=== PATIENT | female | born 1940 | race American Indian/Alaskan Native ===

== ENCOUNTER 2017-10-31 14:06 | Inpatient (IN) | payer MEDICARE, OTHER ==
[2017-10-31 15:02] LABS: BASO % 0.3 % (0.0-2.0); EOS # 0.1 K/uL (0.0-0.7); EOS % 1.7 % (0.0-4.0); LYMPH # 0.9 K/uL (1.0-4.3); LYMPH % 11.1 % (20.0-40.0); MEAN CORPUSCULAR HEMOGLOBIN 28.8 pg (27.0-31.0); MEAN CORPUSCULAR HGB CONC 32.7 g/dL (33.0-37.0); MEAN PLATELET VOLUME 10.7 fL (7.2-11.7); MONO # 0.4 K/uL (0.0-0.8); MONO % 4.4 % (0.0-10.0); NEUT # 6.7 K/uL (1.8-7.0); NEUT % 82.5 % (50.0-75.0); RBC 3.64 Mil/uL (3.80-5.20); RED CELL DISTRIBUTION WIDTH 16.4 % (11.5-14.5); WHITE BLOOD COUNT 8.2 K/uL (4.8-10.8)
[2017-10-31 15:12] LABS: HEMOGLOBIN 10.5 g/dL (11.0-16.0); PROTHROMBIN TIME 11.3 SECONDS (9.7-12.2)
[2017-10-31 15:23] LABS: ALBUMIN 3.8 g/dL (3.5-5.0); CALCIUM 8.9 mg/dl (8.6-10.4)
[2017-10-31 15:32] LABS: SQUAMOUS EPITHIAL 1 /hpf (0-5); URINE BILIRUBIN NEGATIVE (NEGATIVE); URINE BLOOD NEGATIVE (NEGATIVE); URINE CLARITY Clear (Clear); URINE COLOR Straw (YELLOW); URINE GLUCOSE (UA) NORMAL (Normal); URINE LEUKOCYTE ESTERASE TRACE Leu/uL (Negative); URINE PROTEIN 2+ mg/dL (NEGATIVE); URINE UROBILINOGEN NORMAL mg/dL (0.2-1.0)
[2017-10-31 15:32] LABS: CK-MB 1.79 ng/mL (0.0-3.38); TROPONIN I 0.031 ng/mL (0.00-0.120)
--- NOTE | 2017-10-31 15:43 | RAD ---
PROCEDURE: CHEST RADIOGRAPH, 1 VIEW HISTORY: Altered mental status COMPARISON: 10/06/2015. FINDINGS: LUNGS: The lungs are well inflated and clear. PLEURA: No pneumothorax or pleural fluid seen. CARDIOVASCULAR: Normal. OSSEOUS STRUCTURES: No significant abnormalities. VISUALIZED UPPER ABDOMEN: Normal. OTHER FINDINGS: None. IMPRESSION: No active pulmonary disease.
--- NOTE | 2017-10-31 15:45 | RAD ---
PROCEDURE: Right Hip Radiographs. HISTORY: RIGHT HIP PAIN AFTER FALL COMPARISON: None. FINDINGS: BONES: The pelvic ring is intact. There is no acute displaced fracture or bone destruction. Bone alignment is normal. There is diffuse bone demineralization. JOINTS: There is mild degenerative osteoarthrosis in the hip joints. SOFT TISSUES: Normal. OTHER FINDINGS: None. IMPRESSION: No acute displaced fracture or dislocation.Please note occult fractures cannot be excluded on plain radiographs. If there is a persistent clinical concern, an MRI of the hip may be performed for further evaluation.
--- NOTE | 2017-10-31 15:50 | C.PDOC ---
History Of Present Illness Patient brought to ED by daughter for evaluation after several falls since , and mildly slurred speech since tuesday. Daughter states Tuesday she noticed that patient also had mild right sided weakness, however she did not want to come to hospital at this time. Patient denies chest pain, SOB, abdominal pain, nausea/vomiting, dizziness, headache, visual changes, facial droop, sensory changes. PMhx of HTN, hyperlipidemia, Alzheimer's disease, CAD. Time Seen by Provider: 10/31/17 14:29 Chief Complaint (Nursing): Weakness/Neurological Deficit History Per: Patient, Family History/Exam Limitations: no limitations Onset/Duration Of Symptoms: Days (5) Current Symptoms Are (Timing): Still Present Fall Associated With With Symptoms: Yes Past Medical History Reviewed: Historical Data, Nursing Documentation, Vital Signs Vital Signs: Last Vital Signs Temp 98.8 F 11/03/17 08:38 Pulse 75 11/03/17 13:25 Resp 20 11/03/17 13:25 BP 137/72 11/03/17 13:25 Pulse Ox 98 11/03/17 13:25 - Medical History PMH: Arthritis, Atrial Fibrillation (New onset), HTN, Hyperlipidemia, Seizures ( childhood) Surgical History: Back Surgery - [facility] Procedures CORONAR ARTERIOGR-2 CATH (03/13/15) RT & LT HEART ANGIOCARD (03/13/15) RT/LEFT HEART CARD CATH (03/13/15) Family History: States: Other Other Family History: noncontributory - Social History Hx Tobacco Use: No Hx Alcohol Use: No Hx Substance Use: No - Immunization History Hx Tetanus Toxoid Vaccination: No Hx Influenza Vaccination: No Hx Pneumococcal Vaccination: No Review Of Systems Except As Marked, All Systems Reviewed And Found Negative. Constitutional: Negative for: Fever, Chills Cardiovascular: Negative for: Chest Pain, Palpitations Respiratory: Negative for: Shortness of Breath Gastrointestinal: Negative for: Nausea, Vomiting, Abdominal Pain, Diarrhea Musculoskeletal: Positive for: Other (right hip pain ) Skin: Negative for: Rash Neurological: Positive for: Change in Speech (slurred speech). Negative for: Weakness, Numbness, Seizures, Altered Mental Status, Headache, Dizziness Physical Exam - Physical Exam Appears: Well, Non-toxic, No Acute Distress Skin: Normal Color, Warm, Diaphoretic Head: Atraumatic, Normacephalic Eye(s): bilateral: Normal Inspection, PERRL, EOMI Oral Mucosa: Moist Cardiovascular: Rhythm Regular Respiratory: Normal Breath Sounds, No Rales, No Rhonchi, No Wheezing Gastrointestinal/Abdominal: Normal Exam, Bowel Sounds, Soft, No Tenderness Back: Normal Inspection, No CVA Tenderness Extremity: Tenderness (right lateral hip mildly TTP with mild swelling/contusion , no deformity, ROM intact ), No Calf Tenderness Pulses: Left Dorsalis Pedis: Normal, Right Dorsalis Pedis: Normal Neurological/Psych: Oriented x3, No Normal Speech (mildly slurred speech ), Normal Cognition, Normal Cranial Nerves, No Cerebellar Signs, Normal Motor, Normal Sensation, No Dysarthria, No Romberg, Other (normal finger to nose ) ED Course And Treatment - Laboratory Results Result Diagrams: 10/31/17 14:58 11/01/17 13:57 ECG: Interpreted By Me, Viewed By Me (NSR 67 bpm, left axis deviation, no acute ST/T wave changes) O2 Sat by Pulse Oximetry: 100 (RA) Pulse Ox Interpretation: Normal - Other Rad CXR X-Ray: Viewed By Me, Read By Radiologist Interpretation: Accession No. : [id number]. Patient Name / ID : MELISA BROWN / [id number]. Exam Date : 10/31/2017 15:19:07 ( Approved ). Study Comment : Sex / Age : F / 76Y. Creator : Kassie Nash MD. Dictator : Kassie Nash MD. Technical Solutions Consultant : Semiautomatic Stitcher Operator : Kassie Nash MD. Approver2 : Report Date : 10/31/2017 15:42:00. My Comment : . PROCEDURE: CHEST RADIOGRAPH, 1 VIEW. HISTORY: Altered mental status. COMPARISON: . FINDINGS: LUNGS: The lungs are well inflated and clear. PLEURA: No pneumothorax or pleural fluid seen. CARDIOVASCULAR: Normal. OSSEOUS STRUCTURES: No significant abnormalities. VISUALIZED UPPER ABDOMEN: Normal. OTHER FINDINGS: None. IMPRESSION: No active pulmonary disease. - CT Scan/US HIPS/PELVIS XRAY Other Rad Studies (CT/US): Read By Radiologist, Radiology Report Reviewed CT/US Interpretation: Accession No. : [id number]. Patient Name / ID : MELISA BROWN / [id number]. Exam Date : 10/31/2017 15:19:37 ( Approved ). Study Comment : Sex / Age : F / 76Y. Creator : Kassie Nash MD. Dictator : Kassie Nash MD. Technical Solutions Consultant : Semiautomatic Stitcher Operator : Kassie Nash MD. Approver2 : Report Date : 10/31/2017 15:44:00. My Comment : . PROCEDURE: Right Hip Radiographs. HISTORY: RIGHT HIP PAIN AFTER FALL. COMPARISON: None. FINDINGS: BONES: The pelvic ring is intact. There is no acute displaced fracture or bone destruction. Bone alignment is normal. There is diffuse bone demineralization. JOINTS: There is mild degenerative osteoarthrosis in the hip joints. SOFT TISSUES: Normal. OTHER FINDINGS: None. IMPRESSION: No acute displaced fracture or dislocation.Please note occult fractures cannot be excluded on plain radiographs. If there is a persistent clinical concern, an MRI of the hip may be performed for further evaluation. CT HEAD Other Rad Studies (CT/US): Read By Radiologist, Radiology Report Reviewed CT/US Interpretation: Accession No. : [id number]. Patient Name / ID : MELISA BROWN / [id number]. Exam Date : 10/31/2017 15:46:21 ( Approved ). Study Comment : Sex / Age : F / 76Y. Creator : Raina Emmanuel. Dictator : Mushtaq Reza MD. Technical Solutions Consultant : Semiautomatic Stitcher Operator : Mushtaq Reza MD. Approver2 : Report Date : 10/31/2017 16:02:34. My Comment : . PROCEDURE: CT HEAD WITHOUT CONTRAST. HISTORY: SLURRED SPEECH, R/O CVA. COMPARISON: None available. TECHNIQUE: Axial computed tomography images were obtained through the head/brain without intravenous contrast. Radiation dose: Total exam DLP = 937.85 mGy-cm. This CT exam was performed using one or more of the following dose reduction techniques: Automated exposure control, adjustment of the mA and/or kV according to patient size, and/or use of iterative reconstruction technique. FINDINGS: HEMORRHAGE: No intracranial hemorrhage. BRAIN: A right marcelina chronic lacune is identified. Otherwise, diffuse cerebral atrophy is identified, manifest by mild expansion of the ventricular sulcal sternal spaces. There is also lucency in the white matter primarily in the centrum semiovale and periventricular spaces compatible with chronic microangiopathy. There is no mass effect or suspicious extra-axial collection. The midline brain and appears unremarkable exclusive of the marcelina. VENTRICLES: Unremarkable. No hydrocephalus. CALVARIUM: Unremarkable. PARANASAL SINUSES: Incidental left sphenoid sinusitis is mildly appreciated. MASTOID AIR CELLS: Unremarkable as visualized. No inflammatory changes. OTHER FINDINGS: None. IMPRESSION: No acute intracranial findings are identified at this time. Age related neuro degenerative changes are noted which appear age-appropriate, as well as a chronic lacune right marcelina. Follow-up CT or MRI are advised given clinical history of potential brain infarction. Progress Note: Blood work, EKG, CXR, CT head ordered and reviewed. Patient given PO ASA. - Physician Consult Information Physician Contacted: Amanuel Aguilar Outcome Of Conversation: Discussed patient with PMD, agrees with admission for TIA/CVA, slurred speech, recurrent falls. NIHSS Stroke Scale 2 - Date/Time Evaluation Performed Date Performed: 10/31/17 Time Performed: 14:55 When Was NIHSS Performed: Baseline - How Severe is the Stroke Level of Consciousness: 0=Alert LOC to Questions: 0=Both comments correct LOC to commands: 0=Obeys both correctly Best Gaze: 0=Normal Visual: 0=No visual loss Facial: 0=Normal Motor Arm - Left: 0=No drift Motor Arm - Right: 0=No drift Motor Leg - Left: 0=No drift Motor Leg - Right: 0=No drift Limb Ataxia: 0=Absent Sensory: 0=Normal Best Language: 0=No aphasia Dysarthia: 1=Mild to moderate slurring Extinction & Inattention (Neglect): 0=Normal, no object Score: 1 rTPA Inclusion/Exclusion - Refusal of Treatment Patient Refused Treatment: No - Inclusion Criteria for Altepase Patient is 18 years or Older: Yes The Clinical Diagnosis of Ischemic Stroke That is Causing a Potentially Disabling Neurological Deficit: No Time of Onset is Well Established to be Less Than 270 Minute Before Treatment Would Begin: No Risk/Benefit Discussed With Patient/Family Member Present: No Disposition - Disposition Disposition: HOSPITALIZED Disposition Time: 17:59 Condition: STABLE - Clinical Impression Clinical Impression: Recurrent falls, CVA (cerebral vascular accident), Slurred speech Decision To Admit - Pt Status Changed To: Hospital Disposition Of: Inpatient - Admit Certification Admit to Inpatient:: After my assessment, the patient will require hospitalization for at least two midnights. This is because of the severity of symptoms shown, intensity of services needed, and/or the medical risk in this patient being treated as an outpatient. - InPatient: Physician Admission Certification: I certify that this patient requires 2 or more midnights of care for the following reason:: see notes - . Bed Request Type: Telemetry Admitting Physician: Amanuel Aguilar Patient Diagnosis: CVA (cerebral vascular accident), Recurrent falls, Slurred speech
--- NOTE | 2017-10-31 16:23 | CT ---
PROCEDURE: CT HEAD WITHOUT CONTRAST. HISTORY: SLURRED SPEECH, R/O CVA COMPARISON: None available. TECHNIQUE: Axial computed tomography images were obtained through the head/brain without intravenous contrast. Radiation dose: Total exam DLP = 937.85 mGy-cm. This CT exam was performed using one or more of the following dose reduction techniques: Automated exposure control, adjustment of the mA and/or kV according to patient size, and/or use of iterative reconstruction technique. FINDINGS: HEMORRHAGE: No intracranial hemorrhage. BRAIN: A right marcelina chronic lacune is identified. Otherwise, diffuse cerebral atrophy is identified, manifest by mild expansion of the ventricular sulcal sternal spaces. There is also lucency in the white matter primarily in the centrum semiovale and periventricular spaces compatible with chronic microangiopathy. There is no mass effect or suspicious extra-axial collection. The midline brain and appears unremarkable exclusive of the marcelina. VENTRICLES: Unremarkable. No hydrocephalus. CALVARIUM: Unremarkable. PARANASAL SINUSES: Incidental left sphenoid sinusitis is mildly appreciated. MASTOID AIR CELLS: Unremarkable as visualized. No inflammatory changes. OTHER FINDINGS: None. IMPRESSION: No acute intracranial findings are identified at this time. Age related neuro degenerative changes are noted which appear age-appropriate, as well as a chronic lacune right marcelina. Follow-up CT or MRI are advised given clinical history of potential brain infarction.
[2017-10-31] MEDS ORDERED: Naproxen 275 mg Tab PO PRN (19:31)
[2017-10-31 20:12] VITALS: RESP 20
--- NOTE | 2017-10-31 21:35 | CP.PCM.HP ---
History of Present Illness - History of Present Illness History of Present Illness: CC: weakness HPI: Patient brought to ED by daughter for evaluation after several falls since , and mildly slurred speech since tuesday. Daughter states tuesday she noticed that patient also had mild right sided weakness, however she did not want to come to hospital at this time. Patient denies chest pain, SOB, abdominal pain, nausea/vomiting, dizziness, headache, visual changes, facial droop, sensory changes. PMhx of HTN, hyperlipidemia, Alzheimer's disease, CAD. Past Patient History - Infectious Disease Hx of Infectious Diseases: None - Past Medical History & Family History Past Medical History?: Yes - Past Social History Smoking Status: Never Smoked - CARDIAC Hx Atrial Fibrillation: Yes (New onset) Hx Hypertension: Yes - PULMONARY Hx Respiratory Disorders: No - NEUROLOGICAL Hx Seizures: Yes (childhood) - HEENT Hx HEENT Problems: No Other/Comment: WEARS GLASSES - RENAL Hx Chronic Kidney Disease: No - ENDOCRINE/METABOLIC Hx Diabetes Mellitus Type 2: Yes - HEMATOLOGICAL/ONCOLOGICAL Hx Blood Disorders: No - INTEGUMENTARY Hx Dermatological Problems: No - MUSCULOSKELETAL/RHEUMATOLOGICAL Hx Arthritis: Yes - GASTROINTESTINAL Hx Gastrointestinal Disorders: No - GENITOURINARY/GYNECOLOGICAL Hx Genitourinary Disorders: No - PSYCHIATRIC Hx Substance Use: No - SURGICAL HISTORY Hx Surgeries: Yes Hx Orthopedic Surgery: Yes (Back surgery) Other/Comment: Back surgery in 2008 - ANESTHESIA Hx Anesthesia: Yes (Novacaine during tooth extraction) Hx Anesthesia Reactions: No Hx Malignant Hyperthermia: No Meds Allergies/Adverse Reactions: Allergies Allergy/AdvReac Type Severity Reaction Status Date / Time No Known Allergies Allergy Verified 10/06/15 12:18 Results - Vital Signs Recent Vital Signs: Last Vital Signs Temp 98.7 F 10/31/17 17:26 Pulse 89 10/31/17 20:12 Resp 20 10/31/17 20:12 BP 120/90 10/31/17 20:12 Pulse Ox 97 10/31/17 20:12 - Labs Result Diagrams: 10/31/17 14:58 10/31/17 14:58 Labs: Laboratory Results - last 24 hr 10/31/17 10/31/17 10/31/17 14:58 14:58 14:58 WBC 8.2 RBC 3.64 L Hgb 10.5 L D Hct 32.1 L MCV 88.0 D MCH 28.8 MCHC 32.7 L RDW 16.4 H Plt Count 203 MPV 10.7 Neut % (Auto) 82.5 H Lymph % (Auto) 11.1 L [place] % (Auto) 4.4 Eos % (Auto) 1.7 Baso % (Auto) 0.3 Neut # (Auto) 6.7 Lymph # (Auto) 0.9 L [place] # (Auto) 0.4 Eos # (Auto) 0.1 Baso # (Auto) 0.0 PT 11.3 INR 1.0 APTT 28 Sodium 144 Potassium 4.4 Chloride 104 Carbon Dioxide 25 Anion Gap 19 BUN 28 H Creatinine 1.3 H Est GFR ( Amer) 48 Est GFR (Non-Af Amer) 40 Random Glucose 186 H Calcium 8.9 Total Bilirubin 0.6 AST 36 ALT 8 L D Alkaline Phosphatase 62 Total Creatine Kinase 118 CK-MB (Mass) 1.79 Troponin I 0.0310 Total Protein 7.4 Albumin 3.8 Globulin 3.6 Albumin/Globulin Ratio 1.0 Urine Color Urine Clarity Urine pH Ur Specific [place] Urine Protein Urine Glucose (UA) Urine Ketones Urine Blood Urine Nitrate Urine Bilirubin Urine Urobilinogen Ur Leukocyte Esterase Urine WBC (Auto) Urine RBC (Auto) Ur Squamous Epith Cells 10/31/17 15:24 WBC RBC Hgb Hct MCV MCH MCHC RDW Plt Count MPV Neut % (Auto) Lymph % (Auto) [place] % (Auto) Eos % (Auto) Baso % (Auto) Neut # (Auto) Lymph # (Auto) [place] # (Auto) Eos # (Auto) Baso # (Auto) PT INR APTT Sodium Potassium Chloride Carbon Dioxide Anion Gap BUN Creatinine Est GFR ( Amer) Est GFR (Non-Af Amer) Random Glucose Calcium Total Bilirubin AST ALT Alkaline Phosphatase Total Creatine Kinase CK-MB (Mass) Troponin I Total Protein Albumin Globulin Albumin/Globulin Ratio Urine Color Straw Urine Clarity Clear Urine pH 6.0 Ur Specific [place] 1.011 Urine Protein 2+ H Urine Glucose (UA) Normal Urine Ketones Negative Urine Blood Negative Urine Nitrate Negative Urine Bilirubin Negative Urine Urobilinogen Normal Ur Leukocyte Esterase Trace Urine WBC (Auto) 3 Urine RBC (Auto) 1 Ur Squamous Epith Cells 1
[2017-10-31] MEDS: (Novolin R) Insulin Human Regular 100 units/ml vial SC SCH (21:55)
[2017-10-31 22:10] LABS: IRON 25 ug/dL (37-170)
[2017-10-31 22:20] LABS: % IRON SATURATION 7 (20-55); TOTAL IRON BINDING CAPACITY 374 ug/dL (250-450)
[2017-10-31] MEDS: Rosuvastatin Calcium 2.5 mg Tab PO SCH (22:26)
[2017-11-01] MEDS: (Novolin R) Insulin Human Regular 100 units/ml vial SC SCH ×3 (08:00→22:43)
[2017-11-01] MEDS: Metoprolol Succinate 100 mg XL Tab PO SCH (09:02)
[2017-11-01] MEDS: Enoxaparin 40 mg Syringe SC SCH (10:09)
--- NOTE | 2017-11-01 12:16 | MRI ---
PROCEDURE: MRI BRAIN WITHOUT CONTRAST HISTORY: falls COMPARISON: None. TECHNIQUE: Multiplanar, multisequence MR images of the brain were obtained without intravenous contrast enhancement. FINDINGS: HEMORRHAGE: None DWI: No evidence of an acute or early subacute infarction. BRAIN PARENCHYMA: No mass effect or edema. Mild atrophy and chronic microvascular ischemic changes. VENTRICLES: Unremarkable. No hydrocephalus. CRANIUM: Unremarkable. ORBITS: Grossly unremarkable. PARANASAL SINUSES/MASTOIDS: Left sphenoid sinus disease. VASCULAR SYSTEM: Skull base flow voids intact. OTHER FINDINGS: None. IMPRESSION: Mild atrophy and chronic microvascular ischemic changes.
--- NOTE | 2017-11-01 13:02 | VASCLAB ---
PROCEDURE: HISTORY: stenosis COMPARISON: None available. TECHNIQUE: Grayscale and duplex Doppler evaluation of the cervical carotid and vertebral arteries were performed. The common carotid, carotid bifurcations and cervical Internal Carotid Artery (ICA) and proximal External Carotid Artery (ECA) were evaluated. The vertebral arteries were evaluated for gross patency and flow direction. Report prepared by Joey Guzmán, BS, RVT FINDINGS: RIGHT CAROTID ARTERIES: 1. Common Carotid Artery: No significant focal plaque formation of the right common carotid artery. Maximum Peak Systolic velocity: 74 cm/sec: End-diastolic velocity 16 cm/sec. 2. Carotid Bifurcation: Calcific plaque formation. Maximum Peak Systolic velocity: 49 cm/sec: End-diastolic velocity 7 cm/sec. 3. Internal Carotid Artery: Plaque description: 3.1. Proximal Segment: Peak systolic velocity 96 cm/sec: End-diastolic velocity 30 cm/sec - % stenosis 0-15% 3.2. Middle Segment: Peak systolic velocity 63 cm/sec: End-diastolic velocity 16 cm/sec - % stenosis 0-15% 3.3. Distal Segment: Peak systolic velocity 95 cm/sec: End-diastolic velocity 33 cm/sec - % stenosis 0-15% 4. External Carotid Artery: No significant focal plaque formation. Peak systolic velocity 111 cm/sec 5. ICA/CCA Ratio: 1.3 LEFT CAROTID ARTERIES: 1. Common Carotid Artery: No significant focal plaque formation of the left common carotid artery. Maximum Peak Systolic velocity: 56 cm/sec: End-diastolic velocity 16 cm/sec. 2. Carotid Bifurcation: Calcific plaque formation. Maximum Peak Systolic velocity: 57 cm/sec: End-diastolic velocity 17 cm/sec. 3. Internal Carotid Artery: Plaque description: 3.1. Proximal Segment: Peak systolic velocity 64 cm/sec: End-diastolic velocity 22 cm/sec - % stenosis 0-15% 3.2. Middle Segment: Peak systolic velocity 114 cm/sec: End-diastolic velocity 32 cm/sec - % stenosis 0-15% 3.3. Distal Segment: Peak systolic velocity 119 cm/sec: End-diastolic velocity 39 cm/sec - % stenosis 0-15% 4. External Carotid Artery: No significant focal plaque formation. Peak systolic velocity 530 cm/sec 5. ICA/CCA Ratio: 2.1 VERTEBRAL ARTERIES: 1. Right Vertebral Artery: The right vertebral artery flow direction is antegrade. 2. Left Vertebral Artery: The left vertebral artery flow direction is antegrade. OTHER FINDINGS: 1. Right Brachial Blood pressure: 186 mmHg. 2. Left Brachial Blood pressure: mmHg. IMPRESSION: RIGHT: Duplex scan does not suggest hemodynamically significant stenosis of the right extracranial carotid arteries. LEFT: Duplex scan does not suggest hemodynamically significant stenosis of the left extracranial carotid arteries.
[2017-11-01 14:27] LABS: BLOOD UREA NITROGEN 18 mg/dL (7-17); CALCIUM 9.1 mg/dl (8.6-10.4); GFR AFRICAN-AMERICAN > 60; GFR NON-AFRICAN AMERICAN 54; HDL CHOLESTEROL 55 mg/dL (30-70)
[2017-11-01 14:37] LABS: LDL CHOLESTEROL 58 mg/dL (0-129)
[2017-11-01] MEDS: Ferric Sodium Gluconat Complex 62.5 mg/5 ml Vial IVPB SCH (15:09)
--- NOTE | 2017-11-01 17:09 | CARD ---
APPROVED REPORT EKG Measurement Heart [id number] ID [id number] <Conclusion> Normal sinus rhythm Normal ECG
--- NOTE | 2017-11-01 18:22 | CARD ---
APPROVED REPORT EXAM: Two-dimensional and M-mode echocardiogram with Doppler and color Doppler. INDICATION CVA/TIA Dizziness and Vertigo Non STEMI RISK FACTORS Diabetes 2D DIMENSIONS IVSd1.9 (0.7-1.1cm)LVDd4.4 (3.9-5.9cm) PWd1.8 (0.7-1.1cm)LVDs3.1 (2.5-4.0cm) FS (%) 27.9 %LVEF (%)50.0 (>50%) M-Mode DIMENSIONS Left Atrium (MM)3.22 (2.5-4.0cm)Aortic Root3.30 (2.2-3.7cm) Aortic Cusp Exc.2.08 (1.5-2.0cm) Mitral Valve MV E Wopjexpt54.5cm/sMV A Pezwflme81.8cm/sE/A ratio0.5 TDI E/Lateral E'0.0E/Medial E'0.0 LEFT VENTRICLE The left ventricle is normal size. There is moderate concentric left ventricular hypertrophy. Left ventricle systolic function is normal. The Ejection Fraction is 50-55%. There is normal LV segmental wall motion. Tissue Doppler imaging reveals abnormal left ventricular diastolic dysfunction. RIGHT VENTRICLE The right ventricle is normal size. There is normal right ventricular wall thickness. The right ventricular systolic function is normal. ATRIA The left atrium size is normal. The right atrium size is normal. The interatrial septum is intact with no evidence for an atrial septal defect. AORTIC VALVE The aortic valve is normal in structure. There is trace aortic regurgitation. There is no aortic valvular stenosis. There is no aortic valvular vegetation. MITRAL VALVE The mitral valve is normal in structure. There is no evidence of mitral valve prolapse. There is no mitral valve stenosis. Mitral regurgitation is mild. TRICUSPID VALVE The tricuspid valve is normal in structure. There is no tricuspid valve regurgitation noted. There is no tricuspid valve prolapse or vegetation. PULMONIC VALVE The pulmonic valve is not well visualized. There is trace pulmonic valvular regurgitation. GREAT VESSELS The aortic root is normal in size. PERICARDIAL EFFUSION There is no significant pericardial effusion. <Conclusion> Left ventricle systolic function is normal. The Ejection Fraction is 50-55%. Diastolic dysfunction. There is trace aortic regurgitation. Mitral regurgitation is mild. There is no tricuspid valve regurgitation noted. There is trace pulmonic valvular regurgitation.
[2017-11-01] MEDS: Rosuvastatin Calcium 2.5 mg Tab PO SCH (21:35)
--- NOTE | 2017-11-01 23:02 | CP.PCM.PN ---
Subjective - Date & Time of Evaluation Date of Evaluation: 11/01/17 Time of Evaluation: 18:00 - Subjective Subjective: Pt seen and examined at bedside Objective - Vital Signs/Intake and Output Vital Signs (last 24 hours): Temp Pulse Resp BP Pulse Ox 98.0 F 61 20 190/76 H 99 11/01/17 16:00 11/01/17 16:45 11/01/17 16:00 11/01/17 18:34 11/01/17 16:00 Intake and Output: 11/01/17 11/02/17 18:59 06:59 Intake Total 350 500 Balance 350 500 - Medications Medications: Current Medications Aspirin (Aspirin Chewable) 81 mg PO DAILY [facility] Last Admin: 11/01/17 21:35 Dose: 81 mg Clopidogrel Bisulfate (Plavix) 75 mg PO DAILY [facility] Last Admin: 11/01/17 10:09 Dose: 75 mg Enalapril Maleate (Vasotec) 20 mg PO BID [facility] Last Admin: 11/01/17 18:34 Dose: 20 mg Enoxaparin Sodium (Lovenox) 40 mg SC DAILY [facility] Last Admin: 11/01/17 10:09 Dose: 40 mg Famotidine (Pepcid) 20 mg PO DAILY [facility] Last Admin: 11/01/17 10:09 Dose: 20 mg Ferric Sodium Gluconate Complex (Ferrlecit) 125 mg IVPB DAILY [facility] Stop: 11/03/17 14:31 Last Admin: 11/01/17 15:09 Dose: 125 mg Gabapentin (Neurontin) 600 mg PO TID [facility] Last Admin: 11/01/17 18:34 Dose: 600 mg Hydralazine HCl (Apresoline) 25 mg PO Q8 [facility] Last Admin: 11/01/17 21:35 Dose: 25 mg Hydrochlorothiazide (Microzide) 12.5 mg PO DAILY [facility] Last Admin: 11/01/17 10:09 Dose: 12.5 mg Insulin Human Regular (Novolin R) 0 unit SC [facility] PRN Reason: Protocol Last Admin: 11/01/17 22:43 Dose: Not Given Metformin HCl (Glucophage) 500 mg PO BID [facility] Last Admin: 11/01/17 18:34 Dose: 500 mg Metoprolol Succinate (Toprol Xl) 100 mg PO DAILY [facility] Last Admin: 11/01/17 09:02 Dose: Not Given Naproxen (Anaprox) 275 mg PO BID PRN PRN Reason: Pain, moderate (4-7) Pneumococcal Polyvalent Vaccine (Pneumovax 23 Vaccine) 0.5 ml IM .ONCE ONE Stop: 11/02/17 10:01 Rosuvastatin Calcium (Crestor) 2.5 mg PO [facility] Last Admin: 11/01/17 21:35 Dose: 2.5 mg Sitagliptin Phosphate (Januvia) 50 mg PO BID [facility] Last Admin: 11/01/17 18:34 Dose: 50 mg - Labs Labs: 10/31/17 14:58 11/01/17 13:57 PT 11.3 SECONDS (9.7-12.2) 10/31/17 14:58 INR 1.0 10/31/17 14:58 APTT 28 SECONDS (21-34) 10/31/17 14:58
[2017-11-02] MEDS: (Novolin R) Insulin Human Regular 100 units/ml vial SC SCH ×4 (07:37→21:36)
[2017-11-02] MEDS ORDERED: Pneumococcal 23-Valent Vaccine IM ONE (10:00)
[2017-11-02] MEDS: Metoprolol Succinate 100 mg XL Tab PO SCH (10:35)
[2017-11-02] MEDS: Enoxaparin 40 mg Syringe SC SCH ×2 (10:36→10:57)
[2017-11-02] MEDS: Ferric Sodium Gluconat Complex 62.5 mg/5 ml Vial IVPB SCH (10:37)
[2017-11-02] MEDS: Rosuvastatin Calcium 2.5 mg Tab PO SCH (21:13)
--- NOTE | 2017-11-02 23:52 | CP.PCM.PN ---
Subjective - Date & Time of Evaluation Date of Evaluation: 11/02/17 Time of Evaluation: 18:00 - Subjective Subjective: pt seen and examined Objective - Vital Signs/Intake and Output Vital Signs (last 24 hours): Temp Pulse Resp BP Pulse Ox 98.2 F 56 L 20 138/75 100 11/02/17 15:17 11/02/17 23:32 11/02/17 15:17 11/02/17 17:12 11/02/17 15:17 - Medications Medications: Current Medications Aspirin (Aspirin Chewable) 81 mg PO DAILY [facility] Last Admin: 11/02/17 10:44 Dose: 81 mg Clopidogrel Bisulfate (Plavix) 75 mg PO DAILY [facility] Last Admin: 11/02/17 10:35 Dose: 75 mg Enalapril Maleate (Vasotec) 20 mg PO BID [facility] Last Admin: 11/02/17 17:12 Dose: 20 mg Enoxaparin Sodium (Lovenox) 40 mg SC DAILY [facility] Last Admin: 11/02/17 10:57 Dose: Not Given Famotidine (Pepcid) 20 mg PO DAILY [facility] Last Admin: 11/02/17 10:44 Dose: 20 mg Ferric Sodium Gluconate Complex (Ferrlecit) 125 mg IVPB DAILY [facility] Stop: 11/03/17 14:31 Last Admin: 11/02/17 10:37 Dose: 125 mg Gabapentin (Neurontin) 600 mg PO TID [facility] Last Admin: 11/02/17 17:12 Dose: 600 mg Hydralazine HCl (Apresoline) 25 mg PO Q8 [facility] Last Admin: 11/02/17 21:13 Dose: 25 mg Hydrochlorothiazide (Microzide) 12.5 mg PO DAILY [facility] Last Admin: 11/02/17 10:36 Dose: 12.5 mg Insulin Human Regular (Novolin R) 0 unit SC [facility] PRN Reason: Protocol Last Admin: 11/02/17 21:36 Dose: Not Given Metformin HCl (Glucophage) 500 mg PO BID [facility] Last Admin: 11/02/17 17:12 Dose: 500 mg Metoprolol Succinate (Toprol Xl) 100 mg PO DAILY [facility] Last Admin: 11/02/17 10:35 Dose: 100 mg Naproxen (Anaprox) 275 mg PO BID PRN PRN Reason: Pain, moderate (4-7) Rosuvastatin Calcium (Crestor) 2.5 mg PO HS [facility] Last Admin: 11/02/17 21:13 Dose: 2.5 mg Sitagliptin Phosphate (Januvia) 50 mg PO BID [facility] Last Admin: 11/02/17 17:12 Dose: 50 mg - Labs Labs: 10/31/17 14:58 11/01/17 13:57 PT 11.3 SECONDS (9.7-12.2) 10/31/17 14:58 INR 1.0 10/31/17 14:58 APTT 28 SECONDS (21-34) 10/31/17 14:58
[2017-11-03] MEDS: (Novolin R) Insulin Human Regular 100 units/ml vial SC SCH ×2 (07:26→11:30)
[2017-11-03 08:39] VITALS: TEMP 98.8
[2017-11-03] MEDS: Enoxaparin 40 mg Syringe SC SCH (09:03)
[2017-11-03] MEDS: Metoprolol Succinate 100 mg XL Tab PO SCH (09:04)
[2017-11-03] MEDS: Ferric Sodium Gluconat Complex 62.5 mg/5 ml Vial IVPB SCH (09:10)
--- NOTE | 2017-11-03 12:31 | CP.PCM.PN ---
Subjective - Date & Time of Evaluation Date of Evaluation: 11/03/17 Time of Evaluation: 11:00 - Subjective Subjective: Patient seen today, denies any chest pain, sob abdominal pain, N/V/D , c/o LE weakness Objective - Vital Signs/Intake and Output Vital Signs (last 24 hours): Temp Pulse Resp BP Pulse Ox 98.8 F 72 20 129/66 100 11/03/17 08:38 11/03/17 08:38 11/03/17 08:38 11/03/17 09:09 11/03/17 08:38 - Medications Medications: Current Medications Aspirin (Aspirin Chewable) 81 mg PO DAILY [facility] Last Admin: 11/03/17 09:03 Dose: 81 mg Clopidogrel Bisulfate (Plavix) 75 mg PO DAILY [facility] Last Admin: 11/03/17 09:08 Dose: 75 mg Enalapril Maleate (Vasotec) 20 mg PO BID [facility] Last Admin: 11/03/17 09:09 Dose: 20 mg Enoxaparin Sodium (Lovenox) 40 mg SC DAILY [facility] Last Admin: 11/03/17 09:03 Dose: 40 mg Famotidine (Pepcid) 20 mg PO DAILY [facility] Last Admin: 11/03/17 09:03 Dose: 20 mg Ferric Sodium Gluconate Complex (Ferrlecit) 125 mg IVPB DAILY [facility] Stop: 11/03/17 14:31 Last Admin: 11/03/17 09:10 Dose: 125 mg Gabapentin (Neurontin) 600 mg PO TID [facility] Last Admin: 11/03/17 09:04 Dose: 600 mg Hydralazine HCl (Apresoline) 25 mg PO Q8 [facility] Last Admin: 11/03/17 05:46 Dose: 25 mg Hydrochlorothiazide (Microzide) 12.5 mg PO DAILY [facility] Last Admin: 11/03/17 09:03 Dose: 12.5 mg Insulin Human Regular (Novolin R) 0 unit SC ACHS [facility] PRN Reason: Protocol Last Admin: 11/03/17 07:26 Dose: Not Given Metformin HCl (Glucophage) 500 mg PO BID [facility] Last Admin: 11/03/17 10:51 Dose: 500 mg Metoprolol Succinate (Toprol Xl) 100 mg PO DAILY [facility] Last Admin: 11/03/17 09:04 Dose: 100 mg Naproxen (Anaprox) 275 mg PO BID PRN PRN Reason: Pain, moderate (4-7) Rosuvastatin Calcium (Crestor) 2.5 mg PO HS [facility] Last Admin: 11/02/17 21:13 Dose: 2.5 mg Sitagliptin Phosphate (Januvia) 50 mg PO BID [facility] Last Admin: 11/03/17 10:45 Dose: Not Given - Labs Labs: 10/31/17 14:58 11/01/17 13:57 PT 11.3 SECONDS (9.7-12.2) 10/31/17 14:58 INR 1.0 10/31/17 14:58 APTT 28 SECONDS (21-34) 10/31/17 14:58 - Constitutional Appears: Well, No Acute Distress - Respiratory Exam Respiratory Exam: Clear to Ausculation Bilateral, NORMAL BREATHING PATTERN - Cardiovascular Exam Cardiovascular Exam: REGULAR RHYTHM, +S1, +S2 - Neurological Exam Neurological Exam: Alert, Awake, Oriented x3 Assessment and Plan - Assessment and Plan (Free Text) Assessment: A/P 76 yr female with pmhx of HTN, Hyperlipidemia, s/p multiple fall at home admitted with slurred speech and LE weakness MRI-Mild atrophy and chronic microvascular ischemic changes. [id number]% carotid doppler- normal Patient accepted at rehab at [facility] and patient and family in agreement D/w Dr. Aguilar, stable for discharge to [facility] today and Dr. Aguilar will follow the patient at [facility]
[2017-11-03 13:26] VITALS: BP 137/72; PULSE 75
[2017-11-03 22:58] VITALS: O2SAT 100
--- NOTE | 2017-11-03 23:23 | CP.PCM.DIS ---
Provider - Provider Date of Admission: 11/02/17 12:27 Attending physician: Amanuel Aguilar MD Time Spent in preparation of Discharge (in minutes): 52 Hospital Course - Lab Results Lab Results: Micro Results 10/31/17 22:30 Blood Blood Culture - Preliminary NO GROWTH AFTER 3 DAYS 10/31/17 16:30 Blood Blood Culture - Preliminary NO GROWTH AFTER 3 DAYS 10/31/17 Unknown Urine Urine Culture - Final No Growth (<1,000 CFU/ML) Most Recent Lab Values WBC 8.2 K/uL (4.8-10.8) 10/31/17 14:58 RBC 3.64 Mil/uL (3.80-5.20) L 10/31/17 14:58 Hgb 10.5 g/dL (11.0-16.0) L D 10/31/17 14:58 Hct 32.1 % (34.0-47.0) L 10/31/17 14:58 MCV 88.0 fL (81.0-99.0) D 10/31/17 14:58 MCH 28.8 pg (27.0-31.0) 10/31/17 14:58 MCHC 32.7 g/dL (33.0-37.0) L 10/31/17 14:58 RDW 16.4 % (11.5-14.5) H 10/31/17 14:58 Plt Count 203 K/uL (130-400) 10/31/17 14:58 MPV 10.7 fL (7.2-11.7) 10/31/17 14:58 Neut % (Auto) 82.5 % (50.0-75.0) H 10/31/17 14:58 Lymph % (Auto) 11.1 % (20.0-40.0) L 10/31/17 14:58 Nash % (Auto) 4.4 % (0.0-10.0) 10/31/17 14:58 Eos % (Auto) 1.7 % (0.0-4.0) 10/31/17 14:58 Baso % (Auto) 0.3 % (0.0-2.0) 10/31/17 14:58 Neut # (Auto) 6.7 K/uL (1.8-7.0) 10/31/17 14:58 Lymph # (Auto) 0.9 K/uL (1.0-4.3) L 10/31/17 14:58 Nash # (Auto) 0.4 K/uL (0.0-0.8) 10/31/17 14:58 Eos # (Auto) 0.1 K/uL (0.0-0.7) 10/31/17 14:58 Baso # (Auto) 0.0 K/uL (0.0-0.2) 10/31/17 14:58 ESR 55 mm/hr (0-20) H 10/31/17 21:56 PT 11.3 SECONDS (9.7-12.2) 10/31/17 14:58 INR 1.0 10/31/17 14:58 APTT 28 SECONDS (21-34) 10/31/17 14:58 Sodium 142 mmol/L (132-148) 11/01/17 13:57 Potassium 4.2 mmol/L (3.6-5.2) 11/01/17 13:57 Chloride 104 mmol/L (98-107) 11/01/17 13:57 Carbon Dioxide 24 mmol/L (22-30) 11/01/17 13:57 Anion Gap 18 (10-20) 11/01/17 13:57 BUN 18 mg/dL (7-17) H 11/01/17 13:57 Creatinine 1.0 mg/dL (0.7-1.2) 11/01/17 13:57 Est GFR ( Amer) > 60 11/01/17 13:57 Est GFR (Non-Af Amer) 54 11/01/17 13:57 POC Glucose (mg/dL) 116 mg/dL (65-110) H 11/03/17 06:15 Random Glucose 216 mg/dL (65-105) H 11/01/17 13:57 Calcium 9.1 mg/dl (8.6-10.4) 11/01/17 13:57 Iron 25 ug/dL (37-170) L 10/31/17 21:56 TIBC 374 ug/dL (250-450) 10/31/17 21:56 % Saturation 7 (20-55) L 10/31/17 21:56 Total Bilirubin 0.6 mg/dL (0.2-1.3) 10/31/17 14:58 AST 36 U/L (14-36) 10/31/17 14:58 ALT 8 U/L (9-52) L D 10/31/17 14:58 Alkaline Phosphatase 62 U/L (38-126) 10/31/17 14:58 Total Creatine Kinase 118 U/L (30-135) 10/31/17 14:58 CK-MB (Mass) 1.79 ng/mL (0.0-3.38) 10/31/17 14:58 Troponin I 0.0310 ng/mL (0.00-0.120) 10/31/17 14:58 Total Protein 7.4 g/dL (6.3-8.3) 10/31/17 14:58 Albumin 3.8 g/dL (3.5-5.0) 10/31/17 14:58 Globulin 3.6 gm/dL (2.2-3.9) 10/31/17 14:58 Albumin/Globulin Ratio 1.0 (1.0-2.1) 10/31/17 14:58 Triglycerides 143 mg/dL (0-149) 11/01/17 13:57 Cholesterol 157 mg/dL (0-199) 11/01/17 13:57 LDL Cholesterol Direct 58 mg/dL (0-129) 11/01/17 13:57 HDL Cholesterol 55 mg/dL (30-70) 11/01/17 13:57 Urine Color Straw (YELLOW) 10/31/17 15:24 Urine Clarity Clear (Clear) 10/31/17 15:24 Urine pH 6.0 (5.0-8.0) 10/31/17 15:24 Ur Specific [place] 1.011 (1.003-1.030) 10/31/17 15:24 Urine Protein 2+ mg/dL (NEGATIVE) H 10/31/17 15:24 Urine Glucose (UA) Normal mg/dL (Normal) 10/31/17 15:24 Urine Ketones Negative mg/dL (NEGATIVE) 10/31/17 15:24 Urine Blood Negative (NEGATIVE) 10/31/17 15:24 Urine Nitrate Negative (NEGATIVE) 10/31/17 15:24 Urine Bilirubin Negative (NEGATIVE) 10/31/17 15:24 Urine Urobilinogen Normal mg/dL (0.2-1.0) 10/31/17 15:24 Ur Leukocyte Esterase Trace Ronda/uL (Negative) 10/31/17 15:24 Urine WBC (Auto) 3 /hpf (0-5) 10/31/17 15:24 Urine RBC (Auto) 1 /hpf (0-3) 10/31/17 15:24 Ur Squamous Epith Cells 1 /hpf (0-5) 10/31/17 15:24 - Hospital Course Hospital Course: A/P 76 yr female with pmhx of HTN, Hyperlipidemia, s/p multiple fall at home admitted with slurred speech and LE weakness MRI-Mild atrophy and chronic microvascular ischemic changes. [id number]% carotid doppler- normal Patient accepted at rehab at [facility] and patient and family in agreement Pt is stable for discharge to [facility] today and I will follow the patient at [facility] Discharge Plan - Discharge Medications Prescriptions: Ferrous Sulfate 325 mg PO BID 30 Days tablet - Follow Up Plan Condition: STABLE Disposition: REHAB FACILITY/REHAB UNIT Instructions: Heart Healthy Diet, Transient Ischemic Attack (DC), Carbohydrate Counting Diet, Diabetes Diet Additional Instructions: Please admit patient under Dr. Aguilar service - call Dr. Aguilar upon patient arrival to the facility Continue medication as per med. rec. Please do cbc, bmp Tuesday Referrals: Amanuel Aguilar MD [Staff Provider] -
== END 2017-11-03 15:30 | DRG 57 ==
LOC: C.ER 14:06 → INTOOBSV 17:59 → C.9E 17:59 → C.6T 19:51 → OBSVTOIN 11-02 12:27
PROVIDERS: ADMIT Internal Medicine; ATTEND Internal Medicine
DX: G31.89 Other specified degenerative diseases of nervous system (principal); G30.9 Alzheimer's disease, unspecified; F02.80 Dementia in other diseases classified elsewhere, unspecified severity, without behavioral disturbance, psychotic disturbance, mood disturbance, and anxiety; E11.9 Type 2 diabetes mellitus without complications; E78.5 Hyperlipidemia, unspecified; I10 Essential (primary) hypertension; I25.10 Atherosclerotic heart disease of native coronary artery without angina pectoris; I48.91 Unspecified atrial fibrillation; R29.6 Repeated falls; R47.81 Slurred speech

== ENCOUNTER 2018-07-22 11:44 | Emergency (ER) | payer MEDICARE, OTHER ==
[2018-07-22 12:04] VITALS: PULSE 70; RESP 18
--- NOTE | 2018-07-22 12:14 | C.PDOC ---
History Of Present Illness Patient brought in by daughter who has been concerned about a "knot" on her right thoracic paravertebral region, states "I am worried about her kidneys". Patient denies any urinary symptoms, but daughter states "sometimes she has pain in her bladder when she sits down". Daughter also states that she is worried about muscle atrophy in her legs, "she sits in a chair and scoots around, and doesn't use her legs very much". Patient denies any leg pain, but she does have a history of diabetic neuropathy. Daughter is also worried about "tremors", states "when she is sitting still I can see her head moving around, it looks like she is laughing but she is not". Patient denies any other symptoms such as fever, nausea/vomiting/diarrhea, headache, dizziness, chest pain, dyspnea, abdominal pain. Time Seen by Provider: 07/22/18 11:54 Chief Complaint (Nursing): Back Pain Past Medical History Reviewed: Historical Data, Nursing Documentation, Vital Signs Vital Signs: Last Vital Signs Temp 98.7 F 07/22/18 12:00 Pulse 70 07/22/18 12:00 Resp 18 07/22/18 12:00 BP 163/93 H 07/22/18 12:00 Pulse Ox 100 07/22/18 12:00 - Medical History PMH: Arthritis, Atrial Fibrillation (New onset), HTN, Hypercholesterolemia, Hyperlipidemia, Seizures (childhood) Denies: Chronic Kidney Disease Surgical History: Back Surgery, Coronary Stent (3) - [facility] Procedures CORONAR ARTERIOGR-2 CATH (03/13/15) RT & LT HEART ANGIOCARD (03/13/15) RT/LEFT HEART CARD CATH (03/13/15) Family History: States: Unknown Family Hx - Social History Hx Tobacco Use: No Hx Alcohol Use: No Hx Substance Use: No - Immunization History Hx Tetanus Toxoid Vaccination: No Hx Influenza Vaccination: No Hx Pneumococcal Vaccination: No Review Of Systems Except As Marked, All Systems Reviewed And Found Negative. Constitutional: Negative for: Fever, Chills Cardiovascular: Negative for: Chest Pain Respiratory: Negative for: Cough, Shortness of Breath Gastrointestinal: Negative for: Nausea, Vomiting, Abdominal Pain, Diarrhea Genitourinary: Negative for: Dysuria, Frequency, Incontinence Musculoskeletal: Positive for: Back Pain (R thoracic paravertebral) Skin: Negative for: Rash Neurological: Negative for: Numbness, Altered Mental Status, Headache, Dizziness Physical Exam - Physical Exam Appears: Well, Non-toxic, No Acute Distress Skin: Normal Color, Warm, Dry Head: Atraumatic, Normacephalic Eye(s): bilateral: Normal Inspection Oral Mucosa: Moist Neck: Normal Chest: Symmetrical Cardiovascular: Rhythm Regular Respiratory: Normal Breath Sounds, No Accessory Muscle Use Gastrointestinal/Abdominal: Normal Exam, Soft, No Tenderness Back: Normal Inspection, No CVA Tenderness, Muscle Spasm (R thoracic) Extremity: Normal ROM, No Pedal Edema, No Calf Tenderness, No Swelling Neurological/Psych: Oriented x3 Gait: With Assistance ED Course And Treatment - Laboratory Results Result Diagrams: 07/22/18 12:30 07/22/18 12:30 ECG: Interpreted By Me ECG Rhythm: Sinus Rhythm Interpretation Of ECG: normal axis, normal interval, no ST/T changes Rate From EC O2 Sat by Pulse Oximetry: 100 Medical Decision Making Medical Decision Making: Labs and urine done which were unremarkable, results discussed with patient and daughter. Case discussed with Dr. Aguilar who states that he is not coming in to see the patient in the ED, she can be discharged home and can follow up with him in the office in two days. Patient and daughter amenable to this plan. Advised her to return to the ED for any new or worsening symptoms in the meantime. Disposition - Disposition Disposition: HOME/ ROUTINE Disposition Time: 14:53 Condition: STABLE Additional Instructions: KEVIN VINCENT, thank you for letting us take care of you today. Your provider was Angeline Jain MD and you were treated for SENT BY PMD. The emergency medical care you received today was directed at your acute symptoms. If you were prescribed any medication, please fill it and take as directed. It may take several days for your symptoms to resolve. Return to the Emergency Department if your symptoms worsen, do not improve, or if you have any other problems. Please contact your doctor or call one of the physicians/clinics you have been referred to that are listed on the Patient Visit Information form that is included in your discharge packet. Bring any paperwork you were given at discharge with you along with any medications you are taking to your follow up visit. Our treatment cannot replace ongoing medical care by a primary care prov ider outside of the emergency department. Thank you for allowing the [facility] team to be part of your care today. If you had an X-Ray or CT scan: A Radiologist will review the ED reading if any change in treatment is needed we will contact you. If you had a blood, urine, or wound culture: It will take several days for the results, if any change in treatment is needed we will contact you. If you had an STI test: It will take 48 hours for the results. Please call after 1 week if you have not heard back. Instructions: Generalized Weakness (DC) Forms: lettrs (Estonian) - Clinical Impression Clinical Impression: Thoracic back pain, Muscle atrophy of lower extremity
[2018-07-22 12:33] LABS: BASO % 0.7 % (0.0-2.0); EOS # 0.1 K/uL (0.0-0.7); EOS % 1.2 % (0.0-4.0); LYMPH # 0.8 K/uL (1.0-4.3); LYMPH % 12.7 % (20.0-40.0); MEAN CORPUSCULAR HEMOGLOBIN 31.5 pg (27.0-31.0); MEAN CORPUSCULAR HGB CONC 33.3 g/dL (33.0-37.0); MEAN PLATELET VOLUME 10.1 fL (7.2-11.7); MONO # 0.2 K/uL (0.0-0.8); MONO % 3.9 % (0.0-10.0); NEUT % 81.5 % (50.0-75.0); RBC 4.47 Mil/uL (3.80-5.20); RED CELL DISTRIBUTION WIDTH 14.7 % (11.5-14.5); WHITE BLOOD COUNT 6.1 K/uL (4.8-10.8)
[2018-07-22 12:34] LABS: HEMOGLOBIN 14.1 g/dL (11.0-16.0); MEAN CELL VOLUME 94.6 fL (81.0-99.0)
[2018-07-22 12:49] LABS: ALB/GLOB RATIO 1.3 (1.0-2.1); ALBUMIN 4.4 g/dL (3.5-5.0); CALCIUM 8.7 mg/dl (8.6-10.4)
[2018-07-22 13:01] LABS: SQUAMOUS EPITHIAL 4 /hpf (0-5); URINE BACTERIA RARE (<OCC); URINE BILIRUBIN NEGATIVE (NEGATIVE); URINE BLOOD NEGATIVE (NEGATIVE); URINE CLARITY Clear (Clear); URINE COLOR Yellow (YELLOW); URINE GLUCOSE (UA) NORMAL (Normal); URINE LEUKOCYTE ESTERASE TRACE Leu/uL (Negative); URINE PROTEIN 3+ mg/dL (NEGATIVE)
[2018-07-22 14:50] VITALS: BP 147/74; TEMP 98.9
[2018-07-22 20:49] VITALS: O2SAT 100
--- NOTE | 2018-07-24 13:33 | CARD ---
APPROVED REPORT Date of service: 07/22/2018 EKG Measurement Heart [id number] <Conclusion> Normal sinus rhythm Possible Anterior infarct, age undetermined Abnormal ECG
== END 2018-07-22 15:20 | disposition home or self-care (01) ==
LOC: C.ER 11:44
DX: M54.6 Pain in thoracic spine (principal); M62.569 Muscle wasting and atrophy, not elsewhere classified, unspecified lower leg; I10 Essential (primary) hypertension; I48.91 Unspecified atrial fibrillation; E78.00 Pure hypercholesterolemia, unspecified; E11.40 Type 2 diabetes mellitus with diabetic neuropathy, unspecified
CPT/HCPCS: 80053; 81001; 82948; 83735; 84100; 85025; 93005; 96374; 99285; J1885

== ENCOUNTER 2018-07-24 13:49 | Inpatient (IN) | payer MEDICARE, OTHER ==
[2018-07-24 13:58] VITALS: BMI 30.7
--- NOTE | 2018-07-24 14:52 | C.PDOC ---
History Of Present Illness The patient is a 77 year old female who was evaluated in this ED two days ago for complaints of back and neck pain. Patient underwent a workup, her case was discussed with Dr. Aguilar, and she was discharged home. Patient states that as she was exiting the ED, she felt her vision darken and close in as she became weak and lightheaded. Patient denies syncopal episodes. Patient then went home and denies any other symptoms afterwards. Patient followed up with Dr. Aguilar today and informed him of this incident. Dr. Aguilar has sent the patient for evaluation of near-syncope and admission to telemetry for observation. Patient currently reports mild generalized weakness but otherwise denies chest pain, palpitations or any other complaints at this time. Patient has history of diabetic neuropathy, and has numbness to her bilateral hands and feet. PMD: Dr. Aguilar Time Seen by Provider: 07/24/18 14:08 Chief Complaint (Nursing): Dizziness/Lightheaded History Per: Patient History/Exam Limitations: no limitations Onset/Duration Of Symptoms: Days (2) Current Symptoms Are (Timing): Better Fall Associated With With Symptoms: No Additional History Per: Patient Past Medical History Reviewed: Historical Data, Nursing Documentation, Vital Signs Vital Signs: Last Vital Signs Temp 98.7 F 07/24/18 13:53 Pulse 65 07/24/18 13:53 Resp 18 07/24/18 13:53 BP 162/80 H 07/24/18 13:53 Pulse Ox 100 07/24/18 13:53 - Medical History PMH: Arthritis, Atrial Fibrillation, HTN, Hypercholesterolemia, Hyperlipidemia, Seizures (childhood) Denies: Chronic Kidney Disease Surgical History: Back Surgery, Coronary Stent (3) - [facility] Procedures CORONAR ARTERIOGR-2 CATH (03/13/15) RT & LT HEART ANGIOCARD (03/13/15) RT/LEFT HEART CARD CATH (03/13/15) Family History: States: Unknown Family Hx - Social History Hx Tobacco Use: No Hx Alcohol Use: No Hx Substance Use: No - Immunization History Hx Tetanus Toxoid Vaccination: No Hx Influenza Vaccination: No Hx Pneumococcal Vaccination: No Review Of Systems Constitutional: Positive for: Weakness Cardiovascular: Negative for: Chest Pain, Palpitations Neurological: Positive for: Other (lightheadedness ) Physical Exam - Physical Exam Appears: Non-toxic, No Acute Distress Skin: Normal Color, Warm, Dry Head: Atraumatic, Normacephalic Eye(s): bilateral: Normal Inspection, PERRL, EOMI Oral Mucosa: Moist Neck: Supple Chest: Symmetrical, No Deformity, No Tenderness Cardiovascular: Rhythm Regular, No Murmur Respiratory: Normal Breath Sounds, No Rales, No Rhonchi, No Wheezing Extremity: Normal ROM, Capillary Refill (less than 2 seconds ) Neurological/Psych: Oriented x3, Normal Speech, Normal Cognition, Other (mild sensory loss to bilateral hands and feet (hx of diabetic neuropathy)) Gait: Steady ED Course And Treatment - Laboratory Results Result Diagrams: 07/24/18 14:54 07/24/18 14:54 Lab Interpretation: No Acute Changes ECG: Interpreted By Me ECG Rhythm: Sinus Rhythm ECG Interpretation: Normal O2 Sat by Pulse Oximetry: 100 (on RA) Pulse Ox Interpretation: Normal Progress Note: Bloodwork, urinalysis, EKG ordered and reviewed. Reevaluation Time: 15:34 Reassessment Condition: Improved (Patient remains comfortable in ED) - Physician Consult Information Time Consulting Physician Contacted: 15:34 Physician Contacted: Amanuel Aguilar Outcome Of Conversation: Patient to be [facility] for near syncope. Disposition - Disposition Disposition: HOSPITALIZED Disposition Time: 15:35 Condition: STABLE - POA Present On Arrival: None - Clinical Impression Clinical Impression: Near syncope - Scribe Statement The provider has reviewed the documentation as recorded by the Scribe (Rachna Purvis) Provider Attestation: All medical record entries made by the Scribe were at my direction and persona lly dictated by me. I have reviewed the chart and agree that the record accurately reflects my personal performance of the history, physical exam, medical decision making, and the department course for this patient. I have also personally directed, reviewed, and agree with the discharge instructions and disposition.
[2018-07-24 15:00] LABS: BASO # 0.1 K/uL (0.0-0.2); BASO % 0.8 % (0.0-2.0); EOS # 0.1 K/uL (0.0-0.7); HEMOGLOBIN 13.4 g/dL (11.0-16.0); LYMPH # 1.2 K/uL (1.0-4.3); LYMPH % 17.2 % (20.0-40.0); MEAN CELL VOLUME 95.2 fL (81.0-99.0); MEAN CORPUSCULAR HEMOGLOBIN 31.6 pg (27.0-31.0); MEAN CORPUSCULAR HGB CONC 33.3 g/dL (33.0-37.0); MEAN PLATELET VOLUME 10.4 fL (7.2-11.7); MONO # 0.3 K/uL (0.0-0.8); MONO % 4.3 % (0.0-10.0); NEUT # 5.4 K/uL (1.8-7.0); NEUT % 75.7 % (50.0-75.0); RBC 4.24 Mil/uL (3.80-5.20); RED CELL DISTRIBUTION WIDTH 14.2 % (11.5-14.5); WHITE BLOOD COUNT 7.1 K/uL (4.8-10.8)
[2018-07-24 15:21] LABS: ALB/GLOB RATIO 1.3 (1.0-2.1); ALBUMIN 4.7 g/dL (3.5-5.0); ALT/SGPT < 6 U/L (9-52); AST/SGOT 41 U/L (14-36); BLOOD UREA NITROGEN 23 mg/dL (7-17); CALCIUM 9.4 mg/dl (8.6-10.4); GFR NON-AFRICAN AMERICAN 54
[2018-07-24 15:26] LABS: SQUAMOUS EPITHIAL 4 /hpf (0-5); URINE BILIRUBIN NEGATIVE (NEGATIVE); URINE BLOOD NEGATIVE (NEGATIVE); URINE CLARITY Clear (Clear); URINE COLOR Yellow (YELLOW); URINE GLUCOSE (UA) NORMAL (Normal); URINE LEUKOCYTE ESTERASE 1+ Leu/uL (Negative); URINE PROTEIN 2+ mg/dL (NEGATIVE); URINE UROBILINOGEN NORMAL mg/dL (0.2-1.0)
[2018-07-24] MEDS: (Novolin R) Insulin Human Regular 100 units/ml vial SC SCH ×2 (17:06→22:05)
--- NOTE | 2018-07-24 22:56 | CP.PCM.HP ---
Past Patient History - Infectious Disease Hx of Infectious Diseases: None - Past Medical History & Family History Past Medical History?: Yes - Past Social History Smoking Status: Never Smoked - CARDIAC Hx Atrial Fibrillation: Yes Hx Hypercholesterolemia: Yes Hx Hypertension: Yes - PULMONARY Hx Respiratory Disorders: No - NEUROLOGICAL Hx Seizures: Yes (childhood) - HEENT Other/Comment: WEARS GLASSES - RENAL Hx Chronic Kidney Disease: No - ENDOCRINE/METABOLIC Hx Endocrine Disorders: Yes Hx Diabetes Mellitus Type 2: Yes - HEMATOLOGICAL/ONCOLOGICAL Hx Blood Disorders: No - INTEGUMENTARY Hx Dermatological Problems: No - MUSCULOSKELETAL/RHEUMATOLOGICAL Hx Arthritis: Yes - GASTROINTESTINAL Hx Gastrointestinal Disorders: No - GENITOURINARY/GYNECOLOGICAL Hx Genitourinary Disorders: No - PSYCHIATRIC Hx Substance Use: No - SURGICAL HISTORY Hx Coronary Stent: Yes (3) - ANESTHESIA Hx Anesthesia: Yes (Novacaine during tooth extraction) Hx Anesthesia Reactions: No Hx Malignant Hyperthermia: No Meds Allergies/Adverse Reactions: Allergies Allergy/AdvReac Type Severity Reaction Status Date / Time gabapentin AdvReac Verified 07/24/18 13:57 pregabalin [From Lyrica] AdvReac Verified 07/24/18 13:57 Results - Vital Signs Recent Vital Signs: Last Vital Signs Temp 97.8 F 07/24/18 20:34 Pulse 64 07/24/18 20:34 Resp 20 07/24/18 20:34 BP 177/91 H 07/24/18 20:34 Pulse Ox 98 07/24/18 20:34 - Labs Result Diagrams: 07/24/18 14:54 07/24/18 15:29 Labs: Laboratory Results - last 24 hr 07/24/18 07/24/18 07/24/18 14:54 14:54 15:17 WBC 7.1 RBC 4.24 Hgb 13.4 Hct 40.3 MCV 95.2 MCH 31.6 H MCHC 33.3 RDW 14.2 Plt Count 206 MPV 10.4 Neut % (Auto) 75.7 H Lymph % (Auto) 17.2 L Wetzel % (Auto) 4.3 Eos % (Auto) 2.0 Baso % (Auto) 0.8 Neut # (Auto) 5.4 Lymph # (Auto) 1.2 Wetzel # (Auto) 0.3 Eos # (Auto) 0.1 Baso # (Auto) 0.1 Sodium 139 Potassium 6.1 H Chloride 105 Carbon Dioxide 26 Anion Gap 15 BUN 23 H Creatinine 1.0 Est GFR ( Amer) > 60 Est GFR (Non-Af Amer) 54 POC Glucose (mg/dL) Random Glucose 126 H Calcium 9.4 Magnesium 1.9 Total Bilirubin 1.6 H AST 41 H D ALT < 6 L D Alkaline Phosphatase 58 Total Protein 8.4 H Albumin 4.7 Globulin 3.7 Albumin/Globulin Ratio 1.3 Urine Color Yellow Urine Clarity Clear Urine pH 5.0 Ur Specific [place] 1.011 Urine Protein 2+ H Urine Glucose (UA) Normal Urine Ketones Trace Urine Blood Negative Urine Nitrate Negative Urine Bilirubin Negative Urine Urobilinogen Normal Ur Leukocyte Esterase 1+ H Urine WBC (Auto) 3 Urine RBC (Auto) 1 Ur Squamous Epith Cells 4 07/24/18 07/24/18 07/24/18 15:29 16:59 21:59 WBC RBC Hgb Hct MCV MCH MCHC RDW Plt Count MPV Neut % (Auto) Lymph % (Auto) Wetzel % (Auto) Eos % (Auto) Baso % (Auto) Neut # (Auto) Lymph # (Auto) Wetzel # (Auto) Eos # (Auto) Baso # (Auto) Sodium Potassium 4.6 Chloride Carbon Dioxide Anion Gap BUN Creatinine Est GFR ( Amer) Est GFR (Non-Af Amer) POC Glucose (mg/dL) 134 H 222 H Random Glucose Calcium Magnesium Total Bilirubin AST ALT Alkaline Phosphatase Total Protein Albumin Globulin Albumin/Globulin Ratio Urine Color Urine Clarity Urine pH Ur Specific [place] Urine Protein Urine Glucose (UA) Urine Ketones Urine Blood Urine Nitrate Urine Bilirubin Urine Urobilinogen Ur Leukocyte Esterase Urine WBC (Auto) Urine RBC (Auto) Ur Squamous Epith Cells
[2018-07-25] MEDS: (Novolin R) Insulin Human Regular 100 units/ml vial SC SCH ×4 (08:01→23:07)
[2018-07-25] MEDS: Enoxaparin 40 mg Syringe SC SCH (09:15)
[2018-07-25] MEDS ORDERED: Metoprolol Succinate 100 mg XL Tab PO SCH (10:00)
--- NOTE | 2018-07-25 23:21 | CP.PCM.PN ---
Subjective - Subjective Subjective: dictated Objective - Vital Signs/Intake and Output Vital Signs (last 24 hours): Temp Pulse Resp BP Pulse Ox 97.9 F 54 L 20 112/50 L 99 07/25/18 15:15 07/25/18 18:44 07/25/18 15:15 07/25/18 17:26 07/25/18 20:00 - Medications Medications: Current Medications Aspirin (Aspirin Chewable) 81 mg PO DAILY [facility] Last Admin: 07/25/18 09:15 Dose: 81 mg Clopidogrel Bisulfate (Plavix) 75 mg PO DAILY [facility] Last Admin: 07/25/18 09:15 Dose: 75 mg Enalapril Maleate (Vasotec) 20 mg PO BID [facility] Last Admin: 07/25/18 17:26 Dose: 20 mg Enoxaparin Sodium (Lovenox) 40 mg SC DAILY [facility] Last Admin: 07/25/18 09:15 Dose: 40 mg Famotidine (Pepcid) 20 mg PO DAILY [facility] Last Admin: 07/25/18 09:15 Dose: 20 mg Ferrous Sulfate (Feosol) 325 mg PO BID [facility] Last Admin: 07/25/18 17:26 Dose: 325 mg Gabapentin (Neurontin) 600 mg PO TID [facility] Hydralazine HCl (Apresoline) 25 mg PO Q8 [facility] Last Admin: 07/25/18 21:17 Dose: 25 mg Hydrochlorothiazide (Microzide) 12.5 mg PO DAILY [facility] Last Admin: 07/25/18 09:15 Dose: 12.5 mg Ibuprofen (Motrin Tab) 600 mg PO Q6H PRN PRN Reason: Pain, Mild (1-3) Last Admin: 07/25/18 21:40 Dose: 600 mg Insulin Human Regular (Novolin R) 0 unit SC [facility]; Protocol Last Admin: 07/25/18 23:07 Dose: Not Given Metformin HCl (Glucophage) 500 mg PO BID [facility] Last Admin: 07/25/18 17:26 Dose: 500 mg Metoprolol Succinate (Toprol Xl) 100 mg PO DAILY [facility] Last Admin: 07/25/18 09:15 Dose: 100 mg Rosuvastatin Calcium (Crestor) 5 mg PO HS [facility] Last Admin: 07/25/18 21:17 Dose: 5 mg Sitagliptin Phosphate (Januvia) 50 mg PO DAILY [facility] Last Admin: 07/25/18 09:15 Dose: 50 mg - Labs Labs: 07/24/18 14:54 07/24/18 15:29
--- NOTE | 2018-07-26 01:18 | PN ---
DATE: 07/25/2018 SUBJECTIVE: The patient is still weak, and she is afebrile. She had bradycardia. She is still dizzy. No fever. No dysuria. PHYSICAL EXAMINATION: VITAL SIGNS: Blood pressure 131/74, pulse 65, respiratory rate 20, and temperature 98.1, earlier heart rate was down to 56. LUNGS: Bilaterally clear. No rales. No rhonchi. CARDIOVASCULAR SYSTEM: S1 and S2, regular. ABDOMEN: Soft and nontender. Bowel sounds are positive. CENTRAL NERVOUS SYSTEM: Awake, alert and oriented x3. ASSESSMENT: 1. Dizziness, near syncope. 2. Hypertension. 3. Type 2 diabetes. 4. Hyperlipidemia. PLAN: Continue current medications. MRI, carotid Doppler, and echocardiogram. Amanuel Aguilar MD
--- NOTE | 2018-07-26 04:10 | HP ---
CHIEF COMPLAINT: Dizziness, weakness, near syncope. HISTORY OF PRESENT ILLNESS: This is a 77-year-old female with history of type 2 diabetes with peripheral neuropathy, well known to me, on insulin, hypertension, hyperlipidemia, osteoarthritis, recent memory losses, and she has two-day history of dizziness, near syncope. On the day prior to the admission, the patient stood up in her bathroom and she felt dizzy and she fell down to the sidewall and sat down, and she called the family, and she was brought back into the bed. She had some weakness, dizziness. She denies any chest pain. She denies any dyspnea on exertion, orthopnea or PND. She denies any history of polyuria, polydipsia, or polyphagia. She denies any history of hematuria or pyuria. She also had back pain or neck pain. She had burning in the feet bilaterally. The patient was seen in the ER before, sent home, she came back. The patient is weak. She is lightheaded. She has admitted she has never passed out completely. The patient denies any history of fever, chills, or rigors. She has back pain. She denies any history of trauma, fall, or loss of consciousness. No seizure like activity. She has tingling, numbness, and paresthesias of the feet. PAST MEDICAL HISTORY: Type 2 diabetes with neuropathy, on insulin; hypertension; hyperlipidemia; osteoarthritis. Negative for atrial fibrillation. SOCIAL HISTORY: She is a nonsmoker, non EtOH user. CURRENT MEDICATIONS AT HOME: She is on hydralazine, metformin, hydrochlorothiazide, Januvia, Pravachol, , Toprol-XL, Humulin R, Neurontin, ferrous sulfate, Pepcid, Vasotec, Plavix, aspirin. PHYSICAL EXAMINATION: GENERAL: An elderly female, in no acute distress. She is forgetful. She is weak. She is drowsy. VITAL SIGNS: Blood pressure 177/91, pulse 64, respiratory rate 20, temperature 97.8. SKIN: No rashes. No bruises. No purpura. HEENT: Atraumatic, normocephalic. Negative pallor. Negative jaundice. Extraocular movements are intact. NECK: Supple. No JVD. No lymph nodes. CHEST WALL: Bilateral symmetrical expansion. LUNGS: Bilaterally clear. No rales. No rhonchi. CARDIOVASCULAR SYSTEM: S1 and S2 are regular. No heave or thrill. ABDOMEN: Soft, nontender. Bowel sounds are positive. RECTAL: No masses. No bleed. EXTREMITIES: No clubbing, cyanosis, or edema. CENTRAL NERVOUS SYSTEM: Awake, alert, and oriented x3. Cranial nerves II through XII are normal. Power 5/5 x4. Plantars are downgoing. Decreased sensation. ASSESSMENT: 1. Dizziness, near syncope, rule out cardiac arrhythmia, rule out vasovagal syncope, rule out portal hypertension. 2. Hypertension. 3. Type 2 diabetes, poorly controlled. 4. Rule out Alzheimer's. PLAN: Admit. Detail orders are written. Seen and examined. Amanuel Aguilar MD
[2018-07-26] MEDS: (Novolin R) Insulin Human Regular 100 units/ml vial SC SCH ×3 (08:31→17:44)
[2018-07-26] MEDS: Metoprolol Succinate 50 mg XL Tab PO SCH (09:09)
[2018-07-26] MEDS: Enoxaparin 40 mg Syringe SC SCH (09:09)
[2018-07-26 14:30] LABS: CALCIUM 9.6 mg/dl (8.6-10.4)
--- NOTE | 2018-07-26 14:51 | CARD ---
APPROVED REPORT Date of service: 07/26/2018 EXAM: Two-dimensional and M-mode echocardiogram with Doppler and color Doppler. Other Information Quality : GoodRhythm : INDICATION Cardiac Disease: CAD Syncope RISK FACTORS Hypertension 2D DIMENSIONS LA [id number] (18-58mL)LVEF (Huerta's)54.66 % M-Mode DIMENSIONS Left Atrium (MM)3.30 (2.5-4.0cm)IVSd1.31 (0.7-1.1cm) Aortic Root3.56 (2.2-3.7cm)LVDd5.76 (4.0-5.6cm) Aortic Cusp Exc.1.97 (1.5-2.0cm)PWd0.95 (0.7-1.1cm) FS (%) 25 %LVDs4.30 (2.0-3.8cm) LVEF (%)55 (>50%) Mitral Valve MV E Odwgcnnv58.5cm/sMV A Uddjoqhe26.2cm/sE/A ratio0.5 TDI Lateral E' Peak V5.90cm/sMedial E' Peak V3.83cm/sE/Lateral E'7.9 E/Medial E'12.1 LEFT VENTRICLE There is borderline concentric left ventricular hypertrophy. The left ventricular systolic function is normal. There is normal LV segmental wall motion. Transmitral Doppler flow pattern is Grade I-abnormal relaxation pattern. Normal left atrial pressure RIGHT VENTRICLE The right ventricle is normal size. The right ventricular systolic function is normal. ATRIA The left atrial index is mildly increased. The right atrium size is normal. AORTIC VALVE The aortic valve is normal in structure. No aortic regurgitation is present. There is no aortic valvular stenosis. MITRAL VALVE The mitral valve is normal in structure. Mitral annular calcification is borderline. There is no mitral valve regurgitation noted. TRICUSPID VALVE The tricuspid valve is normal in structure. There is no tricuspid valve regurgitation noted. PULMONIC VALVE The pulmonary valve is normal in structure. GREAT VESSELS The aortic root is normal in size. The IVC is normal in size and collapses >50% with inspiration. PERICARDIAL EFFUSION There is no pericardial effusion. There is no pericardial effusion. <Conclusion> The left ventricular systolic function is normal. There is normal LV segmental wall motion. Grade I diastolic dysfunction - abnormal relaxation pattern. Normal left atrial pressure The right ventricular systolic function is normal. No significant valvular abnormality. No pericardial effusion.
--- NOTE | 2018-07-26 16:35 | MRI ---
Date of service: 07/26/2018 PROCEDURE: MRI BRAIN WITHOUT CONTRAST HISTORY: dementia COMPARISON: Unenhanced brain MRI 11/01/2017. TECHNIQUE: Multiplanar, multisequence MR images of the brain were obtained without intravenous contrast enhancement. FINDINGS: Limitations: Excessive motion artifacts across numerous sequences. HEMORRHAGE: None DWI: No evidence of an acute or early subacute infarction. BRAIN PARENCHYMA: Diffuse cerebral atrophy chronic microangiopathy remain age appropriate and are stable in the interval. Multifocal chronic lacunes are identified bilaterally at the marcelina as well as potentially at the optic radiation distribution versus dilated perivascular spaces in the cerebrum. Posterior fossa contents remain stable and unremarkable. There is no mass effect. VENTRICLES: Unremarkable. No hydrocephalus. CRANIUM: Unremarkable. ORBITS: Grossly unremarkable. PARANASAL SINUSES/MASTOIDS: Clear VASCULAR SYSTEM: Skull base flow voids intact. OTHER FINDINGS: None. IMPRESSION: No acute brain infarction or definitive intracranial hemorrhage. Age-related degenerative findings are identified as discussed above and chronic lacunes are seen at the marcelina once again. Dilated perisplenic difficult to differentiate from potential chronic lacune is at the bilateral optic radiations of the cerebrum. Multifocal dilated perivascular spaces are identified at the cerebral white matter once again nevertheless.
--- NOTE | 2018-07-26 16:48 | MRI ---
Date of service: 07/26/2018 PROCEDURE: MR LUMBAR SPINE WITHOUT CONTRAST HISTORY: back pain/ s/p surgery COMPARISON: None available. TECHNIQUE: Multiecho multiplanar sequences were performed through the lumbar spine without the use of intravenous contrast. FINDINGS: Normal lumbar curvature is interrupted by grade 1 spondylolisthesis at L2-3 with L2 slightly posterior to L3 at L4-5 with L4 slightly anterior to L5. Wall spondylolysis difficult to excluded L2-3, etiology is clearly marked facet arthropathy at L4-5. No acute fractures appreciable with advanced endplate degenerative changes are present at L1-2 and is incidentally noted most advanced at the T11-12 level with gross osteophyte development appreciable anteriorly. Vertebral body heights are preserved. Marrow signal unremarkable. Conus medullaris unremarkable at the level of L1 inferior endplate. Prevertebral and paraspinal soft tissues are unremarkable. T12-L1: No disc herniation, spinal canal stenosis or neural foraminal narrowing. L1-2: Although there is a large circumferential disc osteophyte complexes greater anteriorly than posteriorly, no definitive significant stenosis appreciated resulting involving the central canal and there is no disc herniation appreciated either. Moderate degenerative left but no right neural foraminal stenosis appreciated. L2-3: Grade once spondylolisthesis results in mild degenerative central canal stenosis with gross facet arthropathy also contributing to this finding. Moderate to severe left and mild right neural foraminal stenoses are identified due to asymmetry in degenerative facet joint changes and a variability of spondylolisthesis. No disc herniation identified. L3-4: A circumferential disc bulge is appreciate with small left lateral disc protrusion encroaching the descending nerve roots laterally and further narrowing the lateral recess with only mild generalized central stenosis identified. Borderline bilateral neural foraminal stenosis is appreciated. No moderate or large disc herniation. L4-5: Grade 1 spondylolisthesis as well as prominent facet joint degenerative changes causes severe central canal stenosis as well as moderate bilateral degenerative neural foraminal stenosis. No disc herniation evident grossly. Circumferential disc osteophyte complex is also identified. No disc herniation identified. Moderate bilateral degenerative neural foraminal stenosis. L5-S1: No large circumferential disc bulge is appreciate combined with prominent facet arthropathy with only borderline bilateral neural foraminal stenosis appreciated no central canal stenosis. Patient status post at least partial left hemilaminectomy decompressing the central canal. OTHER FINDINGS: None. IMPRESSION: 1. Severe degenerative spinal stenosis is identified at the central canal at L4-5 due to grade 1 spondylolisthesis and marked facet joint degenerative arthropathy without disc herniation. Moderate bilateral degenerative neural foraminal stenosis also identified. 2. Small left lateral disc protrusion overlies generalized disc bulge at L3-4 with left greater than right lateral recess stenosis resulting. 3. Prior partial left hemicolectomy is identified at the least at L5-S1 decompressing the central canal. No significant neural foraminal stenosis although disc bulge and gross facet joint degenerative changes are seen at this level. 4. Mild degenerative spinal stenosis stenosis at L2-3 related to grade 1 spondylolisthesis and degenerative changes.
--- NOTE | 2018-07-26 23:05 | CP.PCM.PN ---
Subjective - Subjective Subjective: dictated Objective - Vital Signs/Intake and Output Vital Signs (last 24 hours): Temp Pulse Resp BP Pulse Ox 97.9 F 69 20 101/56 L 97 07/26/18 15:34 07/26/18 15:34 07/26/18 15:34 07/26/18 17:43 07/26/18 20:00 - Medications Medications: Current Medications Aspirin (Aspirin Chewable) 81 mg PO DAILY [facility] Last Admin: 07/26/18 09:09 Dose: 81 mg Ciprofloxacin (Cipro) 500 mg PO BID [facility]; Protocol Stop: 07/29/18 18:01 Last Admin: 07/26/18 17:44 Dose: 500 mg Clopidogrel Bisulfate (Plavix) 75 mg PO DAILY [facility] Last Admin: 07/26/18 09:09 Dose: 75 mg Enalapril Maleate (Vasotec) 20 mg PO BID [facility] Last Admin: 07/26/18 17:43 Dose: 20 mg Enoxaparin Sodium (Lovenox) 40 mg SC DAILY [facility] Last Admin: 07/26/18 09:09 Dose: 40 mg Famotidine (Pepcid) 20 mg PO DAILY [facility] Last Admin: 07/26/18 09:09 Dose: 20 mg Ferrous Sulfate (Feosol) 325 mg PO BID [facility] Last Admin: 07/26/18 17:43 Dose: 325 mg Hydralazine HCl (Apresoline) 25 mg PO Q8 [facility] Last Admin: 07/26/18 13:51 Dose: 25 mg Hydrochlorothiazide (Microzide) 12.5 mg PO DAILY [facility] Last Admin: 07/26/18 09:09 Dose: 12.5 mg Ibuprofen (Motrin Tab) 600 mg PO Q6H PRN PRN Reason: Pain, Mild (1-3) Last Admin: 07/26/18 17:48 Dose: 600 mg Insulin Human Regular (Novolin R) 0 unit SC [facility]; Protocol Last Admin: 07/26/18 17:44 Dose: 1 unit Metformin HCl (Glucophage) 500 mg PO BID [facility] Last Admin: 07/26/18 17:44 Dose: 500 mg Metoprolol Succinate (Toprol Xl) 50 mg PO DAILY [facility] Last Admin: 07/26/18 09:09 Dose: 50 mg Rosuvastatin Calcium (Crestor) 5 mg PO HS [facility] Last Admin: 07/25/18 21:17 Dose: 5 mg Sitagliptin Phosphate (Januvia) 50 mg PO DAILY [facility] Last Admin: 07/26/18 09:08 Dose: 50 mg - Labs Labs: 07/24/18 14:54 07/26/18 14:02
--- NOTE | 2018-07-27 01:35 | PN ---
DATE: 07/26/2018 SUBJECTIVE: The patient denies any syncope. She feels better. The patient is for to discharge to telemetry to be discontinued. She has no back pain. She has numbness, tingling, and burning in both feet and legs. Her blood pressure is on the lower side. No fever. No chills. PHYSICAL EXAMINATION: VITAL SIGNS: Blood pressure is 101/56, pulse 69, respiratory rate 20, temperature 99.9. LUNGS: Clear. No rales. No rhonchi. CARDIOVASCULAR SYSTEM: S1 and S2 are regular. ABDOMEN: Soft. Nontender. Bowel sounds are positive. ASSESSMENT: 1. Lumbar disk disease. 2. Spinal stenosis. The patient had an MRI of the brain and MRI of the lumbar spine done, and the patient is found to have multiple disk degeneration and disk bulges and severe spinal stenosis. The patient is for neurosurgical evaluation. Also, the patient underwent an MRI of the brain, which does not show so far the patient has encephalomalacia which is most likely due to hypertension. PLAN: Neurosurgical evaluation. Monitor the patient. Amanuel Aguilar MD
[2018-07-27] MEDS: (Novolin R) Insulin Human Regular 100 units/ml vial SC SCH ×4 (07:48→21:36)
--- NOTE | 2018-07-27 09:49 | CP.PCM.PN ---
Subjective - Date & Time of Evaluation Date of Evaluation: 07/27/18 Time of Evaluation: 09:47 - Subjective Subjective: consult dictated for decompressive laminectomy L1-L5 Tuesday if medically clear need to stop all antiplatlet/anticoagulation today Objective - Vital Signs/Intake and Output Vital Signs (last 24 hours): Temp Pulse Resp BP Pulse Ox 98.4 F 60 20 168/75 H 98 07/27/18 07:00 07/27/18 07:00 07/27/18 07:00 07/27/18 07:00 07/27/18 07:00 - Medications Medications: Current Medications Aspirin (Aspirin Chewable) 81 mg PO DAILY [facility] Last Admin: 07/26/18 09:09 Dose: 81 mg Ciprofloxacin (Cipro) 500 mg PO BID [facility]; Protocol Stop: 07/29/18 18:01 Last Admin: 07/26/18 17:44 Dose: 500 mg Clopidogrel Bisulfate (Plavix) 75 mg PO DAILY [facility] Last Admin: 07/26/18 09:09 Dose: 75 mg Enalapril Maleate (Vasotec) 20 mg PO BID [facility] Last Admin: 07/26/18 17:43 Dose: 20 mg Enoxaparin Sodium (Lovenox) 40 mg SC DAILY [facility] Last Admin: 07/26/18 09:09 Dose: 40 mg Famotidine (Pepcid) 20 mg PO DAILY [facility] Last Admin: 07/26/18 09:09 Dose: 20 mg Ferrous Sulfate (Feosol) 325 mg PO BID [facility] Last Admin: 07/26/18 17:43 Dose: 325 mg Hydrochlorothiazide (Microzide) 12.5 mg PO DAILY [facility] Last Admin: 07/26/18 09:09 Dose: 12.5 mg Ibuprofen (Motrin Tab) 600 mg PO Q6H PRN PRN Reason: Pain, Mild (1-3) Last Admin: 07/26/18 17:48 Dose: 600 mg Insulin Human Regular (Novolin R) 0 unit SC [facility]; Protocol Last Admin: 07/27/18 07:48 Dose: Not Given Metformin HCl (Glucophage) 500 mg PO BID [facility] Last Admin: 07/26/18 17:44 Dose: 500 mg Metoprolol Succinate (Toprol Xl) 50 mg PO DAILY [facility] Last Admin: 07/26/18 09:09 Dose: 50 mg Rosuvastatin Calcium (Crestor) 5 mg PO [facility] Last Admin: 07/25/18 21:17 Dose: 5 mg Sitagliptin Phosphate (Januvia) 50 mg PO DAILY [facility] Last Admin: 07/26/18 09:08 Dose: 50 mg - Labs Labs: 07/24/18 14:54 07/26/18 14:02
--- NOTE | 2018-07-27 10:18 | CARD ---
APPROVED REPORT Date of service: 07/24/2018 EKG Measurement Heart [id number] <Conclusion> Normal sinus rhythm Normal ECG
[2018-07-27] MEDS: Metoprolol Succinate 50 mg XL Tab PO SCH (10:25)
[2018-07-27] MEDS: Enoxaparin 40 mg Syringe SC SCH (10:27)
--- NOTE | 2018-07-27 13:31 | VASCLAB ---
Date of service: 07/26/2018 PROCEDURE: Carotid Duplex Exam. HISTORY: Carotid stenosis COMPARISON: None available. TECHNIQUE: Grayscale and duplex Doppler evaluation of the cervical carotid and vertebral arteries were performed. The common carotid, carotid bifurcations and cervical Internal Carotid Artery (ICA) and proximal External Carotid Artery (ECA) were evaluated. The vertebral arteries were evaluated for gross patency and flow direction. Report prepared by Joey Guzmán, BS, RVT FINDINGS: RIGHT CAROTID ARTERIES: 1. Common Carotid Artery: No significant focal plaque formation of the right common carotid artery. Maximum Peak Systolic velocity: 75 cm/sec: End-diastolic velocity 9 cm/sec. 2. Carotid Bifurcation: plaque formation. Maximum Peak Systolic velocity: 66 cm/sec: End-diastolic velocity 5 cm/sec. 3. Internal Carotid Artery: Plaque description: 3.1. Proximal Segment: Peak systolic velocity 106 cm/sec: End-diastolic velocity 23 cm/sec - % stenosis 0-15% 3.2. Middle Segment: Peak systolic velocity 62 cm/sec: End-diastolic velocity 13 cm/sec - % stenosis 0-15% 3.3. Distal Segment: Peak systolic velocity 115 cm/sec: End-diastolic velocity 25 cm/sec - % stenosis 0-15% 4. External Carotid Artery: No significant focal plaque formation. Peak systolic velocity 123 cm/sec 5. ICA/CCA Ratio: 1.5* LEFT CAROTID ARTERIES: 1. Common Carotid Artery: No significant focal plaque formation of the left common carotid artery. Maximum Peak Systolic velocity: 80 cm/sec: End-diastolic velocity 19 cm/sec. 2. Carotid Bifurcation: plaque formation. Maximum Peak Systolic velocity: 70 cm/sec: End-diastolic velocity 16 cm/sec. 3. Internal Carotid Artery: Plaque description: 3.1. Proximal Segment: Peak systolic velocity 59 cm/sec: End-diastolic velocity 20 cm/sec - % stenosis 0-15% 3.2. Middle Segment: Peak systolic velocity 92 cm/sec: End-diastolic velocity 20 cm/sec - % stenosis 0-15% 3.3. Distal Segment: Peak systolic velocity 131 cm/sec: End-diastolic velocity 30 cm/sec - % stenosis 0-15% 4. External Carotid Artery: No significant focal plaque formation. Peak systolic velocity 431 cm/sec 5. ICA/CCA Ratio: 1.6 VERTEBRAL ARTERIES: 1. Right Vertebral Artery: The right vertebral artery flow direction is antegrade. 2. Left Vertebral Artery: The left vertebral artery flow direction is antegrade. OTHER FINDINGS: 1. Right Brachial Blood pressure: 132 mmHg. 2. Left Brachial Blood pressure: 134 mmHg. 3. No atherosclerotic calcification present IMPRESSION: RIGHT: Duplex scan does not suggest hemodynamically significant stenosis of the right extracranial carotid arteries. LEFT: Duplex scan does not suggest hemodynamically significant stenosis of the left extracranial carotid arteries.
--- NOTE | 2018-07-27 14:33 | CP.PCM.PCO ---
Physician Communication Note - Physician Communication Note Physician Communication Note: Moderate Cardiac risk for spinal decompression, No further cardiac workup.
[2018-07-27] MEDS: Aritificial Tears (15ml) OU PRN (14:56)
--- NOTE | 2018-07-27 23:11 | CP.PCM.PN ---
Subjective - Subjective Subjective: dictated Objective - Vital Signs/Intake and Output Vital Signs (last 24 hours): Temp Pulse Resp BP Pulse Ox 97.9 F 87 20 130/70 97 07/27/18 15:53 07/27/18 15:53 07/27/18 15:53 07/27/18 17:43 07/27/18 19:20 Intake and Output: 07/27/18 07/28/18 18:59 06:59 Intake Total 350 400 Balance 350 400 - Medications Medications: Current Medications Artificial Tears (Artificial Tears) 1 ml OU BID PRN PRN Reason: Dry eyes Last Admin: 07/27/18 14:56 Dose: 2 drop Aspirin (Aspirin Chewable) 81 mg PO DAILY [facility] Last Admin: 07/27/18 10:27 Dose: Not Given Ciprofloxacin (Cipro) 500 mg PO BID [facility]; Protocol Stop: 07/29/18 18:01 Last Admin: 07/27/18 17:36 Dose: 500 mg Clopidogrel Bisulfate (Plavix) 75 mg PO DAILY [facility] Last Admin: 07/27/18 10:28 Dose: Not Given Enalapril Maleate (Vasotec) 20 mg PO BID [facility] Last Admin: 07/27/18 17:43 Dose: 20 mg Enoxaparin Sodium (Lovenox) 40 mg SC DAILY [facility] Last Admin: 07/27/18 10:27 Dose: Not Given Famotidine (Pepcid) 20 mg PO DAILY [facility] Last Admin: 07/27/18 10:25 Dose: 20 mg Ferrous Sulfate (Feosol) 325 mg PO BID [facility] Last Admin: 07/27/18 17:40 Dose: 325 mg Hydrochlorothiazide (Microzide) 12.5 mg PO DAILY [facility] Last Admin: 07/27/18 10:25 Dose: 12.5 mg Ibuprofen (Motrin Tab) 600 mg PO Q6H PRN PRN Reason: Pain, Mild (1-3) Last Admin: 07/27/18 19:12 Dose: 600 mg Insulin Human Regular (Novolin R) 0 unit SC [facility]; Protocol Last Admin: 07/27/18 21:36 Dose: Not Given Metformin HCl (Glucophage) 500 mg PO BID [facility] Last Admin: 07/27/18 17:36 Dose: 500 mg Metoprolol Succinate (Toprol Xl) 50 mg PO DAILY [facility] Last Admin: 07/27/18 10:25 Dose: 50 mg Rosuvastatin Calcium (Crestor) 5 mg PO [facility] Last Admin: 07/27/18 21:38 Dose: 5 mg Sitagliptin Phosphate (Januvia) 50 mg PO DAILY [facility] Last Admin: 07/27/18 10:25 Dose: 50 mg - Labs Labs: 07/24/18 14:54 07/26/18 14:02
--- NOTE | 2018-07-27 23:21 | CP.PCM.PCO ---
Physician Communication Note - Physician Communication Note Physician Communication Note: medically stable for or with average risk
--- NOTE | 2018-07-27 23:52 | CON ---
DATE: 07/27/2018 CARDIOLOGY CONSULTATION REASON FOR CONSULTATION: Preoperative evaluation. HISTORY OF PRESENT ILLNESS: The patient is a 77-year-old female who has a history of hypertension, hyperlipidemia, diabetes mellitus, history of coronary artery disease with history of coronary stenting to circumflex artery in the summer of 2014. The patient also had a history of stroke last year. She presented because of back pain and neck pain as well as lightheadedness. The patient denies any recent fainting. Lumbar spinal canal MRI revealed severe degenerative spinal stenosis at the central canal at L4-L5 due to grade 1 spondylolisthesis. The patient was evaluated by a neurosurgeon, Dr. Elkins and the patient is scheduled for decompressive laminectomy of L1-L5 on Tuesday if medically cleared. The patient denies any retrosternal chest pain, palpitation, or shortness of breath. SOCIAL HISTORY: Nonsmoker. She lives by herself. MEDICATIONS: Aspirin 81 mg once a day, Cipro 500 mg twice a day, Crestor 5 mg once a day, Feosol one tablet once a day, Januvia 50 mg once a day, Lovenox 40 mg subcutaneous once a day, hydrochlorothiazide 12.5 mg daily, Plavix 75 mg once a day, Toprol-XL 50 mg daily, and enalapril 20 mg twice a day. REVIEW OF SYSTEMS: No nausea or vomiting. No fever or chills. No hematemesis or melena. PAST MEDICAL HISTORY: Hypertension; diabetes mellitus; hyperlipidemia; coronary artery disease, status post coronary stenting; previous history of CVA. PHYSICAL EXAMINATION: GENERAL: The patient is an elderly female, who does not appear to be in acute distress. VITAL SIGNS: Blood pressure 168/75, heart rate 60, temperature 98.4, and respirations 20. HEENT: Normocephalic. CHEST: Minimal rhonchi. HEART: S1 and S2, regular. ABDOMEN: Soft. EXTREMITIES: No pedal edema. LABORATORY DATA: Hemoglobin and hematocrit 15.4 and 40.3, white count and platelet count are within normal limits. SMA-7; sodium 138, potassium 4.5, chloride 102, CO2 25, glucose 110, BUN 20, creatinine 1.1. TSH level is within normal limits. EKG revealed normal sinus rhythm. Echocardiographic study revealed normal left ventricular systolic function, normal wall motion, grade 1 abnormal relaxation pattern, and normal right ventricular systolic function. ASSESSMENT: 1. Severe degenerative spinal stenosis at the central canal at L4-5. 2. History of coronary artery disease with history of coronary artery stenting in the summer of 2014 to a proximal circumflex artery stenosis. 3. Hypertension and diabetes mellitus. RECOMMENDATIONS: Hold aspirin, Plavix, and subcutaneous Lovenox. Continue oral Cipro. Continue Crestor at 5 mg once a day, Pepcid 20 mg once a day, Toprol-XL 50 mg once a day, Lasix 20 mg twice a day. The patient can undergo decompression laminectomy with moderate cardiac risk, close preoperative blood pressure monitoring with postoperative telemetry/ICU monitoring and resumption of beta-maria del carmen therapy postoperatively. Otilio Coreas MD
--- NOTE | 2018-07-28 01:50 | PN ---
DATE: 07/27/2018 SUBJECTIVE: The patient is medically stable for OR. The patient has been seen by Cardiology. The patient is afebrile. No shortness of breath. No chest pain. She has a history of workup in the past for coronary artery disease and the patient workup has been negative. PHYSICAL EXAMINATION: VITAL SIGNS: Blood pressure 131/71, pulse 87, respiratory rate 20, temperature 97.9. LUNGS: Clear. CARDIOVASCULAR SYSTEM: S1 and S2, regular. ABDOMEN: Soft. ASSESSMENT: 1. Spinal stenosis. The patient is for operating room. 2. Type 2 diabetes. 3. Hypertension. 4. Hyperlipidemia. PLAN: OR in a.m. Amanuel Aguilar MD
--- NOTE | 2018-07-28 06:41 | CON ---
DATE: 07/27/2018 HISTORY OF PRESENT ILLNESS: This is a 77-year-old black female admitted to the emergency room several days ago with complaint of back and neck pain, had a workup as an outpatient. She had a near syncopal event and was brought into the hospital for admission. She now complains of severe back pain with pain radiating down in leg. She can hardly walk because of the pain. She is a diabetic with diabetic neuropathy in both arms and legs with numbness in arms and legs. She has coronary artery disease, status post cath and stents. She at this point continues to complain of severe back pain and leg pain. Her exam at this point finds that she has a relatively good strength in all muscle groups, has some stocking numbness in her legs. Reflexes are absent. I did not ambulate her. She has severe lumbar tenderness. The MRI of the lumbar spine find severe stenosis from L1-L2 down to L4-L5 inclusive. I discussed with her various treatment options and she wishes for definitive treatment and she is medically cleared. Based on that, I have recommended the decompression laminectomy L1 through L5. I explained to her the risks, benefits, and alternatives. I told her that the surgery will not completely alleviate her pain, but will help reduce it. She understands and agrees. If she is medically cleared we will proceed Tuesday. She is on antiplatelet medications which needs to be stopped today. Pending medical clearance we will proceed. Chuy Elkins MD
[2018-07-28 07:20] LABS: PROTHROMBIN TIME 11.2 SECONDS (9.7-12.2)
[2018-07-28] MEDS: (Novolin R) Insulin Human Regular 100 units/ml vial SC SCH ×4 (07:30→22:20)
[2018-07-28] MEDS: Aritificial Tears (15ml) OU PRN (10:28)
[2018-07-28] MEDS: Metoprolol Succinate 50 mg XL Tab PO SCH (10:31)
--- NOTE | 2018-07-28 16:36 | PN ---
DATE: 07/28/2018 SUBJECTIVE: The patient is experiencing lower back pain and right-sided hip pain. The patient denies any substernal chest pain. PHYSICAL EXAMINATION: VITAL SIGNS: Blood pressure 150/90, heart rate 58, temperature 98, respirations 20. HEENT: Normocephalic. CHEST: Clear. HEART: S1 and S2 regular. EXTREMITIES: No edema. LABORATORY DATA: Today's blood sugars 139 and 154. Echocardiography study revealed normal left systolic function and normal segmental wall motion and grade 1 abnormal relaxation pattern. Normal right ventricular systolic function. ASSESSMENT: 1. Coronary artery disease with history of coronary stenting to circumflex artery in 2014. 2. Severe degenerative spinal stenosis at the central canal at level L1-L4. 3. Hypertension and diabetes mellitus. RECOMMENDATIONS: Continue Cipro 500 mg twice a day, Crestor 5 mg once a day, Feosol 1 tablet twice a day, Glucophage 500 mg twice a day, hydrochlorothiazide 12.5 mg once a day. Aspirin, Plavix and Lovenox are all on hold for neurosurgery on Tuesday. In the meantime, continue Lasix 20 mg twice a day. Otilio Coreas MD
--- NOTE | 2018-07-28 21:51 | CP.PCM.PN ---
Subjective - Subjective Subjective: dictated Objective - Vital Signs/Intake and Output Vital Signs (last 24 hours): Temp Pulse Resp BP Pulse Ox 98.1 F 67 20 148/72 98 07/28/18 15:00 07/28/18 15:00 07/28/18 15:00 07/28/18 17:31 07/28/18 15:00 Intake and Output: 07/28/18 07/29/18 18:59 06:59 Intake Total 350 Balance 350 - Medications Medications: Current Medications Artificial Tears (Artificial Tears) 1 ml OU BID PRN PRN Reason: Dry eyes Last Admin: 07/28/18 10:28 Dose: 2 drop Aspirin (Aspirin Chewable) 81 mg PO DAILY [facility] Last Admin: 07/27/18 10:27 Dose: Not Given Ciprofloxacin (Cipro) 500 mg PO BID [facility]; Protocol Stop: 07/29/18 18:01 Last Admin: 07/28/18 17:31 Dose: 500 mg Clopidogrel Bisulfate (Plavix) 75 mg PO DAILY [facility] Last Admin: 07/27/18 10:28 Dose: Not Given Enalapril Maleate (Vasotec) 20 mg PO BID [facility] Last Admin: 07/28/18 17:31 Dose: 20 mg Enoxaparin Sodium (Lovenox) 40 mg SC DAILY [facility] Last Admin: 07/27/18 10:27 Dose: Not Given Famotidine (Pepcid) 20 mg PO DAILY [facility] Last Admin: 07/28/18 10:31 Dose: 20 mg Ferrous Sulfate (Feosol) 325 mg PO BID [facility] Last Admin: 07/28/18 17:31 Dose: 325 mg Hydrochlorothiazide (Microzide) 12.5 mg PO DAILY [facility] Last Admin: 07/28/18 10:31 Dose: 12.5 mg Ibuprofen (Motrin Tab) 600 mg PO Q6H PRN PRN Reason: Pain, Mild (1-3) Last Admin: 07/28/18 21:09 Dose: 600 mg Insulin Human Regular (Novolin R) 0 unit SC [facility]; Protocol Last Admin: 07/28/18 16:30 Dose: Not Given Metformin HCl (Glucophage) 500 mg PO BID [facility] Last Admin: 07/28/18 17:31 Dose: 500 mg Metoprolol Succinate (Toprol Xl) 50 mg PO DAILY [facility] Last Admin: 01/04/19 10:31 Dose: 50 mg Rosuvastatin Calcium (Crestor) 5 mg PO HS [facility] Last Admin: 07/28/18 21:06 Dose: 5 mg Sitagliptin Phosphate (Januvia) 50 mg PO DAILY [facility] Last Admin: 07/28/18 10:31 Dose: 50 mg - Labs Labs: 07/24/18 14:54 07/26/18 14:02 PT 11.2 SECONDS (9.7-12.2) 07/28/18 06:49 INR 1.0 07/28/18 06:49 APTT 31 SECONDS (21-34) 07/28/18 06:49
[2018-07-29] MEDS: (Novolin R) Insulin Human Regular 100 units/ml vial SC SCH ×4 (07:40→21:16)
[2018-07-29] MEDS: Metoprolol Succinate 50 mg XL Tab PO SCH (09:56)
[2018-07-29] MEDS: Aritificial Tears (15ml) OU PRN (10:23)
--- NOTE | 2018-07-29 17:38 | PN ---
DATE: 07/29/2018 SUBJECTIVE: The patient denies any chest pain or shortness of breath. PHYSICAL EXAMINATION: VITAL SIGNS: Blood pressure 156/99, heart rate 60, temperature 97.9, respirations 20. HEENT: Normocephalic. CHEST: Clear. HEART: S1 and S2 regular. EXTREMITIES: Trace leg edema. LABORATORY DATA: Today's blood sugars 148 and 138. ASSESSMENT: 1. Severe degenerative spinal stenosis at the central canal at level L4-L5. 2. Coronary artery disease, status post coronary artery stenting to proximal circumflex artery in 2014. 3. Hypertension. 4. Uncontrolled diabetes mellitus. RECOMMENDATIONS: The case was discussed with the anesthesiology team. The patient will be maintained on Crestor 5 mg once a day, hydrochlorothiazide 12.5 mg once a day, Toprol-XL 50 mg once daily, Vasotec 20 mg once a day, aspirin and Plavix and Lovenox were all on hold, however, according to the staff pharmacist, the patient will be rescheduled for Tuesday. Otilio Coreas MD
--- NOTE | 2018-07-29 21:05 | CP.PCM.PN ---
Subjective - Subjective Subjective: dictated Objective - Vital Signs/Intake and Output Vital Signs (last 24 hours): Temp Pulse Resp BP Pulse Ox 98.6 F 66 20 161/51 H 96 07/29/18 15:00 07/29/18 15:00 07/29/18 15:00 07/29/18 17:48 07/29/18 15:00 - Medications Medications: Current Medications Artificial Tears (Artificial Tears) 1 ml OU BID PRN PRN Reason: Dry eyes Last Admin: 07/29/18 10:23 Dose: 2 drop Aspirin (Aspirin Chewable) 81 mg PO DAILY [facility] Last Admin: 07/27/18 10:27 Dose: Not Given Clopidogrel Bisulfate (Plavix) 75 mg PO DAILY [facility] Last Admin: 07/27/18 10:28 Dose: Not Given Enalapril Maleate (Vasotec) 20 mg PO BID [facility] Last Admin: 07/29/18 17:48 Dose: 20 mg Enoxaparin Sodium (Lovenox) 40 mg SC DAILY [facility] Last Admin: 07/27/18 10:27 Dose: Not Given Famotidine (Pepcid) 20 mg PO DAILY [facility] Last Admin: 07/29/18 09:55 Dose: 20 mg Ferrous Sulfate (Feosol) 325 mg PO BID [facility] Last Admin: 07/29/18 17:48 Dose: 325 mg Hydrochlorothiazide (Microzide) 12.5 mg PO DAILY [facility] Last Admin: 07/29/18 09:57 Dose: 12.5 mg Ibuprofen (Motrin Tab) 600 mg PO Q6H PRN PRN Reason: Pain, Mild (1-3) Last Admin: 07/28/18 21:09 Dose: 600 mg Insulin Human Regular (Novolin R) 0 unit SC [facility]; Protocol Last Admin: 07/29/18 17:15 Dose: Not Given Metformin HCl (Glucophage) 500 mg PO BID [facility] Last Admin: 07/29/18 17:48 Dose: 500 mg Metoprolol Succinate (Toprol Xl) 50 mg PO DAILY [facility] Last Admin: 07/29/18 09:56 Dose: 50 mg Rosuvastatin Calcium (Crestor) 5 mg PO [facility] Last Admin: 07/28/18 21:06 Dose: 5 mg Sitagliptin Phosphate (Januvia) 50 mg PO DAILY [facility] Last Admin: 07/29/18 09:56 Dose: 50 mg - Labs Labs: 07/24/18 14:54 07/26/18 14:02 PT 11.2 SECONDS (9.7-12.2) 07/28/18 06:49 INR 1.0 07/28/18 06:49 APTT 31 SECONDS (21-34) 07/28/18 06:49
--- NOTE | 2018-07-30 02:29 | PN ---
DATE: 07/29/2018 SUBJECTIVE: The patient is for OR, medically stable for OR. No fever. No chills. PHYSICAL EXAMINATION: VITAL SIGNS: Blood pressure 136/50, pulse 55, respiratory rate 20, temperature 98. LUNGS: Clear. ABDOMEN: Soft, nontender. Bowel sounds are positive. CENTRAL NERVOUS SYSTEM: Normal. ASSESSMENT: 1. Spinal radiculopathy, Operative Room on Tuesday. 2. Hypertension. 3. Diabetes. 4. Peripheral neuropathy. PLAN: Continue current medications. Monitor the patient. Amanuel Aguilar MD
--- NOTE | 2018-07-30 02:34 | PN ---
DATE: 07/29/2018 SUBJECTIVE: The patient is for OR on Tuesday. No fever. No chills. PHYSICAL EXAMINATION: VITAL SIGNS: Blood pressure 161/51, pulse 66, respiratory rate 20, temperature 98.6. LUNGS: Clear. CARDIOVASCULAR SYSTEM: S1 and S2 are regular. ABDOMEN: Soft. CENTRAL NERVOUS SYSTEM: The patient has numbness and decreased type temperature sensation on the lateral aspect of right leg. ASSESSMENT: 1. Lumbar radiculopathy with spinal stenosis, for operating room on Tuesday. 2. Type 2 diabetes. 3. Hypertension. 4. Hyperlipidemia. PLAN: OR on Tuesday. Amanuel Aguilar MD
[2018-07-30] MEDS: (Novolin R) Insulin Human Regular 100 units/ml vial SC SCH ×4 (08:05→22:11)
[2018-07-30 08:35] LABS: BASO % 0.8 % (0.0-2.0); EOS # 0.2 K/uL (0.0-0.7); EOS % 3.2 % (0.0-4.0); HEMOGLOBIN 12.4 g/dL (11.0-16.0); LYMPH # 1.1 K/uL (1.0-4.3); LYMPH % 19.5 % (20.0-40.0); MEAN CELL VOLUME 94.5 fL (81.0-99.0); MEAN CORPUSCULAR HGB CONC 33.8 g/dL (33.0-37.0); MEAN PLATELET VOLUME 10.5 fL (7.2-11.7); MONO # 0.3 K/uL (0.0-0.8); MONO % 5.4 % (0.0-10.0); NEUT # 3.8 K/uL (1.8-7.0); NEUT % 71.1 % (50.0-75.0); RBC 3.86 Mil/uL (3.80-5.20); RED CELL DISTRIBUTION WIDTH 14.1 % (11.5-14.5); WHITE BLOOD COUNT 5.4 K/uL (4.8-10.8)
[2018-07-30 08:36] LABS: INR 1.1; PROTHROMBIN TIME 11.5 SECONDS (9.7-12.2)
[2018-07-30 08:56] LABS: CALCIUM 9.2 mg/dl (8.6-10.4)
[2018-07-30] MEDS: Metoprolol Succinate 50 mg XL Tab PO SCH (09:33)
--- NOTE | 2018-07-30 20:08 | PN ---
DATE: 07/30/2018 SUBJECTIVE: The patient denies any chest pain or shortness of breath. She complains of bilateral leg numbness. PHYSICAL EXAMINATION: VITAL SIGNS: Blood pressure 142/64, heart rate 57, temperature 98.3, and respirations 18. HEENT: Normocephalic. CHEST: Clear. HEART: S1 and S2 regular. EXTREMITIES: Trace leg edema. LABORATORY DATA: Today's hemoglobin and hematocrit 12.4 and 36.5, white count and platelet count are within normal limits. Today's SMA-7; sodium 137, potassium 4.7, chloride 102, CO2 29, glucose 139, BUN 25, and creatinine 1.3. ASSESSMENT: 1. History of coronary artery disease, status post circumflex artery stenting in the year 2014. 2. Severe degenerative spinal stenosis in the central canal at level L4-5. 3. Hypertension and diabetes mellitus. 4. Hyperlipidemia. RECOMMENDATIONS: Continue current Crestor at 5 mg once a day, metformin 500 mg twice a day, Feosol 1 tablet twice a day, Januvia 50 mg once a day, hydrochlorothiazide 12.5 mg daily, Vasotec 20 mg once a day. The patient can undergo decompressive laminectomy from the cardiac point of the view with postoperative telemetry/ICU monitoring. Otilio Coreas MD
--- NOTE | 2018-07-30 20:52 | CP.PCM.PN ---
Subjective - Subjective Subjective: dictated Objective - Vital Signs/Intake and Output Vital Signs (last 24 hours): Temp Pulse Resp BP Pulse Ox 97.9 F 60 20 158/76 H 100 07/30/18 15:00 07/30/18 15:00 07/30/18 15:00 07/30/18 17:39 07/30/18 15:00 - Medications Medications: Current Medications Artificial Tears (Artificial Tears) 1 ml OU BID PRN PRN Reason: Dry eyes Last Admin: 07/29/18 10:23 Dose: 2 drop Aspirin (Aspirin Chewable) 81 mg PO DAILY [facility] Last Admin: 07/27/18 10:27 Dose: Not Given Clopidogrel Bisulfate (Plavix) 75 mg PO DAILY [facility] Last Admin: 07/27/18 10:28 Dose: Not Given Enalapril Maleate (Vasotec) 20 mg PO BID [facility] Last Admin: 07/30/18 17:39 Dose: 20 mg Enoxaparin Sodium (Lovenox) 40 mg SC DAILY [facility] Last Admin: 07/27/18 10:27 Dose: Not Given Famotidine (Pepcid) 20 mg PO DAILY [facility] Last Admin: 07/30/18 09:32 Dose: 20 mg Ferrous Sulfate (Feosol) 325 mg PO BID [facility] Last Admin: 07/30/18 17:39 Dose: 325 mg Hydrochlorothiazide (Microzide) 12.5 mg PO DAILY [facility] Last Admin: 07/30/18 09:32 Dose: 12.5 mg Ibuprofen (Motrin Tab) 600 mg PO Q6H PRN PRN Reason: Pain, Mild (1-3) Last Admin: 07/28/18 21:09 Dose: 600 mg Insulin Human Regular (Novolin R) 0 unit SC [facility]; Protocol Last Admin: 07/30/18 17:13 Dose: Not Given Metformin HCl (Glucophage) 500 mg PO BID [facility] Last Admin: 07/30/18 17:39 Dose: 500 mg Metoprolol Succinate (Toprol Xl) 50 mg PO DAILY [facility] Last Admin: 07/30/18 09:33 Dose: 50 mg Rosuvastatin Calcium (Crestor) 5 mg PO [facility] Last Admin: 07/29/18 21:18 Dose: 5 mg Sitagliptin Phosphate (Januvia) 50 mg PO DAILY [facility] Last Admin: 07/30/18 09:31 Dose: 50 mg - Labs Labs: 07/30/18 08:17 07/30/18 08:17 PT 11.5 SECONDS (9.7-12.2) 07/30/18 08:17 INR 1.1 07/30/18 08:17 APTT 32 SECONDS (21-34) 07/30/18 08:17
--- NOTE | 2018-07-31 00:43 | PN ---
DATE: 07/30/2018 SUBJECTIVE: The patient is for OR tomorrow. The patient is clear both medically and cardiology ceja. She is afebrile. No shortness of breath. No chest pain. PHYSICAL EXAMINATION: VITAL SIGNS: Blood pressure 162/83, pulse 60, respiratory rate 20, and temperature 97.9. LUNGS: Clear. CARDIOVASCULAR SYSTEM: S1 and S2 regular. ABDOMEN: Soft. ASSESSMENT: 1. Spinal stenosis, operating room in the a.m. 2. Hypertension. 3. Type 2 diabetes. 4. Diabetic peripheral neuropathy. PLAN: OR. Monitor the patient. Amanuel Aguilar MD
[2018-07-31] MEDS: (Novolin R) Insulin Human Regular 100 units/ml vial SC SCH ×4 (07:50→21:31)
[2018-07-31] MEDS: Metoprolol Succinate 50 mg XL Tab PO SCH (09:21)
--- NOTE | 2018-07-31 19:42 | PN ---
DATE: 07/31/2018 SUBJECTIVE: The patient's surgery was postpone for tomorrow around 10:30. She denies any chest pain or shortness of breath. PHYSICAL EXAMINATION: VITAL SIGNS: Blood pressure 144/69, heart rate 63, temperature 97.7, and respirations 20. HEENT: Normocephalic. CHEST: Clear. HEART: S1 and S2 regular. EXTREMITIES: No edema. LABORATORY DATA: Today's blood sugar is 155. ASSESSMENT: 1. Coronary artery disease, status post coronary stenting to circumflex artery in 2014. 2. Mild renal insufficiency. 3. Uncontrolled diabetes mellitus. 4. Central canal spinal stenosis at level L4-L5. 5. Hyperlipidemia. RECOMMENDATIONS: Continue current hydralazine 25 mg every 8 hours, Crestor at 5 mg once a day, hydrochlorothiazide 12.5 mg once a day, Pepcid 20 mg by mouth once a day, Vasotec 20 mg once a day, Toprol-XL 50 mg daily. The patient is off antiplatelet and anticoagulation and will undergo spinal decompression tomorrow with postop active telemetry/intensive care unit depending on the outcome. Otilio Coreas MD
--- NOTE | 2018-07-31 22:45 | CP.PCM.PN ---
Subjective - Subjective Subjective: dictated Objective - Vital Signs/Intake and Output Vital Signs (last 24 hours): Temp Pulse Resp BP Pulse Ox 97 F L 58 L 20 152/78 H 99 07/31/18 15:05 07/31/18 15:05 07/31/18 15:05 07/31/18 17:30 07/31/18 15:05 - Medications Medications: Current Medications Artificial Tears (Artificial Tears) 1 ml OU BID PRN PRN Reason: Dry eyes Last Admin: 07/29/18 10:23 Dose: 2 drop Aspirin (Aspirin Chewable) 81 mg PO DAILY [facility] Last Admin: 07/27/18 10:27 Dose: Not Given Clopidogrel Bisulfate (Plavix) 75 mg PO DAILY [facility] Last Admin: 07/27/18 10:28 Dose: Not Given Enalapril Maleate (Vasotec) 20 mg PO BID [facility] Last Admin: 07/31/18 17:30 Dose: 20 mg Enoxaparin Sodium (Lovenox) 40 mg SC DAILY [facility] Last Admin: 07/27/18 10:27 Dose: Not Given Famotidine (Pepcid) 20 mg PO DAILY [facility] Last Admin: 07/31/18 09:21 Dose: 20 mg Ferrous Sulfate (Feosol) 325 mg PO BID [facility] Last Admin: 07/31/18 17:29 Dose: 325 mg Hydralazine HCl (Apresoline) 25 mg PO Q8 [facility] Last Admin: 07/31/18 21:47 Dose: 25 mg Hydrochlorothiazide (Microzide) 12.5 mg PO DAILY [facility] Last Admin: 07/31/18 09:21 Dose: 12.5 mg Ibuprofen (Motrin Tab) 600 mg PO Q6H PRN PRN Reason: Pain, Mild (1-3) Last Admin: 07/28/18 21:09 Dose: 600 mg Insulin Human Regular (Novolin R) [address] [facility]; Protocol Last Admin: 07/31/18 21:31 Dose: Not Given Metformin HCl (Glucophage) 500 mg PO BID [facility] Last Admin: 07/31/18 17:29 Dose: 500 mg Metoprolol Succinate (Toprol Xl) 50 mg PO DAILY [facility] Last Admin: 07/31/18 09:21 Dose: 50 mg Rosuvastatin Calcium (Crestor) 5 mg PO HS [facility] Last Admin: 07/31/18 21:46 Dose: 5 mg Sitagliptin Phosphate (Januvia) 50 mg PO DAILY [facility] Last Admin: 07/31/18 09:21 Dose: 50 mg - Labs Labs: 07/30/18 08:17 07/30/18 08:17 PT 11.5 SECONDS (9.7-12.2) 07/30/18 08:17 INR 1.1 07/30/18 08:17 APTT 32 SECONDS (21-34) 07/30/18 08:17
[2018-08-01] MEDS: (Novolin R) Insulin Human Regular 100 units/ml vial SC SCH ×4 (06:54→21:02)
[2018-08-01] MEDS: Metoprolol Succinate 50 mg XL Tab PO SCH (09:03)
[2018-08-01] MEDS ORDERED: Absorbable Gelatin Sponge Size 100 ONE (09:55)
[2018-08-01] MEDS ORDERED: Bupivacaine HCl 0.5% PF (10 ml) Inj ONE (09:55)
[2018-08-01] MEDS ORDERED: ceFAZolin IV 1 gm in Dextrose 1 GM/50 ML BAG IVPB ONE ×2 (09:55→11:22)
[2018-08-01] MEDS ORDERED: Lidocaine/Epinephrine 1% 1:100000 10 ML IJ ONE (09:56)
[2018-08-01] MEDS ORDERED: Thrombin Topical 20,000 Intl Units Spray Kit TOP ONE (09:56)
[2018-08-01] MEDS ORDERED: Remifentanil 1 mg/3 ml Vial IV ONE (10:29)
[2018-08-01] MEDS ORDERED: Bacitracin 50,000 UNIT in Sodium Chloride 0.9% Irrig 1,000 ML IR SCH (10:29)
[2018-08-01] MEDS ORDERED: Propofol 10 mg/ml 1,000 MG/100 ML VIAL ONE (10:30)
[2018-08-01] MEDS ORDERED: Midazolam 2 MG/2 ML VIAL ONE ×2 (10:49→14:19)
[2018-08-01] MEDS ORDERED: Propofol 10 mg/ml Inj (20 ML) ONE ×2 (10:50→14:19)
[2018-08-01] MEDS ORDERED: Rocuronium 10 mg/ml (5 ml) ONE (10:52)
[2018-08-01] MEDS ORDERED: Succinylcholine Chloride 20 mg/ml Syr (5 ml) IV ONE (10:52)
[2018-08-01] MEDS ORDERED: Bacitracin Ointment 30 GM TUBE ONE (14:12)
[2018-08-01] MEDS: HYDROmorphone 0.5 mg/0.5 ml ISec IVP PRN ×4 (14:40→15:45)
[2018-08-01 14:48] LABS: MEAN CELL VOLUME 94.2 fL (81.0-99.0); MEAN CORPUSCULAR HEMOGLOBIN 31.2 pg (27.0-31.0); MEAN CORPUSCULAR HGB CONC 33.1 g/dL (33.0-37.0); MEAN PLATELET VOLUME 9.9 fL (7.2-11.7); RBC 3.35 Mil/uL (3.80-5.20); RED CELL DISTRIBUTION WIDTH 14.4 % (11.5-14.5); WHITE BLOOD COUNT 5.2 K/uL (4.8-10.8)
[2018-08-01 14:49] LABS: HEMOGLOBIN 10.5 g/dL (11.0-16.0)
[2018-08-01 14:58] LABS: ALB/GLOB RATIO 1.3 (1.0-2.1); ALBUMIN 3.4 g/dL (3.5-5.0); CALCIUM 8.5 mg/dl (8.6-10.4)
--- NOTE | 2018-08-01 15:14 | RAD ---
Date of service: 08/01/2018 PROCEDURE: Intraoperative Fluoroscopy. HISTORY: DISC DISPLACEMENT FINDINGS: Fluoroscopic assistance was provided for lumbar laminectomy. Please refer to the operative report from HUY Romero. Total fluoroscopic time (continuous mode) utilized during the procedure 14.2 seconds. Total exam DLP: 5.88 (mGy).
--- NOTE | 2018-08-01 18:12 | PN ---
DATE: 08/01/2018 SUBJECTIVE: The patient underwent L2-L5 decompressive lumbar laminectomy. She is in the recovery room, denies any chest pain, no reported arrhythmia except for occasional PVCs, and is hemodynamically stable. PHYSICAL EXAMINATION VITAL SIGNS: Blood pressure 188/79, heart rate 63, temperature 98.2. HEENT: Normocephalic. CHEST: Clear. HEART: S1 and S2 regular. EXTREMITIES: No edema. LABORATORY DATA: Today's hemoglobin and hematocrit postoperatively are 10.5 and 31.6. White count and platelet count are within normal limit. Today's SMA-7 postoperatively is within normal limit except for glucose of 127 and BUN of 24. Blood sugar at 02:30 was less than 20, but current blood sugar is 127. ASSESSMENT: 1. Status post decompressive laminectomy, L2-L5. 2. Coronary artery disease with a history of circumflex artery stenting in 2014. 3. Hypoglycemic episode. 4. Hypertension. RECOMMENDATIONS: Resume current medications once anesthesia allows oral intake. Obtain postoperative 12-lead EKG. Otilio Coreas MD
[2018-08-01] MEDS: Oxycodone/Acetaminophen 5/325 mg Tab PO PRN (19:08)
--- NOTE | 2018-08-01 21:55 | CP.PCM.PN ---
Subjective - Subjective Subjective: dictated Objective - Vital Signs/Intake and Output Vital Signs (last 24 hours): Temp Pulse Resp BP Pulse Ox 97.7 F 67 18 107/57 L 96 08/01/18 21:15 08/01/18 21:15 08/01/18 21:15 08/01/18 21:15 08/01/18 21:15 Intake and Output: 08/01/18 08/02/18 18:59 06:59 Intake Total 2000 Output Total 425 Balance 1575 - Medications Medications: Current Medications Artificial Tears (Artificial Tears) 1 ml OU BID PRN PRN Reason: Dry eyes Last Admin: 07/29/18 10:23 Dose: 2 drop Aspirin (Aspirin Chewable) 81 mg PO DAILY [facility] Last Admin: 07/27/18 10:27 Dose: Not Given Clopidogrel Bisulfate (Plavix) 75 mg PO DAILY [facility] Last Admin: 07/27/18 10:28 Dose: Not Given Enalapril Maleate (Vasotec) 20 mg PO BID [facility] Last Admin: 08/01/18 19:08 Dose: 20 mg Enoxaparin Sodium (Lovenox) 40 mg SC DAILY [facility] Last Admin: 07/27/18 10:27 Dose: Not Given Famotidine (Pepcid) 20 mg PO DAILY [facility] Last Admin: 08/01/18 09:03 Dose: Not Given Ferrous Sulfate (Feosol) 325 mg PO BID [facility] Last Admin: 08/01/18 20:37 Dose: Not Given Hydralazine HCl (Apresoline) 25 mg PO Q8 [facility] Last Admin: 08/01/18 21:16 Dose: Not Given Hydrochlorothiazide (Microzide) 12.5 mg PO DAILY [facility] Last Admin: 08/01/18 09:03 Dose: Not Given Hydromorphone/Sodium Chloride (Dilaudid [employer]) 6 mg IV Q4H PRN; Protocol PRN Reason: Pain, severe (8-10) Potassium Chloride/Dextrose/Sod Cl (Potassium Chl 20 Meq In D5-1/2ns) 1,000 mls @ 80 mls/hr IV .[id number] [facility] Magnesium Sulfate/Dextrose (Magnesium Sulfate 1 Gm/100 Ml D5w) 1 gm in 100 mls @ 300 mls/hr IVPB Q30M [facility] Stop: 08/01/18 23:04 Ibuprofen (Motrin Tab) 600 mg PO Q6H PRN PRN Reason: Pain, Mild (1-3) Last Admin: 07/28/18 21:09 Dose: 600 mg Insulin Human Regular (Novolin R) 0 unit SC [facility]; Protocol Last Admin: 08/01/18 21:02 Dose: Not Given Metformin HCl (Glucophage) 500 mg PO BID [facility] Last Admin: 08/01/18 20:37 Dose: Not Given Metoprolol Succinate (Toprol Xl) 50 mg PO DAILY [facility] Last Admin: 08/01/18 09:03 Dose: Not Given Ondansetron HCl (Zofran Inj) 4 mg IVP Q6H PRN PRN Reason: Nausea/Vomiting Last Admin: 08/01/18 19:08 Dose: 4 mg Oxycodone/Acetaminophen (Percocet 5/325 Mg Tab) 2 tab PO Q4H PRN PRN Reason: Pain, severe (8-10) Stop: 08/04/18 18:46 Last Admin: 08/01/18 19:08 Dose: 2 tab Rosuvastatin Calcium (Crestor) 5 mg PO HS [facility] Last Admin: 08/01/18 21:16 Dose: Not Given Sitagliptin Phosphate (Januvia) 50 mg PO DAILY [facility] Last Admin: 08/01/18 09:03 Dose: Not Given - Labs Labs: 08/01/18 14:42 08/01/18 14:42 PT 11.5 SECONDS (9.7-12.2) 07/30/18 08:17 INR 1.1 07/30/18 08:17 APTT 32 SECONDS (21-34) 07/30/18 08:17
[2018-08-01] MEDS: Potassium Ch 20mEq in D5-1/2NS 1,000 ML IV SCH (22:21)
[2018-08-01] MEDS: Magnesium Sulfate 1 gm in D5W 1 GM/100 ML BAG IVPB SCH ×2 (22:25→22:47)
--- NOTE | 2018-08-02 00:25 | PN ---
DATE: 08/01/2018 SUBJECTIVE: The patient is for OR. There is no fever, no chills. She is medically stable. No nausea or vomiting. PHYSICAL EXAMINATION: VITAL SIGNS: Blood pressure 109/50, pulse 60, respiratory rate 20, and temperature 98.1. LUNGS: Clear. No rales. No rhonchi. CARDIOVASCULAR SYSTEM: S1 and S2, regular. ABDOMEN: Soft. ASSESSMENT: 1. Spinal stenosis, lumbar disk disease, pending operating room. 2. Diabetes. 3. Hypertension. 4. Diabetic neuropathy. PLAN: Await OR, medically stable. Amanuel Aguilar MD
[2018-08-02] MEDS: Potassium Ch 20mEq in D5-1/2NS 1,000 ML IV SCH ×3 (03:00→22:07)
[2018-08-02] MEDS: Oxycodone/Acetaminophen 5/325 mg Tab PO PRN ×3 (04:18→17:31)
[2018-08-02] MEDS: (Novolin R) Insulin Human Regular 100 units/ml vial SC SCH ×4 (07:04→22:05)
--- NOTE | 2018-08-02 07:43 | OP ---
PROCEDURE DATE: 08/01/2018 SURGEON: Chuy Elkins MD SHOE CLEANER: Feliberto Hills MD PREOPERATIVE DIAGNOSIS: Lumbar spinal stenosis. POSTOPERATIVE DIAGNOSIS: Lumbar spinal stenosis. PROCEDURE: Lumbar laminectomy, L2 to L5, inclusive. DESCRIPTION OF PROCEDURE: The patient was brought to the operating room, intubated appropriately, and turned prone onto the Steven frame. Her back was prepped and draped in the usual manner. C-arm fluoroscopy, SSEP, and EMG potentials were monitored throughout the case. Neuromonitoring remained stable throughout. There was a previously placed midline incision of indeterminate age. We incised from approximately 1.5 inches above the incision down to the area of the L5-S1 interspace as verified on x-ray. We went through the previous incision and there was extreme amount of fibrosis in the soft tissue and muscle. The tissue and muscle were stripped off the spinous process and lamina of L2 through L5. As we stripped off the lamina off the muscle and fascia, we noticed that the L5 spinous process was bitten away; however, there was remnant of the spinous process remaining and attached to the soft tissue and there was a very central laminectomy of L5. At this point, we verified our location on x-ray and proceeded to do laminectomy taking care first at L5 to strip off any fibrotic tissue from the dura and with a laminectomy laterally to the medial edge of the pedicles and then proceeded to perform foraminotomy. This was done bilaterally exposing the nerve root. After making certain that this area was thoroughly decompressed and the remainder of the L5 lamina was removed, we then proceeded cephalad, and using combination of high speed drill, Kerrison rongeurs and Leksell rongeurs, we bit away the lamina and spinous processes of L2, L3, and L4 as far lateral as the medial aspect of the pedicles and performed foraminotomies. There was extreme overgrowth of bone on the lamina as well as in the foramina bilaterally. There was a large amount of very thickened ligament both centrally and laterally. After we thoroughly decompressed the exiting nerve roots in the central dura, we verified our location on x-ray again, and because initially it was thought that we would extend the laminectomy to the L1-L2 disk space based upon the fact that the MRI suggested that there was some stenosis there, we passed a red rubber catheter under the lamina and passed freely above the disk space, so we determined that it would not be necessary to decompress the central area. There was no foraminal stenosis noted on the MRI at that level. After making certain that hemostasis was meticulous, the wound was thoroughly irrigated, Gelfoam was placed over the exposed dura, the muscle and fascia were reapproximated in multiple layers with 0 Vicryl, subcuticular was reapproximated with multiple layers of 0 Vicryl. We placed antibiotic powder in the subcuticular tissue to decrease the risk of infection. We then proceeded to place skin elian followed by sterile dressing. Blood loss was approximately 500. The patient received no transfusion. All counts were correct. Specimen was none. The patient was taken to the recovery room in stable hemodynamic condition. Chuy Elkins MD
--- NOTE | 2018-08-02 09:09 | PN ---
DATE: 08/01/2018 SUBJECTIVE: The patient is status post OR. She is in pain. There is no fever, no chills, and she is not using patient-controlled analgesia so we will prescribe her Percocet. PHYSICAL EXAMINATION: VITAL SIGNS: Blood pressure 182/63, pulse 62, respiratory rate 18, temperature 99. LUNGS: Clear. CARDIOVASCULAR SYSTEM: S1, S2 regular. ABDOMEN: Soft. ASSESSMENT: 1. Spinal stenosis, lumbar disk disease, status post OR. 2. Hypertension. 3. Diabetes. 4. Anemia. PLAN: Postop care. Monitor patient. Amanuel Aguilar MD
[2018-08-02] MEDS: Metoprolol Succinate 50 mg XL Tab PO SCH (10:13)
--- NOTE | 2018-08-02 13:04 | CP.PCM.PN ---
Subjective - Date & Time of Evaluation Date of Evaluation: 08/02/18 Time of Evaluation: 13:01 - Subjective Subjective: SPINE - POD #1 Pt OOB in chair. Complains of signif back pain. Had some drainage from wound earlier - dressing reinforced. Seen by PT earlier. Temp 99. Moving all extremities. Neuro grossly intact. Plan: Just started on SECTION SUPERVISOR (pt refused yesterday), and helping. Continue to mobilize as tolerated. Pt would like to go to [facility] d/c Tuesday if cleared med/card. Objective - Vital Signs/Intake and Output Vital Signs (last 24 hours): Temp Pulse Resp BP Pulse Ox 99.8 F H 85 18 152/72 H 95 08/02/18 07:00 08/02/18 10:00 08/02/18 07:00 08/02/18 10:15 08/02/18 07:00 Intake and Output: 08/02/18 08/02/18 06:59 18:59 Intake Total 480 Output Total 900 Balance -420 - Medications Medications: Current Medications Artificial Tears (Artificial Tears) 1 ml OU BID PRN PRN Reason: Dry eyes Last Admin: 07/29/18 10:23 Dose: 2 drop Aspirin (Aspirin Chewable) 81 mg PO DAILY [facility] Last Admin: 07/27/18 10:27 Dose: Not Given Clopidogrel Bisulfate (Plavix) 75 mg PO DAILY [facility] Last Admin: 07/27/18 10:28 Dose: Not Given Enalapril Maleate (Vasotec) 20 mg PO BID [facility] Last Admin: 08/02/18 10:15 Dose: 20 mg Enoxaparin Sodium (Lovenox) 40 mg SC DAILY [facility] Last Admin: 07/27/18 10:27 Dose: Not Given Famotidine (Pepcid) 20 mg PO DAILY [facility] Last Admin: 08/02/18 10:13 Dose: 20 mg Ferrous Sulfate (Feosol) 325 mg PO BID [facility] Last Admin: 08/02/18 10:15 Dose: 325 mg Hydralazine HCl (Apresoline) 25 mg PO Q8 [facility] Last Admin: 08/02/18 05:42 Dose: 25 mg Hydrochlorothiazide (Microzide) 12.5 mg PO DAILY [facility] Last Admin: 08/02/18 10:13 Dose: 12.5 mg Hydromorphone/Sodium Chloride (Dilaudid Coil Builder) 6 mg IV Q4H PRN; Protocol PRN Reason: Pain, severe (8-10) Last Admin: 08/02/18 11:50 Dose: 6 mg Potassium Chloride/Dextrose/Sod Cl (Potassium Chl 20 Meq In D5-1/2ns) 1,000 mls @ 80 mls/hr IV .[id number] [facility] Last Admin: 08/02/18 10:13 Dose: 80 mls/hr Ibuprofen (Motrin Tab) 600 mg PO Q6H PRN PRN Reason: Pain, Mild (1-3) Last Admin: 07/28/18 21:09 Dose: 600 mg Insulin Human Regular (Novolin R) 0 unit SC [facility]; Protocol Last Admin: 08/02/18 07:04 Dose: 2 unit Metformin HCl (Glucophage) 500 mg PO BID [facility] Last Admin: 08/02/18 10:15 Dose: 500 mg Metoprolol Succinate (Toprol Xl) 50 mg PO DAILY [facility] Last Admin: 08/02/18 10:13 Dose: 50 mg Ondansetron HCl (Zofran Inj) 4 mg IVP Q6H PRN PRN Reason: Nausea/Vomiting Last Admin: 08/02/18 04:19 Dose: 4 mg Oxycodone/Acetaminophen (Percocet 5/325 Mg Tab) 2 tab PO Q4H PRN PRN Reason: Pain, severe (8-10) Stop: 08/04/18 18:46 Last Admin: 08/02/18 08:49 Dose: 2 tab Rosuvastatin Calcium (Crestor) 5 mg PO HS [facility] Last Admin: 08/01/18 21:16 Dose: Not Given Sitagliptin Phosphate (Januvia) 50 mg PO DAILY [facility] Last Admin: 08/02/18 10:13 Dose: 50 mg - Labs Labs: 08/01/18 14:42 08/01/18 14:42 PT 11.5 SECONDS (9.7-12.2) 07/30/18 08:17 INR 1.1 07/30/18 08:17 APTT 32 SECONDS (21-34) 07/30/18 08:17
--- NOTE | 2018-08-02 16:56 | PN ---
DATE: 08/02/2018 SUBJECTIVE: The patient denies any chest pain. PHYSICAL EXAMINATION: VITAL SIGNS: Blood pressure 152/72, heart rate 82, temperature 99.8, and respirations 18. HEENT: Normocephalic. CHEST: Clear. HEART: S1 and S2 regular. EXTREMITIES: No edema. LABORATORY DATA: Today's blood sugar is 211 and 261 respectively. ASSESSMENT: 1. Status post decompressive laminectomy, L2-L5. 2. Coronary artery disease with history of circumflex artery stenting in 2014. 3. Hypertension. RECOMMENDATIONS: Continue hydralazine 25 mg every 8 hours, metformin 500 mg twice a day, Feosol 1 tablet twice a day, Crestor 5 mg once a day, hydrochlorothiazide 12.5 mg once a day, Lasix 20 mg twice a day, and Toprol-XL 50 mg once a day. Obtain postoperative 12-lead EKG. Otilio Coreas MD
--- NOTE | 2018-08-02 20:47 | CP.PCM.PN ---
Subjective - Subjective Subjective: dictated Objective - Vital Signs/Intake and Output Vital Signs (last 24 hours): Temp Pulse Resp BP Pulse Ox 99.9 F H 75 20 140/67 96 08/02/18 15:00 08/02/18 16:33 08/02/18 15:00 08/02/18 17:34 08/02/18 15:00 Intake and Output: 08/02/18 08/03/18 18:59 06:59 Intake Total 1140 Balance 1140 - Medications Medications: Current Medications Artificial Tears (Artificial Tears) 1 ml OU BID PRN PRN Reason: Dry eyes Last Admin: 07/29/18 10:23 Dose: 2 drop Aspirin (Aspirin Chewable) 81 mg PO DAILY [facility] Last Admin: 07/27/18 10:27 Dose: Not Given Bacitracin (Bacitracin) 1 ea TOP ONCE [facility] Clopidogrel Bisulfate (Plavix) 75 mg PO DAILY [facility] Last Admin: 07/27/18 10:28 Dose: Not Given Enalapril Maleate (Vasotec) 20 mg PO BID [facility] Last Admin: 08/02/18 17:34 Dose: 20 mg Enoxaparin Sodium (Lovenox) 40 mg SC DAILY [facility] Last Admin: 07/27/18 10:27 Dose: Not Given Famotidine (Pepcid) 20 mg PO DAILY [facility] Last Admin: 08/02/18 10:13 Dose: 20 mg Ferrous Sulfate (Feosol) 325 mg PO BID [facility] Last Admin: 08/02/18 17:32 Dose: 325 mg Hydralazine HCl (Apresoline) 25 mg PO Q8 [facility] Last Admin: 08/02/18 13:03 Dose: Not Given Hydrochlorothiazide (Microzide) 12.5 mg PO DAILY [facility] Last Admin: 08/02/18 10:13 Dose: 12.5 mg Hydromorphone/Sodium Chloride (Dilaudid Glass Novelty [employer]) 6 mg IV Q4H PRN; Protocol PRN Reason: Pain, severe (8-10) Last Admin: 08/02/18 11:50 Dose: 6 mg Potassium Chloride/Dextrose/Sod Cl (Potassium Chl 20 Meq In D5-1/2ns) 1,000 mls @ 80 mls/hr IV .[id number] [facility] Last Admin: 08/02/18 10:13 Dose: 80 mls/hr Ibuprofen (Motrin Tab) 600 mg PO Q6H PRN PRN Reason: Pain, Mild (1-3) Last Admin: 07/28/18 21:09 Dose: 600 mg Insulin Human Regular (Novolin R) 0 unit SC [facility]; Protocol Last Admin: 08/02/18 17:33 Dose: 3 unit Metformin HCl (Glucophage) 500 mg PO BID [facility] Last Admin: 08/02/18 17:32 Dose: 500 mg Metoprolol Succinate (Toprol Xl) 50 mg PO DAILY [facility] Last Admin: 08/02/18 10:13 Dose: 50 mg Ondansetron HCl (Zofran Inj) 4 mg IVP Q6H PRN PRN Reason: Nausea/Vomiting Last Admin: 08/02/18 04:19 Dose: 4 mg Oxycodone/Acetaminophen (Percocet 5/325 Mg Tab) 2 tab PO Q4H PRN PRN Reason: Pain, severe (8-10) Stop: 08/04/18 18:46 Last Admin: 08/02/18 17:31 Dose: 2 tab Rosuvastatin Calcium (Crestor) 5 mg PO HS [facility] Last Admin: 08/01/18 21:16 Dose: Not Given Sitagliptin Phosphate (Januvia) 50 mg PO DAILY [facility] Last Admin: 08/02/18 10:13 Dose: 50 mg - Labs Labs: 08/01/18 14:42 08/01/18 14:42 PT 11.5 SECONDS (9.7-12.2) 07/30/18 08:17 INR 1.1 07/30/18 08:17 APTT 32 SECONDS (21-34) 07/30/18 08:17
--- NOTE | 2018-08-03 02:21 | PN ---
DATE: 08/02/2018 SUBJECTIVE: Patient, Juarez, is postoperative day #2. She has had low back surgery. She has some back pain. She is on DYE FEEDER. She is here for subacute rehabilitation. No fever. No nausea, vomiting, or diarrhea. PHYSICAL EXAMINATION: VITAL SIGNS: Blood pressure 140/67, pulse 77, respiratory rate 20, temperature 99. LUNGS: Clear. CARDIOVASCULAR SYSTEM: S1 and S2 regular. ABDOMEN: Soft. ASSESSMENT: 1. Lumbar disk disease, status post surgery. 2. Hypertension. 3. Diabetes. 4. Peripheral neuropathy. PLAN: Postoperative care. Monitor patient. Amanuel Aguilar MD
[2018-08-03 08:24] LABS: BASO % 0.3 % (0.0-2.0); EOS # 0.1 K/uL (0.0-0.7); EOS % 1.1 % (0.0-4.0); LYMPH # 0.6 K/uL (1.0-4.3); MEAN CORPUSCULAR HGB CONC 32.6 g/dL (33.0-37.0); MEAN PLATELET VOLUME 10.2 fL (7.2-11.7); MONO # 0.7 K/uL (0.0-0.8); MONO % 8.4 % (0.0-10.0); NEUT # 6.4 K/uL (1.8-7.0); NEUT % 82.2 % (50.0-75.0); PLATELET COUNT 145 K/uL (130-400); RED CELL DISTRIBUTION WIDTH 14.7 % (11.5-14.5); WHITE BLOOD COUNT 7.8 K/uL (4.8-10.8)
[2018-08-03 08:34] LABS: MEAN CELL VOLUME 98.6 fL (81.0-99.0); MEAN CORPUSCULAR HEMOGLOBIN 32.2 pg (27.0-31.0)
[2018-08-03 08:35] LABS: HEMOGLOBIN 8.4 g/dL (11.0-16.0)
--- NOTE | 2018-08-03 08:52 | CP.PCM.PN ---
Subjective - Date & Time of Evaluation Date of Evaluation: 08/03/18 Time of Evaluation: 08:50 - Subjective Subjective: Pt off floor having studies rec cont PT/OT mobilization ss for trans to [facility] / [facility] when medically cleared Objective - Vital Signs/Intake and Output Vital Signs (last 24 hours): Temp Pulse Resp BP Pulse Ox 100.4 F H 68 20 107/62 98 08/03/18 07:58 08/03/18 07:35 08/03/18 07:35 08/03/18 07:35 08/03/18 07:35 Intake and Output: 08/03/18 08/03/18 06:59 18:59 Intake Total 640 Output Total 1025 Balance -385 - Medications Medications: Current Medications Acetaminophen (Tylenol 325mg Tab) 650 mg PO Q6 PRN PRN Reason: Fever >100.4 F Last Admin: 08/03/18 07:58 Dose: 650 mg Artificial Tears (Artificial Tears) 1 ml OU BID PRN PRN Reason: Dry eyes Last Admin: 07/29/18 10:23 Dose: 2 drop Aspirin (Aspirin Chewable) 81 mg PO DAILY [facility] Last Admin: 07/27/18 10:27 Dose: Not Given Bacitracin (Bacitracin) 1 ea TOP ONCE [facility] Clopidogrel Bisulfate (Plavix) 75 mg PO DAILY [facility] Last Admin: 07/27/18 10:28 Dose: Not Given Enalapril Maleate (Vasotec) 20 mg PO BID [facility] Last Admin: 08/02/18 17:34 Dose: 20 mg Enoxaparin Sodium (Lovenox) 40 mg SC DAILY [facility] Last Admin: 07/27/18 10:27 Dose: Not Given Famotidine (Pepcid) 20 mg PO DAILY [facility] Last Admin: 08/02/18 10:13 Dose: 20 mg Ferrous Sulfate (Feosol) 325 mg PO BID [facility] Last Admin: 08/02/18 17:32 Dose: 325 mg Hydralazine HCl (Apresoline) 25 mg PO Q8 [facility] Last Admin: 08/03/18 05:26 Dose: 25 mg Hydrochlorothiazide (Microzide) 12.5 mg PO DAILY [facility] Last Admin: 08/02/18 10:13 Dose: 12.5 mg Hydromorphone/Sodium Chloride (Dilaudid [employer]) 6 mg IV Q4H PRN; Protocol PRN Reason: Pain, severe (8-10) Last Admin: 08/02/18 11:50 Dose: 6 mg Potassium Chloride/Dextrose/Sod Cl (Potassium Chl 20 Meq In D5-1/2ns) 1,000 mls @ 80 mls/hr IV .[id number] [facility] Last Admin: 08/02/18 22:07 Dose: 80 mls/hr Ibuprofen (Motrin Tab) 600 mg PO Q6H PRN PRN Reason: Pain, Mild (1-3) Last Admin: 07/28/18 21:09 Dose: 600 mg Insulin Human Regular (Novolin R) 0 unit SC [facility]; Protocol Last Admin: 08/02/18 22:05 Dose: Not Given Metformin HCl (Glucophage) 500 mg PO BID [facility] Last Admin: 08/02/18 17:32 Dose: 500 mg Metoprolol Succinate (Toprol Xl) 50 mg PO DAILY [facility] Last Admin: 08/02/18 10:13 Dose: 50 mg Ondansetron HCl (Zofran Inj) 4 mg IVP Q6H PRN PRN Reason: Nausea/Vomiting Last Admin: 08/02/18 04:19 Dose: 4 mg Oxycodone/Acetaminophen (Percocet 5/325 Mg Tab) 2 tab PO Q4H PRN PRN Reason: Pain, severe (8-10) Stop: 08/04/18 18:46 Last Admin: 08/02/18 17:31 Dose: 2 tab Rosuvastatin Calcium (Crestor) 5 mg PO HS [facility] Last Admin: 08/02/18 22:03 Dose: 5 mg Sitagliptin Phosphate (Januvia) 50 mg PO DAILY [facility] Last Admin: 08/02/18 10:13 Dose: 50 mg - Labs Labs: 08/03/18 08:17 08/01/18 14:42 PT 11.5 SECONDS (9.7-12.2) 07/30/18 08:17 INR 1.1 07/30/18 08:17 APTT 32 SECONDS (21-34) 07/30/18 08:17
[2018-08-03 09:09] LABS: ANISOCYTOSIS SLIGHT; EOSINOPHIL 2 % (0-4); HYPOCHROMIC SLIGHT; LYMPHOCYTE 10 % (20-40); MONOCYTE 5 % (0-10); NEUTROPHIL 83 % (50-75); PLATELET ESTIMATE NORMAL (NORMAL); POIKILOCYTOSIS SLIGHT; TOTAL CELLS COUNTED 100
--- NOTE | 2018-08-03 09:12 | RAD ---
Date of service: 08/03/2018 HISTORY: post op fever COMPARISON: 10/31/2017 TECHNIQUE: Chest PA and lateral FINDINGS: LUNGS: No active pulmonary disease. PLEURA: No significant pleural effusion identified. No pneumothorax apparent. CARDIOVASCULAR: No aortic atherosclerotic calcification present. Normal cardiac size. No pulmonary vascular congestion. OSSEOUS STRUCTURES: No significant abnormalities. VISUALIZED UPPER ABDOMEN: Normal. OTHER FINDINGS: None. IMPRESSION: No active disease.
[2018-08-03] MEDS ORDERED: Bacitracin 500 Units/gm Oint Foilpak UD TOP SCH (10:00)
[2018-08-03] MEDS: (Novolin R) Insulin Human Regular 100 units/ml vial SC SCH ×4 (10:38→22:50)
[2018-08-03] MEDS: Metoprolol Succinate 50 mg XL Tab PO SCH (10:38)
[2018-08-03 11:06] LABS: SQUAMOUS EPITHIAL < 1 /hpf (0-5); URINE BACTERIA RARE (<OCC); URINE BILIRUBIN NEGATIVE (NEGATIVE); URINE BLOOD 1+ (NEGATIVE); URINE CLARITY Clear (Clear); URINE COLOR Yellow (YELLOW); URINE GLUCOSE (UA) NORMAL (Normal); URINE LEUKOCYTE ESTERASE TRACE Leu/uL (Negative); URINE PROTEIN NEGATIVE (NEGATIVE); URINE UROBILINOGEN NORMAL mg/dL (0.2-1.0)
[2018-08-03 11:15] LABS: CALCIUM 8.6 mg/dl (8.6-10.4)
--- NOTE | 2018-08-03 13:52 | PN ---
DATE: 08/03/2018 SUBJECTIVE: The patient denies retrosternal chest pain. She complains of discomfort at the surgical site. PHYSICAL EXAMINATION: VITAL SIGNS: Blood pressure 107/62, heart rate 68, temperature 100.4, and respirations 20. HEENT: Normocephalic. CHEST: Clear. HEART: S1 and S2 regular. EXTREMITIES: No edema. LABORATORY DATA: Today's hemoglobin and hematocrit 8.4 and 25.7, white count and platelet count are within normal limits. Today's SMA-7; sodium 133, potassium 5.1, chloride 100, CO2 of 25, glucose 168, BUN 19, and creatinine 1.2. Yesterday's one EKG revealed sinus rhythm with occasional PVCs, however, very poor quality with wandering baseline, two of them were performed yesterday with such poor quality. Chest x-ray unremarkable except for borderline cardiomegaly. ASSESSMENT: 1. Status post decompressive laminectomy, L2-L5. 2. Coronary artery disease with history of coronary stenting circumflex artery in 2014. 3. Hypertension. RECOMMENDATIONS: Continue current hydralazine 25 mg every 8 hours, Crestor 5 mg once a day, Glucophage 500 mg twice a day, hydrochlorothiazide 12.5 mg daily, Percocet two tablets every 4 hours, Toprol-XL 50 mg once a day, Vasotec 20 mg twice a day and aspirin 81 mg once a day, if cleared from the neurosurgical point of view. Otilio Coreas MD
[2018-08-03] MEDS ORDERED: Sodium Chloride 0.9% 1,000 ML IV SCH (15:45)
--- NOTE | 2018-08-03 20:53 | CP.PCM.PN ---
Subjective - Subjective Subjective: dictated Objective - Vital Signs/Intake and Output Vital Signs (last 24 hours): Temp Pulse Resp BP Pulse Ox 100.6 F H 76 20 157/83 H 98 08/03/18 15:00 08/03/18 15:00 08/03/18 15:00 08/03/18 15:00 08/03/18 15:00 Intake and Output: 08/03/18 08/04/18 18:59 06:59 Intake Total 880 Output Total 600 Balance 280 - Medications Medications: Current Medications Acetaminophen (Tylenol 325mg Tab) 650 mg PO Q6 PRN PRN Reason: Fever >100.4 F Last Admin: 08/03/18 07:58 Dose: 650 mg Artificial Tears (Artificial Tears) 1 ml OU BID PRN PRN Reason: Dry eyes Last Admin: 07/29/18 10:23 Dose: 2 drop Aspirin (Aspirin Chewable) 81 mg PO DAILY [facility] Last Admin: 07/27/18 10:27 Dose: Not Given Bacitracin (Bacitracin) 1 ea TOP ONCE [facility] Clopidogrel Bisulfate (Plavix) 75 mg PO DAILY [facility] Last Admin: 07/27/18 10:28 Dose: Not Given Enalapril Maleate (Vasotec) 20 mg PO BID [facility] Last Admin: 08/03/18 11:00 Dose: 20 mg Enoxaparin Sodium (Lovenox) 40 mg SC DAILY [facility] Last Admin: 07/27/18 10:27 Dose: Not Given Famotidine (Pepcid) 20 mg PO DAILY [facility] Last Admin: 08/03/18 10:38 Dose: 20 mg Ferrous Sulfate (Feosol) 325 mg PO BID [facility] Last Admin: 08/03/18 10:38 Dose: 325 mg Hydralazine HCl (Apresoline) 25 mg PO Q8 [facility] Last Admin: 08/03/18 13:26 Dose: Not Given Hydrochlorothiazide (Microzide) 12.5 mg PO DAILY [facility] Last Admin: 08/03/18 10:38 Dose: 12.5 mg Hydromorphone/Sodium Chloride (Dilaudid Reel Slitter) 6 mg IV Q4H PRN; Protocol PRN Reason: Pain, severe (8-10) Last Admin: 08/02/18 11:50 Dose: 6 mg Sodium Chloride (Sodium Chloride 0.9%) 1,000 mls @ 10 mls/hr IV .Q24H [facility] Last Admin: 08/03/18 15:48 Dose: 10 mls/hr Ibuprofen (Motrin Tab) 600 mg PO Q6H PRN PRN Reason: Pain, Mild (1-3) Last Admin: 07/28/18 21:09 Dose: 600 mg Insulin Human Regular (Novolin R) 0 unit SC ACHS [facility]; Protocol Last Admin: 08/03/18 13:20 Dose: 2 unit Metformin HCl (Glucophage) 500 mg PO BID [facility] Last Admin: 08/03/18 10:37 Dose: 500 mg Metoprolol Succinate (Toprol Xl) 50 mg PO DAILY [facility] Last Admin: 08/03/18 10:38 Dose: 50 mg Ondansetron HCl (Zofran Inj) 4 mg IVP Q6H PRN PRN Reason: Nausea/Vomiting Last Admin: 08/02/18 04:19 Dose: 4 mg Oxycodone/Acetaminophen (Percocet 5/325 Mg Tab) 2 tab PO Q4H PRN PRN Reason: Pain, severe (8-10) Stop: 08/04/18 18:46 Last Admin: 08/02/18 17:31 Dose: 2 tab Rosuvastatin Calcium (Crestor) 5 mg PO HS [facility] Last Admin: 08/02/18 22:03 Dose: 5 mg Sitagliptin Phosphate (Januvia) 50 mg PO DAILY [facility] Last Admin: 08/03/18 10:38 Dose: 50 mg - Labs Labs: 08/03/18 08:17 08/03/18 10:45 PT 11.5 SECONDS (9.7-12.2) 07/30/18 08:17 INR 1.1 07/30/18 08:17 APTT 32 SECONDS (21-34) 07/30/18 08:17
--- NOTE | 2018-08-04 02:27 | PN ---
DATE: 08/03/2018 SUBJECTIVE: The patient is still in postoperative pain, low grade fever 100.4. Blood culture are done. Chest x-ray and urinalysis are done. Her WBC is normal. Her UA is negative. She is afebrile and no shortness of breath. No chest pain. No nausea or vomiting. Has some postop pain. PHYSICAL EXAMINATION: VITAL SIGNS: Blood pressure 157/83, pulse 76, respiratory rate 20, temperature 100.6. LUNGS: Clear. No rales. No rhonchi. CARDIOVASCULAR SYSTEM: S1 and S2 are regular. ABDOMEN: Soft, nontender. Bowel sounds are positive. ASSESSMENT: 1. Fever, it is most likely postoperative fever, no evidence of infection including normal white blood cells. Negative chest x-ray, negative urinalysis. 2. Hypertension. 3. Type 2 diabetes. 4. Spinal stenosis, status post operating room. PLAN: Continue postop care. Monitor the patient. Amanuel Aguilar MD
[2018-08-04] MEDS: (Novolin R) Insulin Human Regular 100 units/ml vial SC SCH ×4 (08:42→17:43)
[2018-08-04] MEDS: Oxycodone/Acetaminophen 5/325 mg Tab PO PRN (09:50)
[2018-08-04] MEDS: Metoprolol Succinate 50 mg XL Tab PO SCH (09:53)
--- NOTE | 2018-08-04 12:28 | CP.PCM.PN ---
Subjective - Date & Time of Evaluation Date of Evaluation: 08/04/18 Time of Evaluation: 12:27 - Subjective Subjective: SPINE - POD #3 Pt resting in bed. Was OOB to chair earlier. No new complaints. VSS. Temp now 99. Moving all extremities actively. Neuro grossly intact. Plan: OK from our viewpoint for rehab transfer today. Objective - Vital Signs/Intake and Output Vital Signs (last 24 hours): Temp Pulse Resp BP Pulse Ox 99.0 F 84 18 105/56 L 98 08/04/18 07:00 08/04/18 07:00 08/04/18 07:00 08/04/18 09:53 08/04/18 07:00 - Medications Medications: Current Medications Acetaminophen (Tylenol 325mg Tab) 650 mg PO Q6 PRN PRN Reason: Fever >100.4 F Last Admin: 08/03/18 07:58 Dose: 650 mg Artificial Tears (Artificial Tears) 1 ml OU BID PRN PRN Reason: Dry eyes Last Admin: 07/29/18 10:23 Dose: 2 drop Aspirin (Aspirin Chewable) 81 mg PO DAILY [facility] Last Admin: 07/27/18 10:27 Dose: Not Given Bacitracin (Bacitracin) 1 ea TOP ONCE [facility] Clopidogrel Bisulfate (Plavix) 75 mg PO DAILY [facility] Last Admin: 07/27/18 10:28 Dose: Not Given Enalapril Maleate (Vasotec) 20 mg PO BID [facility] Last Admin: 08/04/18 09:53 Dose: Not Given Enoxaparin Sodium (Lovenox) 40 mg SC DAILY [facility] Last Admin: 07/27/18 10:27 Dose: Not Given Famotidine (Pepcid) 20 mg PO DAILY [facility] Last Admin: 08/04/18 09:49 Dose: 20 mg Ferrous Sulfate (Feosol) 325 mg PO BID [facility] Last Admin: 08/04/18 09:49 Dose: 325 mg Hydralazine HCl (Apresoline) 25 mg PO Q8 [facility] Last Admin: 08/04/18 07:00 Dose: 25 mg Hydrochlorothiazide (Microzide) 12.5 mg PO DAILY [facility] Last Admin: 08/04/18 09:53 Dose: Not Given Sodium Chloride (Sodium Chloride 0.9%) 1,000 mls @ 10 mls/hr IV .Q24H [facility] Last Admin: 08/03/18 15:48 Dose: 10 mls/hr Ibuprofen (Motrin Tab) 600 mg PO Q6H PRN PRN Reason: Pain, Mild (1-3) Last Admin: 07/28/18 21:09 Dose: 600 mg Insulin Human Regular (Novolin R) 0 unit SC ACHS [facility]; Protocol Last Admin: 08/04/18 08:42 Dose: 1 unit Metformin HCl (Glucophage) 500 mg PO BID [facility] Last Admin: 08/04/18 09:49 Dose: 500 mg Metoprolol Succinate (Toprol Xl) 50 mg PO DAILY [facility] Last Admin: 08/04/18 09:53 Dose: Not Given Ondansetron HCl (Zofran Inj) 4 mg IVP Q6H PRN PRN Reason: Nausea/Vomiting Last Admin: 08/02/18 04:19 Dose: 4 mg Oxycodone/Acetaminophen (Percocet 5/325 Mg Tab) 2 tab PO Q4H PRN PRN Reason: Pain, severe (8-10) Stop: 08/04/18 18:46 Last Admin: 08/04/18 09:50 Dose: 2 tab Rosuvastatin Calcium (Crestor) 5 mg PO HS [facility] Last Admin: 08/03/18 23:09 Dose: 5 mg Sitagliptin Phosphate (Januvia) 50 mg PO DAILY [facility] Last Admin: 08/04/18 09:49 Dose: 50 mg - Labs Labs: 08/03/18 08:17 08/03/18 10:45 PT 11.5 SECONDS (9.7-12.2) 07/30/18 08:17 INR 1.1 07/30/18 08:17 APTT 32 SECONDS (21-34) 07/30/18 08:17
--- NOTE | 2018-08-04 15:24 | PN ---
DATE: 08/04/2018 SUBJECTIVE: The patient denies any chest pain or shortness of breath. No reported ventricular arrhythmia. PHYSICAL EXAMINATION: VITAL SIGNS: Blood pressure 105/56, heart rate 84, temperature 98.9, and respirations 18. HEENT: Normocephalic. CHEST: Clear. HEART: S1 and S2 regular. EXTREMITIES: No edema. LABORATORY DATA: Today's blood sugar is 163 and 181 respectively. ASSESSMENT: 1. Status post decompressive laminectomy of L2-L5. 2. Coronary artery disease with history of coronary artery stenting to circumflex artery in 2014. 3. Occasional premature ventricular contractions on EKG. 4. Hypertension. 5. Diabetes mellitus. RECOMMENDATIONS: Continue hydralazine 25 mg every 8 hours, aspirin 81 mg once a day, Crestor 5 mg once a day, metformin 500 mg twice a day, Feosol one tablet twice a day, Lovenox 40 mg subcutaneously once a day if cleared by orthopedic surgeon. Discontinue telemetry. Otilio Coreas MD
[2018-08-04 16:10] VITALS: BP 140/80; PULSE 83; RESP 20; TEMP 98.5; O2SAT 97
--- NOTE | 2018-08-05 04:51 | DS ---
DISCHARGE DIAGNOSES: 1. Lumbar disk disease with spinal radiculopathy with falls. 2. Hypertension. 3. Type 2 diabetes. 4. Hyperlipidemia. HISTORY OF PRESENT ILLNESS: This is an elderly -[place] female with a history of diabetes, hypertension, hyperlipidemia, osteoarthritis who came in because of recurrent falls, difficulty maintaining balance, and she was found to have diabetic neuropathy plus she was found to have lumbar radiculopathy. The patient was admitted to the floor. She was seen by Cardiology and Medicine, and she was cleared for surgery. She underwent lumbar disk surgery. Postoperatively, she had low-grade fever. She did well. She is for transfer to subacute. She is feeling better. She is afebrile. No shortness of breath. PHYSICAL EXAMINATION: LUNGS: Clear. CARDIOVASCULAR SYSTEM: S1 and S2 are regular. ABDOMEN: Soft. ASSESSMENT: 1. Lumbar radiculopathy. 2. Hypertension. 3. Osteoarthritis. PLAN: Discharge the patient. Amanuel Aguilar MD
--- NOTE | 2018-08-05 17:18 | CARD ---
APPROVED REPORT Date of service: 08/02/2018 EKG Measurement Heart [id number] <Conclusion> Normal sinus rhythm with sinus arrhythmia Nonspecific T wave abnormality Abnormal ECG
--- NOTE | 2018-08-05 17:31 | CARD ---
APPROVED REPORT Date of service: 08/02/2018 EKG Measurement Heart [id number] <Conclusion> Sinus rhythm with 1st degree AV block with fusion complexes Low voltage QRS Abnormal ECG
== END 2018-08-04 20:08 | DRG 517 ==
LOC: C.ER 13:49 → C.9E 15:36 → C.6T 18:45 → OBSVTOIN 07-26 17:14
PROVIDERS: ADMIT Internal Medicine; ATTEND Internal Medicine
PROC: 01NB0ZZ Release Lumbar Nerve, Open Approach (ICD-10-PCS; principal; 2018-08-01 11:00)
DX: M51.16 Intervertebral disc disorders with radiculopathy, lumbar region (principal); N28.9 Disorder of kidney and ureter, unspecified; M19.90 Unspecified osteoarthritis, unspecified site; I49.3 Ventricular premature depolarization; I48.91 Unspecified atrial fibrillation; I25.10 Atherosclerotic heart disease of native coronary artery without angina pectoris; I10 Essential (primary) hypertension; E11.69 Type 2 diabetes mellitus with other specified complication; E11.649 Type 2 diabetes mellitus with hypoglycemia without coma; E11.65 Type 2 diabetes mellitus with hyperglycemia; E11.42 Type 2 diabetes mellitus with diabetic polyneuropathy; D64.9 Anemia, unspecified; R50.82 Postprocedural fever; E78.5 Hyperlipidemia, unspecified; Z86.73 Personal history of transient ischemic attack (TIA), and cerebral infarction without residual deficits; Z95.5 Presence of coronary angioplasty implant and graft

== ENCOUNTER 2018-09-11 11:39 | Inpatient (IN) | payer MEDICARE, OTHER ==
[2018-09-11 11:39] VITALS: BMI 30.7
--- NOTE | 2018-09-11 12:18 | C.PDOC ---
History Of Present Illness 77 y/o F c PMHx HTN, HLD, DM, CAD, CVA, s/p lumbar laminectomy [address] Elkins p/w weakness and numbness x 1 week. Patient states that for the last week, she has had numbness to her entire body from the neck down as well as motor weakness of all extremities, worse in the lower extremities. She states that since the surgery, she has been moving and walking but has not been able to for the last week. She denies fever, chills, chest pain, dyspnea, nausea, vomiting, urinary or bowel incontinence or retention. Time Seen by Provider: 09/11/18 11:45 Chief Complaint (Nursing): Weakness/Neurological Deficit Past Medical History Vital Signs: Last Vital Signs Temp 98 F 09/11/18 11:52 Pulse 75 09/11/18 11:52 Resp 13 09/11/18 11:52 BP 144/75 09/11/18 11:52 Pulse Ox 98 09/11/18 11:52 - Medical History PMH: Arthritis, Atrial Fibrillation, HTN, Hypercholesterolemia, Hyperlipidemia, Seizures (childhood) Denies: Chronic Kidney Disease Surgical History: Back Surgery, Coronary Stent (3) - [facility] Procedures CORONAR ARTERIOGR-2 CATH (03/13/15) RELEASE LUMBAR NERVE, OPEN APPROACH (07/26/18) RT & LT HEART ANGIOCARD (03/13/15) RT/LEFT HEART CARD CATH (03/13/15) Family History: States: Unknown Family Hx - Social History Hx Tobacco Use: No Hx Alcohol Use: No Hx Substance Use: No - Immunization History Hx Tetanus Toxoid Vaccination: No Hx Influenza Vaccination: No Hx Pneumococcal Vaccination: No Review Of Systems Except As Marked, All Systems Reviewed And Found Negative. Constitutional: Negative for: Fever Cardiovascular: Negative for: Chest Pain Physical Exam - Physical Exam Additional Physical Exam Comments: Gen: NAD head: NC/AT Eyes: PERRL ENT: MMM Neck: No midline tenderness Chest: No tenderness CV: Regular rate Lungs: CTA b/l Abd: Soft, NT Back: Lumbar surgical incision Extremities: No tenderness Skin: No rash Neuro: Alert, oriented. Sensation to light touch decreased x 4. Motor strength decreased x 4, weaker in lower extremities. ED Course And Treatment - Laboratory Results Result Diagrams: 09/11/18 12:40 09/11/18 12:40 O2 Sat by Pulse Oximetry: 98 Medical Decision Making Medical Decision Making: EKG NSR 72 bpm, no ST/T wave changes. CXR no acute disease. Dr. Aguilar accepts patient to his service for further evaluation of these constant symptoms. Disposition - Disposition Disposition: HOSPITALIZED Disposition Time: 14:00 Condition: FAIR Instructions: Weakness (ED) Forms: [facility] ([facility]) - Clinical Impression Clinical Impression: Weakness, Numbness
[2018-09-11 12:45] LABS: BASO % 0.6 % (0.0-2.0); EOS # 0.1 K/uL (0.0-0.7); EOS % 1.2 % (0.0-4.0); HEMOGLOBIN 11.1 g/dL (11.0-16.0); LYMPH # 0.8 K/uL (1.0-4.3); MEAN CELL VOLUME 95.5 fL (81.0-99.0); MEAN CORPUSCULAR HEMOGLOBIN 30.8 pg (27.0-31.0); MEAN CORPUSCULAR HGB CONC 32.3 g/dL (33.0-37.0); MEAN PLATELET VOLUME 9.8 fL (7.2-11.7); MONO # 0.4 K/uL (0.0-0.8); MONO % 6.3 % (0.0-10.0); NEUT # 4.7 K/uL (1.8-7.0); NEUT % 78.9 % (50.0-75.0); NRBC % 0.1 % (0.0-2.0); RBC 3.59 Mil/uL (3.80-5.20); RED CELL DISTRIBUTION WIDTH 15.2 % (11.5-14.5); WHITE BLOOD COUNT 5.9 K/uL (4.8-10.8)
[2018-09-11 12:53] LABS: INR 1.1; PROTHROMBIN TIME 11.6 SECONDS (9.7-12.2)
[2018-09-11 12:58] LABS: ALB/GLOB RATIO 1.2 (1.0-2.1); ALBUMIN 4.3 g/dL (3.5-5.0); CALCIUM 9.1 mg/dl (8.6-10.4)
--- NOTE | 2018-09-11 15:08 | RAD ---
HISTORY: r/o PNA COMPARISON: Chest x-ray performed 08/03/18 TECHNIQUE: Chest, one view. FINDINGS: LUNGS: Right hilar prominence. No focal consolidation. Please note that chest x-ray has limited sensitivity for the detection of pulmonary masses. PLEURA: No significant pleural effusion identified. No definite pneumothorax . CARDIOVASCULAR: Mild cardiomegaly. Atherosclerotic calcifications present. OSSEOUS STRUCTURES: Degenerative changes. VISUALIZED UPPER ABDOMEN: Mild elevation of the right hemidiaphragm. OTHER FINDINGS: None. IMPRESSION: Mild cardiomegaly. Mild elevation of the right hemidiaphragm. Right hilar prominence. No focal consolidation.
[2018-09-11] MEDS ORDERED: Oxycodone/Acetaminophen 5/325 mg Tab PO STA (16:01)
[2018-09-11] MEDS ORDERED: Oxycodone/Acetaminophen 5/325 mg Tab ONE (16:08)
[2018-09-11] MEDS ORDERED: Oxycodone/Acetaminophen 5/325 mg Tab PO PRN (17:44)
[2018-09-11] MEDS ORDERED: Aritificial Tears (15ml) OU PRN (17:44)
--- NOTE | 2018-09-11 20:39 | CP.PCM.CON ---
History of Present Illness - History of Present Illness History of Present Illness: Reason For Consultation: Dizziness 77 y/o F c PMHx HTN, HLD, DM, CAD, CVA, s/p lumbar laminectomy [address] Elkins p/w weakness and numbness x 1 week. Patient states that for the last week, she has had numbness to her entire body from the neck down as well as motor weakness of all extremities, worse in the lower extremities. She states that since the surgery, she has been moving and walking but has not been able to for the last week. She denies fever, chills, chest pain, dyspnea, nausea, vomiting, urinary or bowel incontinence or retention. Chief Complaint (Nursing): Weakness/Neurological Deficit Past Medical History Vital Signs: Last Vital Signs Temp 98 F 09/11/18 11:52 Pulse 75 09/11/18 11:52 Resp 13 09/11/18 11:52 BP 144/75 09/11/18 11:52 Pulse Ox 98 09/11/18 11:52 - Medical History PMH: Arthritis, Atrial Fibrillation, HTN, Hypercholesterolemia, Hyperlipidemia, Seizures (childhood) Denies: Chronic Kidney Disease Surgical History: Back Surgery, Coronary Stent (3) - [facility] Procedures CORONAR ARTERIOGR-2 CATH (03/13/15) RELEASE LUMBAR NERVE, OPEN APPROACH (07/26/18) RT & LT HEART ANGIOCARD (03/13/15) RT/LEFT HEART CARD CATH (03/13/15) Family History: States: Unknown Family Hx - Social History Hx Tobacco Use: No Hx Alcohol Use: No Hx Substance Use: No - Immunization History Hx Tetanus Toxoid Vaccination: No Hx Influenza Vaccination: No Hx Pneumococcal Vaccination: No Review Of Systems Except As Marked, All Systems Reviewed And Found Negative. Constitutional: Negative for: Fever Cardiovascular: Negative for: Chest Pain Physical Exam - Physical Exam Additional Physical Exam Comments: Gen: NAD head: NC/AT Eyes: PERRL ENT: MMM Neck: No midline tenderness Chest: No tenderness CV: Regular rate Lungs: CTA b/l Abd: Soft, NT Back: Lumbar surgical incision Extremities: No tenderness Skin: No rash Neuro: Alert, oriented. Sensation to light touch decreased x 4. Motor strength decreased x 4, weaker in lower extremities. Past Patient History - Infectious Disease Hx of Infectious Diseases: None - Past Medical History & Family History Past Medical History?: Yes - Past Social History Smoking Status: Never Smoked - CARDIAC Hx Atrial Fibrillation: Yes Hx Hypercholesterolemia: Yes Hx Hypertension: Yes - PULMONARY Hx Respiratory Disorders: No - NEUROLOGICAL Hx Seizures: Yes (childhood) - HEENT Other/Comment: WEARS GLASSES - RENAL Hx Chronic Kidney Disease: No - ENDOCRINE/METABOLIC Hx Endocrine Disorders: Yes Hx Diabetes Mellitus Type 2: Yes - HEMATOLOGICAL/ONCOLOGICAL Hx Blood Disorders: No - INTEGUMENTARY Hx Dermatological Problems: No - MUSCULOSKELETAL/RHEUMATOLOGICAL Hx Arthritis: Yes Hx Falls: No - GASTROINTESTINAL Hx Gastrointestinal Disorders: No - GENITOURINARY/GYNECOLOGICAL Hx Genitourinary Disorders: No - PSYCHIATRIC Hx Substance Use: No - SURGICAL HISTORY Hx Coronary Stent: Yes (3) - ANESTHESIA Hx Anesthesia: Yes (Novacaine during tooth extraction) Hx Anesthesia Reactions: No Hx Malignant Hyperthermia: No Meds Allergies/Adverse Reactions: Allergies Allergy/AdvReac Type Severity Reaction Status Date / Time gabapentin AdvReac Verified 07/24/18 13:57 pregabalin [From Lyrica] AdvReac Verified 07/24/18 13:57 - Medications Medications: Current Medications Acetaminophen (Tylenol 325mg Tab) 650 mg PO Q6 PRN PRN Reason: Fever >100.4 F Artificial Tears (Artificial Tears) 0.05 ml OU BID PRN PRN Reason: Dry eyes Aspirin (Aspirin Chewable) 81 mg PO DAILY [facility] Clopidogrel Bisulfate (Plavix) 75 mg PO DAILY [facility] Enalapril Maleate (Vasotec) 20 mg PO BID [facility] Last Admin: 09/11/18 19:04 Dose: 20 mg Enoxaparin Sodium (Lovenox) 40 mg SC DAILY [facility] Famotidine (Pepcid) 20 mg PO DAILY [facility] Ferrous Sulfate (Feosol) 325 mg PO BIDCC [facility] Last Admin: 09/11/18 19:05 Dose: 325 mg Hydralazine HCl (Apresoline) 25 mg PO Q8 [facility] Last Admin: 09/11/18 19:05 Dose: 25 mg Hydrochlorothiazide (Microzide) 12.5 mg PO DAILY [facility] Insulin Human Regular (Novolin R) 0 unit SC [facility]; Protocol Metformin HCl (Glucophage) 500 mg PO BIDCC [facility] Last Admin: 09/11/18 19:05 Dose: 500 mg Metoprolol Succinate (Toprol Xl) 50 mg PO DAILY [facility] Ondansetron HCl (Zofran Tab) 4 mg PO Q6H [facility] Last Admin: 09/11/18 19:05 Dose: 4 mg Oxycodone/Acetaminophen (Percocet 5/325 Mg Tab) 2 tab PO Q4H PRN PRN Reason: Pain, severe (8-10) Stop: 09/14/18 17:45 Rosuvastatin Calcium (Crestor) 5 mg PO HS [facility] Sennosides (Senokot Tab) 17.2 mg PO HS [facility] Sitagliptin Phosphate (Januvia) 50 mg PO DAILY [facility] Results - Vital Signs Recent Vital Signs: Last Vital Signs Temp 98.4 F 09/11/18 18:16 Pulse 62 09/11/18 18:16 Resp 16 09/11/18 18:16 BP 195/90 H 09/11/18 19:04 Pulse Ox 96 09/11/18 18:16 - Labs Result Diagrams: 09/11/18 12:40 09/11/18 12:40 Labs: Laboratory Results - last 24 hr 09/11/18 09/11/18 09/11/18 12:32 12:40 12:40 WBC 5.9 RBC 3.59 L Hgb 11.1 D Hct 34.3 MCV 95.5 D MCH 30.8 MCHC 32.3 L RDW 15.2 H Plt Count 272 D MPV 9.8 Neut % (Auto) 78.9 H Lymph % (Auto) 13.0 L [place] % (Auto) 6.3 Eos % (Auto) 1.2 Baso % (Auto) 0.6 Neut # (Auto) 4.7 Lymph # (Auto) 0.8 L [place] # (Auto) 0.4 Eos # (Auto) 0.1 Baso # (Auto) 0.0 PT INR APTT Sodium Potassium Chloride Carbon Dioxide Anion Gap BUN Creatinine Est GFR ( Amer) Est GFR (Non-Af Amer) POC Glucose (mg/dL) 153 H Random Glucose Calcium Phosphorus Magnesium Total Bilirubin AST ALT Alkaline Phosphatase Total Creatine Kinase Total Protein Albumin Globulin Albumin/Globulin Ratio Vitamin B12 TSH 3rd Generation Influenza Typ A,B (EIA) Negative for flu a/b 09/11/18 09/11/18 09/11/18 12:40 12:40 18:46 WBC RBC Hgb Hct MCV MCH MCHC RDW Plt Count MPV Neut % (Auto) Lymph % (Auto) [place] % (Auto) Eos % (Auto) Baso % (Auto) Neut # (Auto) Lymph # (Auto) [place] # (Auto) Eos # (Auto) Baso # (Auto) PT 11.6 INR 1.1 APTT 28 Sodium 135 Potassium 4.9 Chloride 101 Carbon Dioxide 26 Anion Gap 13 BUN 22 H Creatinine 1.1 Est GFR ( Amer) 58 Est GFR (Non-Af Amer) 48 POC Glucose (mg/dL) Random Glucose 144 H Calcium 9.1 Phosphorus 4.3 Magnesium 2.0 Total Bilirubin 0.3 AST 27 ALT 12 Alkaline Phosphatase 63 Total Creatine Kinase 66 Total Protein 7.7 Albumin 4.3 Globulin 3.4 Albumin/Globulin Ratio 1.2 Vitamin B12 551 TSH 3rd Generation 0.75 Influenza Typ A,B (EIA) Assessment & Plan - Assessment and Plan (Free Text) Assessment: 77 F with hx of HTN, DM2 admitted for parasthesias Denues chest pain and dyspnea Recent ECHO: Normal Ef Will monitor
[2018-09-11] MEDS: (Novolin R) Insulin Human Regular 100 units/ml vial SC SCH (21:25)
--- NOTE | 2018-09-12 06:23 | HP ---
CHIEF COMPLAINT: Numbness in the body since this morning. HISTORY OF PRESENT ILLNESS: This is a 77-year-old female, well known to me with history of history of lumbar radiculopathy with status post lumbar laminectomy five weeks ago by Dr. Elkins; type 2 diabetes with diabetic peripheral neuropathy; noncompliant with the diet, medication, and followup; hypertension; hyperlipidemia; osteoarthritis. In the past, her workup for coronary artery disease has been negative. She is currently in the subacute rehab. The patient is currently in [facility] for subacute rehab training. The patient is on rehab. She has been able to cooperate in the rehab with some physical activity, and since this morning, she is feeling numbness of her entire body from neck all the way down, difficulty in the lower extremity, difficulty weightbearing. She feels numbness in the feet. She feels numbness in the body. She denies any injury in the subacute rehab. She denies any accessory movements. She denies any history of fall or loss of consciousness. No history of headache, dizziness, or vertigo. She denies any polyuria, polydipsia, or polyphagia. She denies any history of hematuria or pyuria. She denies any sneezing, itchy eyes, or itchy nose. There is no history of fever, chills, or rigors. There is no history of skin rash. She denies any back pain. She has knee pain and neck pain. PAST MEDICAL HISTORY: Type 2 diabetes, hypertension, hyperlipidemia, osteoarthritis, diabetic peripheral neuropathy, and status post spinal laminectomy. SOCIAL HISTORY: Nonsmoker. Non-EtOH user. ALLERGIES: UNKNOWN ALLERGIES. CURRENT MEDICATIONS: Hydralazine, Zofran, senna, iron, Vasotec, Pepcid, Plavix, aspirin, Tylenol, Percocet, Glucophage, Microzide, Apresoline, Januvia, Pravachol, artificial tears, and Toprol-XL. PHYSICAL EXAMINATION: GENERAL: An elderly female in distress. Has numbness in the body. VITAL SIGNS: Blood pressure of 140/70, pulse 62, respiratory rate 16, temperature 98.4. SKIN: Warm. Senile turgor. No bruises. No purpura. No petechiae. No ecchymosis. HEENT: Atraumatic, normocephalic. Negative pallor. Negative jaundice. Extraocular movements are intact. NECK: Supple. No JVD. No lymph node. No thyromegaly. No carotid bruit. CHEST WALL: Bilateral symmetrical expansion. No masses. BREAST: No masses. No nipple discharge. LUNGS: Bilaterally clear. No rales. No rhonchi. CARDIOVASCULAR SYSTEM: PMI not localized. S1 and S2 regular. No heave. No thrill. ABDOMEN: Soft, nontender. Bowel sounds are positive. RECTAL: No masses. No bleed. EXTREMITIES: No clubbing, cyanosis, or edema. CENTRAL NERVOUS SYSTEM: Awake, alert, oriented x3. Cranial nerves II through XII are normal. Power 5/5 x4. Plantars equivocal in bilateral feet. Deep tendon reflexes are absent in the ankle, and sensation including proprioception, vibration, and touch are absent in the feet. ASSESSMENT: 1. Lumbar disk disease, status post spinal laminectomy with diabetic peripheral neuropathy, rule out cervical cord disease. 2. Type 2 diabetes, well controlled. 3. Hypertension. 4. Osteoarthritis. PLAN: Admit. Detailed orders are written. Seen and examined. Amanuel Aguilar MD
[2018-09-12] MEDS: (Novolin R) Insulin Human Regular 100 units/ml vial SC SCH ×4 (08:27→21:58)
[2018-09-12] MEDS: Enoxaparin 40 mg Syringe SC SCH (09:18)
[2018-09-12] MEDS: Metoprolol Succinate 50 mg XL Tab PO SCH (09:23)
--- NOTE | 2018-09-12 10:29 | CP.PCM.PN ---
Subjective - Date & Time of Evaluation Date of Evaluation: 09/12/18 Time of Evaluation: 10:28 - Subjective Subjective: pt about 5 wk s/p laminectomy had profound le weakness pre op \was seen in office 2 wks ago she actually is stronger now than pre op but still non ambulatory there is no further surgical intervention indicated need to cont with rehab Objective - Vital Signs/Intake and Output Vital Signs (last 24 hours): Temp Pulse Resp BP Pulse Ox 98 F 62 20 144/78 99 09/12/18 07:30 09/12/18 07:30 09/12/18 07:30 09/12/18 07:30 09/12/18 07:30 Intake and Output: 09/12/18 09/12/18 06:59 18:59 Intake Total 470 Balance 470 - Medications Medications: Current Medications Acetaminophen (Tylenol 325mg Tab) 650 mg PO Q6 PRN PRN Reason: Fever >100.4 F Artificial Tears (Artificial Tears) 0.05 ml OU BID PRN PRN Reason: Dry eyes Aspirin (Aspirin Chewable) 81 mg PO DAILY [facility] Clopidogrel Bisulfate (Plavix) 75 mg PO DAILY [facility] Last Admin: 09/12/18 09:18 Dose: Not Given Enalapril Maleate (Vasotec) 20 mg PO BID [facility] Last Admin: 09/12/18 09:23 Dose: Not Given Enoxaparin Sodium (Lovenox) 40 mg SC DAILY [facility] Last Admin: 09/12/18 09:18 Dose: 40 mg Famotidine (Pepcid) 20 mg PO DAILY [facility] Last Admin: 09/12/18 09:16 Dose: 20 mg Ferrous Sulfate (Feosol) 325 mg PO BIDCC [facility] Last Admin: 09/12/18 09:18 Dose: Not Given Hydralazine HCl (Apresoline) 25 mg PO Q8 [facility] Last Admin: 09/11/18 21:25 Dose: Not Given Hydrochlorothiazide (Microzide) 12.5 mg PO DAILY [facility] Last Admin: 09/12/18 09:17 Dose: 12.5 mg Insulin Human Regular (Novolin R) 0 unit SC [facility]; Protocol Last Admin: 09/12/18 08:27 Dose: Not Given Metformin HCl (Glucophage) 500 mg PO BIDCC [facility] Last Admin: 09/12/18 09:16 Dose: 500 mg Metoprolol Succinate (Toprol Xl) 50 mg PO DAILY [facility] Last Admin: 09/12/18 09:23 Dose: Not Given Ondansetron HCl (Zofran Tab) 4 mg PO Q6H [facility] Last Admin: 09/12/18 00:48 Dose: Not Given Oxycodone/Acetaminophen (Percocet 5/325 Mg Tab) 2 tab PO Q4H PRN PRN Reason: Pain, severe (8-10) Stop: 09/14/18 17:45 Rosuvastatin Calcium (Crestor) 5 mg PO HS [facility] Sennosides (Senokot Tab) 17.2 mg PO HS [facility] Last Admin: 09/11/18 21:25 Dose: Not Given Sitagliptin Phosphate (Januvia) 50 mg PO DAILY [facility] Last Admin: 09/12/18 09:16 Dose: 50 mg - Labs Labs: 09/11/18 12:40 09/11/18 12:40 PT 11.6 SECONDS (9.7-12.2) 09/11/18 12:40 INR 1.1 09/11/18 12:40 APTT 28 SECONDS (21-34) 09/11/18 12:40
--- NOTE | 2018-09-12 20:23 | CARD ---
APPROVED REPORT Date of service: 09/11/2018 EKG Measurement Heart [id number] <Conclusion> Normal sinus rhythm Low voltage QRS Cannot rule out Anterior infarct, age undetermined Abnormal ECG
--- NOTE | 2018-09-12 21:41 | CP.PCM.PN ---
Subjective - Date & Time of Evaluation Date of Evaluation: 09/12/18 Time of Evaluation: 07:40 - Subjective Subjective: dictated Objective - Vital Signs/Intake and Output Vital Signs (last 24 hours): Temp Pulse Resp BP Pulse Ox 98.2 F 68 20 121/67 97 09/12/18 16:30 09/12/18 16:30 09/12/18 16:30 09/12/18 17:38 09/12/18 16:30 - Medications Medications: Current Medications Acetaminophen (Tylenol 325mg Tab) 650 mg PO Q6 PRN PRN Reason: Fever >100.4 F Artificial Tears (Artificial Tears) 0.05 ml OU BID PRN PRN Reason: Dry eyes Aspirin (Aspirin Chewable) 81 mg PO DAILY [facility] Last Admin: 09/12/18 10:00 Dose: Not Given Clopidogrel Bisulfate (Plavix) 75 mg PO DAILY [facility] Last Admin: 09/12/18 09:18 Dose: Not Given Enalapril Maleate (Vasotec) 20 mg PO BID [facility] Last Admin: 09/12/18 17:38 Dose: 20 mg Enoxaparin Sodium (Lovenox) 40 mg SC DAILY [facility] Last Admin: 09/12/18 09:18 Dose: 40 mg Famotidine (Pepcid) 20 mg PO DAILY [facility] Last Admin: 09/12/18 09:16 Dose: 20 mg Ferrous Sulfate (Feosol) 325 mg PO BIDCC [facility] Last Admin: 09/12/18 17:37 Dose: 325 mg Hydralazine HCl (Apresoline) 25 mg PO Q8 [facility] Last Admin: 09/12/18 13:31 Dose: 25 mg Hydrochlorothiazide (Microzide) 12.5 mg PO DAILY [facility] Last Admin: 09/12/18 09:17 Dose: 12.5 mg Insulin Human Regular (Novolin R) 0 unit SC [facility]; Protocol Last Admin: 09/12/18 17:13 Dose: Not Given Metformin HCl (Glucophage) 500 mg PO BIDCC [facility] Last Admin: 09/12/18 17:38 Dose: Not Given Metoprolol Succinate (Toprol Xl) 50 mg PO DAILY [facility] Last Admin: 09/12/18 09:23 Dose: Not Given Ondansetron HCl (Zofran Tab) 4 mg PO Q6H [facility] Last Admin: 09/12/18 17:37 Dose: 4 mg Oxycodone/Acetaminophen (Percocet 5/325 Mg Tab) 2 tab PO Q4H PRN PRN Reason: Pain, severe (8-10) Stop: 09/14/18 17:45 Rosuvastatin Calcium (Crestor) 5 mg PO HS [facility] Sennosides (Senokot Tab) 17.2 mg PO HS [facility] Last Admin: 09/11/18 21:25 Dose: Not Given Sitagliptin Phosphate (Januvia) 50 mg PO DAILY [facility] Last Admin: 09/12/18 09:16 Dose: 50 mg - Labs Labs: 09/11/18 12:40 09/11/18 12:40 PT 11.6 SECONDS (9.7-12.2) 09/11/18 12:40 INR 1.1 09/11/18 12:40 APTT 28 SECONDS (21-34) 09/11/18 12:40
--- NOTE | 2018-09-12 22:58 | CP.PCM.PN ---
Subjective - Date & Time of Evaluation Date of Evaluation: 09/12/18 Time of Evaluation: 16:10 - Subjective Subjective: Patient seen and evaluated Denies chest pain and dyspnea No cardiac events noted Objective - Vital Signs/Intake and Output Vital Signs (last 24 hours): Temp Pulse Resp BP Pulse Ox 97.9 F 62 20 138/73 99 09/12/18 21:49 09/12/18 21:49 09/12/18 21:49 09/12/18 21:49 09/12/18 21:49 - Medications Medications: Current Medications Acetaminophen (Tylenol 325mg Tab) 650 mg PO Q6 PRN PRN Reason: Fever >100.4 F Artificial Tears (Artificial Tears) 0.05 ml OU BID PRN PRN Reason: Dry eyes Aspirin (Aspirin Chewable) 81 mg PO DAILY [facility] Last Admin: 09/12/18 10:00 Dose: Not Given Clopidogrel Bisulfate (Plavix) 75 mg PO DAILY [facility] Last Admin: 09/12/18 09:18 Dose: Not Given Enalapril Maleate (Vasotec) 20 mg PO BID [facility] Last Admin: 09/12/18 17:38 Dose: 20 mg Enoxaparin Sodium (Lovenox) 40 mg SC DAILY [facility] Last Admin: 09/12/18 09:18 Dose: 40 mg Famotidine (Pepcid) 20 mg PO DAILY [facility] Last Admin: 09/12/18 09:16 Dose: 20 mg Ferrous Sulfate (Feosol) 325 mg PO BIDCC [facility] Last Admin: 09/12/18 17:37 Dose: 325 mg Hydralazine HCl (Apresoline) 25 mg PO Q8 [facility] Last Admin: 09/12/18 21:57 Dose: 25 mg Hydrochlorothiazide (Microzide) 12.5 mg PO DAILY [facility] Last Admin: 09/12/18 09:17 Dose: 12.5 mg Insulin Human Regular (Novolin R) 0 unit SC [facility]; Protocol Last Admin: 09/12/18 21:58 Dose: Not Given Metformin HCl (Glucophage) 500 mg PO BIDCC [facility] Last Admin: 09/12/18 17:38 Dose: Not Given Metoprolol Succinate (Toprol Xl) 50 mg PO DAILY [facility] Last Admin: 09/12/18 09:23 Dose: Not Given Ondansetron HCl (Zofran Tab) 4 mg PO Q6H [facility] Last Admin: 09/12/18 17:37 Dose: 4 mg Oxycodone/Acetaminophen (Percocet 5/325 Mg Tab) 2 tab PO Q4H PRN PRN Reason: Pain, severe (8-10) Stop: 09/14/18 17:45 Rosuvastatin Calcium (Crestor) 5 mg PO HS [facility] Last Admin: 09/12/18 21:57 Dose: 5 mg Sennosides (Senokot Tab) 17.2 mg PO HS [facility] Last Admin: 09/12/18 21:57 Dose: 17.2 mg Sitagliptin Phosphate (Januvia) 50 mg PO DAILY [facility] Last Admin: 09/12/18 09:16 Dose: 50 mg - Labs Labs: 09/11/18 12:40 09/11/18 12:40 PT 11.6 SECONDS (9.7-12.2) 09/11/18 12:40 INR 1.1 09/11/18 12:40 APTT 28 SECONDS (21-34) 09/11/18 12:40
--- NOTE | 2018-09-13 02:20 | PN ---
DATE: 09/12/2018 SUBJECTIVE: The patient has no new changes here. Same nonspecific symptoms with tingling and numbness in the body. No fever. No chest pain. No nausea, vomiting. No cough. No sore throat. No chills. No rigors. PHYSICAL EXAMINATION: VITAL SIGNS: Blood pressure is 138/73, pulse 62, respiratory rate 20, temperature 97.9. LUNGS: Clear. No rales. No rhonchi. CARDIOVASCULAR SYSTEM: S1, S2. Regular. ABDOMEN: Soft. ASSESSMENT: 1. Lumbar disc disease, status post surgery. The patient seen by Neurosurgery. 2. Type 2 diabetes. 3. Hypertension. 4. Osteoarthritis. 5. Diabetic peripheral neuropathy. PLAN: Monitor the patient. Call neurosurgical eval, physical therapy, rehab, and Neurology eval. Amanuel Aguilar MD
--- NOTE | 2018-09-13 07:25 | CP.PCM.CON ---
History of Present Illness - History of Present Illness History of Present Illness: CONSULTATION DICTATED ONE WEEK PROGRESSION OF NUMBNESS FROM HANDS WITH WEAKNESS OF NECK DOWN AREFLEXIC PLANTAR DOWN URINARY INCONTINENCE CRITICAL CARE CONSULT NEPHROLOGY CONSULT FOR PLEX LP UNDER FLUROSCOPY WORK UP PER ORDER MRI REQUESTED Past Patient History - Infectious Disease Hx of Infectious Diseases: None - Past Medical History & Family History Past Medical History?: Yes - Past Social History Smoking Status: Never Smoked - CARDIAC Hx Atrial Fibrillation: Yes Hx Hypercholesterolemia: Yes Hx Hypertension: Yes - PULMONARY Hx Respiratory Disorders: No - NEUROLOGICAL Hx Seizures: Yes (childhood) - HEENT Other/Comment: WEARS GLASSES - RENAL Hx Chronic Kidney Disease: No - ENDOCRINE/METABOLIC Hx Endocrine Disorders: Yes Hx Diabetes Mellitus Type 2: Yes - HEMATOLOGICAL/ONCOLOGICAL Hx Blood Disorders: No - INTEGUMENTARY Hx Dermatological Problems: No - MUSCULOSKELETAL/RHEUMATOLOGICAL Hx Arthritis: Yes Hx Falls: No - GASTROINTESTINAL Hx Gastrointestinal Disorders: No - GENITOURINARY/GYNECOLOGICAL Hx Genitourinary Disorders: No - PSYCHIATRIC Hx Substance Use: No - SURGICAL HISTORY Hx Coronary Stent: Yes (3) - ANESTHESIA Hx Anesthesia: Yes (Novacaine during tooth extraction) Hx Anesthesia Reactions: No Hx Malignant Hyperthermia: No Meds Allergies/Adverse Reactions: Allergies Allergy/AdvReac Type Severity Reaction Status Date / Time gabapentin AdvReac Verified 07/24/18 13:57 pregabalin [From Lyrica] AdvReac Verified 07/24/18 13:57 - Medications Medications: Current Medications Acetaminophen (Tylenol 325mg Tab) 650 mg PO Q6 PRN PRN Reason: Fever >100.4 F Artificial Tears (Artificial Tears) 0.05 ml OU BID PRN PRN Reason: Dry eyes Aspirin (Aspirin Chewable) 81 mg PO DAILY [facility] Last Admin: 09/12/18 10:00 Dose: Not Given Clopidogrel Bisulfate (Plavix) 75 mg PO DAILY [facility] Last Admin: 09/12/18 09:18 Dose: Not Given Enalapril Maleate (Vasotec) 20 mg PO BID [facility] Last Admin: 09/12/18 17:38 Dose: 20 mg Enoxaparin Sodium (Lovenox) 40 mg SC DAILY [facility] Last Admin: 09/12/18 09:18 Dose: 40 mg Famotidine (Pepcid) 20 mg PO DAILY [facility] Last Admin: 09/12/18 09:16 Dose: 20 mg Ferrous Sulfate (Feosol) 325 mg PO BID [facility] Last Admin: 09/12/18 17:37 Dose: 325 mg Hydralazine HCl (Apresoline) 25 mg PO Q8 [facility] Last Admin: 09/13/18 05:43 Dose: 25 mg Hydrochlorothiazide (Microzide) 12.5 mg PO DAILY [facility] Last Admin: 09/12/18 09:17 Dose: 12.5 mg Insulin Human Regular (Novolin R) 0 unit SC [facility]; Protocol Last Admin: 09/12/18 21:58 Dose: Not Given Metformin HCl (Glucophage) 500 mg PO BIDCC [facility] Last Admin: 09/12/18 17:38 Dose: Not Given Metoprolol Succinate (Toprol Xl) 50 mg PO DAILY [facility] Last Admin: 09/12/18 09:23 Dose: Not Given Ondansetron HCl (Zofran Tab) 4 mg PO Q6H [facility] Last Admin: 09/13/18 05:43 Dose: 4 mg Oxycodone/Acetaminophen (Percocet 5/325 Mg Tab) 2 tab PO Q4H PRN PRN Reason: Pain, severe (8-10) Stop: 09/14/18 17:45 Rosuvastatin Calcium (Crestor) 5 mg PO [facility] Last Admin: 09/12/18 21:57 Dose: 5 mg Sennosides (Senokot Tab) 17.2 mg PO [facility] Last Admin: 09/12/18 21:57 Dose: 17.2 mg Sitagliptin Phosphate (Januvia) 50 mg PO DAILY [facility] Last Admin: 09/12/18 09:16 Dose: 50 mg Results - Vital Signs Recent Vital Signs: Last Vital Signs Temp 98.1 F 09/12/18 23:05 Pulse 65 09/12/18 23:05 Resp 20 09/12/18 23:05 BP 150/70 09/13/18 05:47 Pulse Ox 98 09/12/18 23:05 - Labs Result Diagrams: 09/11/18 12:40 09/11/18 12:40 Labs: Laboratory Results - last 24 hr 09/11/18 09/12/18 09/12/18 21:17 06:38 11:14 POC Glucose (mg/dL) 152 H 122 H 151 H 09/12/18 16:44 POC Glucose (mg/dL) 93
--- NOTE | 2018-09-13 07:30 | CP.PCM.CON ---
<FrancoCarmenbobby Alarcon - Last Filed: 09/13/18 16:11> History of Present Illness - History of Present Illness History of Present Illness: Critical care consult note for Dr. Dietz. 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 Patient denies having fallen down or any trauma. At rehab, patient states she was making progress and able to walk with more strength following lamenectomy. Patient denies stool/urinary incontinence, chest pain, SOB, nausea, vomiting, headaches, vision changes, fevers. chills. PMHx: lumbar laminectomy (5 weeks prior) , DM, HTN, HLD, CAD s/p 2 stents (2006), CVA (2018) PSHx: Lamenectomy, CAD w/ stents Meds; See EMR Social: non smoker, no alcohol use Review of Systems - Constitutional Constitutional: absent: Chills, Fever - EENT Eyes: absent: Blurred Vision, Discharge, Pain Nose/Mouth/Throat: absent: Nasal Congestion - Cardiovascular Cardiovascular: absent: Chest Pain, Chest Pain at Rest - Respiratory Respiratory: absent: Cough, Dyspnea, Hemoptysis - Gastrointestinal Gastrointestinal: absent: Cramping, Diarrhea, Heartburn - Genitourinary Genitourinary: absent: Difficulty Urinating, Urinary Incontinence, Urinary Urgency - Musculoskeletal Musculoskeletal: Muscle Cramps, Muscle Weakness - Integumentary Integumentary: absent: Alopecia, Bleeding Lesions - Neurological Neurological: absent: Dizziness, Numbness - Psychiatric Psychiatric: absent: Confusion - Endocrine Endocrine: absent: Palpitations, Polydipsia Past Patient History - Infectious Disease Hx of Infectious Diseases: None - Past Medical History & Family History Past Medical History?: Yes - Past Social History Smoking Status: Never Smoked - CARDIAC Hx Atrial Fibrillation: Yes Hx Hypercholesterolemia: Yes Hx Hypertension: Yes - PULMONARY Hx Respiratory Disorders: No - NEUROLOGICAL Hx Seizures: Yes (childhood) - HEENT Other/Comment: WEARS GLASSES - RENAL Hx Chronic Kidney Disease: No - ENDOCRINE/METABOLIC Hx Endocrine Disorders: Yes Hx Diabetes Mellitus Type 2: Yes - HEMATOLOGICAL/ONCOLOGICAL Hx Blood Disorders: No - INTEGUMENTARY Hx Dermatological Problems: No - MUSCULOSKELETAL/RHEUMATOLOGICAL Hx Arthritis: Yes Hx Falls: No - GASTROINTESTINAL Hx Gastrointestinal Disorders: No - GENITOURINARY/GYNECOLOGICAL Hx Genitourinary Disorders: No - PSYCHIATRIC Hx Substance Use: No - SURGICAL HISTORY Hx Coronary Stent: Yes (3) - ANESTHESIA Hx Anesthesia: Yes (Novacaine during tooth extraction) Hx Anesthesia Reactions: No Hx Malignant Hyperthermia: No Meds Allergies/Adverse Reactions: Allergies Allergy/AdvReac Type Severity Reaction Status Date / Time gabapentin AdvReac Verified 07/24/18 13:57 pregabalin [From Lyrica] AdvReac Verified 07/24/18 13:57 - Medications Medications: Current Medications Acetaminophen (Tylenol 325mg Tab) 650 mg PO Q6 PRN PRN Reason: Fever >100.4 F Artificial Tears (Artificial Tears) 0.05 ml OU BID PRN PRN Reason: Dry eyes Aspirin (Aspirin Chewable) 81 mg PO DAILY [facility] Last Admin: 09/12/18 10:00 Dose: Not Given Clopidogrel Bisulfate (Plavix) 75 mg PO DAILY [facility] Last Admin: 09/12/18 09:18 Dose: Not Given Enalapril Maleate (Vasotec) 20 mg PO BID [facility] Last Admin: 09/12/18 17:38 Dose: 20 mg Enoxaparin Sodium (Lovenox) 40 mg SC DAILY [facility] Last Admin: 09/12/18 09:18 Dose: 40 mg Famotidine (Pepcid) 20 mg PO DAILY [facility] Last Admin: 09/12/18 09:16 Dose: 20 mg Ferrous Sulfate (Feosol) 325 mg PO BIDCC [facility] Last Admin: 09/12/18 17:37 Dose: 325 mg Hydralazine HCl (Apresoline) 25 mg PO Q8 [facility] Last Admin: 09/13/18 05:43 Dose: 25 mg Hydrochlorothiazide (Microzide) 12.5 mg PO DAILY [facility] Last Admin: 09/12/18 09:17 Dose: 12.5 mg Insulin Human Regular (Novolin R) 0 unit SC [facility]; Protocol Last Admin: 09/12/18 21:58 Dose: Not Given Metformin HCl (Glucophage) 500 mg PO BIDCC [facility] Last Admin: 09/12/18 17:38 Dose: Not Given Metoprolol Succinate (Toprol Xl) 50 mg PO DAILY [facility] Last Admin: 09/12/18 09:23 Dose: Not Given Ondansetron HCl (Zofran Tab) 4 mg PO Q6H [facility] Last Admin: 09/13/18 05:43 Dose: 4 mg Oxycodone/Acetaminophen (Percocet 5/325 Mg Tab) 2 tab PO Q4H PRN PRN Reason: Pain, severe (8-10) Stop: 09/14/18 17:45 Rosuvastatin Calcium (Crestor) 5 mg PO [facility] Last Admin: 09/12/18 21:57 Dose: 5 mg Sennosides (Senokot Tab) 17.2 mg PO [facility] Last Admin: 09/12/18 21:57 Dose: 17.2 mg Sitagliptin Phosphate (Januvia) 50 mg PO DAILY [facility] Last Admin: 09/12/18 09:16 Dose: 50 mg Physical Exam - Constitutional Appears: Well, Non-toxic, No Acute Distress - Head Exam Head Exam: ATRAUMATIC, NORMAL INSPECTION - Eye Exam Eye Exam: EOMI, Normal appearance Pupil Exam: PERRL - ENT Exam ENT Exam: Mucous Membranes Moist - Respiratory Exam Respiratory Exam: Clear to Auscultation Bilateral, NORMAL BREATHING PATTERN. absent: Rales, Rhonchi, Wheezes - Cardiovascular Exam Cardiovascular Exam: +S1, +S2. absent: Systolic Murmur - GI/Abdominal Exam GI & Abdominal Exam: Normal Bowel Sounds, Soft - Extremities Exam Extremities exam: Negative for: calf tenderness, full ROM Additional comments: 3/5 strength in all extremities - Back Exam Back exam: absent: CVA tenderness (L), CVA tenderness (R) - Neurological Exam Neurological exam: Alert, Oriented x3 - Psychiatric Exam Psychiatric exam: Normal Affect, Normal Mood - Skin Skin Exam: Dry, Intact, Normal Color, Warm Results - Vital Signs Recent Vital Signs: Last Vital Signs Temp 98.1 F 09/12/18 23:05 Pulse 65 09/12/18 23:05 Resp 20 09/12/18 23:05 BP 150/70 09/13/18 05:47 Pulse Ox 98 09/12/18 23:05 - Labs Result Diagrams: 09/13/18 10:48 09/13/18 11:57 Labs: Laboratory Results - last 24 hr 09/11/18 09/12/18 09/12/18 21:17 06:38 11:14 POC Glucose (mg/dL) 152 H 122 H 151 H 09/12/18 16:44 POC Glucose (mg/dL) 93 Assessment & Plan - Assessment and Plan (Free Text) Assessment: 77 F w/ lumbar laminectomy presents with generalized body weakness including all extremities; suspicious for Rosanna barre syndrome Plan: Neuro - A&O x3 - 3/5 strength in all extremities - Lumbar tap unable to perform due to patient currently on plavix - Nuno Cathetor place in R femoral vein 09/13 - Will obtain plasmapheresis - F/u MRI cervical/lumbar - F/u HIV, lyme, rhematoid factor, , ACEi - ESR 80 Cardio - hx of HTN, CAD X 2 stents - c/w aspirin 81 daily, plavix 75 mg daily, hydralizine 25 mg Q8H, HCTZ 12.5 mg PO daily, metoprolol succinate 50 PO daily, enalipril 20 mg BID - Echo 07/2018: Normal EF, Grade 1 diastolic dysfunction - EKG: Normal sinus @ 72 BPM Resp - saturating well, no SOB - will continue to monitor - CXR 09/11: Cardiomegaly, no focal consolidation Renal - nuno catheter placed in R femoral vein 09/13 - plasmapheresisis - BUN/Cr stable at 20/1.3 Endo - hx of DM - c/w metformin 500 BID PO daily, Januivia 50 mg Po daily Heme - H/H stable in 10s/30s - likely iron deficiency - c/w feosol 325 PO BID ID - afebrile , WBC 6 - continue to monitor PPx - GI: pepcid 20mg daily - DVT: SCDs, lovenox 40 mg SC - Diet: consistent carbohydrate diet <Bogdan Dietz S - Last Filed: 09/13/18 17:24> Meds - Medications Medications: Current Medications Acetaminophen (Tylenol 325mg Tab) 650 mg PO Q6 PRN PRN Reason: Fever >100.4 F Artificial Tears (Artificial Tears) 0.05 ml OU BID PRN PRN Reason: Dry eyes Aspirin (Aspirin Chewable) 81 mg PO DAILY [facility] Last Admin: 09/13/18 10:56 Dose: Not Given Clopidogrel Bisulfate (Plavix) 75 mg PO DAILY [facility] Last Admin: 09/13/18 12:26 Dose: 75 mg Enalapril Maleate (Vasotec) 20 mg PO BID [facility] Last Admin: 09/13/18 10:55 Dose: 20 mg Enoxaparin Sodium (Lovenox) 40 mg SC DAILY [facility] Last Admin: 09/13/18 12:26 Dose: 40 mg Famotidine (Pepcid) 20 mg PO DAILY [facility] Last Admin: 09/13/18 10:54 Dose: 20 mg [facility] Last Admin: 09/13/18 09:30 Dose: Not Given Hydralazine HCl (Apresoline) 25 mg PO Q8 [facility] Last Admin: 09/13/18 13:38 Dose: 25 mg Hydrochlorothiazide (Microzide) 12.5 mg PO DAILY [facility] Last Admin: 09/13/18 10:54 Dose: 12.5 mg Insulin Human Regular (Novolin R) 0 unit SC [facility]; Protocol Last Admin: 09/13/18 16:39 Dose: Not Given [facility] Last Admin: 09/13/18 09:30 Dose: Not Given Metoprolol Succinate (Toprol Xl) 50 mg PO DAILY [facility] Last Admin: 09/13/18 10:53 Dose: 50 mg Ondansetron HCl (Zofran Tab) 4 mg PO Q6H [facility] Last Admin: 09/13/18 12:27 Dose: 4 mg Oxycodone/Acetaminophen (Percocet 5/325 Mg Tab) 2 tab PO Q4H PRN PRN Reason: Pain, severe (8-10) Stop: 09/14/18 17:45 Rosuvastatin Calcium (Crestor) 5 mg PO [facility] Last Admin: 09/12/18 21:57 Dose: 5 mg Sennosides (Senokot Tab) 17.2 mg PO [facility] Last Admin: 09/12/18 21:57 Dose: 17.2 mg Sitagliptin Phosphate (Januvia) 50 mg PO DAILY [facility] Last Admin: 09/13/18 10:55 Dose: 50 mg Results - Vital Signs Recent Vital Signs: Last Vital Signs Temp 98.3 F 09/13/18 16:00 Pulse 64 09/13/18 16:16 Resp 13 09/13/18 16:16 BP 160/91 H 09/13/18 16:16 Pulse Ox 97 09/13/18 16:16 - Labs Result Diagrams: 09/13/18 10:48 09/13/18 11:57 Labs: Laboratory Results - last 24 hr 09/12/18 09/13/18 09/13/18 16:44 07:49 07:49 WBC RBC Hgb Hct MCV MCH MCHC RDW Plt Count MPV Neut % (Auto) Lymph % (Auto) Trigg % (Auto) Eos % (Auto) Baso % (Auto) Neut # (Auto) Lymph # (Auto) Trigg # (Auto) Eos # (Auto) Baso # (Auto) ESR 80 H Haptoglobin PT INR APTT Fibrinogen Fibrin Degrad Products Fibrin Degrad Prod, Qt Sodium Potassium Chloride Carbon Dioxide Anion Gap BUN Creatinine Est GFR ( Amer) Est GFR (Non-Af Amer) POC Glucose (mg/dL) 93 Random Glucose Hemoglobin A1c Calcium Phosphorus Magnesium Total Bilirubin AST ALT Alkaline Phosphatase C-React Prot High Sens 0.63 L Total Protein Albumin Globulin Albumin/Globulin Ratio Complement C3 114.0 Complement C4 27.8 09/13/18 09/13/18 09/13/18 07:49 10:48 11:16 WBC 5.8 RBC 3.12 L Hgb 9.9 L Hct 29.8 L MCV 95.5 MCH 31.6 H MCHC 33.1 RDW 15.1 H Plt Count 247 MPV 9.8 Neut % (Auto) 79.4 H Lymph % (Auto) 12.3 L Trigg % (Auto) 6.3 Eos % (Auto) 1.3 Baso % (Auto) 0.7 Neut # (Auto) 4.6 Lymph # (Auto) 0.7 L Trigg # (Auto) 0.4 Eos # (Auto) 0.1 Baso # (Auto) 0.0 ESR Haptoglobin PT INR APTT Fibrinogen Fibrin Degrad Products Fibrin Degrad Prod, Qt Sodium Potassium Chloride Carbon Dioxide Anion Gap BUN Creatinine Est GFR ( Amer) Est GFR (Non-Af Amer) POC Glucose (mg/dL) 187 H Random Glucose Hemoglobin A1c 6.6 H Calcium Phosphorus Magnesium Total Bilirubin AST ALT Alkaline Phosphatase C-React Prot High Sens Total Protein Albumin Globulin Albumin/Globulin Ratio Complement C3 Complement C4 09/13/18 09/13/18 09/13/18 11:57 12:45 13:00 WBC RBC Hgb Hct MCV MCH MCHC RDW Plt Count MPV Neut % (Auto) Lymph % (Auto) Trigg % (Auto) Eos % (Auto) Baso % (Auto) Neut # (Auto) Lymph # (Auto) Trigg # (Auto) Eos # (Auto) Baso # (Auto) ESR Haptoglobin 148.7 PT 11.8 INR 1.1 APTT 33 D Fibrinogen 404 H Fibrin Degrad Products Fibrin Degrad Prod, Qt Sodium 134 Potassium 4.9 Chloride 101 Carbon Dioxide 26 Anion Gap 12 BUN 20 H Creatinine 1.3 H Est GFR ( Amer) 48 Est GFR (Non-Af Amer) 40 POC Glucose (mg/dL) Random Glucose 150 H Hemoglobin A1c Calcium 9.2 Phosphorus 4.2 Magnesium 1.9 Total Bilirubin 0.3 AST 27 ALT 16 Alkaline Phosphatase 62 C-React Prot High Sens Total Protein 6.8 Albumin 3.9 Globulin 3.0 Albumin/Globulin Ratio 1.3 Complement C3 Complement C4 09/13/18 09/13/18 13:10 16:13 WBC RBC Hgb Hct MCV MCH MCHC RDW Plt Count MPV Neut % (Auto) Lymph % (Auto) Trigg % (Auto) Eos % (Auto) Baso % (Auto) Neut # (Auto) Lymph # (Auto) Trigg # (Auto) Eos # (Auto) Baso # (Auto) ESR Haptoglobin PT INR APTT Fibrinogen Fibrin Degrad Products Negative Fibrin Degrad Prod, Qt <10 Sodium Potassium Chloride Carbon Dioxide Anion Gap BUN Creatinine Est GFR ( Amer) Est GFR (Non-Af Amer) POC Glucose (mg/dL) 149 H Random Glucose Hemoglobin A1c Calcium Phosphorus Magnesium Total Bilirubin AST ALT Alkaline Phosphatase C-React Prot High Sens Total Protein Albumin Globulin Albumin/Globulin Ratio Complement C3 Complement C4 Attending/Attestation - Attestation I have personally seen and examined this patient.: Yes I have fully participated in the care of the patient.: Yes I have reviewed all pertinent clinical information: Yes Notes (Text): 09/13/18 17:23 Patient seen and examined 77-year-old female transferred to intensive care unit 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
[2018-09-13] MEDS: (Novolin R) Insulin Human Regular 100 units/ml vial SC SCH ×4 (07:51→22:23)
[2018-09-13 08:34] LABS: COMPLEMENT C4 27.8 mg/dL (14.0-44.0)
--- NOTE | 2018-09-13 10:22 | CP.PCM.CON ---
History of Present Illness - History of Present Illness History of Present Illness: pt is seen and examined, full consul is dictated#[id number] 1.for TPE today after fred cath for possible GBS 2.htn 3.dm 4.cad, s/p stents 5. s/p lumbar laminectomy d/w [facility], icu attending and neurollogy attending Past Patient History - Infectious Disease Hx of Infectious Diseases: None - Past Medical History & Family History Past Medical History?: Yes - Past Social History Smoking Status: Never Smoked - CARDIAC Hx Atrial Fibrillation: Yes Hx Hypercholesterolemia: Yes Hx Hypertension: Yes - PULMONARY Hx Respiratory Disorders: No - NEUROLOGICAL Hx Seizures: Yes (childhood) - HEENT Other/Comment: WEARS GLASSES - RENAL Hx Chronic Kidney Disease: No - ENDOCRINE/METABOLIC Hx Endocrine Disorders: Yes Hx Diabetes Mellitus Type 2: Yes - HEMATOLOGICAL/ONCOLOGICAL Hx Blood Disorders: No - INTEGUMENTARY Hx Dermatological Problems: No - MUSCULOSKELETAL/RHEUMATOLOGICAL Hx Arthritis: Yes Hx Falls: No - GASTROINTESTINAL Hx Gastrointestinal Disorders: No - GENITOURINARY/GYNECOLOGICAL Hx Genitourinary Disorders: No - PSYCHIATRIC Hx Substance Use: No - SURGICAL HISTORY Hx Coronary Stent: Yes (3) - ANESTHESIA Hx Anesthesia: Yes (Novacaine during tooth extraction) Hx Anesthesia Reactions: No Hx Malignant Hyperthermia: No Meds Allergies/Adverse Reactions: Allergies Allergy/AdvReac Type Severity Reaction Status Date / Time gabapentin AdvReac Verified 07/24/18 13:57 pregabalin [From Lyrica] AdvReac Verified 07/24/18 13:57 - Medications Medications: Current Medications Acetaminophen (Tylenol 325mg Tab) 650 mg PO Q6 PRN PRN Reason: Fever >100.4 F Artificial Tears (Artificial Tears) 0.05 ml OU BID PRN PRN Reason: Dry eyes Aspirin (Aspirin Chewable) 81 mg PO DAILY [facility] Last Admin: 09/12/18 10:00 Dose: Not Given Clopidogrel Bisulfate (Plavix) 75 mg PO DAILY [facility] Last Admin: 09/12/18 09:18 Dose: Not Given Enalapril Maleate (Vasotec) 20 mg PO BID [facility] Last Admin: 09/12/18 17:38 Dose: 20 mg Enoxaparin Sodium (Lovenox) 40 mg SC DAILY [facility] Last Admin: 09/12/18 09:18 Dose: 40 mg Famotidine (Pepcid) 20 mg PO DAILY [facility] Last Admin: 09/12/18 09:16 Dose: 20 mg Ferrous Sulfate (Feosol) 325 mg PO BIDCC [facility] Last Admin: 09/12/18 17:37 Dose: 325 mg Hydralazine HCl (Apresoline) 25 mg PO Q8 [facility] Last Admin: 09/13/18 05:43 Dose: 25 mg Hydrochlorothiazide (Microzide) 12.5 mg PO DAILY [facility] Last Admin: 09/12/18 09:17 Dose: 12.5 mg Insulin Human Regular (Novolin R) 0 unit SC [facility]; Protocol Last Admin: 09/13/18 07:51 Dose: Not Given Metformin HCl (Glucophage) 500 mg PO BIDCC [facility] Last Admin: 09/12/18 17:38 Dose: Not Given Metoprolol Succinate (Toprol Xl) 50 mg PO DAILY [facility] Last Admin: 09/12/18 09:23 Dose: Not Given Ondansetron HCl (Zofran Tab) 4 mg PO Q6H [facility] Last Admin: 09/13/18 05:43 Dose: 4 mg Oxycodone/Acetaminophen (Percocet 5/325 Mg Tab) 2 tab PO Q4H PRN PRN Reason: Pain, severe (8-10) Stop: 09/14/18 17:45 Rosuvastatin Calcium (Crestor) 5 mg PO [facility] Last Admin: 09/12/18 21:57 Dose: 5 mg Sennosides (Senokot Tab) 17.2 mg PO [facility] Last Admin: 09/12/18 21:57 Dose: 17.2 mg Sitagliptin Phosphate (Januvia) 50 mg PO DAILY [facility] Last Admin: 09/12/18 09:16 Dose: 50 mg Results - Vital Signs Recent Vital Signs: Last Vital Signs Temp 98.1 F 09/13/18 07:00 Pulse 72 09/13/18 07:00 Resp 20 09/13/18 07:00 BP 162/81 H 09/13/18 07:00 Pulse Ox 98 09/13/18 07:00 - Labs Result Diagrams: 09/13/18 10:48 09/13/18 11:57 Labs: Laboratory Results - last 24 hr 09/11/18 09/12/18 09/12/18 21:17 06:38 11:14 ESR POC Glucose (mg/dL) 152 H 122 H 151 H Hemoglobin A1c C-React Prot High Sens Complement C3 Complement C4 09/12/18 09/13/18 09/13/18 16:44 07:49 07:49 ESR 80 H POC Glucose (mg/dL) 93 Hemoglobin A1c C-React Prot High Sens 0.63 L Complement C3 114.0 Complement C4 27.8 09/13/18 07:49 ESR POC Glucose (mg/dL) Hemoglobin A1c 6.6 H C-React Prot High Sens Complement C3 Complement C4
[2018-09-13] MEDS: Metoprolol Succinate 50 mg XL Tab PO SCH (10:53)
[2018-09-13 11:00] LABS: BASO % 0.7 % (0.0-2.0); EOS # 0.1 K/uL (0.0-0.7); EOS % 1.3 % (0.0-4.0); HEMOGLOBIN 9.9 g/dL (11.0-16.0); LYMPH # 0.7 K/uL (1.0-4.3); LYMPH % 12.3 % (20.0-40.0); MEAN CELL VOLUME 95.5 fL (81.0-99.0); MEAN CORPUSCULAR HEMOGLOBIN 31.6 pg (27.0-31.0); MEAN CORPUSCULAR HGB CONC 33.1 g/dL (33.0-37.0); MEAN PLATELET VOLUME 9.8 fL (7.2-11.7); MONO # 0.4 K/uL (0.0-0.8); MONO % 6.3 % (0.0-10.0); NEUT # 4.6 K/uL (1.8-7.0); NEUT % 79.4 % (50.0-75.0); RBC 3.12 Mil/uL (3.80-5.20); RED CELL DISTRIBUTION WIDTH 15.1 % (11.5-14.5); WHITE BLOOD COUNT 5.8 K/uL (4.8-10.8)
[2018-09-13] MEDS: Enoxaparin 40 mg Syringe SC SCH (12:26)
[2018-09-13 12:28] LABS: ALB/GLOB RATIO 1.3 (1.0-2.1); ALBUMIN 3.9 g/dL (3.5-5.0); CALCIUM 9.2 mg/dl (8.6-10.4)
[2018-09-13 12:52] LABS: INR 1.1; PROTHROMBIN TIME 11.8 SECONDS (9.7-12.2)
--- NOTE | 2018-09-13 13:25 | CON ---
DATE: 09/13/2018 NEUROLOGY CONSULTATION TIME OF EVALUATION: 07:15 a.m. ATTENDING PHYSICIAN: Amanuel Aguilar MD ROOM: 661, bed B. REASON FOR CONSULTATION: Generalized weakness. CHIEF COMPLAINT: The patient was brought in from assisted with a history of generalized weakness for about a week. From neurological point of view, I was called in to evaluate her for further management. HISTORY OF PRESENTING ILLNESS: Citlali Pizarro is a 77-year-old moderately obese female who did undergo laminectomy [address] Elkins. Post laminectomy, she was in the assisted for rehabilitation. She used to ambulate with cane and walker. A week ago, she noted tingling and numbness sensation of her both hands. She could not able to feel anything in her hands, that spread up to her arms. Since then, she could not able to get up and put her weight on the legs. She had a generalized weakness from neck down leg more than her arms. She also admitted urinary incontinence recently which she never had it before. No fall. No neck pain. No back pain. No history of preceding viral illness or fever or any new medication was given. PAST MEDICAL HISTORY: [id number] diabetes mellitus, hypertension, dyslipidemia, arthritis, diabetic neuropathy, status post laminectomy. SOCIAL HISTORY: Denies smoking or alcohol use. MEDICATIONS: Hydralazine, Zofran, Senna, iron supplements, Vasotec, Pepcid, Januvia, Pravachol, Artificial Tears, Toprol, and narcotic pain medication. REVIEW OF SYSTEMS: 12-point system being reviewed. From Neuro, generalized weakness with numbness. PHYSICAL EXAMINATION: VITAL SIGNS: Blood pressure 126/68, mean artery pressure of 87, respiratory rate 18, temperature 98.1, pulse rate 65. NECK: Supple. No carotid bruits. HEART: Sounds regular. Chest fair air entry. EXTREMITIES: Both legs were externally rotated. NEUROLOGIC: Mental status examination, she is awake, alert, oriented to person, place and time. Tears in her eyes she could not able to move her arms and legs which never happened before. CRANIAL NERVE EXAMINATION: Visual field intact. Pupils reactive to light. Extraocular movement normal, no nystagmus. No facial sensory deficit. No facial asymmetry. Hearing is normal. Tongue is midline. Good gag. MOTOR EXAMINATION: Outstretched hand with eyes closed, has subjective weakness of the right and left proximal muscle groups in the upper extremities. No sensory tremor. On sustained manner, she could able to lift both upper extremities against the gravity. Both lower extremities 2/5 weakness of both lower extremities. Deep tendon reflexes absent throughout. Plantars are mute. SENSORY EXAMINATION: Significant posterior column dysfunction in both lower extremities. She could not able to feel the toes which way it is moving. She also has some impairment in the upper extremity as well. Sensory to pinprick is somewhat appreciable in the upper extremities and lower extremities. There is no sensory level. COORDINATION: She could not able to do well on her right side. However, she could able to do on her left side. CONCLUSION: On reviewing her history and history gathered from her as well as from the records, as per my neurological examination, the patient does have subacute form of progressive sensory motor dysfunction manifesting with generalized weakness, leg more than her arms with significant sensory deficit and areflexia consistent with acute inflammatory demyelinating polyradiculopathy, should be ruled in or out. The patient also presenting with sensory motor neuropathy which is a preexisting condition from diabetes mellitus superimposed with postlaminectomy pain and radicular symptoms. I doubt if it is from the central origin. LABORATORY DATA: Workup, WBC 5.9, hemoglobin 11.1, hematocrit 34.3, platelet 272. PT 11.6, INR 1.1, PTT 28. Sodium 135, potassium 4.9, chloride 101, bicarbonate 26, BUN 22, creatinine 1.1, GFR 58, glucose 151, 551, TSH 0.75. RECOMMENDATIONS: 1. Critical care consultation is needed for her better management. 2. She needs plasmapheresis, nephrology consult is called in. 3. Spinal tap should be done under fluoroscopy because of her recent laminectomy. The patient should have CSF analysis as per the orders. 4. DVT prophylaxis. 5. Watch her vital signs and pulmonary functions periodically. 6. Empirical antibiotic is needed if the patient shows any sign of infection. The patient condition extensively discussed and also patient's condition being discussed with critical care physician, Dr. Dietz. He will agree to transfer her to the unit for further management. This case will be discussed with Dr. Amanuel Aguilar as well. Gilbert Irene MD [facility] # [id number] MISTY
[2018-09-13 13:38] LABS: FDP INTERPRETATION NEGATIVE (NEGATIVE); FDP QUANTITY <10 ug/mL (<10)
[2018-09-13] MEDS ORDERED: Calcium Gluconate 9.3 MEQ in Sodium Chloride 0.9% 250 ML IV ONE (14:30)
[2018-09-13] MEDS ORDERED: MethylPREDNISolone 40 mg Vial IV ONE (14:30)
--- NOTE | 2018-09-13 17:54 | CP.PCM.PN ---
Subjective - Date & Time of Evaluation Date of Evaluation: 09/13/18 Time of Evaluation: 17:51 - Subjective Subjective: No chest pain or SOB. Having plasmapheresis. Objective - Vital Signs/Intake and Output Vital Signs (last 24 hours): Temp Pulse Resp BP Pulse Ox 98.3 F 60 11 L 143/78 100 09/13/18 16:00 09/13/18 17:40 09/13/18 17:40 09/13/18 17:40 09/13/18 17:40 Intake and Output: 09/13/18 09/13/18 06:59 18:59 Intake Total 350 690 Output Total 800 Balance 350 -110 - Medications Medications: Current Medications Acetaminophen (Tylenol 325mg Tab) 650 mg PO Q6 PRN PRN Reason: Fever >100.4 F Artificial Tears (Artificial Tears) 0.05 ml OU BID PRN PRN Reason: Dry eyes Aspirin (Aspirin Chewable) 81 mg PO DAILY [facility] Last Admin: 09/13/18 10:56 Dose: Not Given Clopidogrel Bisulfate (Plavix) 75 mg PO DAILY [facility] Last Admin: 09/13/18 12:26 Dose: 75 mg Enalapril Maleate (Vasotec) 20 mg PO BID [facility] Last Admin: 09/13/18 10:55 Dose: 20 mg Enoxaparin Sodium (Lovenox) 40 mg SC DAILY [facility] Last Admin: 09/13/18 12:26 Dose: 40 mg Famotidine (Pepcid) 20 mg PO DAILY [facility] Last Admin: 09/13/18 10:54 Dose: 20 mg Ferrous Sulfate (Feosol) 325 mg PO BIDCC [facility] Last Admin: 09/13/18 09:30 Dose: Not Given Hydralazine HCl (Apresoline) 25 mg PO Q8 [facility] Last Admin: 09/13/18 13:38 Dose: 25 mg Hydrochlorothiazide (Microzide) 12.5 mg PO DAILY [facility] Last Admin: 09/13/18 10:54 Dose: 12.5 mg Insulin Human Regular (Novolin R) 0 unit SC [facility]; Protocol Last Admin: 09/13/18 16:39 Dose: Not Given Metformin HCl (Glucophage) 500 mg PO BIDCC [facility] Last Admin: 09/13/18 09:30 Dose: Not Given Metoprolol Succinate (Toprol Xl) 50 mg PO DAILY [facility] Last Admin: 09/13/18 10:53 Dose: 50 mg Ondansetron HCl (Zofran Tab) 4 mg PO Q6H [facility] Last Admin: 09/13/18 12:27 Dose: 4 mg Oxycodone/Acetaminophen (Percocet 5/325 Mg Tab) 2 tab PO Q4H PRN PRN Reason: Pain, severe (8-10) Stop: 09/14/18 17:45 Rosuvastatin Calcium (Crestor) 5 mg PO HS [facility] Last Admin: 09/12/18 21:57 Dose: 5 mg Sennosides (Senokot Tab) 17.2 mg PO HS [facility] Last Admin: 09/12/18 21:57 Dose: 17.2 mg Sitagliptin Phosphate (Januvia) 50 mg PO DAILY [facility] Last Admin: 09/13/18 10:55 Dose: 50 mg - Labs Labs: 09/13/18 10:48 09/13/18 11:57 PT 11.8 SECONDS (9.7-12.2) 09/13/18 12:45 INR 1.1 09/13/18 12:45 APTT 33 SECONDS (21-34) D 09/13/18 12:45 - Head Exam Head Exam: NORMOCEPHALIC - Neck Exam Neck Exam: Normal Inspection - Cardiovascular Exam Cardiovascular Exam: REGULAR RHYTHM - Extremities Exam Extremities Exam: Normal Inspection - Neurological Exam Neurological Exam: Alert, Oriented x3 Assessment and Plan (1) CAD (coronary artery disease) Assessment & Plan: Stable, Continue DAPT. Maintain fluid and electrolyte balance. Status: Acute (2) Atrial fibrillation with RVR Assessment & Plan: In sinus rhythm now. Continue monitoring. Status: Acute (3) CVA (cerebral vascular accident) Assessment & Plan: No new issues. Status: Acute
--- NOTE | 2018-09-13 21:01 | CP.PCM.PN ---
Subjective - Date & Time of Evaluation Date of Evaluation: 09/13/18 Time of Evaluation: 10:40 - Subjective Subjective: dictated Objective - Vital Signs/Intake and Output Vital Signs (last 24 hours): Temp Pulse Resp BP Pulse Ox 98.3 F 68 13 155/73 H 95 09/13/18 16:00 09/13/18 19:30 09/13/18 19:30 09/13/18 19:05 09/13/18 19:00 Intake and Output: 09/13/18 09/14/18 18:59 06:59 Intake Total 790 100 Output Total 1075 300 Balance -285 -200 - Medications Medications: Current Medications Acetaminophen (Tylenol 325mg Tab) 650 mg PO Q6 PRN PRN Reason: Fever >100.4 F Artificial Tears (Artificial Tears) 0.05 ml OU BID PRN PRN Reason: Dry eyes Aspirin (Aspirin Chewable) 81 mg PO DAILY [facility] Last Admin: 09/13/18 10:56 Dose: Not Given Clopidogrel Bisulfate (Plavix) 75 mg PO DAILY [facility] Last Admin: 09/13/18 12:26 Dose: 75 mg Enalapril Maleate (Vasotec) 20 mg PO BID [facility] Last Admin: 09/13/18 18:03 Dose: 20 mg Enoxaparin Sodium (Lovenox) 40 mg SC DAILY [facility] Last Admin: 09/13/18 12:26 Dose: 40 mg Famotidine (Pepcid) 20 mg PO DAILY [facility] Last Admin: 09/13/18 10:54 Dose: 20 mg Ferrous Sulfate (Feosol) 325 mg PO BIDCC [facility] Last Admin: 09/13/18 18:04 Dose: 325 mg Hydralazine HCl (Apresoline) 25 mg PO Q8 [facility] Last Admin: 09/13/18 13:38 Dose: 25 mg Hydrochlorothiazide (Microzide) 12.5 mg PO DAILY [facility] Last Admin: 09/13/18 10:54 Dose: 12.5 mg Insulin Human Regular (Novolin R) 0 unit SC [facility]; Protocol Last Admin: 09/13/18 16:39 Dose: Not Given Metformin HCl (Glucophage) 500 mg PO BIDCC [facility] Last Admin: 09/13/18 18:03 Dose: 500 mg Metoprolol Succinate (Toprol Xl) 50 mg PO DAILY [facility] Last Admin: 02/20/19 10:53 Dose: 50 mg Ondansetron HCl (Zofran Tab) 4 mg PO Q6H [facility] Last Admin: 09/13/18 18:03 Dose: 4 mg Oxycodone/Acetaminophen (Percocet 5/325 Mg Tab) 2 tab PO Q4H PRN PRN Reason: Pain, severe (8-10) Stop: 09/14/18 17:45 Rosuvastatin Calcium (Crestor) 5 mg PO HS [facility] Last Admin: 09/12/18 21:57 Dose: 5 mg Sennosides (Senokot Tab) 17.2 mg PO HS [facility] Last Admin: 09/12/18 21:57 Dose: 17.2 mg Sitagliptin Phosphate (Januvia) 50 mg PO DAILY [facility] Last Admin: 09/13/18 10:55 Dose: 50 mg - Labs Labs: 09/13/18 10:48 09/13/18 11:57 PT 11.8 SECONDS (9.7-12.2) 09/13/18 12:45 INR 1.1 09/13/18 12:45 APTT 33 SECONDS (21-34) D 09/13/18 12:45
--- NOTE | 2018-09-14 01:28 | PN ---
DATE: 09/13/2018 SUBJECTIVE: The patient has possibility of Guillain-Wheeling syndrome. The patient is weak. She is moving all four extremities. She is breathing well. She is not in respiratory distress. She denies any fever or chills. The patient is for lumbar puncture, and then she is for possible plasmapheresis. PHYSICAL EXAMINATION: VITAL SIGNS: The patient's blood pressure is 154/73, pulse , respiratory rate 14, and temperature 98. LUNGS: Clear. No rales. No rhonchi. CARDIOVASCULAR SYSTEM: S1, S2, regular. No heave. No thrill. ABDOMEN: Soft and nontender. Bowel sounds are present. CENTRAL NERVOUS SYSTEM: Awake, alert, oriented x3. Cranial nerves II through XII are normal. Power is 3/5 in all four extremities. Deep tendon reflexes are diminished. ASSESSMENT: 1. Rule out Guillain-Wheeling syndrome. 2. Lumbar radiculopathy, rule out cervical radiculopathy. 3. Type 2 diabetes. 4. Hypertension. PLAN: ICU. Monitor the patient. Neurology evaluation. Amanuel Aguilar MD
--- NOTE | 2018-09-14 02:55 | CON ---
DATE: 09/13/2018 RENAL CONSULTATION LOCATION: The patient is located in ICU 14A. 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 HISTORY OF PRESENT ILLNESS: Mrs. Pizarro is a 77-year-old elderly, slightly obese -[place] female with a past medical history significant for hypertension for about 35 years, diabetes for 35 years, hyperlipidemia with CVA in 10/2017, and also coronary artery disease, status post stent placement in 2015, status post lumbar laminectomy five weeks ago with Dr. Elkins, presented with weakness and numbness for one week and difficulty to walk and unable to raise both hands more than 50-60 degrees in both lower extremities and also upper extremities and also unable to hold objects. The patient was seen by the Neurology and suspecting Guillain-Kingsport syndrome, and the patient was transferred immediately to ICU and requesting initiation of the plasmapheresis. The patient is alert, awake, following commands appropriately. Denies any chest pain or palpitation. Denies any fever or cough. Denies any nausea, vomiting, or diarrhea. Denies any urinary or bowel incontinence at this time. PAST MEDICAL HISTORY: Significant for arthritis, questionable atrial fibrillation, hypertension, diabetes, hyperlipidemia, CVA in 10/2017, and CAD with balloon angioplasty and also two stent placements in 2015. PAST SURGICAL HISTORY: Status post lumbar laminectomy about five weeks ago and stent placement in 2016, coronary. ALLERGIES: ALLERGIC TO GABAPENTIN AND PREGABALIN. SOCIAL HISTORY: Denies any smoking, alcohol, or drugs. PERSONAL HISTORY: She is a . She has two children. FAMILY HISTORY: Both parents . CURRENT MEDICATIONS: Include as follows: Hydralazine 25 mg p.o. every 8 hours, aspirin 81 mg p.o. daily, Crestor 5 mg p.o. at bedtime, Feosol 325 mg p.o. b.i.d., metformin 500 mg p.o. b.i.d., Januvia 50 mg p.o. daily, Lovenox 40 mg subcu daily, hydrochlorothiazide 12.5 mg p.o. daily, Novolin R per sliding scale, Pepcid 20 mg p.o. daily, Percocet two tablets p.o. every 4 hours p.r.n., Plavix 75 mg p.o. daily, Toprol-XL 50 mg p.o. daily, Tylenol, Vasotec 20 mg p.o. b.i.d., and Zofran 4 mg p.o. every 6 hours p.r.n. REVIEW OF SYSTEMS: Significant for weakness in both upper and lower extremities, difficult to ambulate, and this is something new for the last two weeks. The patient is to take care of other people as per the patient. All other review of systems are reviewed and are negative. PHYSICAL EXAMINATION: VITAL SIGNS: Blood pressure this morning 140/61, pulse 81, respirations about 12, temperature is 98.2, saturation 100%. Height 5 feet 6 inches, weight is 191 pounds. GENERAL: Mrs. Pizarro is a 77-year-old elderly, obese, female, well built, well nourished, not in acute distress. HEENT: Pupils normal and reactive to light and accommodation. Conjunctivae pink. Sclerae anicteric. Tongue is moist. Trachea is midline. LUNGS: Symmetric on both sides. Bilateral breath sounds present. Clear to auscultation. CARDIOVASCULAR SYSTEM: Queen at the fifth intercostal space and midclavicular line. S1, S2 audible. No murmur or gallop. ABDOMEN: Normal in appearance, soft, tympanitic. No guarding. No rigidity. No hepatosplenomegaly. CENTRAL NERVOUS SYSTEM: The patient is alert, awake, and oriented x3. Sensory system is within normal limits. Motor system, weakness in both upper and lower extremities. Unable to raise both legs more than 40-50 degrees from the bed. Upper extremities, unable to raise more than 50-60 degrees from the side, and also decreased reflexes and areflexia. LABORATORY DATA: Include as follows: As of 09/13/2018; WBC 5.8, hemoglobin 9.9, hematocrit is 29.8, and platelets 247. ESR is 80. Sodium 134, potassium 4.9, chloride 101, CO2 26, BUN 20, creatinine 1.3, glucose 150, calcium 9.2, phosphorus 4.2, magnesium 1.9. Total bili 0.3, AST 27, ALT 16, alkaline phosphatase 62. C-reactive protein high sensitivity is 0.63. Total protein 6.8, albumin is 3.9, and complement level C3 is 114, C4 is 27.8, and RPR is nonreactive, and haptoglobin is 148.7, PT is 11.8, PTT is 33, fibrinogen 404, and fibrin degradation product less than 10. AccuCheks 197, 149, and 141. Influenza A and B antibodies are negative. Chest x-ray as of 09/11/2018, impression; mild cardiomegaly, mild elevation of the right hemidiaphragm, right hilar prominence, no focal consolidation. ASSESSMENT: In summary, Mrs. Pizarro with a history of longstanding hypertension, diabetes, hyperlipidemia, history of cerebrovascular accident, no residual weakness, coronary artery disease, status post stent placement, status post lumbar laminectomy about five weeks ago, presented with one to two weeks' history of progressive weakness and numbness neck down and areflexia plantar down, and urinary incontinence as per the Neurology. 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 1. Hypertension. Blood pressure is stable. Continue her current antihypertensive medications; hydralazine, hydrochlorothiazide, enalapril, and metoprolol. 2. Diabetes. Continue metformin and Januvia and Novolin per sliding scale. 3. Coronary artery disease. Continue aspirin and Plavix. 4. 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 Plan: We will start plasmapheresis as per the Neurology recommendation. I discussed with the patient regarding Neurology recommendation and plasmapheresis. The patient agreed for the plasmapheresis and signed the consent for plasmapheresis. We will schedule plasmapheresis every other day x4 treatments, and if symptoms improve, we will discontinue. If the patient needs another two treatments, we will give a total of six treatments if Neurology agrees. We will follow with you. Thank you for allowing me to participate in your patient's care. I have spoken to the [facility] and arranged for the plasmapheresis and also Nuno catheter will be placed by photographic spotter, Dr. Dietz. Discussed in rounds. Continue to monitor haptoglobin, fibrinogen, PT/PTT, CBC, and electrolytes. We will give 3.5 liter of plasma volume exchange with 3 liters albumin and 500 normal saline. Lidia Bryson MD
[2018-09-14 06:16] LABS: BASO % 0.5 % (0.0-2.0); EOS # 0.1 K/uL (0.0-0.7); EOS % 1.9 % (0.0-4.0); HEMOGLOBIN 10.7 g/dL (11.0-16.0); LYMPH # 1.1 K/uL (1.0-4.3); LYMPH % 15.7 % (20.0-40.0); MEAN CORPUSCULAR HEMOGLOBIN 31.6 pg (27.0-31.0); MEAN CORPUSCULAR HGB CONC 32.5 g/dL (33.0-37.0); MEAN PLATELET VOLUME 9.8 fL (7.2-11.7); MONO # 0.5 K/uL (0.0-0.8); MONO % 6.4 % (0.0-10.0); NEUT # 5.5 K/uL (1.8-7.0); NEUT % 75.5 % (50.0-75.0); RBC 3.38 Mil/uL (3.80-5.20); RED CELL DISTRIBUTION WIDTH 14.9 % (11.5-14.5); WHITE BLOOD COUNT 7.3 K/uL (4.8-10.8)
[2018-09-14 06:29] LABS: ALB/GLOB RATIO 2.1 (1.0-2.1); ALBUMIN 3.7 g/dL (3.5-5.0); CALCIUM 8.8 mg/dl (8.6-10.4)
--- NOTE | 2018-09-14 07:37 | CP.CCUPN ---
<Gary Franco M - Last Filed: 09/14/18 10:42> CCU Subjective - Physician Review Subjective (Free Text): Critical care progress note for Dr. Mandy Purvis. Patient seen and examined at bedside. No acute events overnight reported. Patient had first time plasmapheresis session 09/14. Patient states she immediately felt better; however, this AM she is feeling the weakness she felt before. Patient denies headaches, vision changes, chest pain, SOB, abdominal pain, nausea, vomiting, fevers, chills. 09/14/18 10:42 CCU Objective - Vital Signs / Intake & Output Vital Signs (Last 4 hours): Vital Signs Temp Pulse Resp BP Pulse Ox 09/14/18 05:57 119/45 L 09/14/18 05:50 69 16 09/14/18 05:48 63 13 105/53 L 99 09/14/18 05:10 55 L 12 97 09/14/18 04:50 60 15 97 09/14/18 04:48 111/50 L 09/14/18 04:01 114/62 09/14/18 04:00 97.7 F 61 14 97 09/14/18 03:48 109/55 L Intake and Output (Last 8hrs): Intake & Output 09/13/18 09/14/18 09/14/18 22:59 06:59 14:59 Intake Total 820 300 Output Total 575 650 Balance 245 -350 Intake: Intake, IV Amount 270 Left Hand 270 Oral 550 300 Output: Urine 575 650 Urine, Voided 575 650 Other: # Voids Urine, Voided 1 1 # Bowel Movements 0 0 - Physical Exam Head: Positive for: Atraumatic Extroacular Muscles: Positive for: EOMI Mouth: Positive for: Moist Mucous Membranes Neck: Positive for: Normal Range of Motion Respiratory/Chest: Positive for: Clear to Auscultation, Good Air Exchange. Negative for: Respiratory Distress, Accessory Muscle Use Cardiovascular: Positive for: Normal S1, S2. Negative for: Murmurs Abdomen: Positive for: Normal Bowel Sounds. Negative for: Tenderness, Distention, Rebound, Guarding Upper Extremity: Positive for: NORMAL PULSES, Other (4/5 international logistics manager strength b/l, FROM ). Negative for: Cyanosis, Edema Lower Extremity: Positive for: Normal Inspection, Other (4/5 international logistics manager strength b/l, FROM ). Negative for: Edema (4/5 strength of LE) Neurological: Positive for: GCS=15 Skin: Positive for: Warm, Dry Psychiatric: Positive for: Oriented x 3, Normal Insight - Medications Active Medications: Active Medications Generic Name Dose Route Start Last Admin Trade Name Freq PRN Reason Stop Dose Admin Acetaminophen 650 mg 09/11/18 18:11 Tylenol 325mg Tab PO Q6 PRN Fever >100.4 F Artificial Tears 0.05 ml 09/11/18 17:44 Artificial Tears OU BID PRN Dry eyes Aspirin 81 mg 09/12/18 10:00 09/13/18 10:56 Aspirin Chewable PO Not Given DAILY [facility] Clopidogrel Bisulfate 75 mg 09/12/18 10:00 09/13/18 12:26 Plavix PO 75 mg DAILY [facility] Administration Enalapril Maleate 20 mg 09/11/18 18:00 09/13/18 18:03 Vasotec PO 20 mg BID [facility] Administration Enoxaparin Sodium 40 mg 09/12/18 10:00 09/13/18 12:26 Lovenox SC 40 mg DAILY [facility] Administration Famotidine 20 mg 09/12/18 10:00 09/13/18 10:54 Pepcid PO 20 mg DAILY [facility] Administration Ferrous Sulfate 325 mg 09/11/18 18:00 09/13/18 18:04 Feosol PO 325 mg BIDCC [facility] Administration Hydralazine HCl 25 mg 09/11/18 18:00 09/14/18 06:12 Apresoline PO 25 mg Q8 [facility] Administration Hydrochlorothiazide 12.5 mg 09/12/18 10:00 09/13/18 10:54 Microzide PO 12.5 mg DAILY [facility] Administration Insulin Human Regular 0 unit 09/11/18 22:00 09/13/18 22:23 Novolin R SC Not Given ACHS [facility] Protocol Metformin HCl 500 mg 09/11/18 18:00 09/13/18 18:03 Glucophage PO 500 mg BIDCC [facility] Administration Metoprolol Succinate 50 mg 09/12/18 10:00 09/13/18 10:53 Toprol Xl PO 50 mg DAILY [facility] Administration Ondansetron HCl 4 mg 09/11/18 18:00 09/14/18 06:12 Zofran Tab PO Not Given Q6H [facility] Oxycodone/Acetaminophen 2 tab 09/11/18 17:44 Percocet 5/325 Mg Tab PO 09/14/18 17:45 Q4H PRN Pain, severe (8-10) Rosuvastatin Calcium 5 mg 09/12/18 22:00 09/13/18 21:45 Crestor PO 5 mg HS [facility] Administration Sennosides 17.2 mg 09/11/18 22:00 09/13/18 21:46 Senokot Tab PO 17.2 mg HS [facility] Administration Sitagliptin Phosphate 50 mg 09/12/18 10:00 09/13/18 10:55 Januvia PO 50 mg DAILY [facility] Administration - Patient Studies Lab Studies: Lab Studies 09/14/18 09/14/18 09/13/18 Range/Units 06:09 06:09 20:36 WBC 7.3 (4.8-10.8) K/uL RBC 3.38 L (3.80-5.20) Mil/uL Hgb 10.7 L (11.0-16.0) g/dL Hct 32.8 L (34.0-47.0) % MCV 97.0 (81.0-99.0) fL MCH 31.6 H (27.0-31.0) pg MCHC 32.5 L (33.0-37.0) g/dL RDW 14.9 H (11.5-14.5) % Plt Count 253 (130-400) K/uL MPV 9.8 (7.2-11.7) fL Neut % (Auto) 75.5 H (50.0-75.0) % Lymph % (Auto) 15.7 L (20.0-40.0) % [place] % (Auto) 6.4 (0.0-10.0) % Eos % (Auto) 1.9 (0.0-4.0) % Baso % (Auto) 0.5 (0.0-2.0) % Neut # (Auto) 5.5 (1.8-7.0) K/uL Lymph # (Auto) 1.1 (1.0-4.3) K/uL [place] # (Auto) 0.5 (0.0-0.8) K/uL Eos # (Auto) 0.1 (0.0-0.7) K/uL Baso # (Auto) 0.0 (0.0-0.2) K/uL ESR (0-20) mm/hr Haptoglobin (30.0-200.0) mg/dL PT (9.7-12.2) SECONDS INR APTT (21-34) SECONDS Fibrinogen (200-400) mg/dL Fibrin Degrad Products (NEGATIVE) Fibrin Degrad Prod, Qt (<10) ug/mL Sodium 134 (132-148) mmol/L Potassium 4.9 (3.6-5.2) mmol/L Chloride 105 (98-107) mmol/L Carbon Dioxide 22 (22-30) mmol/L Anion Gap 13 (10-20) BUN 19 H (7-17) mg/dL Creatinine 1.1 (0.7-1.2) mg/dL Est GFR ( Amer) 58 Est GFR (Non-Af Amer) 48 POC Glucose (mg/dL) 141 H (65-110) mg/dL Random Glucose 123 H (65-105) mg/dL Hemoglobin A1c (4.2-6.5) % Calcium 8.8 (8.6-10.4) mg/dl Phosphorus 3.8 (2.5-4.5) mg/dL Magnesium 1.9 (1.6-2.3) mg/dL Total Bilirubin 0.5 (0.2-1.3) mg/dL AST 15 (14-36) U/L ALT 11 (9-52) U/L Alkaline Phosphatase 31 L D (38-126) U/L C-React Prot High Sens (1.00-3.00) mg/L Total Protein 5.4 L (6.3-8.3) g/dL Albumin 3.7 (3.5-5.0) g/dL Globulin 1.7 L (2.2-3.9) gm/dL Albumin/Globulin Ratio 2.1 (1.0-2.1) Complement C3 (88.0-165.0) mg/dL Complement C4 (14.0-44.0) mg/dL RPR (NONREACTIVE) 09/13/18 09/13/18 09/13/18 Range/Units 16:13 13:10 13:00 WBC (4.8-10.8) K/uL RBC (3.80-5.20) Mil/uL Hgb (11.0-16.0) g/dL Hct (34.0-47.0) % MCV (81.0-99.0) fL MCH (27.0-31.0) pg MCHC (33.0-37.0) g/dL RDW (11.5-14.5) % Plt Count (130-400) K/uL MPV (7.2-11.7) fL Neut % (Auto) (50.0-75.0) % Lymph % (Auto) (20.0-40.0) % [place] % (Auto) (0.0-10.0) % Eos % (Auto) (0.0-4.0) % Baso % (Auto) (0.0-2.0) % Neut # (Auto) (1.8-7.0) K/uL Lymph # (Auto) (1.0-4.3) K/uL [place] # (Auto) (0.0-0.8) K/uL Eos # (Auto) (0.0-0.7) K/uL Baso # (Auto) (0.0-0.2) K/uL ESR (0-20) mm/hr Haptoglobin 148.7 (30.0-200.0) mg/dL PT (9.7-12.2) SECONDS INR APTT (21-34) SECONDS Fibrinogen (200-400) mg/dL Fibrin Degrad Products Negative (NEGATIVE) Fibrin Degrad Prod, Qt <10 (<10) ug/mL Sodium (132-148) mmol/L Potassium (3.6-5.2) mmol/L Chloride (98-107) mmol/L Carbon Dioxide (22-30) mmol/L Anion Gap (10-20) BUN (7-17) mg/dL Creatinine (0.7-1.2) mg/dL Est GFR ( Amer) Est GFR (Non-Af Amer) POC Glucose (mg/dL) 149 H (65-110) mg/dL Random Glucose (65-105) mg/dL Hemoglobin A1c (4.2-6.5) % Calcium (8.6-10.4) mg/dl Phosphorus (2.5-4.5) mg/dL Magnesium (1.6-2.3) mg/dL Total Bilirubin (0.2-1.3) mg/dL AST (14-36) U/L ALT (9-52) U/L Alkaline Phosphatase (38-126) U/L C-React Prot High Sens (1.00-3.00) mg/L Total Protein (6.3-8.3) g/dL Albumin (3.5-5.0) g/dL Globulin (2.2-3.9) gm/dL Albumin/Globulin Ratio (1.0-2.1) Complement C3 (88.0-165.0) mg/dL Complement C4 (14.0-44.0) mg/dL RPR (NONREACTIVE) 09/13/18 09/13/18 09/13/18 Range/Units 12:45 11:57 11:16 WBC (4.8-10.8) K/uL RBC (3.80-5.20) Mil/uL Hgb (11.0-16.0) g/dL Hct (34.0-47.0) % MCV (81.0-99.0) fL MCH (27.0-31.0) pg MCHC (33.0-37.0) g/dL RDW (11.5-14.5) % Plt Count (130-400) K/uL MPV (7.2-11.7) fL Neut % (Auto) (50.0-75.0) % Lymph % (Auto) (20.0-40.0) % [place] % (Auto) (0.0-10.0) % Eos % (Auto) (0.0-4.0) % Baso % (Auto) (0.0-2.0) % Neut # (Auto) (1.8-7.0) K/uL Lymph # (Auto) (1.0-4.3) K/uL [place] # (Auto) (0.0-0.8) K/uL Eos # (Auto) (0.0-0.7) K/uL Baso # (Auto) (0.0-0.2) K/uL ESR (0-20) mm/hr Haptoglobin (30.0-200.0) mg/dL PT 11.8 (9.7-12.2) SECONDS INR 1.1 APTT 33 D (21-34) SECONDS Fibrinogen 404 H (200-400) mg/dL Fibrin Degrad Products (NEGATIVE) Fibrin Degrad Prod, Qt (<10) ug/mL Sodium 134 (132-148) mmol/L Potassium 4.9 (3.6-5.2) mmol/L Chloride 101 (98-107) mmol/L Carbon Dioxide 26 (22-30) mmol/L Anion Gap 12 (10-20) BUN 20 H (7-17) mg/dL Creatinine 1.3 H (0.7-1.2) mg/dL Est GFR ( Amer) 48 Est GFR (Non-Af Amer) 40 POC Glucose (mg/dL) 187 H (65-110) mg/dL Random Glucose 150 H (65-105) mg/dL Hemoglobin A1c (4.2-6.5) % Calcium 9.2 (8.6-10.4) mg/dl Phosphorus 4.2 (2.5-4.5) mg/dL Magnesium 1.9 (1.6-2.3) mg/dL Total Bilirubin 0.3 (0.2-1.3) mg/dL AST 27 (14-36) U/L ALT 16 (9-52) U/L Alkaline Phosphatase 62 (38-126) U/L C-React Prot High Sens (1.00-3.00) mg/L Total Protein 6.8 (6.3-8.3) g/dL Albumin 3.9 (3.5-5.0) g/dL Globulin 3.0 (2.2-3.9) gm/dL Albumin/Globulin Ratio 1.3 (1.0-2.1) Complement C3 (88.0-165.0) mg/dL Complement C4 (14.0-44.0) mg/dL RPR (NONREACTIVE) 09/13/18 09/13/18 09/13/18 Range/Units 10:48 07:49 07:49 WBC 5.8 (4.8-10.8) K/uL RBC 3.12 L (3.80-5.20) Mil/uL Hgb 9.9 L (11.0-16.0) g/dL Hct 29.8 L (34.0-47.0) % MCV 95.5 (81.0-99.0) fL MCH 31.6 H (27.0-31.0) pg MCHC 33.1 (33.0-37.0) g/dL RDW 15.1 H (11.5-14.5) % Plt Count 247 (130-400) K/uL MPV 9.8 (7.2-11.7) fL Neut % (Auto) 79.4 H (50.0-75.0) % Lymph % (Auto) 12.3 L (20.0-40.0) % [place] % (Auto) 6.3 (0.0-10.0) % Eos % (Auto) 1.3 (0.0-4.0) % Baso % (Auto) 0.7 (0.0-2.0) % Neut # (Auto) 4.6 (1.8-7.0) K/uL Lymph # (Auto) 0.7 L (1.0-4.3) K/uL [place] # (Auto) 0.4 (0.0-0.8) K/uL Eos # (Auto) 0.1 (0.0-0.7) K/uL Baso # (Auto) 0.0 (0.0-0.2) K/uL ESR (0-20) mm/hr Haptoglobin (30.0-200.0) mg/dL PT (9.7-12.2) SECONDS INR APTT (21-34) SECONDS Fibrinogen (200-400) mg/dL Fibrin Degrad Products (NEGATIVE) Fibrin Degrad Prod, Qt (<10) ug/mL Sodium (132-148) mmol/L Potassium (3.6-5.2) mmol/L Chloride (98-107) mmol/L Carbon Dioxide (22-30) mmol/L Anion Gap (10-20) BUN (7-17) mg/dL Creatinine (0.7-1.2) mg/dL Est GFR ( Amer) Est GFR (Non-Af Amer) POC Glucose (mg/dL) (65-110) mg/dL Random Glucose (65-105) mg/dL Hemoglobin A1c 6.6 H (4.2-6.5) % Calcium (8.6-10.4) mg/dl Phosphorus (2.5-4.5) mg/dL Magnesium (1.6-2.3) mg/dL Total Bilirubin (0.2-1.3) mg/dL AST (14-36) U/L ALT (9-52) U/L Alkaline Phosphatase (38-126) U/L C-React Prot High Sens (1.00-3.00) mg/L Total Protein (6.3-8.3) g/dL Albumin (3.5-5.0) g/dL Globulin (2.2-3.9) gm/dL Albumin/Globulin Ratio (1.0-2.1) Complement C3 (88.0-165.0) mg/dL Complement C4 (14.0-44.0) mg/dL RPR Nonreactive (NONREACTIVE) 09/13/18 09/13/18 09/13/18 Range/Units 07:49 07:49 06:38 WBC (4.8-10.8) K/uL RBC (3.80-5.20) Mil/uL Hgb (11.0-16.0) g/dL Hct (34.0-47.0) % MCV (81.0-99.0) fL MCH (27.0-31.0) pg MCHC (33.0-37.0) g/dL RDW (11.5-14.5) % Plt Count (130-400) K/uL MPV (7.2-11.7) fL Neut % (Auto) (50.0-75.0) % Lymph % (Auto) (20.0-40.0) % [place] % (Auto) (0.0-10.0) % Eos % (Auto) (0.0-4.0) % Baso % (Auto) (0.0-2.0) % Neut # (Auto) (1.8-7.0) K/uL Lymph # (Auto) (1.0-4.3) K/uL [place] # (Auto) (0.0-0.8) K/uL Eos # (Auto) (0.0-0.7) K/uL Baso # (Auto) (0.0-0.2) K/uL ESR 80 H (0-20) mm/hr Haptoglobin (30.0-200.0) mg/dL PT (9.7-12.2) SECONDS INR APTT (21-34) SECONDS Fibrinogen (200-400) mg/dL Fibrin Degrad Products (NEGATIVE) Fibrin Degrad Prod, Qt (<10) ug/mL Sodium (132-148) mmol/L Potassium (3.6-5.2) mmol/L Chloride (98-107) mmol/L Carbon Dioxide (22-30) mmol/L Anion Gap (10-20) BUN (7-17) mg/dL Creatinine (0.7-1.2) mg/dL Est GFR ( Amer) Est GFR (Non-Af Amer) POC Glucose (mg/dL) 139 H (65-110) mg/dL Random Glucose (65-105) mg/dL Hemoglobin A1c (4.2-6.5) % Calcium (8.6-10.4) mg/dl Phosphorus (2.5-4.5) mg/dL Magnesium (1.6-2.3) mg/dL Total Bilirubin (0.2-1.3) mg/dL AST (14-36) U/L ALT (9-52) U/L Alkaline Phosphatase (38-126) U/L C-React Prot High Sens 0.63 L (1.00-3.00) mg/L Total Protein (6.3-8.3) g/dL Albumin (3.5-5.0) g/dL Globulin (2.2-3.9) gm/dL Albumin/Globulin Ratio (1.0-2.1) Complement C3 114.0 (88.0-165.0) mg/dL Complement C4 27.8 (14.0-44.0) mg/dL RPR (NONREACTIVE) 09/12/18 09/12/18 Range/Units 21:18 21:16 WBC (4.8-10.8) K/uL RBC (3.80-5.20) Mil/uL Hgb (11.0-16.0) g/dL Hct (34.0-47.0) % MCV (81.0-99.0) fL MCH (27.0-31.0) pg MCHC (33.0-37.0) g/dL RDW (11.5-14.5) % Plt Count (130-400) K/uL MPV (7.2-11.7) fL Neut % (Auto) (50.0-75.0) % Lymph % (Auto) (20.0-40.0) % [place] % (Auto) (0.0-10.0) % Eos % (Auto) (0.0-4.0) % Baso % (Auto) (0.0-2.0) % Neut # (Auto) (1.8-7.0) K/uL Lymph # (Auto) (1.0-4.3) K/uL [place] # (Auto) (0.0-0.8) K/uL Eos # (Auto) (0.0-0.7) K/uL Baso # (Auto) (0.0-0.2) K/uL ESR (0-20) mm/hr Haptoglobin (30.0-200.0) mg/dL PT (9.7-12.2) SECONDS INR APTT (21-34) SECONDS Fibrinogen (200-400) mg/dL Fibrin Degrad Products (NEGATIVE) Fibrin Degrad Prod, Qt (<10) ug/mL Sodium (132-148) mmol/L Potassium (3.6-5.2) mmol/L Chloride (98-107) mmol/L Carbon Dioxide (22-30) mmol/L Anion Gap (10-20) BUN (7-17) mg/dL Creatinine (0.7-1.2) mg/dL Est GFR ( Amer) Est GFR (Non-Af Amer) POC Glucose (mg/dL) 118 H 340 H (65-110) mg/dL Random Glucose (65-105) mg/dL Hemoglobin A1c (4.2-6.5) % Calcium (8.6-10.4) mg/dl Phosphorus (2.5-4.5) mg/dL Magnesium (1.6-2.3) mg/dL Total Bilirubin (0.2-1.3) mg/dL AST (14-36) U/L ALT (9-52) U/L Alkaline Phosphatase (38-126) U/L C-React Prot High Sens (1.00-3.00) mg/L Total Protein (6.3-8.3) g/dL Albumin (3.5-5.0) g/dL Globulin (2.2-3.9) gm/dL Albumin/Globulin Ratio (1.0-2.1) Complement C3 (88.0-165.0) mg/dL Complement C4 (14.0-44.0) mg/dL RPR (NONREACTIVE) Laboratory Results - last 24 hr 09/12/18 09/12/18 09/13/18 21:16 21:18 06:38 WBC RBC Hgb Hct MCV MCH MCHC RDW Plt Count MPV Neut % (Auto) Lymph % (Auto) [place] % (Auto) Eos % (Auto) Baso % (Auto) Neut # (Auto) Lymph # (Auto) [place] # (Auto) Eos # (Auto) Baso # (Auto) ESR Haptoglobin PT INR APTT Fibrinogen Fibrin Degrad Products Fibrin Degrad Prod, Qt Sodium Potassium Chloride Carbon Dioxide Anion Gap BUN Creatinine Est GFR ( Amer) Est GFR (Non-Af Amer) POC Glucose (mg/dL) 340 H 118 H 139 H Random Glucose Hemoglobin A1c Calcium Phosphorus Magnesium Total Bilirubin AST ALT Alkaline Phosphatase C-React Prot High Sens Total Protein Albumin Globulin Albumin/Globulin Ratio Complement C3 Complement C4 RPR 09/13/18 09/13/18 09/13/18 07:49 07:49 07:49 WBC RBC Hgb Hct MCV MCH MCHC RDW Plt Count MPV Neut % (Auto) Lymph % (Auto) [place] % (Auto) Eos % (Auto) Baso % (Auto) Neut # (Auto) Lymph # (Auto) [place] # (Auto) Eos # (Auto) Baso # (Auto) ESR 80 H Haptoglobin PT INR APTT Fibrinogen Fibrin Degrad Products Fibrin Degrad Prod, Qt Sodium Potassium Chloride Carbon Dioxide Anion Gap BUN Creatinine Est GFR ( Amer) Est GFR (Non-Af Amer) POC Glucose (mg/dL) Random Glucose Hemoglobin A1c Calcium Phosphorus Magnesium Total Bilirubin AST ALT Alkaline Phosphatase C-React Prot High Sens 0.63 L Total Protein Albumin Globulin Albumin/Globulin Ratio Complement C3 114.0 Complement C4 27.8 RPR Nonreactive 09/13/18 09/13/18 09/13/18 07:49 10:48 11:16 WBC 5.8 RBC 3.12 L Hgb 9.9 L Hct 29.8 L MCV 95.5 MCH 31.6 H MCHC 33.1 RDW 15.1 H Plt Count 247 MPV 9.8 Neut % (Auto) 79.4 H Lymph % (Auto) 12.3 L [place] % (Auto) 6.3 Eos % (Auto) 1.3 Baso % (Auto) 0.7 Neut # (Auto) 4.6 Lymph # (Auto) 0.7 L [place] # (Auto) 0.4 Eos # (Auto) 0.1 Baso # (Auto) 0.0 ESR Haptoglobin PT INR APTT Fibrinogen Fibrin Degrad Products Fibrin Degrad Prod, Qt Sodium Potassium Chloride Carbon Dioxide Anion Gap BUN Creatinine Est GFR ( Amer) Est GFR (Non-Af Amer) POC Glucose (mg/dL) 187 H Random Glucose Hemoglobin A1c 6.6 H Calcium Phosphorus Magnesium Total Bilirubin AST ALT Alkaline Phosphatase C-React Prot High Sens Total Protein Albumin Globulin Albumin/Globulin Ratio Complement C3 Complement C4 RPR 09/13/18 09/13/18 09/13/18 11:57 12:45 13:00 WBC RBC Hgb Hct MCV MCH MCHC RDW Plt Count MPV Neut % (Auto) Lymph % (Auto) [place] % (Auto) Eos % (Auto) Baso % (Auto) Neut # (Auto) Lymph # (Auto) [place] # (Auto) Eos # (Auto) Baso # (Auto) ESR Haptoglobin 148.7 PT 11.8 INR 1.1 APTT 33 D Fibrinogen 404 H Fibrin Degrad Products Fibrin Degrad Prod, Qt Sodium 134 Potassium 4.9 Chloride 101 Carbon Dioxide 26 Anion Gap 12 BUN 20 H Creatinine 1.3 H Est GFR ( Amer) 48 Est GFR (Non-Af Amer) 40 POC Glucose (mg/dL) Random Glucose 150 H Hemoglobin A1c Calcium 9.2 Phosphorus 4.2 Magnesium 1.9 Total Bilirubin 0.3 AST 27 ALT 16 Alkaline Phosphatase 62 C-React Prot High Sens Total Protein 6.8 Albumin 3.9 Globulin 3.0 Albumin/Globulin Ratio 1.3 Complement C3 Complement C4 RPR 09/13/18 09/13/18 09/13/18 13:10 16:13 20:36 WBC RBC Hgb Hct MCV MCH MCHC RDW Plt Count MPV Neut % (Auto) Lymph % (Auto) [place] % (Auto) Eos % (Auto) Baso % (Auto) Neut # (Auto) Lymph # (Auto) [place] # (Auto) Eos # (Auto) Baso # (Auto) ESR Haptoglobin PT INR APTT Fibrinogen Fibrin Degrad Products Negative Fibrin Degrad Prod, Qt <10 Sodium Potassium Chloride Carbon Dioxide Anion Gap BUN Creatinine Est GFR ( Amer) Est GFR (Non-Af Amer) POC Glucose (mg/dL) 149 H 141 H Random Glucose Hemoglobin A1c Calcium Phosphorus Magnesium Total Bilirubin AST ALT Alkaline Phosphatase C-React Prot High Sens Total Protein Albumin Globulin Albumin/Globulin Ratio Complement C3 Complement C4 RPR 09/14/18 09/14/18 06:09 06:09 WBC 7.3 RBC 3.38 L Hgb 10.7 L Hct 32.8 L MCV 97.0 MCH 31.6 H MCHC 32.5 L RDW 14.9 H Plt Count 253 MPV 9.8 Neut % (Auto) 75.5 H Lymph % (Auto) 15.7 L [place] % (Auto) 6.4 Eos % (Auto) 1.9 Baso % (Auto) 0.5 Neut # (Auto) 5.5 Lymph # (Auto) 1.1 [place] # (Auto) 0.5 Eos # (Auto) 0.1 Baso # (Auto) 0.0 ESR Haptoglobin PT INR APTT Fibrinogen Fibrin Degrad Products Fibrin Degrad Prod, Qt Sodium 134 Potassium 4.9 Chloride 105 Carbon Dioxide 22 Anion Gap 13 BUN 19 H Creatinine 1.1 Est GFR ( Amer) 58 Est GFR (Non-Af Amer) 48 POC Glucose (mg/dL) Random Glucose 123 H Hemoglobin A1c Calcium 8.8 Phosphorus 3.8 Magnesium 1.9 Total Bilirubin 0.5 AST 15 ALT 11 Alkaline Phosphatase 31 L D C-React Prot High Sens Total Protein 5.4 L Albumin 3.7 Globulin 1.7 L Albumin/Globulin Ratio 2.1 Complement C3 Complement C4 RPR Fingerstick Blood Sugar Results: 141 Review of Systems - EENT Eyes: UNREMARKABLE Ears: UNREMARKABLE Nose/Mouth/Throat: UNREMARKABLE. absent: Dry Mouth - Cardiovascular Cardiovascular: UNREMARKABLE. absent: Chest Pain, Chest Pain at Rest - Respiratory Respiratory: UNREMARKABLE. absent: Cough, Dyspnea - Gastrointestinal Gastrointestinal: UNREMARKABLE. absent: Belching, Bloating - Musculoskeletal Musculoskeletal: Muscle Weakness. absent: Arthralgias, Back Pain - Integumentary Integumentary: UNREMARKABLE. absent: Acne, Change in Pigmentation - Neurological Neurological: UNREMARKABLE - Psychiatric Psychiatric: UNREMARKABLE. absent: Depression - Endocrine Endocrine: UNREMARKABLE. 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) Does the Patient have a Hernandez Catheter?: No Does the Patient need a Hernandez Catheter?: No - Prophylaxis GI Prophylaxis GI: Pepsid - Prophylaxis DVT Prophylaxis DVT: Lovenox - Nutrition Nutrition: Nutrition Category Date Time Status Consistent Carbohydrate [DIET] Diets 09/11/18 Dinner Active Assessment/Plan - Assessment and Plan (Free Text) Assessment: 77 F w/ lumbar laminectomy presents with generalized body weakness including all extremities; suspicious for Rosanna barre syndrome; 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 Anesthisiology unable to perform test under fluroscopy. Will talk to IR/ Neurosurgery. Will likely require 4-6 sessions of plasmapheresis. Plan: Neuro - A&O x3 - 4/5 strength in all extremities - Lumbar tap unable to perform due to patient currently on plavix - Nuno Cathetor place in R femoral vein 09/13 - X plasmapheresis 09/14 - per neuro, will require 4-6 sessions - F/u MRI cervical/lumbar - F/u HIV, lyme, rhematoid factor, , ACEi - ESR 80 Cardio - hx of HTN, CAD X 2 stents - c/w aspirin 81 daily, plavix 75 mg daily, hydralizine 25 mg Q8H, HCTZ 12.5 mg PO daily, metoprolol succinate 50 PO daily, enalipril 20 mg BID - Echo 07/2018: Normal EF, Grade 1 diastolic dysfunction - EKG: Normal sinus @ 72 BPM Resp - saturating well, no SOB - will continue to monitor - CXR 09/11: Cardiomegaly, no focal consolidation Renal - nuno catheter placed in R femoral vein 09/13 - 1 X plasmapheresisis 09/14 - BUN/Cr stable at 19/.1 Endo - hx of DM - c/w metformin 500 BID PO daily, Januivia 50 mg Po daily Heme - H/H stable in 10s/30s - likely iron deficiency - c/w feosol 325 PO BID ID - afebrile , WBC 6 - continue to monitor PPx - GI: pepcid 20mg daily - DVT: SCDs, lovenox 40 mg SC - Diet: consistent carbohydrate diet <David Purvis M - Last Filed: 09/14/18 17:48> CCU Objective - Vital Signs / Intake & Output Vital Signs (Last 4 hours): Vital Signs Temp Pulse Resp BP Pulse Ox 09/14/18 17:20 128/58 L 09/14/18 17:10 69 14 99 09/14/18 17:00 69 14 100 09/14/18 16:50 70 13 128/58 L 100 09/14/18 16:40 69 19 09/14/18 16:31 71 16 100 09/14/18 16:10 68 15 100 09/14/18 16:00 98.0 F 72 18 125/56 L 98 09/14/18 15:50 77 12 09/14/18 15:40 75 21 09/14/18 15:30 79 13 09/14/18 15:23 76 12 105/73 09/14/18 15:21 75 09/14/18 15:10 71 19 09/14/18 15:00 70 16 09/14/18 14:50 71 17 100 09/14/18 14:48 69 16 123/58 L 100 09/14/18 14:40 72 20 100 09/14/18 14:30 70 17 100 09/14/18 14:20 72 18 100 09/14/18 14:10 71 17 99 09/14/18 14:00 67 17 100 09/14/18 13:50 90 14 99 09/14/18 13:48 68 17 131/58 L 100 Intake and Output (Last 8hrs): Intake & Output 09/14/18 09/14/18 09/14/18 06:59 14:59 22:59 Intake Total 300 470 120 Output Total 650 550 210 Balance -350 -80 -90 Intake: Oral 300 470 120 Output: Urine 650 550 Urine, Voided 650 550 Urine/Stool Mix 210 Other: # Voids Urine, Voided 1 1 0 # Bowel Movements 0 0 0 - Medications Active Medications: Active Medications Generic Name Dose Route Start Last Admin Trade Name Freq PRN Reason Stop Dose Admin Acetaminophen 650 mg 09/11/18 18:11 Tylenol 325mg Tab PO Q6 PRN Fever >100.4 F Artificial Tears 0.05 ml 09/11/18 17:44 Artificial Tears OU BID PRN Dry eyes Aspirin 81 mg 09/12/18 10:00 09/14/18 14:16 Aspirin Chewable PO Not Given DAILY [facility] Clopidogrel Bisulfate 75 mg 09/12/18 10:00 09/14/18 14:16 Plavix PO Not Given DAILY [facility] Enalapril Maleate 20 mg 09/11/18 18:00 09/14/18 17:20 Vasotec PO 20 mg BID [facility]IZ[facility] Administration Enoxaparin Sodium 40 mg 09/12/18 10:00 09/14/18 17:19 Lovenox SC 40 mg DAILY [facility]IZ[facility] Administration Famotidine 20 mg 09/12/18 10:00 09/14/18 09:34 Pepcid PO 20 mg DAILY [facility] Administration Ferrous Sulfate 325 mg 09/11/18 18:00 09/14/18 17:17 [facility] Hydralazine HCl 25 mg 09/11/18 18:00 09/14/18 14:25 Apresoline PO 25 mg Q8 [facility]IZA Administration Hydrochlorothiazide 12.5 mg 09/12/18 10:00 09/14/18 09:33 Microzide PO 12.5 mg DAILY [facility] Administration Insulin Human Regular 0 unit 09/11/18 22:00 09/14/18 16:39 Novolin R SC 3 unit ACHS [facility] Administration Protocol Metformin HCl 500 mg 09/11/18 18:00 09/14/18 17:20 Glucophage PO 500 mg BIDCC [facility] Administration Metoprolol Succinate 50 mg 09/12/18 10:00 09/14/18 09:33 Toprol Xl PO 50 mg DAILY [facility] Administration Ondansetron HCl 4 mg 09/14/18 13:47 Zofran Tab PO Q6H PRN Nausea/Vomiting Rosuvastatin Calcium 5 mg 09/12/18 22:00 09/13/18 21:45 Crestor PO 5 mg HS [facility] Administration Sennosides 17.2 mg 09/11/18 22:00 09/13/18 21:46 Senokot Tab PO 17.2 mg HS [facility] Administration Sitagliptin Phosphate 50 mg 09/12/18 10:00 09/14/18 09:34 Januvia PO 50 mg DAILY [facility] Administration - Patient Studies Lab Studies: Microbiology Studies 09/13/18 09:57 MRSA Culture (Admit) - Final Naris MRSA NOT DETECTED Lab Studies 09/14/18 09/14/18 09/14/18 Range/Units 16:09 12:27 11:18 WBC (4.8-10.8) K/uL RBC (3.80-5.20) Mil/uL Hgb (11.0-16.0) g/dL Hct (34.0-47.0) % MCV (81.0-99.0) fL MCH (27.0-31.0) pg MCHC (33.0-37.0) g/dL RDW (11.5-14.5) % Plt Count (130-400) K/uL MPV (7.2-11.7) fL Neut % (Auto) (50.0-75.0) % Lymph % (Auto) (20.0-40.0) % [place] % (Auto) (0.0-10.0) % Eos % (Auto) (0.0-4.0) % Baso % (Auto) (0.0-2.0) % Neut # (Auto) (1.8-7.0) K/uL Lymph # (Auto) (1.0-4.3) K/uL [place] # (Auto) (0.0-0.8) K/uL Eos # (Auto) (0.0-0.7) K/uL Baso # (Auto) (0.0-0.2) K/uL Plt Function Assay K/uL Sodium (132-148) mmol/L Potassium (3.6-5.2) mmol/L Chloride (98-107) mmol/L Carbon Dioxide (22-30) mmol/L Anion Gap (10-20) BUN (7-17) mg/dL Creatinine (0.7-1.2) mg/dL Est GFR ( Amer) Est GFR (Non-Af Amer) POC Glucose (mg/dL) 215 H 179 H (65-110) mg/dL Random Glucose (65-105) mg/dL Calcium (8.6-10.4) mg/dl Phosphorus (2.5-4.5) mg/dL Magnesium (1.6-2.3) mg/dL Total Bilirubin (0.2-1.3) mg/dL AST (14-36) U/L ALT (9-52) U/L Alkaline Phosphatase (38-126) U/L Total Protein (6.3-8.3) g/dL Albumin (3.5-5.0) g/dL Globulin (2.2-3.9) gm/dL Albumin/Globulin Ratio (1.0-2.1) Angiotensin Convert Enz (9-67) U/L Prolactin 10.9 (3.0-18.9) ng/mL HIV-1 RNA Qnt (RT-PCR) (Not Detected) 09/14/18 09/14/18 09/14/18 Range/Units 07:52 07:19 06:09 WBC (4.8-10.8) K/uL RBC (3.80-5.20) Mil/uL Hgb (11.0-16.0) g/dL Hct (34.0-47.0) % MCV (81.0-99.0) fL MCH (27.0-31.0) pg MCHC (33.0-37.0) g/dL RDW (11.5-14.5) % Plt Count (130-400) K/uL MPV (7.2-11.7) fL Neut % (Auto) (50.0-75.0) % Lymph % (Auto) (20.0-40.0) % [place] % (Auto) (0.0-10.0) % Eos % (Auto) (0.0-4.0) % Baso % (Auto) (0.0-2.0) % Neut # (Auto) (1.8-7.0) K/uL Lymph # (Auto) (1.0-4.3) K/uL [place] # (Auto) (0.0-0.8) K/uL Eos # (Auto) (0.0-0.7) K/uL Baso # (Auto) (0.0-0.2) K/uL Plt Function Assay 141 K/uL Sodium 134 (132-148) mmol/L Potassium 4.9 (3.6-5.2) mmol/L Chloride 105 (98-107) mmol/L Carbon Dioxide 22 (22-30) mmol/L Anion Gap 13 (10-20) BUN 19 H (7-17) mg/dL Creatinine 1.1 (0.7-1.2) mg/dL Est GFR ( Amer) 58 Est GFR (Non-Af Amer) 48 POC Glucose (mg/dL) 145 H (65-110) mg/dL Random Glucose 123 H (65-105) mg/dL Calcium 8.8 (8.6-10.4) mg/dl Phosphorus 3.8 (2.5-4.5) mg/dL Magnesium 1.9 (1.6-2.3) mg/dL Total Bilirubin 0.5 (0.2-1.3) mg/dL AST 15 (14-36) U/L ALT 11 (9-52) U/L Alkaline Phosphatase 31 L D (38-126) U/L Total Protein 5.4 L (6.3-8.3) g/dL Albumin 3.7 (3.5-5.0) g/dL Globulin 1.7 L (2.2-3.9) gm/dL Albumin/Globulin Ratio 2.1 (1.0-2.1) Angiotensin Convert Enz (9-67) U/L Prolactin (3.0-18.9) ng/mL HIV-1 RNA Qnt (RT-PCR) (Not Detected) 09/14/18 09/13/18 09/13/18 Range/Units 06:09 20:36 07:49 WBC 7.3 (4.8-10.8) K/uL RBC 3.38 L (3.80-5.20) Mil/uL Hgb 10.7 L (11.0-16.0) g/dL Hct 32.8 L (34.0-47.0) % MCV 97.0 (81.0-99.0) fL MCH 31.6 H (27.0-31.0) pg MCHC 32.5 L (33.0-37.0) g/dL RDW 14.9 H (11.5-14.5) % Plt Count 253 (130-400) K/uL MPV 9.8 (7.2-11.7) fL Neut % (Auto) 75.5 H (50.0-75.0) % Lymph % (Auto) 15.7 L (20.0-40.0) % [place] % (Auto) 6.4 (0.0-10.0) % Eos % (Auto) 1.9 (0.0-4.0) % Baso % (Auto) 0.5 (0.0-2.0) % Neut # (Auto) 5.5 (1.8-7.0) K/uL Lymph # (Auto) 1.1 (1.0-4.3) K/uL [place] # (Auto) 0.5 (0.0-0.8) K/uL Eos # (Auto) 0.1 (0.0-0.7) K/uL Baso # (Auto) 0.0 (0.0-0.2) K/uL Plt Function Assay K/uL Sodium (132-148) mmol/L Potassium (3.6-5.2) mmol/L Chloride (98-107) mmol/L Carbon Dioxide (22-30) mmol/L Anion Gap (10-20) BUN (7-17) mg/dL Creatinine (0.7-1.2) mg/dL Est GFR ( Amer) Est GFR (Non-Af Amer) POC Glucose (mg/dL) 141 H (65-110) mg/dL Random Glucose (65-105) mg/dL Calcium (8.6-10.4) mg/dl Phosphorus (2.5-4.5) mg/dL Magnesium (1.6-2.3) mg/dL Total Bilirubin (0.2-1.3) mg/dL AST (14-36) U/L ALT (9-52) U/L Alkaline Phosphatase (38-126) U/L Total Protein (6.3-8.3) g/dL Albumin (3.5-5.0) g/dL Globulin (2.2-3.9) gm/dL Albumin/Globulin Ratio (1.0-2.1) Angiotensin Convert Enz (9-67) U/L Prolactin (3.0-18.9) ng/mL HIV-1 RNA Qnt (RT-PCR) <1.30 not detected (Not Detected) 09/13/18 09/13/18 09/12/18 Range/Units 07:49 06:38 21:18 WBC (4.8-10.8) K/uL RBC (3.80-5.20) Mil/uL Hgb (11.0-16.0) g/dL Hct (34.0-47.0) % MCV (81.0-99.0) fL MCH (27.0-31.0) pg MCHC (33.0-37.0) g/dL RDW (11.5-14.5) % Plt Count (130-400) K/uL MPV (7.2-11.7) fL Neut % (Auto) (50.0-75.0) % Lymph % (Auto) (20.0-40.0) % [place] % (Auto) (0.0-10.0) % Eos % (Auto) (0.0-4.0) % Baso % (Auto) (0.0-2.0) % Neut # (Auto) (1.8-7.0) K/uL Lymph # (Auto) (1.0-4.3) K/uL [place] # (Auto) (0.0-0.8) K/uL Eos # (Auto) (0.0-0.7) K/uL Baso # (Auto) (0.0-0.2) K/uL Plt Function Assay K/uL Sodium (132-148) mmol/L Potassium (3.6-5.2) mmol/L Chloride (98-107) mmol/L Carbon Dioxide (22-30) mmol/L Anion Gap (10-20) BUN (7-17) mg/dL Creatinine (0.7-1.2) mg/dL Est GFR ( Amer) Est GFR (Non-Af Amer) POC Glucose (mg/dL) 139 H 118 H (65-110) mg/dL Random Glucose (65-105) mg/dL Calcium (8.6-10.4) mg/dl Phosphorus (2.5-4.5) mg/dL Magnesium (1.6-2.3) mg/dL Total Bilirubin (0.2-1.3) mg/dL AST (14-36) U/L ALT (9-52) U/L Alkaline Phosphatase (38-126) U/L Total Protein (6.3-8.3) g/dL Albumin (3.5-5.0) g/dL Globulin (2.2-3.9) gm/dL Albumin/Globulin Ratio (1.0-2.1) Angiotensin Convert Enz <7 L (9-67) U/L Prolactin (3.0-18.9) ng/mL HIV-1 RNA Qnt (RT-PCR) (Not Detected) 09/12/18 Range/Units 21:16 WBC (4.8-10.8) K/uL RBC (3.80-5.20) Mil/uL Hgb (11.0-16.0) g/dL Hct (34.0-47.0) % MCV (81.0-99.0) fL MCH (27.0-31.0) pg MCHC (33.0-37.0) g/dL RDW (11.5-14.5) % Plt Count (130-400) K/uL MPV (7.2-11.7) fL Neut % (Auto) (50.0-75.0) % Lymph % (Auto) (20.0-40.0) % [place] % (Auto) (0.0-10.0) % Eos % (Auto) (0.0-4.0) % Baso % (Auto) (0.0-2.0) % Neut # (Auto) (1.8-7.0) K/uL Lymph # (Auto) (1.0-4.3) K/uL [place] # (Auto) (0.0-0.8) K/uL Eos # (Auto) (0.0-0.7) K/uL Baso # (Auto) (0.0-0.2) K/uL Plt Function Assay K/uL Sodium (132-148) mmol/L Potassium (3.6-5.2) mmol/L Chloride (98-107) mmol/L Carbon Dioxide (22-30) mmol/L Anion Gap (10-20) BUN (7-17) mg/dL Creatinine (0.7-1.2) mg/dL Est GFR ( Amer) Est GFR (Non-Af Amer) POC Glucose (mg/dL) 340 H (65-110) mg/dL Random Glucose (65-105) mg/dL Calcium (8.6-10.4) mg/dl Phosphorus (2.5-4.5) mg/dL Magnesium (1.6-2.3) mg/dL Total Bilirubin (0.2-1.3) mg/dL AST (14-36) U/L ALT (9-52) U/L Alkaline Phosphatase (38-126) U/L Total Protein (6.3-8.3) g/dL Albumin (3.5-5.0) g/dL Globulin (2.2-3.9) gm/dL Albumin/Globulin Ratio (1.0-2.1) Angiotensin Convert Enz (9-67) U/L Prolactin (3.0-18.9) ng/mL HIV-1 RNA Qnt (RT-PCR) (Not Detected) Laboratory Results - last 24 hr 09/12/18 09/12/18 09/13/18 21:16 21:18 06:38 WBC RBC Hgb Hct MCV MCH MCHC RDW Plt Count MPV Neut % (Auto) Lymph % (Auto) [place] % (Auto) Eos % (Auto) Baso % (Auto) Neut # (Auto) Lymph # (Auto) [place] # (Auto) Eos # (Auto) Baso # (Auto) Plt Function Assay Sodium Potassium Chloride Carbon Dioxide Anion Gap BUN Creatinine Est GFR ( Amer) Est GFR (Non-Af Amer) POC Glucose (mg/dL) 340 H 118 H 139 H Random Glucose Calcium Phosphorus Magnesium Total Bilirubin AST ALT Alkaline Phosphatase Total Protein Albumin Globulin Albumin/Globulin Ratio Angiotensin Convert Enz Prolactin HIV-1 RNA Qnt (RT-PCR) 09/13/18 09/13/18 09/13/18 07:49 07:49 20:36 WBC RBC Hgb Hct MCV MCH MCHC RDW Plt Count MPV Neut % (Auto) Lymph % (Auto) [place] % (Auto) Eos % (Auto) Baso % (Auto) Neut # (Auto) Lymph # (Auto) [place] # (Auto) Eos # (Auto) Baso # (Auto) Plt Function Assay Sodium Potassium Chloride Carbon Dioxide Anion Gap BUN Creatinine Est GFR ( Amer) Est GFR (Non-Af Amer) POC Glucose (mg/dL) 141 H Random Glucose Calcium Phosphorus Magnesium Total Bilirubin AST ALT Alkaline Phosphatase Total Protein Albumin Globulin Albumin/Globulin Ratio Angiotensin Convert Enz <7 L Prolactin HIV-1 RNA Qnt (RT-PCR) <1.30 not detected 09/14/18 09/14/18 09/14/18 06:09 06:09 07:19 WBC 7.3 RBC 3.38 L Hgb 10.7 L Hct 32.8 L MCV 97.0 MCH 31.6 H MCHC 32.5 L RDW 14.9 H Plt Count 253 MPV 9.8 Neut % (Auto) 75.5 H Lymph % (Auto) 15.7 L [place] % (Auto) 6.4 Eos % (Auto) 1.9 Baso % (Auto) 0.5 Neut # (Auto) 5.5 Lymph # (Auto) 1.1 [place] # (Auto) 0.5 Eos # (Auto) 0.1 Baso # (Auto) 0.0 Plt Function Assay Sodium 134 Potassium 4.9 Chloride 105 Carbon Dioxide 22 Anion Gap 13 BUN 19 H Creatinine 1.1 Est GFR ( Amer) 58 Est GFR (Non-Af Amer) 48 POC Glucose (mg/dL) 145 H Random Glucose 123 H Calcium 8.8 Phosphorus 3.8 Magnesium 1.9 Total Bilirubin 0.5 AST 15 ALT 11 Alkaline Phosphatase 31 L D Total Protein 5.4 L Albumin 3.7 Globulin 1.7 L Albumin/Globulin Ratio 2.1 Angiotensin Convert Enz Prolactin HIV-1 RNA Qnt (RT-PCR) 09/14/18 09/14/18 09/14/18 07:52 11:18 12:27 WBC RBC Hgb Hct MCV MCH MCHC RDW Plt Count MPV Neut % (Auto) Lymph % (Auto) [place] % (Auto) Eos % (Auto) Baso % (Auto) Neut # (Auto) Lymph # (Auto) [place] # (Auto) Eos # (Auto) Baso # (Auto) Plt Function Assay 141 Sodium Potassium Chloride Carbon Dioxide Anion Gap BUN Creatinine Est GFR ( Amer) Est GFR (Non-Af Amer) POC Glucose (mg/dL) 179 H Random Glucose Calcium Phosphorus Magnesium Total Bilirubin AST ALT Alkaline Phosphatase Total Protein Albumin Globulin Albumin/Globulin Ratio Angiotensin Convert Enz Prolactin 10.9 HIV-1 RNA Qnt (RT-PCR) 09/14/18 16:09 WBC RBC Hgb Hct MCV MCH MCHC RDW Plt Count MPV Neut % (Auto) Lymph % (Auto) [place] % (Auto) Eos % (Auto) Baso % (Auto) Neut # (Auto) Lymph # (Auto) [place] # (Auto) Eos # (Auto) Baso # (Auto) Plt Function Assay Sodium Potassium Chloride Carbon Dioxide Anion Gap BUN Creatinine Est GFR ( Amer) Est GFR (Non-Af Amer) POC Glucose (mg/dL) 215 H Random Glucose Calcium Phosphorus Magnesium Total Bilirubin AST ALT Alkaline Phosphatase Total Protein Albumin Globulin Albumin/Globulin Ratio Angiotensin Convert Enz Prolactin HIV-1 RNA Qnt (RT-PCR) Radiology Impressions: Radiology Impressions Head CT 09/14/18 11:34 IMPRESSION: No acute intracranial hemorrhage. 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 Moderate generalized volume loss. Critical Care Progress Note - Nutrition Nutrition: Nutrition Category Date Time Status Consistent Carbohydrate [DIET] Diets 09/11/18 Dinner Active Assessment/Plan - Assessment and Plan (Free Text) Plan: Above patient seen and examined at bedside. Patient tolerated plasmpharemsis -continue to monitor -patient remains hemodynamically stable -consider d/c femoral HD line
[2018-09-14 08:10] LABS: FUNCTIONING PLTS 141 K/uL; PLT BASE COUNT 251 K/uL; PLT(ADP) 110 K/uL
[2018-09-14] MEDS: (Novolin R) Insulin Human Regular 100 units/ml vial SC SCH ×4 (08:30→21:54)
[2018-09-14] MEDS: Metoprolol Succinate 50 mg XL Tab PO SCH (09:33)
[2018-09-14] MEDS: Enoxaparin 40 mg Syringe SC SCH ×2 (10:00→17:19)
--- NOTE | 2018-09-14 10:22 | PN ---
DATE: 09/14/2018 TIME OF EVALUATION: 07:15 a.m. NEUROLOGICAL PROBLEM: Clinical diagnosis of acute inflammatory polyradiculopathy. PHYSICAL EXAMINATION: VITAL SIGNS: Blood pressure 119/45, mean artery pressure of 69, respiratory rate is 16, temperature afebrile with a pulse rate 69 and regular. The patient is awake, alert, oriented to person, place and time. Cranial nerve examinations are normal. Examination of the upper extremities 4/5, lower extremities 4-/5 absent reflexes. Plantars are mute. Sensory examination which is unchanged compared with my yesterday's examination. The patient does not have any autonomic dysfunction. The patient did have plasmapheresis, one yesterday out of four. The patient's blood workup so far negative. 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 The patient is not a good candidate that I could perform spinal tap at the bedside due to her physique, recent lumbar laminectomy and paraparesis. We need assistance from either Interventional Radiology or anesthesiologist to perform spinal tap to assess her CSF findings to confirm the diagnosis. The patient is getting treatment as per clinical diagnosis. Definitely, the patient needs confirming the diagnosis for further management in near feature. The patient's condition has been discussed with her and the resident. The patient should have electrodiagnostic studies including EMG and electromyography that can be done as outpatient. The patient can continue plasmapheresis as recommended. DVT prophylaxis and bedside physical therapy should be initiated. Gilbert Irene MD [facility]
--- NOTE | 2018-09-14 10:32 | CP.PCM.PN ---
Subjective - Date & Time of Evaluation Date of Evaluation: 09/14/18 Time of Evaluation: 10:32 - Subjective Subjective: pt is seen and examined, follow up consult is dictated #[id number] Objective - Vital Signs/Intake and Output Vital Signs (last 24 hours): Temp Pulse Resp BP Pulse Ox 97.7 F 59 L 15 143/84 97 09/14/18 04:00 09/14/18 07:00 09/14/18 07:00 09/14/18 09:33 09/14/18 07:00 Intake and Output: 09/14/18 09/14/18 06:59 18:59 Intake Total 650 210 Output Total 950 275 Balance -300 -65 - Medications Medications: Current Medications Acetaminophen (Tylenol 325mg Tab) 650 mg PO Q6 PRN PRN Reason: Fever >100.4 F Artificial Tears (Artificial Tears) 0.05 ml OU BID PRN PRN Reason: Dry eyes Aspirin (Aspirin Chewable) 81 mg PO DAILY [facility] Last Admin: 09/13/18 10:56 Dose: Not Given Clopidogrel Bisulfate (Plavix) 75 mg PO DAILY [facility] Last Admin: 09/13/18 12:26 Dose: 75 mg Enalapril Maleate (Vasotec) 20 mg PO BID [facility] Last Admin: 09/14/18 09:33 Dose: 20 mg Enoxaparin Sodium (Lovenox) 40 mg SC DAILY [facility] Last Admin: 09/13/18 12:26 Dose: 40 mg Famotidine (Pepcid) 20 mg PO DAILY [facility] Last Admin: 09/14/18 09:34 Dose: 20 mg Ferrous Sulfate (Feosol) 325 mg PO BIDCC [facility] Last Admin: 09/14/18 08:42 Dose: 325 mg Hydralazine HCl (Apresoline) 25 mg PO Q8 [facility] Last Admin: 09/14/18 06:12 Dose: 25 mg Hydrochlorothiazide (Microzide) 12.5 mg PO DAILY [facility] Last Admin: 09/14/18 09:33 Dose: 12.5 mg Insulin Human Regular (Novolin R) 0 unit SC [facility]; Protocol Last Admin: 09/14/18 08:30 Dose: Not Given Metformin HCl (Glucophage) 500 mg PO BIDCC [facility] Last Admin: 09/14/18 08:42 Dose: 500 mg Metoprolol Succinate (Toprol Xl) 50 mg PO DAILY [facility] Last Admin: 09/14/18 09:33 Dose: 50 mg Ondansetron HCl (Zofran Tab) 4 mg PO Q6H [facility] Last Admin: 09/14/18 06:12 Dose: Not Given Oxycodone/Acetaminophen (Percocet 5/325 Mg Tab) 2 tab PO Q4H PRN PRN Reason: Pain, severe (8-10) Stop: 09/14/18 17:45 Rosuvastatin Calcium (Crestor) 5 mg PO HS [facility] Last Admin: 09/13/18 21:45 Dose: 5 mg Sennosides (Senokot Tab) 17.2 mg PO HS [facility] Last Admin: 09/13/18 21:46 Dose: 17.2 mg Sitagliptin Phosphate (Januvia) 50 mg PO DAILY [facility] Last Admin: 09/14/18 09:34 Dose: 50 mg - Labs Labs: 09/14/18 06:09 09/14/18 06:09 PT 11.8 SECONDS (9.7-12.2) 09/13/18 12:45 INR 1.1 09/13/18 12:45 APTT 33 SECONDS (21-34) D 09/13/18 12:45
--- NOTE | 2018-09-14 11:27 | CP.PCM.CON ---
History of Present Illness - History of Present Illness History of Present Illness: 77 y/o F PMH CAD (s/p coronary stents in 2005 per patient), CVA last October per patient (presented with left sided weakness but resolved), h/o afib, HTN, HLD, DM, s/p laminectomy 5 weeks ago, h/o childhood seizures now presenting with g eneralized motor weakness and generalized paresthesias. Patient denies CP, SOB, and denies other signs of stroke. Review of Systems - Cardiovascular Additional comments: RRR - Respiratory Additional comments: clear b/l - Gastrointestinal Additional comments: soft, nontender - Musculoskeletal Additional comments: warm, well perfused Past Patient History - Infectious Disease Hx of Infectious Diseases: None - Past Medical History & Family History Past Medical History?: Yes - Past Social History Smoking Status: Never Smoked - CARDIAC Hx Atrial Fibrillation: Yes Hx Hypercholesterolemia: Yes Hx Hypertension: Yes - PULMONARY Hx Respiratory Disorders: No - NEUROLOGICAL Hx Seizures: Yes (childhood) - HEENT Other/Comment: WEARS GLASSES - RENAL Hx Chronic Kidney Disease: No - ENDOCRINE/METABOLIC Hx Endocrine Disorders: Yes Hx Diabetes Mellitus Type 2: Yes - HEMATOLOGICAL/ONCOLOGICAL Hx Blood Disorders: No - INTEGUMENTARY Hx Dermatological Problems: No - MUSCULOSKELETAL/RHEUMATOLOGICAL Hx Arthritis: Yes Hx Falls: No - GASTROINTESTINAL Hx Gastrointestinal Disorders: No - GENITOURINARY/GYNECOLOGICAL Hx Genitourinary Disorders: No - PSYCHIATRIC Hx Substance Use: No - SURGICAL HISTORY Hx Coronary Stent: Yes (3) - ANESTHESIA Hx Anesthesia: Yes (Novacaine during tooth extraction) Hx Anesthesia Reactions: No Hx Malignant Hyperthermia: No Meds Allergies/Adverse Reactions: Allergies Allergy/AdvReac Type Severity Reaction Status Date / Time gabapentin AdvReac Verified 07/24/18 13:57 pregabalin [From Lyrica] AdvReac Verified 07/24/18 13:57 - Medications Medications: Current Medications Acetaminophen (Tylenol 325mg Tab) 650 mg PO Q6 PRN PRN Reason: Fever >100.4 F Artificial Tears (Artificial Tears) 0.05 ml OU BID PRN PRN Reason: Dry eyes Aspirin (Aspirin Chewable) 81 mg PO DAILY [facility] Last Admin: 09/13/18 10:56 Dose: Not Given Clopidogrel Bisulfate (Plavix) 75 mg PO DAILY [facility] Last Admin: 09/13/18 12:26 Dose: 75 mg Enalapril Maleate (Vasotec) 20 mg PO BID [facility] Last Admin: 09/14/18 09:33 Dose: 20 mg Enoxaparin Sodium (Lovenox) 40 mg SC DAILY [facility] Last Admin: 09/13/18 12:26 Dose: 40 mg Famotidine (Pepcid) 20 mg PO DAILY [facility] Last Admin: 09/14/18 09:34 Dose: 20 mg Ferrous Sulfate (Feosol) 325 mg PO BIDCC [facility] Last Admin: 09/14/18 08:42 Dose: 325 mg Hydralazine HCl (Apresoline) 25 mg PO Q8 [facility] Last Admin: 09/14/18 06:12 Dose: 25 mg Hydrochlorothiazide (Microzide) 12.5 mg PO DAILY [facility] Last Admin: 09/14/18 09:33 Dose: 12.5 mg Insulin Human Regular (Novolin R) 0 unit SC [facility]; Protocol Last Admin: 09/14/18 08:30 Dose: Not Given [facility]) [facility] Last Admin: 09/14/18 08:42 Dose: 500 mg Metoprolol Succinate (Toprol Xl) 50 mg PO DAILY [facility] Last Admin: 09/14/18 09:33 Dose: 50 mg Ondansetron HCl (Zofran Tab) 4 mg PO Q6H [facility] Last Admin: 09/14/18 06:12 Dose: Not Given Oxycodone/Acetaminophen (Percocet 5/325 Mg Tab) 2 tab PO Q4H PRN PRN Reason: Pain, severe (8-10) Stop: 09/14/18 17:45 Rosuvastatin Calcium (Crestor) 5 mg PO [facility] Last Admin: 09/13/18 21:45 Dose: 5 mg Sennosides (Senokot Tab) 17.2 mg PO [facility] Last Admin: 09/13/18 21:46 Dose: 17.2 mg Sitagliptin Phosphate (Januvia) 50 mg PO DAILY [facility] Last Admin: 09/14/18 09:34 Dose: 50 mg Physical Exam - Extremities Exam Additional comments: warm, well perfused - Neurological Exam Additional comments: Cranial nerves intact. Upper and lower extremities 4+/5 all muscle groups, sensation intact. Results - Vital Signs Recent Vital Signs: Last Vital Signs Temp 97.7 F 09/14/18 08:00 Pulse 70 09/14/18 10:20 Resp 14 09/14/18 10:20 BP 105/60 09/14/18 09:51 Pulse Ox 97 09/14/18 10:20 - Labs Result Diagrams: 09/14/18 06:09 09/14/18 06:09 Labs: Laboratory Results - last 24 hr 09/12/18 09/12/18 09/13/18 21:16 21:18 06:38 WBC RBC Hgb Hct MCV MCH MCHC RDW Plt Count MPV Neut % (Auto) Lymph % (Auto) [place] % (Auto) Eos % (Auto) Baso % (Auto) Neut # (Auto) Lymph # (Auto) [place] # (Auto) Eos # (Auto) Baso # (Auto) Haptoglobin PT INR APTT Fibrinogen Fibrin Degrad Products Fibrin Degrad Prod, Qt Plt Function Assay Sodium Potassium Chloride Carbon Dioxide Anion Gap BUN Creatinine Est GFR ( Amer) Est GFR (Non-Af Amer) POC Glucose (mg/dL) 340 H 118 H 139 H Random Glucose Calcium Phosphorus Magnesium Total Bilirubin AST ALT Alkaline Phosphatase Total Protein Albumin Globulin Albumin/Globulin Ratio RPR 09/13/18 09/13/18 09/13/18 07:49 11:16 11:57 WBC RBC Hgb Hct MCV MCH MCHC RDW Plt Count MPV Neut % (Auto) Lymph % (Auto) [place] % (Auto) Eos % (Auto) Baso % (Auto) Neut # (Auto) Lymph # (Auto) [place] # (Auto) Eos # (Auto) Baso # (Auto) Haptoglobin PT INR APTT Fibrinogen Fibrin Degrad Products Fibrin Degrad Prod, Qt Plt Function Assay Sodium 134 Potassium 4.9 Chloride 101 Carbon Dioxide 26 Anion Gap 12 BUN 20 H Creatinine 1.3 H Est GFR ( Amer) 48 Est GFR (Non-Af Amer) 40 POC Glucose (mg/dL) 187 H Random Glucose 150 H Calcium 9.2 Phosphorus 4.2 Magnesium 1.9 Total Bilirubin 0.3 AST 27 ALT 16 Alkaline Phosphatase 62 Total Protein 6.8 Albumin 3.9 Globulin 3.0 Albumin/Globulin Ratio 1.3 RPR Nonreactive 09/13/18 09/13/18 09/13/18 12:45 13:00 13:10 WBC RBC Hgb Hct MCV MCH MCHC RDW Plt Count MPV Neut % (Auto) Lymph % (Auto) [place] % (Auto) Eos % (Auto) Baso % (Auto) Neut # (Auto) Lymph # (Auto) [place] # (Auto) Eos # (Auto) Baso # (Auto) Haptoglobin 148.7 PT 11.8 INR 1.1 APTT 33 D Fibrinogen 404 H Fibrin Degrad Products Negative Fibrin Degrad Prod, Qt <10 Plt Function Assay Sodium Potassium Chloride Carbon Dioxide Anion Gap BUN Creatinine Est GFR ( Amer) Est GFR (Non-Af Amer) POC Glucose (mg/dL) Random Glucose Calcium Phosphorus Magnesium Total Bilirubin AST ALT Alkaline Phosphatase Total Protein Albumin Globulin Albumin/Globulin Ratio RPR 09/13/18 09/13/18 09/14/18 16:13 20:36 06:09 WBC 7.3 RBC 3.38 L Hgb 10.7 L Hct 32.8 L MCV 97.0 MCH 31.6 H MCHC 32.5 L RDW 14.9 H Plt Count 253 MPV 9.8 Neut % (Auto) 75.5 H Lymph % (Auto) 15.7 L [place] % (Auto) 6.4 Eos % (Auto) 1.9 Baso % (Auto) 0.5 Neut # (Auto) 5.5 Lymph # (Auto) 1.1 [place] # (Auto) 0.5 Eos # (Auto) 0.1 Baso # (Auto) 0.0 Haptoglobin PT INR APTT Fibrinogen Fibrin Degrad Products Fibrin Degrad Prod, Qt Plt Function Assay Sodium Potassium Chloride Carbon Dioxide Anion Gap BUN Creatinine Est GFR ( Amer) Est GFR (Non-Af Amer) POC Glucose (mg/dL) 149 H 141 H Random Glucose Calcium Phosphorus Magnesium Total Bilirubin AST ALT Alkaline Phosphatase Total Protein Albumin Globulin Albumin/Globulin Ratio RPR 09/14/18 09/14/18 09/14/18 06:09 07:19 07:52 WBC RBC Hgb Hct MCV MCH MCHC RDW Plt Count MPV Neut % (Auto) Lymph % (Auto) Sherman % (Auto) Eos % (Auto) Baso % (Auto) Neut # (Auto) Lymph # (Auto) Sherman # (Auto) Eos # (Auto) Baso # (Auto) Haptoglobin PT INR APTT Fibrinogen Fibrin Degrad Products Fibrin Degrad Prod, Qt Plt Function Assay 141 Sodium 134 Potassium 4.9 Chloride 105 Carbon Dioxide 22 Anion Gap 13 BUN 19 H Creatinine 1.1 Est GFR ( Amer) 58 Est GFR (Non-Af Amer) 48 POC Glucose (mg/dL) 145 H Random Glucose 123 H Calcium 8.8 Phosphorus 3.8 Magnesium 1.9 Total Bilirubin 0.5 AST 15 ALT 11 Alkaline Phosphatase 31 L D Total Protein 5.4 L Albumin 3.7 Globulin 1.7 L Albumin/Globulin Ratio 2.1 RPR Assessment & Plan - Assessment and Plan (Free Text) Assessment: 77 y/o F PMH CAD (s/p coronary stents in 2005 per patient), CVA last October per patient (presented with left sided weakness but resolved), HTN, HLD, DM, s/p laminectomy 5 weeks ago, 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 Patient denies CP, SOB, and denies other signs of stroke. Neurology would like to rule out GBS, consult is regarding spinal tap for CSF. -patient received plavix yesterday, JEROME guidelines are to wait for 7 days before proceeding with LP -if benefit of proceeding with LP exceeds risk of waiting the full 7 days, normal platelet function test (platelet aggregometry) should be done prior to LP and safest in this setting would be under fluoroscopy (to avoid atraumatic blind attempts) and transfusion of platelets before/during procedure should be considered - but again this does impose its own risks. IR uses fluroscopy for LP -will discuss with ICU and neurology potentially consider EMG and NCS to support diagnosis of GBS to avoid LP -will also discuss with ICU and neurology, if patient clinically responding potentially treating without CSF diagnosis if benefit exceeds risk -will follow, please contact with any questions
--- NOTE | 2018-09-14 12:26 | CT ---
Date of service: 09/14/2018 PROCEDURE: CT HEAD WITHOUT CONTRAST. HISTORY: Slurred speech COMPARISON: Comparison made with prior CT scan brain dated 10/31/2017. TECHNIQUE: Axial computed tomography images were obtained through the head/brain without intravenous contrast. Radiation dose: Total exam DLP = 1089.0 mGy-cm. This CT exam was performed using one or more of the following dose reduction techniques: Automated exposure control, adjustment of the mA and/or kV according to patient size, and/or use of iterative reconstruction technique. FINDINGS: HEMORRHAGE: No acute parenchymal, subarachnoid or extra-axial hemorrhage... BRAIN: Mild diffuse confluent chronic periventricular white matter ischemic changes seen extending peripherally into the deep white matter both cerebral hemispheres. In addition, there also are several tiny brainstem and scattered chronic bilateral basal nuclei lacunar type infarcts. Note that the possibility of a small hyperacute infarct not excluded on this study. Moderate generalized volume loss. Mild vascular calcifications are present. No obvious parenchymal nor extra-axial masses or collections seen on this noncontrast study. VENTRICLES: No obstructive hydrocephalus. CALVARIUM: No acute calvarial fractures. PARANASAL SINUSES: Unremarkable as visualized. No significant inflammatory changes. MASTOID AIR CELLS: Unremarkable as visualized. No inflammatory changes. OTHER FINDINGS: Redemonstrated are changes of bilateral cataract surgery. IMPRESSION: No acute intracranial hemorrhage. 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 Moderate generalized volume loss.
--- NOTE | 2018-09-14 15:08 | CP.PCM.PN ---
Subjective - Date & Time of Evaluation Date of Evaluation: 09/14/18 Time of Evaluation: 15:08 Objective - Vital Signs/Intake and Output Vital Signs (last 24 hours): Temp Pulse Resp BP Pulse Ox 97.9 F 71 17 123/58 L 100 09/14/18 12:00 09/14/18 14:50 09/14/18 14:50 09/14/18 14:48 09/14/18 14:50 Intake and Output: 09/14/18 09/14/18 06:59 18:59 Intake Total 650 470 Output Total 950 550 Balance -300 -80 - Medications Medications: Current Medications Acetaminophen (Tylenol 325mg Tab) 650 mg PO Q6 PRN PRN Reason: Fever >100.4 F Artificial Tears (Artificial Tears) 0.05 ml OU BID PRN PRN Reason: Dry eyes Aspirin (Aspirin Chewable) 81 mg PO DAILY [facility] Last Admin: 09/14/18 14:16 Dose: Not Given Clopidogrel Bisulfate (Plavix) 75 mg PO DAILY [facility] Last Admin: 09/14/18 14:16 Dose: Not Given Enalapril Maleate (Vasotec) 20 mg PO BID [facility] Last Admin: 09/14/18 09:33 Dose: 20 mg Enoxaparin Sodium (Lovenox) 40 mg SC DAILY [facility] Last Admin: 09/14/18 10:00 Dose: Not Given Famotidine (Pepcid) 20 mg PO DAILY [facility] Last Admin: 09/14/18 09:34 Dose: 20 mg Ferrous Sulfate (Feosol) 325 mg PO BIDCC [facility] Last Admin: 09/14/18 08:42 Dose: 325 mg Hydralazine HCl (Apresoline) 25 mg PO Q8 [facility] Last Admin: 09/14/18 14:25 Dose: 25 mg Hydrochlorothiazide (Microzide) 12.5 mg PO DAILY [facility] Last Admin: 09/14/18 09:33 Dose: 12.5 mg Insulin Human Regular (Novolin R) 0 unit SC [facility]; Protocol Last Admin: 09/14/18 12:12 Dose: 2 unit Metformin HCl (Glucophage) 500 mg PO BIDCC [facility] Last Admin: 09/14/18 08:42 Dose: 500 mg Metoprolol Succinate (Toprol Xl) 50 mg PO DAILY [facility] Last Admin: 09/14/18 09:33 Dose: 50 mg Ondansetron HCl (Zofran Tab) 4 mg PO Q6H PRN PRN Reason: Nausea/Vomiting Oxycodone/Acetaminophen (Percocet 5/325 Mg Tab) 2 tab PO Q4H PRN PRN Reason: Pain, severe (8-10) Stop: 09/14/18 17:45 Rosuvastatin Calcium (Crestor) 5 mg PO HS [facility] Last Admin: 09/13/18 21:45 Dose: 5 mg Sennosides (Senokot Tab) 17.2 mg PO HS [facility] Last Admin: 09/13/18 21:46 Dose: 17.2 mg Sitagliptin Phosphate (Januvia) 50 mg PO DAILY [facility] Last Admin: 09/14/18 09:34 Dose: 50 mg - Labs Labs: 09/14/18 06:09 09/14/18 06:09 PT 11.8 SECONDS (9.7-12.2) 09/13/18 12:45 INR 1.1 09/13/18 12:45 APTT 33 SECONDS (21-34) D 09/13/18 12:45 Assessment and Plan (1) CAD (coronary artery disease) Status: Acute (2) Atrial fibrillation with RVR Status: Acute (3) CVA (cerebral vascular accident) Status: Acute
--- NOTE | 2018-09-14 22:48 | CP.PCM.PN ---
Subjective - Date & Time of Evaluation Date of Evaluation: 09/14/18 Time of Evaluation: 21:20 - Subjective Subjective: dictated Objective - Vital Signs/Intake and Output Vital Signs (last 24 hours): Temp Pulse Resp BP Pulse Ox 98.2 F 66 15 105/60 100 09/14/18 20:00 09/14/18 22:10 09/14/18 22:10 09/14/18 21:50 09/14/18 22:10 Intake and Output: 09/14/18 09/15/18 18:59 06:59 Intake Total 700 50 Output Total 960 420 Balance -260 -370 - Medications Medications: Current Medications Acetaminophen (Tylenol 325mg Tab) 650 mg PO Q6 PRN PRN Reason: Fever >100.4 F Artificial Tears (Artificial Tears) 0.05 ml OU BID PRN PRN Reason: Dry eyes Aspirin (Aspirin Chewable) 81 mg PO DAILY [facility] Last Admin: 09/14/18 14:16 Dose: Not Given Clopidogrel Bisulfate (Plavix) 75 mg PO DAILY [facility] Last Admin: 09/14/18 14:16 Dose: Not Given Enalapril Maleate (Vasotec) 20 mg PO BID [facility] Last Admin: 09/14/18 17:20 Dose: 20 mg Enoxaparin Sodium (Lovenox) 40 mg SC DAILY [facility] Last Admin: 09/14/18 17:19 Dose: 40 mg Famotidine (Pepcid) 20 mg PO DAILY [facility] Last Admin: 09/14/18 09:34 Dose: 20 mg Ferrous Sulfate (Feosol) 325 mg PO BIDCC [facility] Last Admin: 09/14/18 17:17 Dose: Not Given Hydralazine HCl (Apresoline) 25 mg PO Q8 [facility] Last Admin: 09/14/18 21:53 Dose: 25 mg Hydrochlorothiazide (Microzide) 12.5 mg PO DAILY [facility] Last Admin: 09/14/18 09:33 Dose: 12.5 mg Insulin Human Regular (Novolin R) 0 unit SC [facility]; Protocol Last Admin: 09/14/18 21:54 Dose: Not Given Metformin HCl (Glucophage) 500 mg PO BIDCC [facility] Last Admin: 09/14/18 17:20 Dose: 500 mg Metoprolol Succinate (Toprol Xl) 50 mg PO DAILY [facility] Last Admin: 09/14/18 09:33 Dose: 50 mg Ondansetron HCl (Zofran Tab) 4 mg PO Q6H PRN PRN Reason: Nausea/Vomiting Rosuvastatin Calcium (Crestor) 5 mg PO HS [facility] Last Admin: 09/14/18 21:53 Dose: 5 mg Sennosides (Senokot Tab) 17.2 mg PO HS [facility] Last Admin: 09/14/18 21:55 Dose: 17.2 mg Sitagliptin Phosphate (Januvia) 50 mg PO DAILY [facility] Last Admin: 09/14/18 09:34 Dose: 50 mg - Labs Labs: 09/14/18 06:09 09/14/18 06:09 PT 11.8 SECONDS (9.7-12.2) 09/13/18 12:45 INR 1.1 09/13/18 12:45 APTT 33 SECONDS (21-34) D 09/13/18 12:45
--- NOTE | 2018-09-15 00:05 | PN ---
DATE: 09/14/2018 SUBJECTIVE: The patient is feeling better. She is not getting more weak. Her deficit is stable. The patient is being seen by Neurology. The patient needs spinal tap versus EMG and nerve conduction. PHYSICAL EXAMINATION: VITAL SIGNS: Blood pressure 105/60, pulse 61, respiratory rate 12, and temperature 98. LUNGS: Clear. CARDIOVASCULAR SYSTEM: S1, S2. Regular. ABDOMEN: Soft. ASSESSMENT: 1. Extremities weakness, rule out Guillain-Treichlers syndrome. 2. . 3. Poorly controlled diabetes. PLAN: Workup pending. Monitor the patient. Amanuel Aguilar MD
--- NOTE | 2018-09-15 01:00 | PN ---
DATE: 09/14/2018 FOLLOWUP RENAL CONSULTATION LOCATION: The patient is located in ICU 14, bed A. 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 The patient was started on plasmapheresis yesterday. The patient is feeling slightly better, but denies any chest pain or palpitation. Denies any fever or cough. No abdominal pain. No nausea. No vomiting. No diarrhea. The patient is scheduled for MRI today. Denies any chest pain or palpitation. Denies any fever or cough. No abdominal pain. No nausea, vomiting, or diarrhea. PHYSICAL EXAMINATION: VITAL SIGNS: As follows: Blood pressure 143/84, pulse 68, respirations 16, saturations 92%, and temperature 97.7. HEENT: The patient is a 77-year-old obese -[place] female, well built, well nourished, not in distress. Pupils normal and reactive to light and accommodation. Conjunctivae pink. Sclerae anicteric. Tongue is moist. Trachea is midline. LUNGS: Symmetric on both sides. Bilateral breath sounds present. Clear to auscultation. CARDIOVASCULAR SYSTEM: [place] at the fifth intercostal space, midclavicular line. S1, S2 audible. No murmur or gallop. ABDOMEN: Normal in appearance. Soft, tympanitic. No guarding. No rigidity. No hepatosplenomegaly. CENTRAL NERVOUS SYSTEM: The patient is alert, awake, oriented x3. Sensory system is normal. Motor system, patient is moving all extremities. Patient is claiming, she is able to move better today. CURRENT LABORATORY DATA: Include as follows: WBC 7.3, hemoglobin 10.7, hematocrit is 32.8, platelets 253. . Sodium 134, potassium 4.9, chloride 105, CO2 of 22, BUN 19, creatinine 1.1, glucose 123. Calcium 8.8, phosphorus 3.8, magnesium 1.8, total bili 0.3, AST 15, ALT 11, alkaline phosphatase is 31, total protein 5.4, albumin is 3.7, prolactin is 10.9. CURRENT MEDICATIONS: Include as follows: Hydralazine 25 mg p.o. every 8 hours, aspirin 81 mg daily, Crestor 5 mg p.o. at bedtime, Feosol 325 mg p.o. b.i.d., metformin 500 mg p.o. b.i.d., Januvia 50 mg p.o. daily, Lovenox 40 mg subcu daily, hydrochlorothiazide 12.5 mg p.o. daily, Novolin R, also Pepcid 20 mg p.o. daily, Senokot, Toprol XL 50 mg p.o. daily, Tylenol, Vasotec 20 mg p.o. b.i.d., Zofran 4 mg p.o. every 6 hours. ASSESSMENT AND PLAN: In summary, Mrs. 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 1. Hypertension. Continue antihypertensive medication. 2. Diabetes. 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 We will follow with you and also patient is scheduled for the second plasmapheresis tomorrow. Thank you for allowing me to participate in your patient's care. Lidia Bryson MD
[2018-09-15 06:07] LABS: BASO % 0.3 % (0.0-2.0); EOS # 0.1 K/uL (0.0-0.7); EOS % 2.3 % (0.0-4.0); HEMOGLOBIN 9.9 g/dL (11.0-16.0); LYMPH # 0.8 K/uL (1.0-4.3); LYMPH % 14.1 % (20.0-40.0); MEAN CELL VOLUME 95.5 fL (81.0-99.0); MEAN CORPUSCULAR HEMOGLOBIN 31.5 pg (27.0-31.0); MEAN PLATELET VOLUME 9.8 fL (7.2-11.7); MONO # 0.4 K/uL (0.0-0.8); MONO % 7.5 % (0.0-10.0); NEUT # 4.5 K/uL (1.8-7.0); NEUT % 75.8 % (50.0-75.0); RBC 3.15 Mil/uL (3.80-5.20); RED CELL DISTRIBUTION WIDTH 15.3 % (11.5-14.5)
[2018-09-15 06:24] LABS: ALB/GLOB RATIO 1.8 (1.0-2.1); ALBUMIN 3.5 g/dL (3.5-5.0); CALCIUM 8.7 mg/dl (8.6-10.4)
[2018-09-15 06:38] LABS: FIBRINOGEN 246 mg/dL (200-400); PARTIAL THROMBOPLASTIN TIME 30 SECONDS (21-34); PROTHROMBIN TIME 11.4 SECONDS (9.7-12.2)
[2018-09-15 07:56] LABS: FDP QUANTITY >10<40 ug/mL (<10)
[2018-09-15 07:57] LABS: FDP INTERPRETATION POSITIVE (NEGATIVE)
[2018-09-15] MEDS: (Novolin R) Insulin Human Regular 100 units/ml vial SC SCH ×4 (08:03→21:50)
--- NOTE | 2018-09-15 08:46 | RAD ---
Date of service: 09/14/2018 HISTORY: s/p lamenectomy COMPARISON: None FINDINGS: BOWEL: There is large amount of stool in the colon. The bowel gas pattern is nonobstructive. BONES: Multilevel laminectomy in the lumbar spine. OTHER FINDINGS: Moderate degenerative osteoarthrosis in the right hip joint. IMPRESSION: Constipation. Nonobstructive bowel gas pattern.
--- NOTE | 2018-09-15 08:49 | CP.CCUPN ---
<SalvadorGary M - Last Filed: 09/15/18 09:10> CCU Subjective - Physician Review Subjective (Free Text): Critical care progress note for Dr. Mandy Purvis. Patient seen and examined at bedside. No acute events overnight reported. Patient had MRI of lumbar/cervical that was not tolerable 09/14 and had to be aborted. Patient 1 X plasmapheresisis 09/14, 2nd scheduled on 09/16. 4-6 sessions Q2D required per neuro. Patient denies headaches, vision changes, chest pain, SOB, abdominal pain, nausea, vomiting, fevers, chills. Patient reports numbness, tingling and strength is improving per patient. 09/15/18 08:54 CCU Objective - Vital Signs / Intake & Output Vital Signs (Last 4 hours): Vital Signs Pulse Resp BP Pulse Ox 09/15/18 08:28 64 13 144/71 100 09/15/18 08:00 61 10 L 100 09/15/18 07:27 63 14 131/65 100 09/15/18 07:00 71 18 09/15/18 06:00 57 L 12 99 09/15/18 05:50 62 15 99 09/15/18 05:40 59 L 13 99 09/15/18 05:30 58 L 12 99 09/15/18 05:27 59 L 12 128/65 99 09/15/18 05:20 62 12 100 09/15/18 05:19 58 L 12 126/60 99 09/15/18 05:10 61 15 100 09/15/18 05:00 57 L 13 100 09/15/18 04:50 58 L 8 L 99 Intake and Output (Last 8hrs): Intake & Output 09/14/18 09/15/18 09/15/18 22:59 06:59 14:59 Intake Total 280 0 Output Total 830 200 Balance -550 -200 Intake: Oral 280 0 Output: Urine 420 200 Urine, Voided 420 200 Urine/Stool Mix 410 Other: # Voids Urine, Voided 1 1 # Bowel Movements 0 - Physical Exam Head: Positive for: Atraumatic Extroacular Muscles: Positive for: EOMI Mouth: Positive for: Moist Mucous Membranes Neck: Positive for: Normal Range of Motion Respiratory/Chest: Positive for: Clear to Auscultation, Good Air Exchange. Negative for: Respiratory Distress, Accessory Muscle Use Cardiovascular: Positive for: Normal S1, S2. Negative for: Murmurs Abdomen: Positive for: Normal Bowel Sounds. Negative for: Tenderness, Distention, Rebound, Guarding Upper Extremity: Positive for: NORMAL PULSES, Other (4/5 patient access associate strength b/l, FROM ). Negative for: Cyanosis, Edema Lower Extremity: Positive for: Normal Inspection, Other (4/5 patient access associate strength b/l, FROM ). Negative for: Edema (4/5 strength of LE) Neurological: Positive for: GCS=15 Skin: Positive for: Warm, Dry Psychiatric: Positive for: Oriented x 3, Normal Insight - Medications Active Medications: Active Medications Generic Name Dose Route Start Last Admin Trade Name Freq PRN Reason Stop Dose Admin Acetaminophen 650 mg 09/11/18 18:11 Tylenol 325mg Tab PO Q6 PRN Fever >100.4 F Acetaminophen 650 mg 09/15/18 10:00 Tylenol 325mg Tab PO 09/15/18 10:01 ONCE ONE Albumin Human 150 gm 09/15/18 09:00 Albumin Human 5% (12.5 Gm/250 Ml) IV 09/15/18 09:01 ONCE ONE Artificial Tears 0.05 ml 09/11/18 17:44 Artificial Tears OU BID PRN Dry eyes Aspirin 81 mg 09/12/18 10:00 09/14/18 14:16 Aspirin Chewable PO Not Given DAILY MARIZA Clopidogrel Bisulfate 75 mg 09/12/18 10:00 09/14/18 14:16 Plavix PO Not Given DAILY MARIZA Diphenhydramine HCl 25 mg 09/15/18 10:00 Benadryl PO 09/15/18 10:01 ONCE ONE Enalapril Maleate 20 mg 09/11/18 18:00 09/14/18 17:20 Vasotec PO 20 mg BID MARIZA Administration Enoxaparin Sodium 40 mg 09/12/18 10:00 09/14/18 17:19 Lovenox SC 40 mg DAILY MARIZA Administration Famotidine 20 mg 09/12/18 10:00 09/14/18 09:34 Pepcid PO 20 mg DAILY MARIZA Administration Ferrous Sulfate 325 mg 09/11/18 18:00 09/15/18 08:28 [facility] Hydralazine HCl 25 mg 09/11/18 18:00 09/15/18 06:20 Apresoline PO Not Given Q8 MARIZA Hydrochlorothiazide 12.5 mg 09/12/18 10:00 09/14/18 09:33 Microzide PO 12.5 mg DAILY MARIZA Administration Calcium Gluconate 2,000 mg/ 270 mls @ 125 mls/hr 09/15/18 10:00 Sodium Chloride IVPB 09/15/18 12:09 ONCE ONE Insulin Human Regular 0 unit 09/11/18 22:00 09/15/18 08:03 Novolin R SC Not Given ACHS [facility] Protocol Metformin HCl 500 mg 09/11/18 18:00 09/15/18 08:28 Glucophage PO 500 mg BIDCC MARIZA Administration Methylprednisolone 40 mg 09/15/18 10:00 Solu-Medrol IVP 09/15/18 10:01 ONCE ONE Metoprolol Succinate 50 mg 09/12/18 10:00 09/14/18 09:33 Toprol Xl PO 50 mg DAILY MARIZA Administration Ondansetron HCl 4 mg 09/14/18 13:47 Zofran Tab PO Q6H PRN Nausea/Vomiting Rosuvastatin Calcium 5 mg 09/12/18 22:00 09/14/18 21:53 Crestor PO 5 mg HS MARIZA Administration Sennosides 17.2 mg 09/11/18 22:00 09/14/18 21:55 Senokot Tab PO 17.2 mg HS MARIZA Administration Sitagliptin Phosphate 50 mg 09/12/18 10:00 09/14/18 09:34 Januvia PO 50 mg DAILY MARIZA Administration - Patient Studies Lab Studies: Microbiology Studies 09/13/18 09:57 MRSA Culture (Admit) - Final Naris MRSA NOT DETECTED Lab Studies 09/15/18 09/15/18 09/15/18 Range/Units 07:33 05:59 05:55 WBC 6.0 (4.8-10.8) K/uL RBC 3.15 L (3.80-5.20) Mil/uL Hgb 9.9 L (11.0-16.0) g/dL Hct 30.1 L (34.0-47.0) % MCV 95.5 (81.0-99.0) fL MCH 31.5 H (27.0-31.0) pg MCHC 33.0 (33.0-37.0) g/dL RDW 15.3 H (11.5-14.5) % Plt Count 243 (130-400) K/uL MPV 9.8 (7.2-11.7) fL Neut % (Auto) 75.8 H (50.0-75.0) % Lymph % (Auto) 14.1 L (20.0-40.0) % Rabun % (Auto) 7.5 (0.0-10.0) % Eos % (Auto) 2.3 (0.0-4.0) % Baso % (Auto) 0.3 (0.0-2.0) % Neut # (Auto) 4.5 (1.8-7.0) K/uL Lymph # (Auto) 0.8 L (1.0-4.3) K/uL Rabun # (Auto) 0.4 (0.0-0.8) K/uL Eos # (Auto) 0.1 (0.0-0.7) K/uL Baso # (Auto) 0.0 (0.0-0.2) K/uL Haptoglobin 98.5 (30.0-200.0) mg/dL PT (9.7-12.2) SECONDS INR APTT (21-34) SECONDS Fibrinogen (200-400) mg/dL Fibrin Degrad Products (NEGATIVE) Fibrin Degrad Prod, Qt (<10) ug/mL Sodium (132-148) mmol/L Potassium (3.6-5.2) mmol/L Chloride (98-107) mmol/L Carbon Dioxide (22-30) mmol/L Anion Gap (10-20) BUN (7-17) mg/dL Creatinine (0.7-1.2) mg/dL Est GFR ( Amer) Est GFR (Non-Af Amer) POC Glucose (mg/dL) 142 H (65-110) mg/dL Random Glucose (65-105) mg/dL Calcium (8.6-10.4) mg/dl Phosphorus (2.5-4.5) mg/dL Magnesium (1.6-2.3) mg/dL Total Bilirubin (0.2-1.3) mg/dL AST (14-36) U/L ALT (9-52) U/L Alkaline Phosphatase (38-126) U/L Lactate Dehydrogenase (313-618) U/L Total Protein (6.3-8.3) g/dL Albumin (3.5-5.0) g/dL Globulin (2.2-3.9) gm/dL Albumin/Globulin Ratio (1.0-2.1) Angiotensin Convert Enz (9-67) U/L Prolactin (3.0-18.9) ng/mL Lyme Disease Screen index HIV-1 RNA Qnt (RT-PCR) (Not Detected) 09/15/18 09/15/18 09/14/18 Range/Units 05:55 05:55 20:51 WBC (4.8-10.8) K/uL RBC (3.80-5.20) Mil/uL Hgb (11.0-16.0) g/dL Hct (34.0-47.0) % MCV (81.0-99.0) fL MCH (27.0-31.0) pg MCHC (33.0-37.0) g/dL RDW (11.5-14.5) % Plt Count (130-400) K/uL MPV (7.2-11.7) fL Neut % (Auto) (50.0-75.0) % Lymph % (Auto) (20.0-40.0) % Rabun % (Auto) (0.0-10.0) % Eos % (Auto) (0.0-4.0) % Baso % (Auto) (0.0-2.0) % Neut # (Auto) (1.8-7.0) K/uL Lymph # (Auto) (1.0-4.3) K/uL Rabun # (Auto) (0.0-0.8) K/uL Eos # (Auto) (0.0-0.7) K/uL Baso # (Auto) (0.0-0.2) K/uL Haptoglobin (30.0-200.0) mg/dL PT 11.4 (9.7-12.2) SECONDS INR 1.0 APTT 30 (21-34) SECONDS Fibrinogen 246 D (200-400) mg/dL Fibrin Degrad Products Positive H D (NEGATIVE) Fibrin Degrad Prod, Qt >10<40 H (<10) ug/mL Sodium 133 (132-148) mmol/L Potassium 4.5 (3.6-5.2) mmol/L Chloride 103 (98-107) mmol/L Carbon Dioxide 22 (22-30) mmol/L Anion Gap 13 (10-20) BUN 20 H (7-17) mg/dL Creatinine 1.2 (0.7-1.2) mg/dL Est GFR ( Amer) 53 Est GFR (Non-Af Amer) 44 POC Glucose (mg/dL) 99 (65-110) mg/dL Random Glucose 110 H (65-105) mg/dL Calcium 8.7 (8.6-10.4) mg/dl Phosphorus 3.5 (2.5-4.5) mg/dL Magnesium 1.9 (1.6-2.3) mg/dL Total Bilirubin 0.3 (0.2-1.3) mg/dL AST 15 (14-36) U/L ALT 12 (9-52) U/L Alkaline Phosphatase 40 (38-126) U/L Lactate Dehydrogenase 276 L (313-618) U/L Total Protein 5.5 L (6.3-8.3) g/dL Albumin 3.5 (3.5-5.0) g/dL Globulin 2.0 L (2.2-3.9) gm/dL Albumin/Globulin Ratio 1.8 (1.0-2.1) Angiotensin Convert Enz (9-67) U/L Prolactin (3.0-18.9) ng/mL Lyme Disease Screen index HIV-1 RNA Qnt (RT-PCR) (Not Detected) 09/14/18 09/14/18 09/14/18 Range/Units 16:09 12:27 11:18 WBC (4.8-10.8) K/uL RBC (3.80-5.20) Mil/uL Hgb (11.0-16.0) g/dL Hct (34.0-47.0) % MCV (81.0-99.0) fL MCH (27.0-31.0) pg MCHC (33.0-37.0) g/dL RDW (11.5-14.5) % Plt Count (130-400) K/uL MPV (7.2-11.7) fL Neut % (Auto) (50.0-75.0) % Lymph % (Auto) (20.0-40.0) % Rabun % (Auto) (0.0-10.0) % Eos % (Auto) (0.0-4.0) % Baso % (Auto) (0.0-2.0) % Neut # (Auto) (1.8-7.0) K/uL Lymph # (Auto) (1.0-4.3) K/uL Rabun # (Auto) (0.0-0.8) K/uL Eos # (Auto) (0.0-0.7) K/uL Baso # (Auto) (0.0-0.2) K/uL Haptoglobin (30.0-200.0) mg/dL PT (9.7-12.2) SECONDS INR APTT (21-34) SECONDS Fibrinogen (200-400) mg/dL Fibrin Degrad Products (NEGATIVE) Fibrin Degrad Prod, Qt (<10) ug/mL Sodium (132-148) mmol/L Potassium (3.6-5.2) mmol/L Chloride (98-107) mmol/L Carbon Dioxide (22-30) mmol/L Anion Gap (10-20) BUN (7-17) mg/dL Creatinine (0.7-1.2) mg/dL Est GFR ( Amer) Est GFR (Non-Af Amer) POC Glucose (mg/dL) 215 H 179 H (65-110) mg/dL Random Glucose (65-105) mg/dL Calcium (8.6-10.4) mg/dl Phosphorus (2.5-4.5) mg/dL Magnesium (1.6-2.3) mg/dL Total Bilirubin (0.2-1.3) mg/dL AST (14-36) U/L ALT (9-52) U/L Alkaline Phosphatase (38-126) U/L Lactate Dehydrogenase (313-618) U/L Total Protein (6.3-8.3) g/dL Albumin (3.5-5.0) g/dL Globulin (2.2-3.9) gm/dL Albumin/Globulin Ratio (1.0-2.1) Angiotensin Convert Enz (9-67) U/L Prolactin 10.9 (3.0-18.9) ng/mL Lyme Disease Screen index HIV-1 RNA Qnt (RT-PCR) (Not Detected) 09/14/18 09/13/18 09/13/18 Range/Units 07:19 07:49 07:49 WBC (4.8-10.8) K/uL RBC (3.80-5.20) Mil/uL Hgb (11.0-16.0) g/dL Hct (34.0-47.0) % MCV (81.0-99.0) fL MCH (27.0-31.0) pg MCHC (33.0-37.0) g/dL RDW (11.5-14.5) % Plt Count (130-400) K/uL MPV (7.2-11.7) fL Neut % (Auto) (50.0-75.0) % Lymph % (Auto) (20.0-40.0) % Rabun % (Auto) (0.0-10.0) % Eos % (Auto) (0.0-4.0) % Baso % (Auto) (0.0-2.0) % Neut # (Auto) (1.8-7.0) K/uL Lymph # (Auto) (1.0-4.3) K/uL Rabun # (Auto) (0.0-0.8) K/uL Eos # (Auto) (0.0-0.7) K/uL Baso # (Auto) (0.0-0.2) K/uL Haptoglobin (30.0-200.0) mg/dL PT (9.7-12.2) SECONDS INR APTT (21-34) SECONDS Fibrinogen (200-400) mg/dL Fibrin Degrad Products (NEGATIVE) Fibrin Degrad Prod, Qt (<10) ug/mL Sodium (132-148) mmol/L Potassium (3.6-5.2) mmol/L Chloride (98-107) mmol/L Carbon Dioxide (22-30) mmol/L Anion Gap (10-20) BUN (7-17) mg/dL Creatinine (0.7-1.2) mg/dL Est GFR ( Amer) Est GFR (Non-Af Amer) POC Glucose (mg/dL) 145 H (65-110) mg/dL Random Glucose (65-105) mg/dL Calcium (8.6-10.4) mg/dl Phosphorus (2.5-4.5) mg/dL Magnesium (1.6-2.3) mg/dL Total Bilirubin (0.2-1.3) mg/dL AST (14-36) U/L ALT (9-52) U/L Alkaline Phosphatase (38-126) U/L Lactate Dehydrogenase (313-618) U/L Total Protein (6.3-8.3) g/dL Albumin (3.5-5.0) g/dL Globulin (2.2-3.9) gm/dL Albumin/Globulin Ratio (1.0-2.1) Angiotensin Convert Enz <7 L (9-67) U/L Prolactin (3.0-18.9) ng/mL Lyme Disease Screen <0.90 index HIV-1 RNA Qnt (RT-PCR) <1.30 not detected (Not Detected) Laboratory Results - last 24 hr 09/13/18 09/13/18 09/14/18 07:49 07:49 07:19 WBC RBC Hgb Hct MCV MCH MCHC RDW Plt Count MPV Neut % (Auto) Lymph % (Auto) Rabun % (Auto) Eos % (Auto) Baso % (Auto) Neut # (Auto) Lymph # (Auto) Rabun # (Auto) Eos # (Auto) Baso # (Auto) Haptoglobin PT INR APTT Fibrinogen Fibrin Degrad Products Fibrin Degrad Prod, Qt Sodium Potassium Chloride Carbon Dioxide Anion Gap BUN Creatinine Est GFR ( Amer) Est GFR (Non-Af Amer) POC Glucose (mg/dL) 145 H Random Glucose Calcium Phosphorus Magnesium Total Bilirubin AST ALT Alkaline Phosphatase Lactate Dehydrogenase Total Protein Albumin Globulin Albumin/Globulin Ratio Angiotensin Convert Enz <7 L Prolactin Lyme Disease Screen <0.90 HIV-1 RNA Qnt (RT-PCR) <1.30 not detected 09/14/18 09/14/18 09/14/18 11:18 12:27 16:09 WBC RBC Hgb Hct MCV MCH MCHC RDW Plt Count MPV Neut % (Auto) Lymph % (Auto) Rabun % (Auto) Eos % (Auto) Baso % (Auto) Neut # (Auto) Lymph # (Auto) Rabun # (Auto) Eos # (Auto) Baso # (Auto) Haptoglobin PT INR APTT Fibrinogen Fibrin Degrad Products Fibrin Degrad Prod, Qt Sodium Potassium Chloride Carbon Dioxide Anion Gap BUN Creatinine Est GFR ( Amer) Est GFR (Non-Af Amer) POC Glucose (mg/dL) 179 H 215 H Random Glucose Calcium Phosphorus Magnesium Total Bilirubin AST ALT Alkaline Phosphatase Lactate Dehydrogenase Total Protein Albumin Globulin Albumin/Globulin Ratio Angiotensin Convert Enz Prolactin 10.9 Lyme Disease Screen HIV-1 RNA Qnt (RT-PCR) 09/14/18 09/15/18 09/15/18 20:51 05:55 05:55 WBC RBC Hgb Hct MCV MCH MCHC RDW Plt Count MPV Neut % (Auto) Lymph % (Auto) Rabun % (Auto) Eos % (Auto) Baso % (Auto) Neut # (Auto) Lymph # (Auto) Rabun # (Auto) Eos # (Auto) Baso # (Auto) Haptoglobin PT 11.4 INR 1.0 APTT 30 Fibrinogen 246 D Fibrin Degrad Products Positive H D Fibrin Degrad Prod, Qt >10<40 H Sodium 133 Potassium 4.5 Chloride 103 Carbon Dioxide 22 Anion Gap 13 BUN 20 H Creatinine 1.2 Est GFR ( Amer) 53 Est GFR (Non-Af Amer) 44 POC Glucose (mg/dL) 99 Random Glucose 110 H Calcium 8.7 Phosphorus 3.5 Magnesium 1.9 Total Bilirubin 0.3 AST 15 ALT 12 Alkaline Phosphatase 40 Lactate Dehydrogenase 276 L Total Protein 5.5 L Albumin 3.5 Globulin 2.0 L Albumin/Globulin Ratio 1.8 Angiotensin Convert Enz Prolactin Lyme Disease Screen HIV-1 RNA Qnt (RT-PCR) 09/15/18 09/15/18 09/15/18 05:55 05:59 07:33 WBC 6.0 RBC 3.15 L Hgb 9.9 L Hct 30.1 L MCV 95.5 MCH 31.5 H MCHC 33.0 RDW 15.3 H Plt Count 243 MPV 9.8 Neut % (Auto) 75.8 H Lymph % (Auto) 14.1 L Rabun % (Auto) 7.5 Eos % (Auto) 2.3 Baso % (Auto) 0.3 Neut # (Auto) 4.5 Lymph # (Auto) 0.8 L Rabun # (Auto) 0.4 Eos # (Auto) 0.1 Baso # (Auto) 0.0 Haptoglobin 98.5 PT INR APTT Fibrinogen Fibrin Degrad Products Fibrin Degrad Prod, Qt Sodium Potassium Chloride Carbon Dioxide Anion Gap BUN Creatinine Est GFR ( Amer) Est GFR (Non-Af Amer) POC Glucose (mg/dL) 142 H Random Glucose Calcium Phosphorus Magnesium Total Bilirubin AST ALT Alkaline Phosphatase Lactate Dehydrogenase Total Protein Albumin Globulin Albumin/Globulin Ratio Angiotensin Convert Enz Prolactin Lyme Disease Screen HIV-1 RNA Qnt (RT-PCR) Radiology Impressions: Radiology Impressions Head CT 09/14/18 11:34 IMPRESSION: No acute intracranial hemorrhage. 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 Moderate generalized volume loss. Fingerstick Blood Sugar Results: 142 Review of Systems - Constitutional Constitutional: Weakness. absent: Chills, Sweats - EENT Eyes: UNREMARKABLE. absent: Blurred Vision, Diplopia Ears: UNREMARKABLE Nose/Mouth/Throat: UNREMARKABLE - Cardiovascular Cardiovascular: UNREMARKABLE. absent: Chest Pain, Chest Pain with Activity - Respiratory Respiratory: UNREMARKABLE. absent: Dyspnea - Gastrointestinal Gastrointestinal: UNREMARKABLE. absent: Diarrhea, Loose Stools - Reproductive: Female Reproductive:Female: UNREMARKABLE - Menstruation Menstruation: UNREMARKABLE - Musculoskeletal Musculoskeletal: Numbness, Tingling, UNREMARKABLE. absent: Arthralgias - Integumentary Integumentary: UNREMARKABLE. absent: Alopecia - Neurological Neurological: UNREMARKABLE. absent: Lack of Coordination - Psychiatric Psychiatric: UNREMARKABLE Critical Care Progress Note - Extremities/Vascular Does the Patient have a Central Venous Catheter?: Yes Insertion Site: Femoral Vein Does the Patient need a Central Venous Catheter?: Yes - Prophylaxis GI Prophylaxis GI: Pepsid - Prophylaxis DVT Prophylaxis DVT: Lovenox - Nutrition Nutrition: Nutrition Category Date Time Status Consistent Carbohydrate [DIET] Diets 09/11/18 Dinner Active Assessment/Plan - Assessment and Plan (Free Text) Assessment: 77 F w/ lumbar laminectomy presents with generalized body weakness including all extremities; suspicious for Rosanna barre syndrome; 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 Anesthisiology unable to perform test under fluroscopy. Will likely require 4-6 sessions of plasmapheresis. Will continue aspirin/plavix. Plan: Neuro - A&O x3 - 4/5 strength in all extremities - Lumbar tap unable to perform due to patient currently on plavix - Nuno Cathetor place in R femoral vein 09/13 - Neuro Dr. Teto - 1 X plasmapheresis 09/14 - per neuro, will require 4-6 sessions Q2D - MRI cervical/lumbar - unable to - F/u rhematoid factor, , ACEI - HIV, RPR, Lyme, negative - ESR 80 Cardio - hx of HTN, CAD X 2 stents - c/w aspirin 81 daily, plavix 75 mg daily, hydralizine 25 mg Q8H, HCTZ 12.5 mg PO daily, metoprolol succinate 50 PO daily, enalipril 20 mg BID - Echo 07/2018: Normal EF, Grade 1 diastolic dysfunction - EKG: Normal sinus @ 72 BPM Resp - saturating well, no SOB - will continue to monitor - CXR 09/11: Cardiomegaly, no focal consolidation Renal - nuno catheter placed in R femoral vein 09/13 - 1 X plasmapheresisis 09/14 - Plasmapheresis Q2D - BUN/Cr stable at 20/1.1 Endo - hx of DM - c/w metformin 500 BID PO daily, Januivia 50 mg Po daily Heme - H/H stable in 10s/30s - likely iron deficiency - c/w feosol 325 PO BID ID - afebrile , WBC 6 - continue to monitor PPx - GI: pepcid 20mg daily - DVT: SCDs, lovenox 40 mg SC - Diet: consistent carbohydrate diet <David Purvis - Last Filed: 09/15/18 16:48> CCU Objective - Vital Signs / Intake & Output Vital Signs (Last 4 hours): Vital Signs Temp Pulse Resp BP Pulse Ox 09/15/18 16:23 67 15 105/56 L 98 09/15/18 16:17 69 18 115/55 L 100 09/15/18 16:00 98.3 F 69 19 100 09/15/18 15:00 69 17 09/15/18 14:37 64 12 163/71 H 100 09/15/18 14:01 60 12 154/77 H 100 09/15/18 14:00 68 13 100 09/15/18 13:46 60 14 148/72 100 09/15/18 13:31 78 13 145/69 100 09/15/18 13:16 62 15 135/68 100 09/15/18 13:01 59 L 13 135/69 100 02/22/19 13:00 60 14 142/68 100 09/15/18 12:59 78 12 135/70 100 09/15/18 12:58 60 14 144/69 100 09/15/18 12:57 79 13 143/71 100 Intake and Output (Last 8hrs): Intake & Output 09/15/18 09/15/18 09/15/18 06:59 14:59 22:59 Intake Total 0 690 250 Output Total 200 500 Balance -200 190 250 Intake: Intake, IV Amount 250 0 Left Hand 250 0 Oral 0 440 250 Output: Urine 200 500 Urine, Voided 200 500 Other: # Voids Urine, Voided 1 0 0 # Bowel Movements 0 0 - Medications Active Medications: Active Medications Generic Name Dose Route Start Last Admin Trade Name Freq PRN Reason Stop Dose Admin Acetaminophen 650 mg 09/11/18 18:11 Tylenol 325mg Tab PO Q6 PRN Fever >100.4 F Artificial Tears 0.05 ml 09/11/18 17:44 Artificial Tears OU BID PRN Dry eyes Aspirin 81 mg 09/12/18 10:00 09/15/18 09:33 Aspirin Chewable PO 81 mg DAILY MARIZA Administration Clopidogrel Bisulfate 75 mg 09/12/18 10:00 09/15/18 09:33 Plavix PO 75 mg DAILY MARIZA Administration Enalapril Maleate 20 mg 09/11/18 18:00 09/15/18 09:33 Vasotec PO 20 mg BID MARIZA Administration Enoxaparin Sodium 40 mg 09/12/18 10:00 09/15/18 09:34 Lovenox SC 40 mg DAILY MARIZA Administration Famotidine 20 mg 09/12/18 10:00 09/15/18 09:33 Pepcid PO 20 mg DAILY MARIZA Administration Ferrous Sulfate 325 mg 09/11/18 18:00 09/15/18 08:28 Feosol PO Not Given BIDCC MARIZA Hydralazine HCl 25 mg 09/11/18 18:00 09/15/18 14:17 Apresoline PO 25 mg Q8 MARIZA Administration Hydrochlorothiazide 12.5 mg 09/12/18 10:00 09/15/18 09:33 Microzide PO 12.5 mg DAILY MARIZA Administration Insulin Human Regular 0 unit 09/11/18 22:00 09/15/18 12:28 Novolin R SC 2 unit ACHS MARIZA Administration Protocol Metformin HCl 500 mg 09/11/18 18:00 09/15/18 08:28 Glucophage PO 500 mg BIDCC MARIZA Administration Metoprolol Succinate 50 mg 09/12/18 10:00 09/15/18 09:35 Toprol Xl PO 50 mg DAILY MARIZA Administration Ondansetron HCl 4 mg 09/14/18 13:47 Zofran Tab PO Q6H PRN Nausea/Vomiting Rosuvastatin Calcium 5 mg 09/12/18 22:00 09/14/18 21:53 Crestor PO 5 mg HS MARIZA Administration Sennosides 17.2 mg 09/11/18 22:00 09/14/18 21:55 Senokot Tab PO 17.2 mg HS MARIZA Administration Sitagliptin Phosphate 50 mg 09/12/18 10:00 09/15/18 09:33 Januvia PO 50 mg DAILY MARIZA Administration - Patient Studies Lab Studies: Lab Studies 09/15/18 09/15/18 09/15/18 Range/Units 15:57 11:34 07:33 WBC (4.8-10.8) K/uL RBC (3.80-5.20) Mil/uL Hgb (11.0-16.0) g/dL Hct (34.0-47.0) % MCV (81.0-99.0) fL MCH (27.0-31.0) pg MCHC (33.0-37.0) g/dL RDW (11.5-14.5) % Plt Count (130-400) K/uL MPV (7.2-11.7) fL Neut % (Auto) (50.0-75.0) % Lymph % (Auto) (20.0-40.0) % Rabun % (Auto) (0.0-10.0) % Eos % (Auto) (0.0-4.0) % Baso % (Auto) (0.0-2.0) % Neut # (Auto) (1.8-7.0) K/uL Lymph # (Auto) (1.0-4.3) K/uL Rabun # (Auto) (0.0-0.8) K/uL Eos # (Auto) (0.0-0.7) K/uL Baso # (Auto) (0.0-0.2) K/uL Haptoglobin (30.0-200.0) mg/dL PT (9.7-12.2) SECONDS INR APTT (21-34) SECONDS Fibrinogen (200-400) mg/dL Fibrin Degrad Products (NEGATIVE) Fibrin Degrad Prod, Qt (<10) ug/mL Sodium (132-148) mmol/L Potassium (3.6-5.2) mmol/L Chloride (98-107) mmol/L Carbon Dioxide (22-30) mmol/L Anion Gap (10-20) BUN (7-17) mg/dL Creatinine (0.7-1.2) mg/dL Est GFR ( Amer) Est GFR (Non-Af Amer) POC Glucose (mg/dL) 242 H 157 H 142 H (65-110) mg/dL Random Glucose (65-105) mg/dL Calcium (8.6-10.4) mg/dl Phosphorus (2.5-4.5) mg/dL Magnesium (1.6-2.3) mg/dL Total Bilirubin (0.2-1.3) mg/dL AST (14-36) U/L ALT (9-52) U/L Alkaline Phosphatase (38-126) U/L Lactate Dehydrogenase (313-618) U/L Total Protein (6.3-8.3) g/dL Albumin (3.5-5.0) g/dL Globulin (2.2-3.9) gm/dL Albumin/Globulin Ratio (1.0-2.1) Screen (Negative) Lyme Disease Screen index EBV EA IgG Ab Interp (<9.00) U/mL 09/15/18 09/15/18 09/15/18 Range/Units 05:59 05:55 05:55 WBC 6.0 (4.8-10.8) K/uL RBC 3.15 L (3.80-5.20) Mil/uL Hgb 9.9 L (11.0-16.0) g/dL Hct 30.1 L (34.0-47.0) % MCV 95.5 (81.0-99.0) fL MCH 31.5 H (27.0-31.0) pg MCHC 33.0 (33.0-37.0) g/dL RDW 15.3 H (11.5-14.5) % Plt Count 243 (130-400) K/uL MPV 9.8 (7.2-11.7) fL Neut % (Auto) 75.8 H (50.0-75.0) % Lymph % (Auto) 14.1 L (20.0-40.0) % Rabun % (Auto) 7.5 (0.0-10.0) % Eos % (Auto) 2.3 (0.0-4.0) % Baso % (Auto) 0.3 (0.0-2.0) % Neut # (Auto) 4.5 (1.8-7.0) K/uL Lymph # (Auto) 0.8 L (1.0-4.3) K/uL Rabun # (Auto) 0.4 (0.0-0.8) K/uL Eos # (Auto) 0.1 (0.0-0.7) K/uL Baso # (Auto) 0.0 (0.0-0.2) K/uL Haptoglobin 98.5 (30.0-200.0) mg/dL PT 11.4 (9.7-12.2) SECONDS INR 1.0 APTT 30 (21-34) SECONDS Fibrinogen 246 D (200-400) mg/dL Fibrin Degrad Products Positive H D (NEGATIVE) Fibrin Degrad Prod, Qt >10<40 H (<10) ug/mL Sodium (132-148) mmol/L Potassium (3.6-5.2) mmol/L Chloride (98-107) mmol/L Carbon Dioxide (22-30) mmol/L Anion Gap (10-20) BUN (7-17) mg/dL Creatinine (0.7-1.2) mg/dL Est GFR ( Amer) Est GFR (Non-Af Amer) POC Glucose (mg/dL) (65-110) mg/dL Random Glucose (65-105) mg/dL Calcium (8.6-10.4) mg/dl Phosphorus (2.5-4.5) mg/dL Magnesium (1.6-2.3) mg/dL Total Bilirubin (0.2-1.3) mg/dL AST (14-36) U/L ALT (9-52) U/L Alkaline Phosphatase (38-126) U/L Lactate Dehydrogenase (313-618) U/L Total Protein (6.3-8.3) g/dL Albumin (3.5-5.0) g/dL Globulin (2.2-3.9) gm/dL Albumin/Globulin Ratio (1.0-2.1) Screen (Negative) Lyme Disease Screen index EBV EA IgG Ab Interp (<9.00) U/mL 09/15/18 09/14/18 09/13/18 Range/Units 05:55 20:51 07:49 WBC (4.8-10.8) K/uL RBC (3.80-5.20) Mil/uL Hgb (11.0-16.0) g/dL Hct (34.0-47.0) % MCV (81.0-99.0) fL MCH (27.0-31.0) pg MCHC (33.0-37.0) g/dL RDW (11.5-14.5) % Plt Count (130-400) K/uL MPV (7.2-11.7) fL Neut % (Auto) (50.0-75.0) % Lymph % (Auto) (20.0-40.0) % Rabun % (Auto) (0.0-10.0) % Eos % (Auto) (0.0-4.0) % Baso % (Auto) (0.0-2.0) % Neut # (Auto) (1.8-7.0) K/uL Lymph # (Auto) (1.0-4.3) K/uL Rabun # (Auto) (0.0-0.8) K/uL Eos # (Auto) (0.0-0.7) K/uL Baso # (Auto) (0.0-0.2) K/uL Haptoglobin (30.0-200.0) mg/dL PT (9.7-12.2) SECONDS INR APTT (21-34) SECONDS Fibrinogen (200-400) mg/dL Fibrin Degrad Products (NEGATIVE) Fibrin Degrad Prod, Qt (<10) ug/mL Sodium 133 (132-148) mmol/L Potassium 4.5 (3.6-5.2) mmol/L Chloride 103 (98-107) mmol/L Carbon Dioxide 22 (22-30) mmol/L Anion Gap 13 (10-20) BUN 20 H (7-17) mg/dL Creatinine 1.2 (0.7-1.2) mg/dL Est GFR ( Amer) 53 Est GFR (Non-Af Amer) 44 POC Glucose (mg/dL) 99 (65-110) mg/dL Random Glucose 110 H (65-105) mg/dL Calcium 8.7 (8.6-10.4) mg/dl Phosphorus 3.5 (2.5-4.5) mg/dL Magnesium 1.9 (1.6-2.3) mg/dL Total Bilirubin 0.3 (0.2-1.3) mg/dL AST 15 (14-36) U/L ALT 12 (9-52) U/L Alkaline Phosphatase 40 (38-126) U/L Lactate Dehydrogenase 276 L (313-618) U/L Total Protein 5.5 L (6.3-8.3) g/dL Albumin 3.5 (3.5-5.0) g/dL Globulin 2.0 L (2.2-3.9) gm/dL Albumin/Globulin Ratio 1.8 (1.0-2.1) Screen (Negative) Lyme Disease Screen <0.90 index EBV EA IgG Ab Interp 11.90 H (<9.00) U/mL 09/13/18 Range/Units 07:49 WBC (4.8-10.8) K/uL RBC (3.80-5.20) Mil/uL Hgb (11.0-16.0) g/dL Hct (34.0-47.0) % MCV (81.0-99.0) fL MCH (27.0-31.0) pg MCHC (33.0-37.0) g/dL RDW (11.5-14.5) % Plt Count (130-400) K/uL MPV (7.2-11.7) fL Neut % (Auto) (50.0-75.0) % Lymph % (Auto) (20.0-40.0) % [place] % (Auto) (0.0-10.0) % Eos % (Auto) (0.0-4.0) % Baso % (Auto) (0.0-2.0) % Neut # (Auto) (1.8-7.0) K/uL Lymph # (Auto) (1.0-4.3) K/uL [place] # (Auto) (0.0-0.8) K/uL Eos # (Auto) (0.0-0.7) K/uL Baso # (Auto) (0.0-0.2) K/uL Haptoglobin (30.0-200.0) mg/dL PT (9.7-12.2) SECONDS INR APTT (21-34) SECONDS Fibrinogen (200-400) mg/dL Fibrin Degrad Products (NEGATIVE) Fibrin Degrad Prod, Qt (<10) ug/mL Sodium (132-148) mmol/L Potassium (3.6-5.2) mmol/L Chloride (98-107) mmol/L Carbon Dioxide (22-30) mmol/L Anion Gap (10-20) BUN (7-17) mg/dL Creatinine (0.7-1.2) mg/dL Est GFR ( Amer) Est GFR (Non-Af Amer) POC Glucose (mg/dL) (65-110) mg/dL Random Glucose (65-105) mg/dL Calcium (8.6-10.4) mg/dl Phosphorus (2.5-4.5) mg/dL Magnesium (1.6-2.3) mg/dL Total Bilirubin (0.2-1.3) mg/dL AST (14-36) U/L ALT (9-52) U/L Alkaline Phosphatase (38-126) U/L Lactate Dehydrogenase (313-618) U/L Total Protein (6.3-8.3) g/dL Albumin (3.5-5.0) g/dL Globulin (2.2-3.9) gm/dL Albumin/Globulin Ratio (1.0-2.1) Screen Negative (Negative) Lyme Disease Screen index EBV EA IgG Ab Interp (<9.00) U/mL Laboratory Results - last 24 hr 09/13/18 09/13/18 09/14/18 07:49 07:49 20:51 WBC RBC Hgb Hct MCV MCH MCHC RDW Plt Count MPV Neut % (Auto) Lymph % (Auto) [place] % (Auto) Eos % (Auto) Baso % (Auto) Neut # (Auto) Lymph # (Auto) [place] # (Auto) Eos # (Auto) Baso # (Auto) Haptoglobin PT INR APTT Fibrinogen Fibrin Degrad Products Fibrin Degrad Prod, Qt Sodium Potassium Chloride Carbon Dioxide Anion Gap BUN Creatinine Est GFR ( Amer) Est GFR (Non-Af Amer) POC Glucose (mg/dL) 99 Random Glucose Calcium Phosphorus Magnesium Total Bilirubin AST ALT Alkaline Phosphatase Lactate Dehydrogenase Total Protein Albumin Globulin Albumin/Globulin Ratio Screen Negative Lyme Disease Screen <0.90 EBV EA IgG Ab Interp 11.90 H 09/15/18 09/15/18 09/15/18 05:55 05:55 05:55 WBC RBC Hgb Hct MCV MCH MCHC RDW Plt Count MPV Neut % (Auto) Lymph % (Auto) [place] % (Auto) Eos % (Auto) Baso % (Auto) Neut # (Auto) Lymph # (Auto) [place] # (Auto) Eos # (Auto) Baso # (Auto) Haptoglobin 98.5 PT 11.4 INR 1.0 APTT 30 Fibrinogen 246 D Fibrin Degrad Products Positive H D Fibrin Degrad Prod, Qt >10<40 H Sodium 133 Potassium 4.5 Chloride 103 Carbon Dioxide 22 Anion Gap 13 BUN 20 H Creatinine 1.2 Est GFR ( Amer) 53 Est GFR (Non-Af Amer) 44 POC Glucose (mg/dL) Random Glucose 110 H Calcium 8.7 Phosphorus 3.5 Magnesium 1.9 Total Bilirubin 0.3 AST 15 ALT 12 Alkaline Phosphatase 40 Lactate Dehydrogenase 276 L Total Protein 5.5 L Albumin 3.5 Globulin 2.0 L Albumin/Globulin Ratio 1.8 Screen Lyme Disease Screen EBV EA IgG Ab Interp 09/15/18 09/15/18 09/15/18 05:59 07:33 11:34 WBC 6.0 RBC 3.15 L Hgb 9.9 L Hct 30.1 L MCV 95.5 MCH 31.5 H MCHC 33.0 RDW 15.3 H Plt Count 243 MPV 9.8 Neut % (Auto) 75.8 H Lymph % (Auto) 14.1 L [place] % (Auto) 7.5 Eos % (Auto) 2.3 Baso % (Auto) 0.3 Neut # (Auto) 4.5 Lymph # (Auto) 0.8 L [place] # (Auto) 0.4 Eos # (Auto) 0.1 Baso # (Auto) 0.0 Haptoglobin PT INR APTT Fibrinogen Fibrin Degrad Products Fibrin Degrad Prod, Qt Sodium Potassium Chloride Carbon Dioxide Anion Gap BUN Creatinine Est GFR ( Amer) Est GFR (Non-Af Amer) POC Glucose (mg/dL) 142 H 157 H Random Glucose Calcium Phosphorus Magnesium Total Bilirubin AST ALT Alkaline Phosphatase Lactate Dehydrogenase Total Protein Albumin Globulin Albumin/Globulin Ratio Screen Lyme Disease Screen EBV EA IgG Ab Interp 09/15/18 15:57 WBC RBC Hgb Hct MCV MCH MCHC RDW Plt Count MPV Neut % (Auto) Lymph % (Auto) [place] % (Auto) Eos % (Auto) Baso % (Auto) Neut # (Auto) Lymph # (Auto) [place] # (Auto) Eos # (Auto) Baso # (Auto) Haptoglobin PT INR APTT Fibrinogen Fibrin Degrad Products Fibrin Degrad Prod, Qt Sodium Potassium Chloride Carbon Dioxide Anion Gap BUN Creatinine Est GFR ( Amer) Est GFR (Non-Af Amer) POC Glucose (mg/dL) 242 H Random Glucose Calcium Phosphorus Magnesium Total Bilirubin AST ALT Alkaline Phosphatase Lactate Dehydrogenase Total Protein Albumin Globulin Albumin/Globulin Ratio Screen Lyme Disease Screen EBV EA IgG Ab Interp Radiology Impressions: Radiology Impressions Abdomen X-Ray 09/14/18 16:09 IMPRESSION: Constipation. Nonobstructive bowel gas pattern. Critical Care Progress Note - Nutrition Nutrition: Nutrition Category Date Time Status Consistent Carbohydrate [DIET] Diets 09/11/18 Dinner Active Assessment/Plan - Assessment and Plan (Free Text) Plan: Patient seen and examined at bedside with above resident. Patient remains hemodynamically stable. -continue rx as per neurology - Date & Time Date: 09/15/18 Time: 16:48
[2018-09-15] MEDS ORDERED: Albumin Human 5% (12.5 gm/250 ml) IV ONE ×2 (09:00→12:00)
[2018-09-15] MEDS: Enoxaparin 40 mg Syringe SC SCH (09:34)
[2018-09-15] MEDS: Metoprolol Succinate 50 mg XL Tab PO SCH (09:35)
[2018-09-15] MEDS ORDERED: MethylPREDNISolone 40 mg Vial IVP ONE ×2 (10:00→12:00)
--- NOTE | 2018-09-15 10:30 | PN ---
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 Status post plasma exchange 1. PHYSICAL EXAMINATION: VITAL SIGNS: Blood pressure 128/65, mean artery pressure of 86, respiratory rate 18, pulse rate 62 and regular. GENERAL: The patient is awake, alert, oriented to person and place. Speech is clear. NEUROLOGICAL: Cranial nerve examination is normal. EXTREMITIES: Examination of the upper extremities, 10/27. For the first time, the patient could able to get up on her own from the bed. She could stand up. However, tremulous leg, has a tendency to fall. Deep tendon reflexes are unchanged. The patient is scheduled to have plasma exchange second time out of 4. The patient did have some episode of change in mental status with slurred speech which is undefined. However, from neurological point of view, ischemic process versus seizures should be ruled out. The patient's spinal tap was on hold because of the Plavix. Discussed with Anasthesiologist and they will perform diagnostic LP next week. Continue to hold plavix. The patient will be followed closely with you. Gilbert Irene MD MTDD
--- NOTE | 2018-09-15 19:13 | CP.PCM.PN ---
Subjective - Date & Time of Evaluation Date of Evaluation: 09/15/18 Time of Evaluation: 19:12 - Subjective Subjective: pt is seen and examined, follow up consult is dictated #[id number] s/p 2nd TPE today, feeling much better Objective - Vital Signs/Intake and Output Vital Signs (last 24 hours): Temp Pulse Resp BP Pulse Ox 98.3 F 73 18 117/53 L 99 09/15/18 16:00 09/15/18 18:23 09/15/18 18:23 09/15/18 18:23 09/15/18 18:23 Intake and Output: 09/15/18 09/16/18 18:59 06:59 Intake Total 1040 Output Total 500 Balance 540 - Medications Medications: Current Medications Acetaminophen (Tylenol 325mg Tab) 650 mg PO Q6 PRN PRN Reason: Fever >100.4 F Artificial Tears (Artificial Tears) 0.05 ml OU BID PRN PRN Reason: Dry eyes Aspirin (Aspirin Chewable) 81 mg PO DAILY [facility] Last Admin: 09/15/18 09:33 Dose: 81 mg Clopidogrel Bisulfate (Plavix) 75 mg PO DAILY [facility] Last Admin: 09/15/18 09:33 Dose: 75 mg Enalapril Maleate (Vasotec) 20 mg PO BID [facility] Last Admin: 09/15/18 17:59 Dose: Not Given Enoxaparin Sodium (Lovenox) 40 mg SC DAILY [facility] Last Admin: 09/15/18 09:34 Dose: 40 mg Famotidine (Pepcid) 20 mg PO DAILY [facility] Last Admin: 09/15/18 09:33 Dose: 20 mg Ferrous Sulfate (Feosol) 325 mg PO BIDCC [facility] Last Admin: 09/15/18 17:59 Dose: Not Given Hydralazine HCl (Apresoline) 25 mg PO Q8 [facility] Last Admin: 09/15/18 14:17 Dose: 25 mg Hydrochlorothiazide (Microzide) 12.5 mg PO DAILY [facility] Last Admin: 09/15/18 09:33 Dose: 12.5 mg Insulin Human Regular (Novolin R) 0 unit SC [facility]; Protocol Last Admin: 09/15/18 17:58 Dose: 3 unit Metformin HCl (Glucophage) 500 mg PO BIDCC [facility] Last Admin: 09/15/18 17:58 Dose: 500 mg Metoprolol Succinate (Toprol Xl) 50 mg PO DAILY [facility] Last Admin: 09/15/18 09:35 Dose: 50 mg Ondansetron HCl (Zofran Tab) 4 mg PO Q6H PRN PRN Reason: Nausea/Vomiting Rosuvastatin Calcium (Crestor) 5 mg PO HS [facility] Last Admin: 09/14/18 21:53 Dose: 5 mg Sennosides (Senokot Tab) 17.2 mg PO HS [facility] Last Admin: 09/14/18 21:55 Dose: 17.2 mg Sitagliptin Phosphate (Januvia) 50 mg PO DAILY [facility] Last Admin: 09/15/18 09:33 Dose: 50 mg - Labs Labs: 09/15/18 05:59 09/15/18 05:55 PT 11.4 SECONDS (9.7-12.2) 09/15/18 05:55 INR 1.0 09/15/18 05:55 APTT 30 SECONDS (21-34) 09/15/18 05:55
--- NOTE | 2018-09-15 20:51 | CP.PCM.PN ---
Subjective - Date & Time of Evaluation Date of Evaluation: 09/15/18 Time of Evaluation: 08:20 - Subjective Subjective: dictated Objective - Vital Signs/Intake and Output Vital Signs (last 24 hours): Temp Pulse Resp BP Pulse Ox 98.3 F 58 L 16 83/35 L 99 09/15/18 16:00 09/15/18 20:24 09/15/18 20:24 09/15/18 20:24 09/15/18 20:24 Intake and Output: 09/15/18 09/16/18 18:59 06:59 Intake Total 1040 0 Output Total 500 Balance 540 0 - Medications Medications: Current Medications Acetaminophen (Tylenol 325mg Tab) 650 mg PO Q6 PRN PRN Reason: Fever >100.4 F Albumin Human (Albumin Human 5% (12.5 Gm/250 Ml)) 150 gm IV ONCE ONE Stop: 09/17/18 08:01 Artificial Tears (Artificial Tears) 0.05 ml OU BID PRN PRN Reason: Dry eyes Aspirin (Aspirin Chewable) 81 mg PO DAILY [facility] Last Admin: 09/15/18 09:33 Dose: 81 mg Clopidogrel Bisulfate (Plavix) 75 mg PO DAILY [facility] Last Admin: 09/15/18 09:33 Dose: 75 mg Enalapril Maleate (Vasotec) 20 mg PO BID [facility] Last Admin: 09/15/18 17:59 Dose: Not Given Enoxaparin Sodium (Lovenox) 40 mg SC DAILY [facility] Last Admin: 09/15/18 09:34 Dose: 40 mg Famotidine (Pepcid) 20 mg PO DAILY [facility] Last Admin: 09/15/18 09:33 Dose: 20 mg [facility] Last Admin: 09/15/18 17:59 Dose: Not Given Hydralazine HCl (Apresoline) 25 mg PO Q8 [facility] Last Admin: 09/15/18 14:17 Dose: 25 mg Hydrochlorothiazide (Microzide) 12.5 mg PO DAILY [facility] Last Admin: 09/15/18 09:33 Dose: 12.5 mg Insulin Human Regular (Novolin R) 0 unit SC [facility]; Protocol Last Admin: 09/15/18 17:58 Dose: 3 unit Metformin [facility] (Glucophage) [facility] Last Admin: 09/15/18 17:58 Dose: 500 mg Metoprolol Succinate (Toprol Xl) 50 mg PO DAILY [facility] Last Admin: 09/15/18 09:35 Dose: 50 mg Ondansetron HCl (Zofran Tab) 4 mg PO Q6H PRN PRN Reason: Nausea/Vomiting Rosuvastatin Calcium (Crestor) 5 mg PO HS [facility] Last Admin: 09/14/18 21:53 Dose: 5 mg Sennosides (Senokot Tab) 17.2 mg PO HS [facility] Last Admin: 09/14/18 21:55 Dose: 17.2 mg Sitagliptin Phosphate (Januvia) 50 mg PO DAILY [facility] Last Admin: 09/15/18 09:33 Dose: 50 mg - Labs Labs: 09/15/18 05:59 09/15/18 05:55 PT 11.4 SECONDS (9.7-12.2) 09/15/18 05:55 INR 1.0 09/15/18 05:55 APTT 30 SECONDS (21-34) 09/15/18 05:55
[2018-09-15 22:33] LABS: CK-MB 0.98 ng/mL (0.0-3.38)
--- NOTE | 2018-09-16 01:15 | PN ---
DATE: 09/15/2018 SUBJECTIVE: The patient is in the bed, in no acute distress. The patient had no acute events overnight, attempt for MRI of lumbar and cervical spine could not be tolerated yesterday. The patient had one plasmapheresis yesterday and another one is for tomorrow. She will require two 4 to 6 plasmapheresis every two days. The patient has been seen by Neurology. She denies any nausea, vomiting, or shortness of breath. No cough, no sore throat, no fever. PHYSICAL EXAMINATION: LUNGS: Clear. CARDIOVASCULAR SYSTEM: S1 and S2. Regular. ABDOMEN: Soft. CENTRAL NERVOUS SYSTEMS: Awake, alert, and oriented x3 with power 4/5 in all extremities. ASSESSMENT: 1. Rule out Guillain-[place] syndrome. 2. Hypertension, right now the patient's blood pressure is on the lower side. 3. Type 2 diabetes. PLAN: Continue plasmapheresis, ICU, monitor the patient. Amanuel Aguilar MD
--- NOTE | 2018-09-16 04:11 | PN ---
DATE: 09/15/2018 FOLLOWUP RENAL CONSULTATION LOCATION: The patient is located in ICU, bed 14 A. REQUESTED BY: Amanuel Aguilar MD REASON FOR FOLLOWUP: Guillain-Eland syndrome, for plasmapheresis. SUBJECTIVE: Mrs. Pizarro is a 77-year-old elderly obese female with a past medical history significant for longstanding hypertension, diabetes, coronary artery disease, status post stent placement and angioplasty in 2016, CVA, status post lumbar laminectomy about five weeks ago who was admitted with chief complaints of worsening bilateral upper and lower extremity weakness and difficult to ambulate. As per the patient, she used to help other people, now she cannot take care of by herself and she cannot ambulate. 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 The patient was started on plasmapheresis on Tuesday. The patient is feeling much better today after the second treatment, able to move both upper extremities and also able to lift both lower extremities. Denies any chest pain or palpitation. Denies any fever or cough. No abdominal pain. No nausea, vomiting, or diarrhea. PHYSICAL EXAMINATION: VITAL SIGNS: As follows: Blood pressure 112/57, pulse 58, respiration 13, saturation 100%, and temperature is 98.3. Height 5 feet 6 inches, and weight is 191 pounds. GENERAL: Mrs. Pizarro is a 77-year-old elderly female, moderately built, moderately nourished, not in acute distress. HEENT: Pupils normal and reactive to light and accommodation. Conjunctivae pink. Sclerae anicteric. Tongue is moist. Trachea is midline. LUNGS: Symmetric on both sides. Bilateral breath sounds present. Clear to auscultation. CARDIOVASCULAR SYSTEM: [place] at the fifth intercostal space, midclavicular line. S1 and S2 audible. No murmur or gallop. ABDOMEN: Normal in appearance, soft, tympanitic. No guarding. No rigidity. No hepatosplenomegaly. CENTRAL NERVOUS SYSTEM: The patient is alert, awake, oriented x3. EXTREMITIES: No cyanosis, no clubbing, no edema. The patient is able to move both upper extremities and lower extremities, can raise her legs from the bed to almost like 60 degrees SLR. CURRENT MEDICATIONS: Include as follows: Hydralazine 25 mg p.o. every 8 hours, aspirin 81 mg p.o. daily, Crestor 5 mg at bedtime, Feosol 325 mg p.o. b.i.d., metformin 500 mg p.o. b.i.d., Januvia 50 mg daily, Lovenox 40 mg subcu daily, hydrochlorothiazide 12.5 mg p.o. daily, Pepcid 20 mg p.o. daily, Plavix 75 mg daily, Senokot 17.2 mg p.o. at bedtime, metoprolol 50 mg p.o. daily, Tylenol, Vasotec 20 mg p.o. daily, and Zofran 4 mg p.o. every 6 hours p.r.n. LABORATORY DATA: Include as follows: WBC 6, hemoglobin 9.9, hematocrit is 30.1, platelets are 243. Haptoglobin is 98.5. PT 11.4, PTT 30. Fibrinogen 246, FDP positive and fibrin degradation products more than 10 and less than 40. Sodium 133, potassium 4.5, chloride 103, CO2 of 22, BUN 30, creatinine 1.2, glucose 110, calcium 8.7, phosphorus 3.5, magnesium 1.9. Total bili 0.3, AST 15, ALT 12, alkaline phosphatase 40. LDH is 276. Total protein 5.1, albumin is 3.5. CPK is 45 and CK-MB is 0.98. Troponin 0.012. ASSESSMENT AND PLAN: In summary, Mrs. 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 Neurologist requesting plasmapheresis, started on plasmapheresis on 09/13/2018. 1. 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 This patient received second treatment of plasmapheresis today, and the patient is feeling much better and symptoms are improving. 2. Hypertension. 3. Diabetes. 4. Coronary artery disease, status post stent placement and angioplasty. We will give her a total of four treatments of plasmapheresis. The next one will be on Tuesday and fourth one will be on Tuesday. Continue her current medications. Continue to monitor the electrolytes and coagulation factors. Thank you for allowing me to participate in your patient's care. Lidia Bryson MD
[2018-09-16] MEDS: (Novolin R) Insulin Human Regular 100 units/ml vial SC SCH ×4 (07:30→21:20)
--- NOTE | 2018-09-16 09:10 | CP.CCUPN ---
<Gary Franco M - Last Filed: 09/16/18 10:42> CCU Subjective - Physician Review Subjective (Free Text): Critical care progress note for Dr. Mandy Purvis. Patient seen and examined at bedside. No acute events overnight reported. Patient had MRI of lumbar/cervical that was not tolerable 09/14 and had to be aborted. Patient had 2 X plasmapheresisis 09/14, 09/16. 4-6 sessions Q2D required per neuro. Patient denies headaches, vision changes, chest pain, SOB, abdominal pain, nausea, vomiting, fevers, chills. Patient reports numbness, tingling and strength is improving per patient. 09/16/18 10:42 CCU Objective - Vital Signs / Intake & Output Vital Signs (Last 4 hours): Vital Signs Temp Pulse Resp BP Pulse Ox 09/16/18 08:24 91 H 17 136/63 09/16/18 08:00 98.7 F 67 22 136/63 100 09/16/18 07:24 86 13 129/57 L 99 09/16/18 07:03 100 H 19 09/16/18 06:24 84 14 123/59 L 97 09/16/18 06:00 63 12 100 09/16/18 05:24 63 13 105/57 L 100 Intake and Output (Last 8hrs): Intake & Output 09/15/18 09/16/18 09/16/18 22:59 06:59 14:59 Intake Total 350 0 0 Output Total 500 600 Balance -150 -600 0 Intake: Intake, IV Amount 0 0 0 Left Hand 0 0 0 Oral 350 Output: Urine 500 600 Urine, Voided 500 600 Other: # Voids Urine, Voided 1 # Bowel Movements 1 1 - Physical Exam Head: Positive for: Atraumatic Extroacular Muscles: Positive for: EOMI Mouth: Positive for: Moist Mucous Membranes Neck: Positive for: Normal Range of Motion Respiratory/Chest: Positive for: Clear to Auscultation, Good Air Exchange. Negative for: Respiratory Distress, Accessory Muscle Use Cardiovascular: Positive for: Normal S1, S2. Negative for: Murmurs Abdomen: Positive for: Normal Bowel Sounds. Negative for: Tenderness, Distention, Rebound, Guarding Upper Extremity: Positive for: NORMAL PULSES, Other (4/5 grants director strength b/l, FROM ). Negative for: Cyanosis, Edema Lower Extremity: Positive for: Normal Inspection, Other (4/5 grants director strength b/l, FROM ). Negative for: Edema (4/5 strength of LE) Neurological: Positive for: GCS=15 Skin: Positive for: Warm, Dry Psychiatric: Positive for: Oriented x 3, Normal Insight - Medications Active Medications: Active Medications Generic Name Dose Route Start Last Admin Trade Name Freq PRN Reason Stop Dose Admin Acetaminophen 650 mg 09/11/18 18:11 Tylenol 325mg Tab PO Q6 PRN Fever >100.4 F Albumin Human 150 gm 09/17/18 08:00 Albumin Human 5% (12.5 Gm/250 Ml) IV 09/17/18 08:01 ONCE ONE Artificial Tears 0.05 ml 09/11/18 17:44 Artificial Tears OU BID PRN Dry eyes Aspirin 81 mg 09/12/18 10:00 09/15/18 09:33 Aspirin Chewable PO 81 mg DAILY [facility] Administration Clopidogrel Bisulfate 75 mg 09/12/18 10:00 09/15/18 09:33 Plavix PO 75 mg DAILY [facility] Administration Enalapril Maleate 20 mg 09/16/18 10:00 Vasotec PO DAILY [facility] Enoxaparin Sodium 40 mg 09/12/18 10:00 09/15/18 09:34 Lovenox SC 40 mg DAILY [facility] Administration Famotidine 20 mg 09/12/18 10:00 09/15/18 09:33 Pepcid PO 20 mg DAILY [facility] Administration Ferrous Sulfate 325 mg 09/11/18 18:00 09/15/18 17:59 Feosol PO Not Given BIDCC [facility] Hydralazine HCl 25 mg 09/11/18 18:00 09/16/18 05:27 Apresoline PO Not Given Q8 [facility] Hydrochlorothiazide 12.5 mg 09/12/18 10:00 09/15/18 09:33 Microzide PO 12.5 mg DAILY [facility] Administration Insulin Human Regular 0 unit 09/11/18 22:00 09/16/18 07:30 Novolin R SC Not Given ACHS [facility] Protocol Metformin HCl 500 mg 09/11/18 18:00 09/16/18 08:20 Glucophage PO 500 mg BIDCC [facility] Administration Metoprolol Succinate 50 mg 09/12/18 10:00 09/15/18 09:35 Toprol Xl PO 50 mg DAILY [facility] Administration Ondansetron HCl 4 mg 09/14/18 13:47 Zofran Tab PO Q6H PRN Nausea/Vomiting Rosuvastatin Calcium 5 mg 09/12/18 22:00 09/15/18 22:52 Crestor PO 5 mg HS [facility] Administration Sennosides 17.2 mg 09/11/18 22:00 09/15/18 22:06 Senokot Tab PO Not Given HS [facility] Sitagliptin Phosphate 50 mg 09/12/18 10:00 09/15/18 09:33 Januvia PO 50 mg DAILY [facility] Administration - Patient Studies Lab Studies: Lab Studies 09/16/18 09/15/18 09/15/18 Range/Units 07:46 22:04 21:53 POC Glucose (mg/dL) 135 H 177 H (65-110) mg/dL Total Creatine Kinase 45 (30-135) U/L CK-MB (Mass) 0.98 (0.0-3.38) ng/mL Troponin I < 0.0120 (0.00-0.120) ng/mL Serum Immunofixation (Not Detected) Screen (Negative) EBV EA IgG Ab Interp (<9.00) U/mL 09/15/18 09/15/18 09/13/18 Range/Units 15:57 11:34 07:49 POC Glucose (mg/dL) 242 H 157 H (65-110) mg/dL Total Creatine Kinase (30-135) U/L CK-MB (Mass) (0.0-3.38) ng/mL Troponin I (0.00-0.120) ng/mL Serum Immunofixation (Not Detected) Screen (Negative) EBV EA IgG Ab Interp 11.90 H (<9.00) U/mL 09/13/18 09/13/18 Range/Units 07:49 07:49 POC Glucose (mg/dL) (65-110) mg/dL Total Creatine Kinase (30-135) U/L CK-MB (Mass) (0.0-3.38) ng/mL Troponin I (0.00-0.120) ng/mL Serum Immunofixation Not detected (Not Detected) Screen Negative (Negative) EBV EA IgG Ab Interp (<9.00) U/mL Laboratory Results - last 24 hr 09/13/18 09/13/1809/13/19 07:49 07:49 07:49 POC Glucose (mg/dL) Total Creatine Kinase CK-MB (Mass) Troponin I Serum Immunofixation Not detected Screen Negative EBV EA IgG Ab Interp 11.90 H 09/15/18 09/15/18 09/15/18 11:34 15:57 21:53 POC Glucose (mg/dL) 157 H 242 H 177 H Total Creatine Kinase CK-MB (Mass) Troponin I Serum Immunofixation Screen EBV EA IgG Ab Interp 09/15/18 09/16/18 22:04 07:46 POC Glucose (mg/dL) 135 H Total Creatine Kinase 45 CK-MB (Mass) 0.98 Troponin I < 0.0120 Serum Immunofixation Screen EBV EA IgG Ab Interp EKG/Cardiology Studies: Cardiology / EKG Studies 09/15/18 21:51 EKG [ELECTROCARDIOGRAM] Stat Comment: Mode Of Transportation: Reason For Exam: chest pain Fingerstick Blood Sugar Results: 135 Review of Systems - Constitutional Constitutional: absent: Fever, Chills, Sweats - EENT Eyes: UNREMARKABLE. absent: Diplopia Ears: UNREMARKABLE Nose/Mouth/Throat: UNREMARKABLE - Cardiovascular Cardiovascular: UNREMARKABLE. absent: Chest Pain, Chest Pain at Rest, Edema - Respiratory Respiratory: UNREMARKABLE. absent: Cough, Dyspnea - Gastrointestinal Gastrointestinal: UNREMARKABLE. absent: Belching, Diarrhea - Genitourinary Genitourinary: UNREMARKABLE. absent: Dysuria, Hematuria - Musculoskeletal Musculoskeletal: UNREMARKABLE. absent: Back Pain - Integumentary Integumentary: UNREMARKABLE - Neurological Neurological: UNREMARKABLE. absent: Disequilibrium, Dizziness - Psychiatric Psychiatric: absent: Behavioral Changes, Depression - Endocrine Endocrine: UNREMARKABLE - Hematologic/Lymphatic Hematologic: UNREMARKABLE Critical Care Progress Note - Extremities/Vascular Does the Patient have a Central Venous Catheter?: Yes Insertion Site: Femoral Vein Does the Patient need a Central Venous Catheter?: Yes - Prophylaxis GI Prophylaxis GI: Pepsid - Prophylaxis DVT Prophylaxis DVT: Lovenox - Nutrition Nutrition: Nutrition Category Date Time Status Consistent Carbohydrate [DIET] Diets 09/11/18 Dinner Active Assessment/Plan - Assessment and Plan (Free Text) Assessment: 77 F w/ lumbar laminectomy presents with generalized body weakness including all extremities; suspicious for Rosanna barre syndrome; s/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 Anesthesiology unable to perform test under fluroscopy. Will continue aspirin/plavix. Patient stable for transfer to [facility]. Plan: Neuro - A&O x3 - 4/5 strength in all extremities - Lumbar tap unable to perform due to patient currently on plavix - Nuno Cathetor place in R femoral vein 09/13 - Neuro Dr. Ierne - 2 X plasmapheresis 09/14, 09/16 - per neuro, will require 4 sessions Q2D - MRI cervical/lumbar - unable to - F/u rhematoid factor, , ACEI - HIV, RPR, Lyme, negative - ESR 80 Cardio - hx of HTN, CAD X 2 stents - c/w aspirin 81 daily, plavix 75 mg daily, hydralizine 25 mg Q8H, HCTZ 12.5 mg PO daily, metoprolol succinate 50 PO daily, enalipril 20 mg BID - Echo 07/2018: Normal EF, Grade 1 diastolic dysfunction - EKG: Normal sinus @ 72 BPM Resp - saturating well, no SOB - will continue to monitor - CXR 09/11: Cardiomegaly, no focal consolidation Renal - nuno catheter placed in R femoral vein 09/13 - 2 X plasmapheresisis 09/14, 09/16 - Plasmapheresis Q2D - BUN/Cr stable at 20/1.1 Endo - hx of DM - c/w metformin 500 BID PO daily, Januivia 50 mg Po daily Heme - H/H stable in 10s/30s - likely iron deficiency - c/w feosol 325 PO BID ID - afebrile , WBC 6 - continue to monitor PPx - GI: pepcid 20mg daily - DVT: SCDs, lovenox 40 mg SC - Diet: consistent carbohydrate diet <David Purvis M - Last Filed: 09/16/18 14:32> CCU Objective - Vital Signs / Intake & Output Vital Signs (Last 4 hours): Vital Signs Pulse Resp 09/16/18 13:00 11 L 09/16/18 12:00 80 13 09/16/18 11:28 78 16 Intake and Output (Last 8hrs): Intake & Output 09/15/18 09/16/18 09/16/18 22:59 06:59 14:59 Intake Total 350 0 550 Output Total 500 600 Balance -150 -600 550 Intake: Intake, IV Amount 0 0 0 Left Hand 0 0 0 Oral 350 550 Output: Urine 500 600 Urine, Voided 500 600 Other: # Voids Urine, Voided 1 1 # Bowel Movements 1 1 - Medications Active Medications: Active Medications Generic Name Dose Route Start Last Admin Trade Name Freq PRN Reason Stop Dose Admin Acetaminophen 650 mg 09/11/18 18:11 Tylenol 325mg Tab PO Q6 PRN Fever >100.4 F Albumin Human 150 gm 09/17/18 08:00 Albumin Human 5% (12.5 Gm/250 Ml) IV 09/17/18 08:01 ONCE ONE Artificial Tears 0.05 ml 09/11/18 17:44 Artificial Tears OU BID PRN Dry eyes Aspirin 81 mg 09/12/18 10:00 09/16/18 09:22 Aspirin Chewable PO 81 mg DAILY [facility] Administration Clopidogrel Bisulfate 75 mg 09/12/18 10:00 09/16/18 09:22 Plavix PO 75 mg DAILY [facility] Administration Enalapril Maleate 20 mg 09/16/18 10:00 09/16/18 09:21 Vasotec PO 20 mg DAILY [facility] Administration Enoxaparin Sodium 40 mg 09/12/18 10:00 09/16/18 09:20 Lovenox SC 40 mg DAILY [facility] Administration Famotidine 20 mg 09/12/18 10:00 09/16/18 09:21 Pepcid PO 20 mg DAILY [facility] Administration Ferrous Sulfate 325 mg 09/11/18 18:00 09/16/18 08:00 Feosol PO Not Given BIDCC [facility] Hydralazine HCl 25 mg 09/11/18 18:00 09/16/18 14:22 Apresoline PO 25 mg Q8 [facility] Administration Hydrochlorothiazide 12.5 mg 09/12/18 10:00 09/16/18 09:22 Microzide PO 12.5 mg DAILY [facility] Administration Insulin Human Regular 0 unit 09/11/18 22:00 09/16/18 14:22 Novolin R SC 2 unit ACHS [facility] Administration Protocol Metformin HCl 500 mg 09/11/18 18:00 09/16/18 08:20 Glucophage PO 500 mg BIDCC [facility] Administration Metoprolol Succinate 50 mg 09/12/18 10:00 09/16/18 09:26 Toprol Xl PO 50 mg DAILY [facility] Administration Ondansetron HCl 4 mg 09/14/18 13:47 Zofran Tab PO Q6H PRN Nausea/Vomiting Rosuvastatin Calcium 5 mg 09/12/18 22:00 09/15/18 22:52 Crestor PO 5 mg HS [facility] Administration Sennosides 17.2 mg 09/11/18 22:00 09/15/18 22:06 Senokot Tab PO Not Given HS [facility] Sitagliptin Phosphate 50 mg 09/12/18 10:00 09/16/18 09:21 Januvia PO 50 mg DAILY [facility] Administration - Patient Studies Lab Studies: Lab Studies 09/16/18 09/16/18 09/16/18 Range/Units 12:17 11:46 11:46 WBC 8.0 (4.8-10.8) K/uL RBC 3.21 L (3.80-5.20) Mil/uL Hgb 9.9 L (11.0-16.0) g/dL Hct 30.6 L (34.0-47.0) % MCV 95.1 (81.0-99.0) fL MCH 30.8 (27.0-31.0) pg MCHC 32.3 L (33.0-37.0) g/dL RDW 15.5 H (11.5-14.5) % Plt Count 264 (130-400) K/uL MPV 9.7 (7.2-11.7) fL Neut % (Auto) 76.2 H (50.0-75.0) % Lymph % (Auto) 14.7 L (20.0-40.0) % [place] % (Auto) 6.5 (0.0-10.0) % Eos % (Auto) 2.3 (0.0-4.0) % Baso % (Auto) 0.3 (0.0-2.0) % Neut # (Auto) 6.1 (1.8-7.0) K/uL Lymph # (Auto) 1.2 (1.0-4.3) K/uL [place] # (Auto) 0.5 (0.0-0.8) K/uL Eos # (Auto) 0.2 (0.0-0.7) K/uL Baso # (Auto) 0.0 (0.0-0.2) K/uL Sodium 135 (132-148) mmol/L Potassium 4.6 (3.6-5.2) mmol/L Chloride 105 (98-107) mmol/L Carbon Dioxide 21 L (22-30) mmol/L Anion Gap 13 (10-20) BUN 24 H (7-17) mg/dL Creatinine 1.2 (0.7-1.2) mg/dL Est GFR ( Amer) 53 Est GFR (Non-Af Amer) 44 POC Glucose (mg/dL) 153 H (65-110) mg/dL Random Glucose 157 H D (65-105) mg/dL Calcium 8.9 (8.6-10.4) mg/dl Phosphorus 3.1 (2.5-4.5) mg/dL Magnesium 1.9 (1.6-2.3) mg/dL Total Bilirubin 0.3 (0.2-1.3) mg/dL AST 24 (14-36) U/L ALT 11 (9-52) U/L Alkaline Phosphatase 34 L (38-126) U/L Total Creatine Kinase (30-135) U/L CK-MB (Mass) (0.0-3.38) ng/mL Troponin I (0.00-0.120) ng/mL Total Protein 5.6 L (6.3-8.3) g/dL Albumin 4.1 (3.5-5.0) g/dL Globulin 1.5 L (2.2-3.9) gm/dL Albumin/Globulin Ratio 2.7 H (1.0-2.1) Serum Immunofixation (Not Detected) Double Strand DNA Ab IU/mL EBV EA IgG Ab Interp (<9.00) U/mL 09/16/18 09/15/18 09/15/18 Range/Units 07:46 22:04 21:53 WBC (4.8-10.8) K/uL RBC (3.80-5.20) Mil/uL Hgb (11.0-16.0) g/dL Hct (34.0-47.0) % MCV (81.0-99.0) fL MCH (27.0-31.0) pg MCHC (33.0-37.0) g/dL RDW (11.5-14.5) % Plt Count (130-400) K/uL MPV (7.2-11.7) fL Neut % (Auto) (50.0-75.0) % Lymph % (Auto) (20.0-40.0) % [place] % (Auto) (0.0-10.0) % Eos % (Auto) (0.0-4.0) % Baso % (Auto) (0.0-2.0) % Neut # (Auto) (1.8-7.0) K/uL Lymph # (Auto) (1.0-4.3) K/uL [place] # (Auto) (0.0-0.8) K/uL Eos # (Auto) (0.0-0.7) K/uL Baso # (Auto) (0.0-0.2) K/uL Sodium (132-148) mmol/L Potassium (3.6-5.2) mmol/L Chloride (98-107) mmol/L Carbon Dioxide (22-30) mmol/L Anion Gap (10-20) BUN (7-17) mg/dL Creatinine (0.7-1.2) mg/dL Est GFR ( Amer) Est GFR (Non-Af Amer) POC Glucose (mg/dL) 135 H 177 H (65-110) mg/dL Random Glucose (65-105) mg/dL Calcium (8.6-10.4) mg/dl Phosphorus (2.5-4.5) mg/dL Magnesium (1.6-2.3) mg/dL Total Bilirubin (0.2-1.3) mg/dL AST (14-36) U/L ALT (9-52) U/L Alkaline Phosphatase (38-126) U/L Total Creatine Kinase 45 (30-135) U/L CK-MB (Mass) 0.98 (0.0-3.38) ng/mL Troponin I < 0.0120 (0.00-0.120) ng/mL Total Protein (6.3-8.3) g/dL Albumin (3.5-5.0) g/dL Globulin (2.2-3.9) gm/dL Albumin/Globulin Ratio (1.0-2.1) Serum Immunofixation (Not Detected) Double Strand DNA Ab IU/mL EBV EA IgG Ab Interp (<9.00) U/mL 09/15/18 09/15/18 09/13/18 Range/Units 15:57 07:15 07:49 WBC (4.8-10.8) K/uL RBC (3.80-5.20) Mil/uL Hgb (11.0-16.0) g/dL Hct (34.0-47.0) % MCV (81.0-99.0) fL MCH (27.0-31.0) pg MCHC (33.0-37.0) g/dL RDW (11.5-14.5) % Plt Count (130-400) K/uL MPV (7.2-11.7) fL Neut % (Auto) (50.0-75.0) % Lymph % (Auto) (20.0-40.0) % [place] % (Auto) (0.0-10.0) % Eos % (Auto) (0.0-4.0) % Baso % (Auto) (0.0-2.0) % Neut # (Auto) (1.8-7.0) K/uL Lymph # (Auto) (1.0-4.3) K/uL [place] # (Auto) (0.0-0.8) K/uL Eos # (Auto) (0.0-0.7) K/uL Baso # (Auto) (0.0-0.2) K/uL Sodium (132-148) mmol/L Potassium (3.6-5.2) mmol/L Chloride (98-107) mmol/L Carbon Dioxide (22-30) mmol/L Anion Gap (10-20) BUN (7-17) mg/dL Creatinine (0.7-1.2) mg/dL Est GFR ( Amer) Est GFR (Non-Af Amer) POC Glucose (mg/dL) 242 H (65-110) mg/dL Random Glucose (65-105) mg/dL Calcium (8.6-10.4) mg/dl Phosphorus (2.5-4.5) mg/dL Magnesium (1.6-2.3) mg/dL Total Bilirubin (0.2-1.3) mg/dL AST (14-36) U/L ALT (9-52) U/L Alkaline Phosphatase (38-126) U/L Total Creatine Kinase (30-135) U/L CK-MB (Mass) (0.0-3.38) ng/mL Troponin I (0.00-0.120) ng/mL Total Protein (6.3-8.3) g/dL Albumin (3.5-5.0) g/dL Globulin (2.2-3.9) gm/dL Albumin/Globulin Ratio (1.0-2.1) Serum Immunofixation (Not Detected) Double Strand DNA Ab <1 IU/mL EBV EA IgG Ab Interp 11.90 H (<9.00) U/mL 09/13/18 Range/Units 07:49 WBC (4.8-10.8) K/uL RBC (3.80-5.20) Mil/uL Hgb (11.0-16.0) g/dL Hct (34.0-47.0) % MCV (81.0-99.0) fL MCH (27.0-31.0) pg MCHC (33.0-37.0) g/dL RDW (11.5-14.5) % Plt Count (130-400) K/uL MPV (7.2-11.7) fL Neut % (Auto) (50.0-75.0) % Lymph % (Auto) (20.0-40.0) % [place] % (Auto) (0.0-10.0) % Eos % (Auto) (0.0-4.0) % Baso % (Auto) (0.0-2.0) % Neut # (Auto) (1.8-7.0) K/uL Lymph # (Auto) (1.0-4.3) K/uL [place] # (Auto) (0.0-0.8) K/uL Eos # (Auto) (0.0-0.7) K/uL Baso # (Auto) (0.0-0.2) K/uL Sodium (132-148) mmol/L Potassium (3.6-5.2) mmol/L Chloride (98-107) mmol/L Carbon Dioxide (22-30) mmol/L Anion Gap (10-20) BUN (7-17) mg/dL Creatinine (0.7-1.2) mg/dL Est GFR ( Amer) Est GFR (Non-Af Amer) POC Glucose (mg/dL) (65-110) mg/dL Random Glucose (65-105) mg/dL Calcium (8.6-10.4) mg/dl Phosphorus (2.5-4.5) mg/dL Magnesium (1.6-2.3) mg/dL Total Bilirubin (0.2-1.3) mg/dL AST (14-36) U/L ALT (9-52) U/L Alkaline Phosphatase (38-126) U/L Total Creatine Kinase (30-135) U/L CK-MB (Mass) (0.0-3.38) ng/mL Troponin I (0.00-0.120) ng/mL Total Protein (6.3-8.3) g/dL Albumin (3.5-5.0) g/dL Globulin (2.2-3.9) gm/dL Albumin/Globulin Ratio (1.0-2.1) Serum Immunofixation Not detected (Not Detected) Double Strand DNA Ab IU/mL EBV EA IgG Ab Interp (<9.00) U/mL Laboratory Results - last 24 hr 09/13/18 09/13/18 09/15/18 07:49 07:49 07:15 WBC RBC Hgb Hct MCV MCH MCHC RDW Plt Count MPV Neut % (Auto) Lymph % (Auto) [place] % (Auto) Eos % (Auto) Baso % (Auto) Neut # (Auto) Lymph # (Auto) [place] # (Auto) Eos # (Auto) Baso # (Auto) Sodium Potassium Chloride Carbon Dioxide Anion Gap BUN Creatinine Est GFR ( Amer) Est GFR (Non-Af Amer) POC Glucose (mg/dL) Random Glucose Calcium Phosphorus Magnesium Total Bilirubin AST ALT Alkaline Phosphatase Total Creatine Kinase CK-MB (Mass) Troponin I Total Protein Albumin Globulin Albumin/Globulin Ratio Serum Immunofixation Not detected Double Strand DNA Ab <1 EBV EA IgG Ab Interp 11.90 H 09/15/18 09/15/18 09/15/18 15:57 21:53 22:04 WBC RBC Hgb Hct MCV MCH MCHC RDW Plt Count MPV Neut % (Auto) Lymph % (Auto) [place] % (Auto) Eos % (Auto) Baso % (Auto) Neut # (Auto) Lymph # (Auto) [place] # (Auto) Eos # (Auto) Baso # (Auto) Sodium Potassium Chloride Carbon Dioxide Anion Gap BUN Creatinine Est GFR ( Amer) Est GFR (Non-Af Amer) POC Glucose (mg/dL) 242 H 177 H Random Glucose Calcium Phosphorus Magnesium Total Bilirubin AST ALT Alkaline Phosphatase Total Creatine Kinase 45 CK-MB (Mass) 0.98 Troponin I < 0.0120 Total Protein Albumin Globulin Albumin/Globulin Ratio Serum Immunofixation Double Strand DNA Ab EBV EA IgG Ab Inter 09/16/18 09/16/18 09/16/18 07:46 11:46 11:46 WBC 8.0 RBC 3.21 L Hgb 9.9 L Hct 30.6 L MCV 95.1 MCH 30.8 MCHC 32.3 L RDW 15.5 H Plt Count 264 MPV 9.7 Neut % (Auto) 76.2 H Lymph % (Auto) 14.7 L [place] % (Auto) 6.5 Eos % (Auto) 2.3 Baso % (Auto) 0.3 Neut # (Auto) 6.1 Lymph # (Auto) 1.2 [place] # (Auto) 0.5 Eos # (Auto) 0.2 Baso # (Auto) 0.0 Sodium 135 Potassium 4.6 Chloride 105 Carbon Dioxide 21 L Anion Gap 13 BUN 24 H Creatinine 1.2 Est GFR ( Amer) 53 Est GFR (Non-Af Amer) 44 POC Glucose (mg/dL) 135 H Random Glucose 157 H D Calcium 8.9 Phosphorus 3.1 Magnesium 1.9 Total Bilirubin 0.3 AST 24 ALT 11 Alkaline Phosphatase 34 L Total Creatine Kinase CK-MB (Mass) Troponin I Total Protein 5.6 L Albumin 4.1 Globulin 1.5 L Albumin/Globulin Ratio 2.7 H Serum Immunofixation Double Strand DNA Ab EBV EA IgG Ab Inter 09/16/18 12:17 WBC RBC Hgb Hct MCV MCH MCHC RDW Plt Count MPV Neut % (Auto) Lymph % (Auto) [place] % (Auto) Eos % (Auto) Baso % (Auto) Neut # (Auto) Lymph # (Auto) [place] # (Auto) Eos # (Auto) Baso # (Auto) Sodium Potassium Chloride Carbon Dioxide Anion Gap BUN Creatinine Est GFR ( Amer) Est GFR (Non-Af Amer) POC Glucose (mg/dL) 153 H Random Glucose Calcium Phosphorus Magnesium Total Bilirubin AST ALT Alkaline Phosphatase Total Creatine Kinase CK-MB (Mass) Troponin I Total Protein Albumin Globulin Albumin/Globulin Ratio Serum Immunofixation Double Strand DNA Ab EBV EA IgG Ab Interp EKG/Cardiology Studies: Cardiology / EKG Studies 09/15/18 21:51 EKG [ELECTROCARDIOGRAM] Stat Comment: Mode Of Transportation: Reason For Exam: chest pain Critical Care Progress Note - Nutrition Nutrition: Nutrition Category Date Time Status Consistent Carbohydrate [DIET] Diets 09/11/18 Dinner Active Assessment/Plan - Assessment and Plan (Free Text) Plan: Patient seen and examined at bedside. Patient tolerating plasmapharesis. -remains hemodynamically stable - Date & Time Date: 09/16/18 Time: 14:32
[2018-09-16] MEDS: Enoxaparin 40 mg Syringe SC SCH (09:20)
[2018-09-16] MEDS: Metoprolol Succinate 50 mg XL Tab PO SCH (09:26)
[2018-09-16 11:53] LABS: BASO % 0.3 % (0.0-2.0); EOS # 0.2 K/uL (0.0-0.7); EOS % 2.3 % (0.0-4.0); HEMOGLOBIN 9.9 g/dL (11.0-16.0); LYMPH # 1.2 K/uL (1.0-4.3); LYMPH % 14.7 % (20.0-40.0); MEAN CELL VOLUME 95.1 fL (81.0-99.0); MEAN CORPUSCULAR HEMOGLOBIN 30.8 pg (27.0-31.0); MEAN CORPUSCULAR HGB CONC 32.3 g/dL (33.0-37.0); MEAN PLATELET VOLUME 9.7 fL (7.2-11.7); MONO # 0.5 K/uL (0.0-0.8); MONO % 6.5 % (0.0-10.0); NEUT # 6.1 K/uL (1.8-7.0); NEUT % 76.2 % (50.0-75.0); NRBC % 0.1 % (0.0-2.0); RBC 3.21 Mil/uL (3.80-5.20); RED CELL DISTRIBUTION WIDTH 15.5 % (11.5-14.5)
[2018-09-16 12:08] LABS: ALB/GLOB RATIO 2.7 (1.0-2.1); ALBUMIN 4.1 g/dL (3.5-5.0); CALCIUM 8.9 mg/dl (8.6-10.4)
--- NOTE | 2018-09-16 16:19 | CP.PCM.PN ---
Subjective - Date & Time of Evaluation Date of Evaluation: 09/16/18 Time of Evaluation: 16:19 - Subjective Subjective: pt is seen and examined, follow up consult is dictated #[id number] for tpe #3 tomorrow Objective - Vital Signs/Intake and Output Vital Signs (last 24 hours): Temp Pulse Resp BP Pulse Ox 98.7 F 80 11 L 133/54 L 100 09/16/18 08:00 09/16/18 12:00 09/16/18 13:00 09/16/18 09:24 09/16/18 08:00 Intake and Output: 09/16/18 09/16/18 06:59 18:59 Intake Total 0 550 Output Total 1100 Balance -1100 550 - Medications Medications: Current Medications Acetaminophen (Tylenol 325mg Tab) 650 mg PO Q6 PRN PRN Reason: Fever >100.4 F Albumin Human (Albumin Human 5% (12.5 Gm/250 Ml)) 150 gm IV ONCE ONE Stop: 09/17/18 08:01 Artificial Tears (Artificial Tears) 0.05 ml OU BID PRN PRN Reason: Dry eyes Aspirin (Aspirin Chewable) 81 mg PO DAILY [facility] Last Admin: 09/16/18 09:22 Dose: 81 mg Clopidogrel Bisulfate (Plavix) 75 mg PO DAILY [facility] Last Admin: 09/16/18 09:22 Dose: 75 mg Enalapril Maleate (Vasotec) 20 mg PO DAILY [facility] Last Admin: 09/16/18 09:21 Dose: 20 mg Enoxaparin Sodium (Lovenox) 40 mg SC DAILY [facility] Last Admin: 09/16/18 09:20 Dose: 40 mg Famotidine (Pepcid) 20 mg PO DAILY [facility] Last Admin: 09/16/18 09:21 Dose: 20 mg Ferrous Sulfate (Feosol) 325 mg PO BIDCC [facility] Last Admin: 09/16/18 08:00 Dose: Not Given Hydralazine HCl (Apresoline) 25 mg PO Q8 [facility] Last Admin: 09/16/18 14:22 Dose: 25 mg Hydrochlorothiazide (Microzide) 12.5 mg PO DAILY [facility] Last Admin: 09/16/18 09:22 Dose: 12.5 mg Insulin Human Regular (Novolin R) 0 unit SC [facility]; Protocol Last Admin: 09/16/18 14:22 Dose: 2 unit Metformin HCl (Glucophage) 500 mg PO BIDCC [facility] Last Admin: 09/16/18 08:20 Dose: 500 mg Metoprolol Succinate (Toprol Xl) 50 mg PO DAILY [facility] Last Admin: 09/16/18 09:26 Dose: 50 mg Ondansetron HCl (Zofran Tab) 4 mg PO Q6H PRN PRN Reason: Nausea/Vomiting Rosuvastatin Calcium (Crestor) 5 mg PO HS [facility] Last Admin: 09/15/18 22:52 Dose: 5 mg Sennosides (Senokot Tab) 17.2 mg PO [facility] Last Admin: 09/15/18 22:06 Dose: Not Given Sitagliptin Phosphate (Januvia) 50 mg PO DAILY [facility] Last Admin: 09/16/18 09:21 Dose: 50 mg - Labs Labs: 09/16/18 11:46 09/16/18 11:46 PT 11.4 SECONDS (9.7-12.2) 09/15/18 05:55 INR 1.0 09/15/18 05:55 APTT 30 SECONDS (21-34) 09/15/18 05:55
--- NOTE | 2018-09-16 21:40 | CP.PCM.PN ---
Subjective - Date & Time of Evaluation Date of Evaluation: 09/16/18 Time of Evaluation: 08:40 - Subjective Subjective: dictated Objective - Vital Signs/Intake and Output Vital Signs (last 24 hours): Temp Pulse Resp BP Pulse Ox 98.4 F 65 16 150/69 98 09/16/18 20:00 09/16/18 20:00 09/16/18 20:00 09/16/18 20:00 09/16/18 20:00 Intake and Output: 09/16/18 09/17/18 18:59 06:59 Intake Total 1290 Balance 1290 - Medications Medications: Current Medications Acetaminophen (Tylenol 325mg Tab) 650 mg PO Q6 PRN PRN Reason: Fever >100.4 F Albumin Human (Albumin Human 5% (12.5 Gm/250 Ml)) 150 gm IV ONCE ONE Stop: 09/17/18 08:01 Artificial Tears (Artificial Tears) 0.05 ml OU BID PRN PRN Reason: Dry eyes Aspirin (Aspirin Chewable) 81 mg PO DAILY [facility] Last Admin: 09/16/18 09:22 Dose: 81 mg Clopidogrel Bisulfate (Plavix) 75 mg PO DAILY [facility] Last Admin: 09/16/18 09:22 Dose: 75 mg Enalapril Maleate (Vasotec) 20 mg PO DAILY [facility] Last Admin: 09/16/18 09:21 Dose: 20 mg Enoxaparin Sodium (Lovenox) 40 mg SC DAILY [facility] Last Admin: 09/16/18 09:20 Dose: 40 mg Famotidine (Pepcid) 20 mg PO DAILY [facility] Last Admin: 09/16/18 09:21 Dose: 20 mg Ferrous Sulfate (Feosol) 325 mg PO BIDCC [facility] Last Admin: 09/16/18 16:55 Dose: Not Given Hydralazine HCl (Apresoline) 25 mg PO Q8 [facility] Last Admin: 09/16/18 21:09 Dose: 25 mg Hydrochlorothiazide (Microzide) 12.5 mg PO DAILY [facility] Last Admin: 09/16/18 09:22 Dose: 12.5 mg Insulin Human Regular (Novolin R) 0 unit SC [facility]; Protocol Last Admin: 09/16/18 21:20 Dose: Not Given Metformin HCl (Glucophage) 500 mg PO BIDCC [facility] Last Admin: 09/16/18 16:55 Dose: 500 mg Metoprolol Succinate (Toprol Xl) 50 mg PO DAILY [facility] Last Admin: 09/16/18 09:26 Dose: 50 mg Ondansetron HCl (Zofran Tab) 4 mg PO Q6H PRN PRN Reason: Nausea/Vomiting Rosuvastatin Calcium (Crestor) 5 mg PO HS [facility] Last Admin: 09/16/18 21:09 Dose: 5 mg Sennosides (Senokot Tab) 17.2 mg PO HS [facility] Last Admin: 09/16/18 21:10 Dose: Not Given Sitagliptin Phosphate (Januvia) 50 mg PO DAILY [facility] Last Admin: 09/16/18 09:21 Dose: 50 mg - Labs Labs: 09/16/18 11:46 09/16/18 11:46 PT 11.4 SECONDS (9.7-12.2) 09/15/18 05:55 INR 1.0 09/15/18 05:55 APTT 30 SECONDS (21-34) 09/15/18 05:55
--- NOTE | 2018-09-17 00:44 | PN ---
DATE: 09/16/2018 SUBJECTIVE: The patient improved with plasmapheresis. PHYSICAL EXAMINATION: GENERAL: She is awake and alert. She is sitting. She is moving all extremities. She is able to ambulate. VITAL SIGNS: Blood pressure 150/61, pulse 65, respiratory rate 16, temperature 98.4. LUNGS: Clear. CARDIOVASCULAR SYSTEM: S1 and S2, regular. ABDOMEN: Soft. 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 2. Hypertension. 3. Diabetes. 4. Lumbar and cervical radiculopathy. PLAN: Monitor the patient. Amanuel Aguilar MD
[2018-09-17 06:36] LABS: BASO % 0.6 % (0.0-2.0); EOS # 0.2 K/uL (0.0-0.7); EOS % 3.1 % (0.0-4.0); LYMPH # 1.1 K/uL (1.0-4.3); LYMPH % 16.3 % (20.0-40.0); MEAN CELL VOLUME 95.8 fL (81.0-99.0); MEAN CORPUSCULAR HEMOGLOBIN 31.4 pg (27.0-31.0); MEAN CORPUSCULAR HGB CONC 32.8 g/dL (33.0-37.0); MEAN PLATELET VOLUME 9.9 fL (7.2-11.7); MONO # 0.5 K/uL (0.0-0.8); MONO % 7.1 % (0.0-10.0); NEUT % 72.9 % (50.0-75.0); RBC 3.18 Mil/uL (3.80-5.20); RED CELL DISTRIBUTION WIDTH 15.6 % (11.5-14.5); WHITE BLOOD COUNT 6.9 K/uL (4.8-10.8)
[2018-09-17 06:57] LABS: ALBUMIN 3.8 g/dL (3.5-5.0); CALCIUM 8.6 mg/dl (8.6-10.4)
[2018-09-17 07:02] LABS: INR 1.1; PROTHROMBIN TIME 11.5 SECONDS (9.7-12.2)
[2018-09-17] MEDS: (Novolin R) Insulin Human Regular 100 units/ml vial SC SCH ×4 (07:30→21:36)
[2018-09-17 07:34] LABS: FDP INTERPRETATION POSITIVE (NEGATIVE); FDP QUANTITY >10<40 ug/mL (<10)
[2018-09-17] MEDS ORDERED: Albumin Human 5% (25 gm/500 ml) IVPB ONE ×2 (08:00)
[2018-09-17 08:06] LABS: PARTIAL THROMBOPLASTIN TIME 21 SECONDS (21-34)
[2018-09-17 08:15] LABS: FIBRINOGEN 51 mg/dL (200-400)
[2018-09-17 10:22] LABS: INR 1.2; PROTHROMBIN TIME 13.2 SECONDS (9.7-12.2)
--- NOTE | 2018-09-17 10:44 | CP.PCM.PN ---
Subjective - Date & Time of Evaluation Date of Evaluation: 09/17/18 Time of Evaluation: 10:42 - Subjective Subjective: Feeling better. Walking around with support. Objective - Vital Signs/Intake and Output Vital Signs (last 24 hours): Temp Pulse Resp BP Pulse Ox 98.2 F 62 18 132/62 97 09/17/18 04:00 09/17/18 08:00 09/17/18 04:00 09/17/18 04:00 09/17/18 04:00 Intake and Output: 09/17/18 09/17/18 06:59 18:59 Intake Total 490 Balance 490 - Medications Medications: Current Medications Acetaminophen (Tylenol 325mg Tab) 650 mg PO Q6 PRN PRN Reason: Fever >100.4 F Artificial Tears (Artificial Tears) 0.05 ml OU BID PRN PRN Reason: Dry eyes Aspirin (Aspirin Chewable) 81 mg PO DAILY [facility] Last Admin: 09/16/18 09:22 Dose: 81 mg Clopidogrel Bisulfate (Plavix) 75 mg PO DAILY [facility] Last Admin: 09/16/18 09:22 Dose: 75 mg Enalapril Maleate (Vasotec) 20 mg PO DAILY [facility] Last Admin: 09/16/18 09:21 Dose: 20 mg Enoxaparin Sodium (Lovenox) 40 mg SC DAILY [facility] Last Admin: 09/16/18 09:20 Dose: 40 mg Famotidine (Pepcid) 20 mg PO DAILY [facility] Last Admin: 09/16/18 09:21 Dose: 20 mg Ferrous Sulfate (Feosol) 325 mg PO BIDCC [facility] Last Admin: 09/16/18 16:55 Dose: Not Given Hydralazine HCl (Apresoline) 25 mg PO Q8 [facility] Last Admin: 09/17/18 06:03 Dose: 25 mg Hydrochlorothiazide (Microzide) 12.5 mg PO DAILY [facility] Last Admin: 09/16/18 09:22 Dose: 12.5 mg Insulin Human Regular (Novolin R) 0 unit SC [facility]; Protocol Last Admin: 09/16/18 21:20 Dose: Not Given Metformin HCl (Glucophage) 500 mg PO BIDCC [facility] Last Admin: 09/16/18 16:55 Dose: 500 mg Metoprolol Succinate (Toprol Xl) 50 mg PO DAILY [facility] Last Admin: 09/16/18 09:26 Dose: 50 mg Ondansetron HCl (Zofran Tab) 4 mg PO Q6H PRN PRN Reason: Nausea/Vomiting Rosuvastatin Calcium (Crestor) 5 mg PO HS [facility] Last Admin: 09/16/18 21:09 Dose: 5 mg Sennosides (Senokot Tab) 17.2 mg PO HS [facility] Last Admin: 09/16/18 21:10 Dose: Not Given Sitagliptin Phosphate (Januvia) 50 mg PO DAILY [facility] Last Admin: 09/16/18 09:21 Dose: 50 mg - Labs Labs: 09/17/18 06:33 09/17/18 06:33 PT 13.2 SECONDS (9.7-12.2) H 09/17/18 09:41 INR 1.2 09/17/18 09:41 APTT 38 SECONDS (21-34) H D 09/17/18 09:41 - Constitutional Appears: Younger Than Stated Age - Neck Exam Neck Exam: Normal Inspection - Respiratory Exam Respiratory Exam: NORMAL BREATHING PATTERN - Cardiovascular Exam Cardiovascular Exam: Irregular Rhythm - Extremities Exam Extremities Exam: Normal Inspection - Neurological Exam Neurological Exam: Alert, Oriented x3 Assessment and Plan (1) CAD (coronary artery disease) Assessment & Plan: Stable, No new complaints. Discussed with patient. May transfer to floor or rahab. Status: Acute (2) Atrial fibrillation with RVR Assessment & Plan: Atrial fibrillation, rate controlled. Continue therapeutic Anticoagulation. Status: Acute (3) CVA (cerebral vascular accident) Assessment & Plan: Stable. Continue physical therapy. Status: Acute
[2018-09-17] MEDS: Metoprolol Succinate 50 mg XL Tab PO SCH (10:58)
[2018-09-17] MEDS: Enoxaparin 40 mg Syringe SC SCH (11:15)
--- NOTE | 2018-09-17 15:30 | CP.PCM.PN ---
Subjective - Date & Time of Evaluation Date of Evaluation: 09/17/18 Time of Evaluation: 15:30 - Subjective Subjective: pt is seen and examined, follow up consult is dictated # s/p #[id number] today, tolerated very well Objective - Vital Signs/Intake and Output Vital Signs (last 24 hours): Temp Pulse Resp BP Pulse Ox 97.9 F 62 18 153/76 H 98 09/17/18 08:00 09/17/18 08:00 09/17/18 08:00 09/17/18 10:58 09/17/18 08:00 Intake and Output: 09/17/18 09/17/18 06:59 18:59 Intake Total 490 Balance 490 - Medications Medications: Current Medications Acetaminophen (Tylenol 325mg Tab) 650 mg PO Q6 PRN PRN Reason: Fever >100.4 F Artificial Tears (Artificial Tears) 0.05 ml OU BID PRN PRN Reason: Dry eyes Aspirin (Aspirin Chewable) 81 mg PO DAILY [facility] Last Admin: 09/17/18 10:58 Dose: 81 mg Clopidogrel Bisulfate (Plavix) 75 mg PO DAILY [facility] Last Admin: 09/17/18 10:58 Dose: 75 mg Enalapril Maleate (Vasotec) 20 mg PO DAILY [facility] Last Admin: 09/17/18 10:58 Dose: 20 mg Enoxaparin Sodium (Lovenox) 40 mg SC DAILY [facility] Last Admin: 09/17/18 11:15 Dose: Not Given Famotidine (Pepcid) 20 mg PO DAILY [facility] Last Admin: 09/17/18 10:58 Dose: 20 mg Ferrous Sulfate (Feosol) 325 mg PO BIDCC [facility] Last Admin: 09/17/18 08:00 Dose: Not Given Hydralazine HCl (Apresoline) 25 mg PO Q8 [facility] Last Admin: 09/17/18 13:52 Dose: 25 mg Hydrochlorothiazide (Microzide) 12.5 mg PO DAILY [facility] Last Admin: 09/17/18 10:55 Dose: 12.5 mg Insulin Human Regular (Novolin R) 0 unit SC [facility]; Protocol Last Admin: 09/17/18 11:30 Dose: Not Given Metformin HCl (Glucophage) 500 mg PO BIDCC [facility] Last Admin: 09/17/18 10:58 Dose: 500 mg Metoprolol Succinate (Toprol Xl) 50 mg PO DAILY [facility] Last Admin: 09/17/18 10:58 Dose: 50 mg Ondansetron HCl (Zofran Tab) 4 mg PO Q6H PRN PRN Reason: Nausea/Vomiting Rosuvastatin Calcium (Crestor) 5 mg PO HS [facility] Last Admin: 09/16/18 21:09 Dose: 5 mg Sennosides (Senokot Tab) 17.2 mg PO HS [facility] Last Admin: 09/16/18 21:10 Dose: Not Given Sitagliptin Phosphate (Januvia) 50 mg PO DAILY [facility] Last Admin: 09/17/18 10:55 Dose: 50 mg - Labs Labs: 09/17/18 06:33 09/17/18 06:33 PT 13.2 SECONDS (9.7-12.2) H 09/17/18 09:41 INR 1.2 09/17/18 09:41 APTT 38 SECONDS (21-34) H D 09/17/18 09:41
--- NOTE | 2018-09-17 22:51 | CP.PCM.PN ---
Subjective - Date & Time of Evaluation Date of Evaluation: 09/17/18 Time of Evaluation: 07:00 - Subjective Subjective: dictated Objective - Vital Signs/Intake and Output Vital Signs (last 24 hours): Temp Pulse Resp BP Pulse Ox 98.4 F 65 20 141/96 H 97 09/17/18 20:00 09/17/18 20:00 09/17/18 20:00 09/17/18 20:00 09/17/18 20:00 Intake and Output: 09/17/18 09/18/18 18:59 06:59 Intake Total 500 Balance 500 - Medications Medications: Current Medications Acetaminophen (Tylenol 325mg Tab) 650 mg PO Q6 PRN PRN Reason: Fever >100.4 F Artificial Tears (Artificial Tears) 0.05 ml OU BID PRN PRN Reason: Dry eyes Aspirin (Aspirin Chewable) 81 mg PO DAILY [facility] Last Admin: 09/17/18 10:58 Dose: 81 mg Clopidogrel Bisulfate (Plavix) 75 mg PO DAILY [facility] Last Admin: 09/17/18 10:58 Dose: 75 mg Enalapril Maleate (Vasotec) 20 mg PO DAILY [facility] Last Admin: 09/17/18 10:58 Dose: 20 mg Enoxaparin Sodium (Lovenox) 40 mg SC DAILY [facility] Last Admin: 09/17/18 11:15 Dose: Not Given Famotidine (Pepcid) 20 mg PO DAILY [facility] Last Admin: 09/17/18 10:58 Dose: 20 mg Ferrous Sulfate (Feosol) 325 mg PO BIDCC [facility] Last Admin: 09/17/18 17:00 Dose: Not Given Hydralazine HCl (Apresoline) 25 mg PO Q8 [facility] Last Admin: 09/17/18 21:36 Dose: 25 mg Hydrochlorothiazide (Microzide) 12.5 mg PO DAILY [facility] Last Admin: 09/17/18 10:55 Dose: 12.5 mg Insulin Human Regular (Novolin R) 0 unit SC [facility]; Protocol Last Admin: 09/17/18 21:36 Dose: Not Given Metformin HCl (Glucophage) 500 mg PO BIDCC [facility] Last Admin: 09/17/18 16:31 Dose: 500 mg Metoprolol Succinate (Toprol Xl) 50 mg PO DAILY [facility] Last Admin: 09/17/18 10:58 Dose: 50 mg Ondansetron HCl (Zofran Tab) 4 mg PO Q6H PRN PRN Reason: Nausea/Vomiting Rosuvastatin Calcium (Crestor) 5 mg PO HS [facility] Last Admin: 09/17/18 21:36 Dose: 5 mg Sennosides (Senokot Tab) 17.2 mg PO HS [facility] Last Admin: 09/17/18 21:36 Dose: 17.2 mg Sitagliptin Phosphate (Januvia) 50 mg PO DAILY [facility] Last Admin: 09/17/18 10:55 Dose: 50 mg - Labs Labs: 09/17/18 06:33 09/17/18 06:33 PT 13.2 SECONDS (9.7-12.2) H 09/17/18 09:41 INR 1.2 09/17/18 09:41 APTT 38 SECONDS (21-34) H D 09/17/18 09:41
--- NOTE | 2018-09-18 03:21 | PN ---
DATE: 09/17/2018 FOLLOWUP RENAL CONSULTATION LOCATION: The patient is located in ICU, bed 14 A. REQUESTED BY: Amanuel Aguilar MD REASON FOR FOLLOWUP: Guillain-[place] syndrome and continuation of the plasmapheresis. HISTORY OF PRESENT ILLNESS: Mrs. Pizarro is a 77-year-old elderly obese female with a past medical history significant for longstanding hypertension, diabetes, hyperlipidemia, coronary artery disease, CVA, status post coronary stents and angioplasty in 2016 with status post lumbar laminectomy L5 who was admitted with chief complaints of weakness of both upper and lower extremities and difficult to ambulate and areflexia. 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 The patient is feeling much better, able to get out to the bed, and able to ambulate by herself. Denies any chest pain or palpitation. Denies any fever or cough. No abdominal pain. No nausea, vomiting, or diarrhea. PHYSICAL EXAMINATION: VITAL SIGNS: As follows: This afternoon, blood pressure 146/67, pulse 62, respirations 18, temperature 98.1, saturation 98%. Height 5 feet 6 inches and weight is 191 pounds. GENERAL: Mrs. Pizarro is a 77-year-old elderly female, moderately built, moderately nourished, not in acute distress. HEENT: Pupils normal and reactive to light and accommodation. Conjunctivae pink. Sclerae anicteric. Tongue is moist. Trachea is midline. LUNGS: Symmetric on both sides. Bilateral breath sounds present. Clear to auscultation. CARDIOVASCULAR SYSTEM: [place] at the fifth intercostal space, midclavicular line. S1, S2 audible. No murmur or gallop. ABDOMEN: Normal in appearance. Soft, tympanitic. No guarding. No rigidity. No hepatosplenomegaly. CENTRAL NERVOUS SYSTEM: The patient is alert, awake, and oriented x3. Nonfocal neuro examination. Cranial nerves XII through XII grossly intact. Sensory and motor system is within normal limits. EXTREMITIES: No cyanosis, no clubbing, no edema. CURRENT MEDICATIONS: Include as follows: Hydralazine 25 mg p.o. every 8 hours, Artificial Tears, aspirin 81 mg daily, Crestor 5 mg p.o. at bedtime, Feosol 325 mg p.o. b.i.d., metformin 500 mg p.o. b.i.d., Januvia 50 mg p.o. daily, Lovenox 40 mg subcu daily, hydrochlorothiazide 12.5 mg, Novolin R for sliding scale, Pepcid 20 mg daily, Plavix 75 mg daily, Senokot 17.2 mg p.o. at bedtime, metoprolol 50 mg p.o. daily, Tylenol, enalapril 20 mg p.o. daily, and Zofran. LABORATORY DATA: Include as follows: As of 09/17/2018, WBC 6.9, hemoglobin 10, hematocrit is 30.5, platelets 252. PT 13.2, PTT 38. INR 1.2. Fibrinogen level is 108. FDP positive and FDP products less than 40 more than 10. Sodium 137, potassium 4.8, chloride 110, CO2 of 18, BUN 25, creatinine 1.2, glucose 139, calcium 8.6, phosphorus 3.3 magnesium 1.9, total bili was 0.4, AST 50, ALT 12, alkaline phosphatase 39, LDH 391, total protein 5.7, albumin is 3.8, and haptoglobin is 88.9. IMPRESSION AND PLAN: In summary, Mrs. Pizarro is a 77-year-old elderly obese female with hypertension, diabetes, hyperlipidemia, coronary artery disease, cerebrovascular accident, status post lumbar laminectomy about 5 weeks ago who was admitted with both upper and lower extremity weakness and difficult to ambulate and areflexia, and suspected [place] syndrome, unable to do lumbar puncture due to anticoagulation. With the high risk for lumbar puncture, recommending plasmapheresis by Neurology and started on plasmapheresis on Tuesday. 1. G[place]ian-[place] syndrome, suspected and continue plasmapheresis every other day, and total foot treatment. The patient received three treatments so far, Tuesday, Tuesday, and Tuesday. We will give one more treatment next week, Tuesday. 2. Hypertension. Blood pressure is stable. Continue her current blood pressure medication, hydralazine 25 mg p.o. every 8 hours and hydrochlorothiazide 12.5 mg daily, and also metoprolol 50 mg daily and Vasotec 20 mg p.o. daily 3. Diabetes type 2. Continue metformin and Januvia. 4. Continue deep venous thrombosis prophylaxis and gastrointestinal prophylaxis. Continue to follow with Neurology for further recommendation. Thank you for allowing me to participate in your patient's care. Lidia Bryson MD
--- NOTE | 2018-09-18 03:39 | PN ---
DATE: 09/17/2018 SUBJECTIVE: The patient is improving, status post plasmapheresis. The patient is for another plasmapheresis on Tuesday. PHYSICAL EXAMINATION: VITAL SIGNS: Blood pressure 141/96, pulse 65, respiratory rate 20, temperature 98.4 LUNGS: Clear. CARDIOVASCULAR SYSTEM: S1, S2. Regular. ABDOMEN: Soft. CENTRAL NERVOUS SYSTEM: Awake, alert, oriented x3. 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 2. Hypertension. 3. Diabetes. PLAN: Plasmapheresis on Tuesday, continue ICU, monitor the patient. Amanuel Aguilar MD
[2018-09-18 05:48] LABS: EOS # 0.2 K/uL (0.0-0.7); LYMPH # 1.1 K/uL (1.0-4.3); MEAN CELL VOLUME 96.8 fL (81.0-99.0); RBC 3.13 Mil/uL (3.80-5.20)
[2018-09-18 06:08] LABS: ALB/GLOB RATIO 2.6 (1.0-2.1); ALBUMIN 3.7 g/dL (3.5-5.0); CALCIUM 8.7 mg/dl (8.6-10.4)
[2018-09-18 06:20] LABS: BASO % 0.3 % (0.0-2.0); HEMOGLOBIN 9.8 g/dL (11.0-16.0); LYMPH % 14.3 % (20.0-40.0); MEAN CORPUSCULAR HEMOGLOBIN 31.5 pg (27.0-31.0); MEAN CORPUSCULAR HGB CONC 32.5 g/dL (33.0-37.0); MONO # 0.6 K/uL (0.0-0.8); MONO % 7.4 % (0.0-10.0); NEUT # 5.9 K/uL (1.8-7.0); RED CELL DISTRIBUTION WIDTH 15.7 % (11.5-14.5); WHITE BLOOD COUNT 7.8 K/uL (4.8-10.8)
--- NOTE | 2018-09-18 07:10 | PN ---
DATE: 09/16/2018 FOLLOWUP RENAL CONSULTATION LOCATION: The patient is located in room ICU 14, bed A. REQUESTED BY: Amanuel Aguilar MD REASON FOR FOLLOWUP: Guillain-[place] syndrome, on plasmapheresis, for continuation of the treatment. SUBJECTIVE: The patient is a 77-year-old elderly obese female with a past medical history significant for longstanding hypertension, diabetes, coronary artery disease, status post stents and angioplasty in 2016, CVA, status post lumbar laminectomy about five weeks ago who was presented with the chief complaints of generalized weakness and difficult to ambulate and difficult to move both upper and lower extremities for the last one week. 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 The patient was started on plasmapheresis on Tuesday and received second treatment on Tuesday. The patient is due for the third treatment on Tuesday and fourth one on Tuesday. The patient is feeling much better. The patient is out of bed to chair. The patient claims that she was able to ambulate today. No chest pain. No palpitation. No fever. No cough. No abdominal pain. No nausea, vomiting, or diarrhea. PHYSICAL EXAMINATION: VITAL SIGNS: Include as follows: Blood pressure 123/59, pulse 68, respiration 12, temperature 98.4, and saturation 98%. Height 5 feet 6 inches. Weight is 191 pounds. GENERAL: The patient is a 77-year-old elderly female, moderately built, moderately nourished, not in acute distress. HEENT: Pupils are normal and reactive to light and accommodation. Conjunctivae pink. Sclerae anicteric. Tongue is moist and trachea is midline. LUNGS: Symmetric on both sides. Bilateral breath sounds present. Clear to auscultation. CARDIOVASCULAR SYSTEM: [place] at the fifth intercostal space, midclavicular line. S1 and S2 audible. No murmur or gallop. ABDOMEN: Normal in appearance. Soft, tympanitic. No guarding. No rigidity. No hepatosplenomegaly. CENTRAL NERVOUS SYSTEM: The patient is alert, awake, oriented x3. Cranial nerves II through XII grossly intact. Sensory and motor system is within normal limits. EXTREMITIES: No cyanosis, no clubbing, no edema. CURRENT MEDICATIONS: Include as follows: Albumin 5% 150 g with plasmapheresis tomorrow, hydralazine 25 mg p.o. every 8 hours, Artificial Tears, aspirin 81 mg daily, Crestor 5 mg at bedtime, ferrous sulfate 325 mg p.o. b.i.d., metformin 500 mg p.o. b.i.d., Januvia 50 mg daily, Lovenox 40 mg subcu daily, hydrochlorothiazide 12.5 mg p.o. daily, Pepcid 20 mg daily, Plavix 75 mg daily, Senokot 17.2 mg p.o. at bedtime, Toprol-XL 50 mg p.o. daily, Tylenol, Vasotec 20 mg p.o. daily, and Zofran 4 mg p.o. every 6 hours. LABORATORY DATA: Include as follows: As of 09/16/2018, WBC 8, hemoglobin 9.9, hematocrit is 30.6, platelets 264. Sodium 135, potassium 4.6, chloride 105, CO2 of 21, BUN 24, creatinine 1.2, glucose 157, calcium 8.9, phosphorus 3.1 magnesium 1.9. Total bili 0.3, AST 24, ALT 11, alkaline phosphatase 34, total protein 5.6, albumin is 4.1. ASSESSMENT AND PLAN: In summary, the patient is a 77-year-old elderly female with a history of hypertension, diabetes, hyperlipidemia, coronary artery disease, cerebrovascular accident, status post lumbar laminectomy about five weeks ago who was admitted with a history of weakness in both upper and lower extremities and difficult to ambulate for one week before the patient used to help everybody. As per the patient, this is new. 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 1. 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 The patient received so far two treatments with dramatic improvement so far. Continue third and fourth treatments tomorrow and Tuesday. 2. Hypertension. Blood pressure is stable. Continue her current medications of hydralazine, hydrochlorothiazide, Vasotec and metoprolol. 3. Diabetes. Continue Januvia, metformin and Novolin R per sliding scale. 4. Coronary artery disease, asymptomatic. Continue monitor electrolytes and check prothrombin time, partial thromboplastin time, lactic dehydrogenase, fibrinogen degradation product, and fibrinogen level in the morning. We will follow with you. Thank you for allowing me to participate in your patient's care. Discussed with Dr. Aguilar in rounds. Lidia Bryson MD
--- NOTE | 2018-09-18 07:15 | PN ---
DATE: 09/17/2018 TIME OF EVALUATION: 1:30 p.m. NEUROLOGICAL PROBLEM: Clinical acute inflammatory demyelinating polyradiculopathy, status post 3 out of 4 plasmapheresis. PHYSICAL EXAMINATION: VITAL SIGNS: Blood pressure 153/76, mean arterial pressure 93, respiratory rate 18, temperature 97.9 with a pulse rate of 62. NEUROLOGICAL: The patient is lying down with eyes closed, arousable on calling her name. Mentation is normal. She feels tired following plasmapheresis. No new symptoms or progressive symptoms. She feels stable at this time. RECOMMENDATION: 1. Continue the plasmapheresis as recommended. The patient to get the final plasmapheresis on Tuesday. 2. The patient should get spinal tap to rule out cytoalbuminologic dissociation to make the diagnosis of her acute demyelinating polyradiculopathy. 3. Continue the present management. Gilbert Irene MD
[2018-09-18] MEDS: (Novolin R) Insulin Human Regular 100 units/ml vial SC SCH ×4 (07:30→21:54)
--- NOTE | 2018-09-18 09:11 | PN ---
DATE: 09/18/2018 TIME OF EVALUATION: 7 o'clock a.m. NEUROLOGICAL PROBLEM: Clinical acute inflammatory demyelinating polyradiculopathy. PHYSICAL EXAMINATION: VITAL SIGNS: Blood pressure 111/61 with a mean arterial pressure of 77, respiratory rate 18, pulse rate 61 and regular, temperature 98 Fahrenheit. NEUROLOGIC: The patient is more awake, alert, oriented to person, place, and time. Cranial nerve examinations are normal. Motor Examination, she could able to lift all four extremities against gravity. Strength is much improved compared with previous examination. Deep tendon reflexes are absent throughout from the beginning. Plantars are mute. Sensory examination, bilateral distal symmetric sensorimotor neuropathy. There is no sensory level. The patient is supposed to be off from antiplatelets because of planning to have spinal tap for five days after holding the Plavix, it seems the patient is not off from antiplatelets as recommended. It looks like the patient should be on from cardiac point of view. At this point, spinal tap cannot be performed due to the antiplatelets. PLAN: As per recommendation, the patient can continue plasmapheresis number 4 tomorrow. Then the patient can be moved to the floor and physiotherapy should be initiated to improve her gait. Gilbert Irene MD
[2018-09-18] MEDS: Metoprolol Succinate 50 mg XL Tab PO SCH (09:17)
[2018-09-18] MEDS: Enoxaparin 40 mg Syringe SC SCH (09:23)
--- NOTE | 2018-09-18 10:30 | CP.PCM.PN ---
Subjective - Date & Time of Evaluation Date of Evaluation: 09/18/18 Time of Evaluation: 10:30 - Subjective Subjective: No new complaints. Objective - Vital Signs/Intake and Output Vital Signs (last 24 hours): Temp Pulse Resp BP Pulse Ox 98 F 68 18 148/63 98 09/18/18 04:00 09/18/18 08:00 09/18/18 04:00 09/18/18 09:16 09/18/18 04:00 Intake and Output: 09/18/18 09/18/18 06:59 18:59 Intake Total 240 Balance 240 - Medications Medications: Current Medications Acetaminophen (Tylenol 325mg Tab) 650 mg PO Q6 PRN PRN Reason: Fever >100.4 F Artificial Tears (Artificial Tears) 0.05 ml OU BID PRN PRN Reason: Dry eyes Aspirin (Aspirin Chewable) 81 mg PO DAILY [facility] Last Admin: 09/18/18 09:23 Dose: 81 mg Clopidogrel Bisulfate (Plavix) 75 mg PO DAILY [facility] Last Admin: 09/18/18 09:23 Dose: 75 mg Enalapril Maleate (Vasotec) 20 mg PO DAILY [facility] Last Admin: 09/18/18 09:16 Dose: 20 mg Enoxaparin Sodium (Lovenox) 40 mg SC DAILY [facility] Last Admin: 09/18/18 09:23 Dose: 40 mg Famotidine (Pepcid) 20 mg PO DAILY [facility] Last Admin: 09/18/18 09:16 Dose: 20 mg Ferrous Sulfate (Feosol) 325 mg PO BIDCC [facility] Last Admin: 09/18/18 09:16 Dose: 325 mg Hydralazine HCl (Apresoline) 25 mg PO Q8 [facility] Last Admin: 09/17/18 21:36 Dose: 25 mg Hydrochlorothiazide (Microzide) 12.5 mg PO DAILY [facility] Last Admin: 09/18/18 09:13 Dose: 12.5 mg Insulin Human Regular (Novolin R) 0 unit SC [facility]; Protocol Last Admin: 09/17/18 21:36 Dose: Not Given Metformin HCl (Glucophage) 500 mg PO BIDCC [facility] Last Admin: 09/18/18 08:58 Dose: 500 mg Metoprolol Succinate (Toprol Xl) 50 mg PO DAILY [facility] Last Admin: 09/18/18 09:17 Dose: 50 mg Ondansetron HCl (Zofran Tab) 4 mg PO Q6H PRN PRN Reason: Nausea/Vomiting Rosuvastatin Calcium (Crestor) 5 mg PO HS [facility] Last Admin: 09/17/18 21:36 Dose: 5 mg Sennosides (Senokot Tab) 17.2 mg PO HS [facility] Last Admin: 09/17/18 21:36 Dose: 17.2 mg Sitagliptin Phosphate (Januvia) 50 mg PO DAILY [facility] Last Admin: 09/18/18 09:16 Dose: 50 mg - Labs Labs: 09/18/18 05:36 09/18/18 05:36 PT 13.2 SECONDS (9.7-12.2) H 09/17/18 09:41 INR 1.2 09/17/18 09:41 APTT 38 SECONDS (21-34) H D 09/17/18 09:41 - Head Exam Head Exam: NORMOCEPHALIC - Neck Exam Neck Exam: Normal Inspection - Respiratory Exam Respiratory Exam: NORMAL BREATHING PATTERN - Cardiovascular Exam Cardiovascular Exam: REGULAR RHYTHM - Extremities Exam Extremities Exam: Normal Inspection - Neurological Exam Neurological Exam: Alert, Oriented x3 Assessment and Plan (1) CAD (coronary artery disease) Assessment & Plan: Stable, may proceed with planned procedure with acceptable risk. Continue current care. Status: Acute (2) Atrial fibrillation with RVR Assessment & Plan: Rate control, for procedure will need to hold anticoagulation. Risk/benefits should be explained patient. Status: Acute (3) CVA (cerebral vascular accident) Status: Acute
--- NOTE | 2018-09-18 19:23 | CP.PCM.PN ---
Subjective - Date & Time of Evaluation Date of Evaluation: 09/18/18 Time of Evaluation: 19:22 - Subjective Subjective: pt is seen and examined, follow up consult is dictated #[id number] Objective - Vital Signs/Intake and Output Vital Signs (last 24 hours): Temp Pulse Resp BP Pulse Ox 97.9 F 70 18 148/63 98 09/18/18 16:00 09/18/18 16:00 09/18/18 16:00 09/18/18 09:16 09/18/18 16:00 Intake and Output: 09/18/18 09/19/18 18:59 06:59 Intake Total 1000 Output Total 1100 Balance -100 - Medications Medications: Current Medications Acetaminophen (Tylenol 325mg Tab) 650 mg PO Q6 PRN PRN Reason: Fever >100.4 F Artificial Tears (Artificial Tears) 0.05 ml OU BID PRN PRN Reason: Dry eyes Aspirin (Aspirin Chewable) 81 mg PO DAILY [facility] Last Admin: 09/18/18 09:23 Dose: 81 mg Clopidogrel Bisulfate (Plavix) 75 mg PO DAILY [facility] Last Admin: 09/18/18 09:23 Dose: 75 mg Enalapril Maleate (Vasotec) 20 mg PO DAILY [facility] Last Admin: 09/18/18 09:16 Dose: 20 mg Enoxaparin Sodium (Lovenox) 40 mg SC DAILY [facility] Last Admin: 09/18/18 09:23 Dose: 40 mg Famotidine (Pepcid) 20 mg PO DAILY [facility] Last Admin: 09/18/18 09:16 Dose: 20 mg Ferrous Sulfate (Feosol) 325 mg PO BIDCC [facility] Last Admin: 09/18/18 17:36 Dose: Not Given Hydralazine HCl (Apresoline) 25 mg PO Q8 [facility] Last Admin: 09/18/18 13:30 Dose: 25 mg Hydrochlorothiazide (Microzide) 12.5 mg PO DAILY [facility] Last Admin: 09/18/18 09:13 Dose: 12.5 mg Insulin Human Regular (Novolin R) 0 unit SC [facility]; Protocol Last Admin: 09/18/18 16:30 Dose: Not Given Metformin HCl (Glucophage) 500 mg PO BIDCC [facility] Last Admin: 09/18/18 17:36 Dose: 500 mg Metoprolol Succinate (Toprol Xl) 50 mg PO DAILY [facility] Last Admin: 09/18/18 09:17 Dose: 50 mg Ondansetron HCl (Zofran Tab) 4 mg PO Q6H PRN PRN Reason: Nausea/Vomiting Rosuvastatin Calcium (Crestor) 5 mg PO HS [facility] Last Admin: 09/17/18 21:36 Dose: 5 mg Sennosides (Senokot Tab) 17.2 mg PO HS [facility] Last Admin: 09/17/18 21:36 Dose: 17.2 mg Sitagliptin Phosphate (Januvia) 50 mg PO DAILY [facility] Last Admin: 09/18/18 09:16 Dose: 50 mg - Labs Labs: 09/18/18 05:36 09/18/18 05:36 PT 13.2 SECONDS (9.7-12.2) H 09/17/18 09:41 INR 1.2 09/17/18 09:41 APTT 38 SECONDS (21-34) H D 09/17/18 09:41
--- NOTE | 2018-09-19 03:01 | CP.PCM.PN ---
Subjective - Date & Time of Evaluation Date of Evaluation: 09/18/18 Time of Evaluation: 08:40 - Subjective Subjective: dictated Objective - Vital Signs/Intake and Output Vital Signs (last 24 hours): Temp Pulse Resp BP Pulse Ox 97.8 F 57 L 17 114/43 L 98 09/19/18 00:00 09/19/18 00:00 09/19/18 00:00 09/19/18 00:00 09/19/18 00:00 Intake and Output: 09/18/18 09/19/18 18:59 06:59 Intake Total 1000 Output Total 1100 Balance -100 - Medications Medications: Current Medications Acetaminophen (Tylenol 325mg Tab) 650 mg PO Q6 PRN PRN Reason: Fever >100.4 F Artificial Tears (Artificial Tears) 0.05 ml OU BID PRN PRN Reason: Dry eyes Aspirin (Aspirin Chewable) 81 mg PO DAILY [facility] Last Admin: 09/18/18 09:23 Dose: 81 mg Clopidogrel Bisulfate (Plavix) 75 mg PO DAILY [facility] Last Admin: 09/18/18 09:23 Dose: 75 mg Enalapril Maleate (Vasotec) 20 mg PO DAILY [facility] Last Admin: 09/18/18 09:16 Dose: 20 mg Enoxaparin Sodium (Lovenox) 40 mg SC DAILY [facility] Last Admin: 09/18/18 09:23 Dose: 40 mg Famotidine (Pepcid) 20 mg PO DAILY [facility] Last Admin: 09/18/18 09:16 Dose: 20 mg Ferrous Sulfate (Feosol) 325 mg PO BIDCC [facility] Last Admin: 09/18/18 17:36 Dose: Not Given Hydralazine HCl (Apresoline) 25 mg PO Q8 [facility] Last Admin: 09/18/18 21:30 Dose: 25 mg Hydrochlorothiazide (Microzide) 12.5 mg PO DAILY [facility] Last Admin: 09/18/18 09:13 Dose: 12.5 mg Insulin Human Regular (Novolin R) [address] [facility]; Protocol Last Admin: 09/18/18 21:54 Dose: Not Given Metformin HCl (Glucophage) 500 mg PO BIDCC [facility] Last Admin: 09/18/18 17:36 Dose: 500 mg Metoprolol Succinate (Toprol Xl) 50 mg PO DAILY [facility] Last Admin: 09/18/18 09:17 Dose: 50 mg Ondansetron HCl (Zofran Tab) 4 mg PO Q6H PRN PRN Reason: Nausea/Vomiting Rosuvastatin Calcium (Crestor) 5 mg PO HS [facility] Last Admin: 09/18/18 21:30 Dose: 5 mg Sennosides (Senokot Tab) 17.2 mg PO HS [facility] Last Admin: 09/18/18 21:30 Dose: Not Given Sitagliptin Phosphate (Januvia) 50 mg PO DAILY [facility] Last Admin: 09/18/18 09:16 Dose: 50 mg - Labs Labs: 09/18/18 05:36 09/18/18 05:36 PT 13.2 SECONDS (9.7-12.2) H 09/17/18 09:41 INR 1.2 09/17/18 09:41 APTT 38 SECONDS (21-34) H D 09/17/18 09:41
--- NOTE | 2018-09-19 06:59 | PN ---
DATE: 09/18/2018 FOLLOWUP RENAL CONSULTATION LOCATION: The patient is located in room 14, bed A. 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 SUBJECTIVE: Mrs. 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 Irene. The patient was started on plasmapheresis after Nuno catheter placement by clinical team lead on Tuesday and received plasmapheresis Tuesday, Tuesday and Tuesday. The patient is scheduled for the fourth and final treatment on Tuesday. The patient denies any headache, dizziness. Denies any chest pain or palpitation. Denies any nausea, vomiting, diarrhea. The patient is able to go out of bed to chair by herself today. No edema of the legs. PHYSICAL EXAMINATION: VITAL SIGNS: As follows, blood pressure 146/79, pulse 70, respirations 18, temperature 97.9, saturation 98%. Height 5 feet 6 inches and weight is 191 pounds. GENERAL: Mrs. Pizarro is a 77-year-old elderly, obese female, moderately built, moderately nourished, not in acute distress. HEENT: Pupils normal, reactive to light and accommodation. Conjunctivae pink. Sclerae anicteric. Tongue is moist and trachea is midline. LUNGS: Symmetric on both sides. Bilateral breath sounds present. Clear to auscultation. CVS: [place] at the fifth intercostal space, midclavicular line. S1 and S2 audible. No murmur or gallop. ABDOMEN: Normal in appearance. Soft, tympanitic. No guarding. No rigidity. No hepatosplenomegaly. GENERAL PRODUCTION MANAGER: The patient is alert, awake, oriented x3. Nonfocal neuro examination. Cranial nerves II-XII grossly intact. Sensory and motor system is within normal limits. EXTREMITIES: No cyanosis, no clubbing, no edema. CURRENT MEDICATIONS: Include as follows, hydralazine, artificial tears, aspirin 81 mg daily, Crestor 5 mg at bedtime, ferrous sulfate 325 mg p.o. b.i.d., metformin 500 mg p.o. b.i.d., Januvia 50 mg daily, Lovenox 40 mg subcu daily, hydrochlorothiazide 12.5 mg p.o. daily, Pepcid 20 mg p.o. daily, Plavix 75 mg daily, Senokot 17.2 mg p.o. at bedtime, metoprolol 50 mg p.o. daily, Tylenol, Vasotec 20 mg p.o. daily, Zofran 4 mg p.o. every 6 hours p.r.n. LABORATORY DATA: Include as follows, as of 09/18/2018, WBC 7.8, hemoglobin 9.8, hematocrit is 30.3 and platelets 230. Sodium 137, potassium is 5, chloride 110, CO2 of 18, BUN 21, creatinine 1.1, glucose 132, calcium 8.7, phosphorus 3.5, magnesium 1.8. Total bili 0.3, AST 30, ALT 16, alkaline phosphatase 29, total protein is 5.2, albumin is 3.7. MRSA screening was negative as of 09/15/2018. ASSESSMENT AND PLAN: In summary, Mrs. 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 I am recommending plasmapheresis, started on plasmapheresis. The patient received three treatments so far. 1. 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 2. Hypertension. 3. Diabetes. 4. Coronary artery disease, status post stent placement. PLAN: Continue total of four plasma exchanges, final one tomorrow, and we will check labs in a.m., CBC, CMP, haptoglobin, LDH, fibrinogen, FDP. We will follow with you. Thank you for allowing me to participate in your patient's care. Case discussed with Dr. Amanuel Aguilar in rounds this evening. Lidia Bryson MD [facility] # [id number]
--- NOTE | 2018-09-19 07:22 | PN ---
DATE: 09/18/2018 SUBJECTIVE: The patient's is improving. She is afebrile. She is on plasmapheresis. No fever. No chills. PHYSICAL EXAMINATION: VITAL SIGNS: Blood pressure 112/52, pulse 64, respiratory rate 19, temperature 97.6. LUNGS: Clear. CARDIOVASCULAR SYSTEM: S1, S2 regular. ABDOMEN: Soft. 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 2. Diabetes. 3. Hypertension. PLAN: Physical therapy. Plasmapheresis tomorrow morning. Monitor the patient. Amanuel Aguilar MD
--- NOTE | 2018-09-19 08:00 | CP.PCM.CON ---
History of Present Illness - History of Present Illness History of Present Illness: Consult note for Dr. Delgado. HPI: Patient is a 77 F with PMHx of DM, HTN, HLD, CAD s/p 2 stents (2005), CVA (2017) admitted for acute demyelinating polyradiculopathy. Surgery consulted for shiley catheter placement for plasmaphoresis therapy. Patient states she had a catheter in the R groin, however she in advertently pulled in out while tossing and turning in her sleep last night. Patient denies bleeding, chest pain, SOB, nausea, vomiting, headaches, fevers, chills. PMHx: DM, HTN, HLD, Afib, CAD s/p 2 stents (2005), CVA (2018) PSHx: lumbar Lamenectomy 2019, cardiac stents x2 2005 Meds: See EMR Allergies: gabapentin, pregabalin- dizziness Social: Denies tobacco, alcohol, drugs Family Hx:Denies Review of Systems - Review of Systems All systems: reviewed and no additional remarkable complaints except (as per HPI) Past Patient History - Infectious Disease Hx of Infectious Diseases: None - Past Medical History & Family History Past Medical History?: Yes - Past Social History Smoking Status: Never Smoked - CARDIAC Hx Hypercholesterolemia: Yes Hx Hypertension: Yes - PULMONARY Hx Respiratory Disorders: No - NEUROLOGICAL Hx Seizures: Yes (childhood) - HEENT Other/Comment: WEARS GLASSES - RENAL Hx Chronic Kidney Disease: No - ENDOCRINE/METABOLIC Hx Diabetes Mellitus Type 2: Yes - HEMATOLOGICAL/ONCOLOGICAL Hx Blood Disorders: No - INTEGUMENTARY Hx Dermatological Problems: No - MUSCULOSKELETAL/RHEUMATOLOGICAL Hx Arthritis: Yes - GASTROINTESTINAL Hx Gastrointestinal Disorders: No - GENITOURINARY/GYNECOLOGICAL Hx Genitourinary Disorders: No - PSYCHIATRIC Hx Substance Use: No - SURGICAL HISTORY Hx Coronary Stent: Yes (3) - ANESTHESIA Hx Anesthesia: Yes (Novacaine during tooth extraction) Hx Anesthesia Reactions: No Hx Malignant Hyperthermia: No Meds Allergies/Adverse Reactions: Allergies Allergy/AdvReac Type Severity Reaction Status Date / Time gabapentin AdvReac Verified 07/24/18 13:57 pregabalin [From Lyrica] AdvReac Verified 07/24/18 13:57 - Medications Medications: Current Medications Acetaminophen (Tylenol 325mg Tab) 650 mg PO Q6 PRN PRN Reason: Fever >100.4 F Artificial Tears (Artificial Tears) 0.05 ml OU BID PRN PRN Reason: Dry eyes Aspirin (Aspirin Chewable) 81 mg PO DAILY [facility] Last Admin: 09/18/18 09:23 Dose: 81 mg Clopidogrel Bisulfate (Plavix) 75 mg PO DAILY [facility] Last Admin: 09/18/18 09:23 Dose: 75 mg Enalapril Maleate (Vasotec) 20 mg PO DAILY [facility] Last Admin: 09/18/18 09:16 Dose: 20 mg Enoxaparin Sodium (Lovenox) 40 mg SC DAILY [facility] Last Admin: 09/18/18 09:23 Dose: 40 mg Famotidine (Pepcid) 20 mg PO DAILY [facility] Last Admin: 09/18/18 09:16 Dose: 20 mg [facility] Last Admin: 09/18/18 17:36 Dose: Not Given Hydralazine HCl (Apresoline) 25 mg PO Q8 [facility] Last Admin: 09/18/18 21:30 Dose: 25 mg Hydrochlorothiazide (Microzide) 12.5 mg PO DAILY [facility] Last Admin: 09/18/18 09:13 Dose: 12.5 mg Insulin Human Regular (Novolin R) 0 unit SC [facility]; Protocol Last Admin: 09/18/18 21:54 Dose: Not Given [facility] Last Admin: 09/18/18 17:36 Dose: 500 mg Metoprolol Succinate (Toprol Xl) 50 mg PO DAILY [facility] Last Admin: 09/18/18 09:17 Dose: 50 mg Ondansetron HCl (Zofran Tab) 4 mg PO Q6H PRN PRN Reason: Nausea/Vomiting Rosuvastatin Calcium (Crestor) 5 mg PO [facility] Last Admin: 09/18/18 21:30 Dose: 5 mg Sennosides (Senokot Tab) 17.2 mg PO [facility] Last Admin: 09/18/18 21:30 Dose: Not Given Sitagliptin Phosphate (Januvia) 50 mg PO DAILY [facility] Last Admin: 09/18/18 09:16 Dose: 50 mg Physical Exam - Constitutional Appears: Non-toxic, No Acute Distress - Head Exam Head Exam: ATRAUMATIC, NORMOCEPHALIC - Eye Exam Eye Exam: EOMI, Normal appearance, PERRL - ENT Exam ENT Exam: Mucous Membranes Moist - Neck Exam Neck exam: Positive for: Normal Inspection - Respiratory Exam Respiratory Exam: Clear to Auscultation Bilateral, NORMAL BREATHING PATTERN. absent: Accessory Muscle Use, Rales, Rhonchi, Wheezes, Respiratory Distress - Cardiovascular Exam Cardiovascular Exam: REGULAR RHYTHM, +S1, +S2 - GI/Abdominal Exam GI & Abdominal Exam: Soft. absent: Tenderness - Extremities Exam Extremities exam: Positive for: full ROM, normal inspection. Negative for: calf tenderness, pedal edema - Neurological Exam Neurological exam: Alert, Oriented x3 - Psychiatric Exam Psychiatric exam: Normal Affect, Normal Mood - Skin Skin Exam: Dry, Normal Color, Warm Additional comments: Pressure dressing to R groin c/d/i. Results - Vital Signs Recent Vital Signs: Last Vital Signs Temp 97.5 F L 09/19/18 04:00 Pulse 62 09/19/18 04:00 Resp 18 09/19/18 04:00 BP 120/62 09/19/18 04:00 Pulse Ox 99 09/19/18 04:00 - Labs Result Diagrams: 09/21/18 06:48 09/21/18 06:48 Labs: Laboratory Results - last 24 hr 09/18/18 09/18/18 09/18/18 11:28 16:16 21:35 POC Glucose (mg/dL) 208 H 102 149 H Assessment & Plan - Assessment and Plan (Free Text) Assessment: 77 year old female with acute demyelinating polyradiculopathy, requires plasmaphoresis access site. Plan: -OR for insertion of shiley catheter Further recs as per Dr. Delgado. Esther Andrade, PGY-1
[2018-09-19] MEDS: (Novolin R) Insulin Human Regular 100 units/ml vial SC SCH ×4 (08:55→23:36)
[2018-09-19] MEDS: Metoprolol Succinate 50 mg XL Tab PO SCH (09:37)
[2018-09-19] MEDS: Enoxaparin 40 mg Syringe SC SCH (09:37)
[2018-09-19 11:10] LABS: BASO # 0.1 K/uL (0.0-0.2); BASO % 0.7 % (0.0-2.0); EOS # 0.2 K/uL (0.0-0.7); EOS % 2.3 % (0.0-4.0); HEMOGLOBIN 10.7 g/dL (11.0-16.0); LYMPH # 0.8 K/uL (1.0-4.3); LYMPH % 10.9 % (20.0-40.0); MEAN CELL VOLUME 96.2 fL (81.0-99.0); MEAN CORPUSCULAR HEMOGLOBIN 31.3 pg (27.0-31.0); MEAN CORPUSCULAR HGB CONC 32.5 g/dL (33.0-37.0); MEAN PLATELET VOLUME 9.9 fL (7.2-11.7); MONO # 0.5 K/uL (0.0-0.8); MONO % 6.3 % (0.0-10.0); NEUT # 6.2 K/uL (1.8-7.0); NEUT % 79.8 % (50.0-75.0); RBC 3.41 Mil/uL (3.80-5.20); RED CELL DISTRIBUTION WIDTH 15.4 % (11.5-14.5); WHITE BLOOD COUNT 7.8 K/uL (4.8-10.8)
[2018-09-19 11:13] LABS: PROTHROMBIN TIME 10.9 SECONDS (9.7-12.2)
--- NOTE | 2018-09-19 11:18 | CP.PCM.PN ---
Subjective - Date & Time of Evaluation Date of Evaluation: 09/19/18 Time of Evaluation: 11:17 - Subjective Subjective: pt is seen and examined, follow up consult is dictated #[id number] pt's fv cath came out accidentally, need new fv cath for [address] asmapheresis today surgery consult for fred cath check labs Objective - Vital Signs/Intake and Output Vital Signs (last 24 hours): Temp Pulse Resp BP Pulse Ox 98.5 F 77 15 138/74 99 09/19/18 08:00 09/19/18 08:00 09/19/18 08:00 09/19/18 09:38 09/19/18 04:00 Intake and Output: 09/19/18 09/19/18 06:59 18:59 Intake Total 200 Balance 200 - Medications Medications: Current Medications Acetaminophen (Tylenol 325mg Tab) 650 mg PO Q6 PRN PRN Reason: Fever >100.4 F Albumin Human (Albumin Human 5% (12.5 Gm/250 Ml)) 150 gm IV ONCE ONE Stop: 09/19/18 11:17 Artificial Tears (Artificial Tears) 0.05 ml OU BID PRN PRN Reason: Dry eyes Aspirin (Aspirin Chewable) 81 mg PO DAILY [facility] Last Admin: 09/19/18 09:37 Dose: 81 mg Clopidogrel Bisulfate (Plavix) 75 mg PO DAILY [facility] Last Admin: 09/19/18 09:37 Dose: 75 mg Enalapril Maleate (Vasotec) 20 mg PO DAILY [facility] Last Admin: 09/19/18 09:38 Dose: 20 mg Famotidine (Pepcid) 20 mg PO DAILY [facility] Last Admin: 09/19/18 09:37 Dose: 20 mg Ferrous Sulfate (Feosol) 325 mg PO BIDCC [facility] Last Admin: 09/19/18 08:55 Dose: 325 mg Hydralazine HCl (Apresoline) 25 mg PO Q8 [facility] Last Admin: 09/19/18 08:55 Dose: 25 mg Hydrochlorothiazide (Microzide) 12.5 mg PO DAILY [facility] Last Admin: 09/19/18 09:38 Dose: 12.5 mg Insulin Human Regular (Novolin R) 0 unit SC [facility]; Protocol Last Admin: 09/19/18 08:55 Dose: Not Given [facility] Last Admin: 09/19/18 08:55 Dose: 500 mg Metoprolol Succinate (Toprol Xl) 50 mg PO DAILY [facility] Last Admin: 09/19/18 09:37 Dose: 50 mg Ondansetron HCl (Zofran Tab) 4 mg PO Q6H PRN PRN Reason: Nausea/Vomiting Rosuvastatin Calcium (Crestor) 5 mg PO HS [facility] Last Admin: 09/18/18 21:30 Dose: 5 mg Sennosides (Senokot Tab) 17.2 mg PO [facility] Last Admin: 09/18/18 21:30 Dose: Not Given Sitagliptin Phosphate (Januvia) 50 mg PO DAILY [facility] Last Admin: 09/19/18 09:38 Dose: 50 mg - Labs Labs: 09/19/18 10:51 09/18/18 05:36 PT 10.9 SECONDS (9.7-12.2) 09/19/18 10:51 INR 1.0 09/19/18 10:51 APTT 33 SECONDS (21-34) D 09/19/18 10:51
[2018-09-19 11:31] LABS: CALCIUM 9.3 mg/dl (8.6-10.4)
--- NOTE | 2018-09-19 15:26 | EEG ---
DATE: 09/19/2018 This is a 16-channel electroencephalogram of awake and drowsy adult. During the study, photic stimulation was performed, hyperventilation was not performed. The resting electroencephalogram consists of 20 to 30 microvolt diffuse 5 to 6 Hz theta activity seen at parietal and occipital leads. fast activities superimposed with 2 to 3 Hz delta activity seen at frontal and central leads. This slow activity is continuously noted from the beginning. There is intermittent movement artifact and contaminated movement artifact and blinking artifact contaminated the background rhythm. Photic stimulation did not evoke driving response noted at 2 to 20 Hz. IMPRESSION: This is an abnormal electroencephalogram because of persistent slowing throughout the record suggestive of bilateral cerebral dysfunction. This is probably secondary to metabolic, vascular, or degenerative process. Please correlate the findings with the neurological and radiological studies. Gilbert Irene MD
[2018-09-19] MEDS ORDERED: ceFAZolin 1 gm in NS 1 GM/100 ML BAG IVPB ONE (16:29)
[2018-09-19] MEDS ORDERED: Lidocaine Hydrochloride 10 ML INJ ONE (16:29)
[2018-09-19] MEDS ORDERED: HEPARIN-NS 5,000 UNITS/500 ML 5,000 UNIT/500 ML BAG IV ONE (16:30)
[2018-09-19] MEDS ORDERED: Iohexol 240 (50 ml) ONE (17:18)
--- NOTE | 2018-09-19 17:43 | PCM.SURG1 ---
Surgeon's Initial Post Op Note - Surgeon's Notes Surgeon: MD [employer] Coordinator: Paulette, PGY3 Pre-Operative Diagnosis: Need for plasmapheresis, Gullaine-Hoskins Operative Findings: Right IJ Post-Operative Diagnosis: Need for plasmapheresis, Gullaine-Hoskins Operation Performed: Right IJ Shiley placement Specimen/Specimens Removed: none Estimated Blood Loss: EBL {In ML}: 5 Date of Surgery/Procedure: 09/19/18 Time of Surgery/Procedure: 17:00
--- NOTE | 2018-09-19 18:48 | RAD ---
Date of service: 09/19/2018 HISTORY: s/p right IJ Shiley COMPARISON: 09/11/2018. FINDINGS: LUNGS: No active pulmonary disease. PLEURA: No significant pleural effusion identified, no pneumothorax apparent. CARDIOVASCULAR: No atherosclerotic calcification present Satisfactory position of right IJ venous access catheter. The tip is in the SVC. No pneumothorax identified. OSSEOUS STRUCTURES: No significant abnormalities. VISUALIZED UPPER ABDOMEN: Normal. OTHER FINDINGS: None. IMPRESSION: Satisfactory position of venous access/dialysis catheter. No active pulmonary disease. No interval change compared to 09/11/2018.
[2018-09-19] MEDS ORDERED: Albumin Human 5% (25 gm/500 ml) IVPB SCH (20:30)
--- NOTE | 2018-09-19 20:58 | CP.PCM.PN ---
Subjective - Date & Time of Evaluation Date of Evaluation: 09/19/18 Time of Evaluation: 08:20 - Subjective Subjective: dictated Objective - Vital Signs/Intake and Output Vital Signs (last 24 hours): Temp Pulse Resp BP Pulse Ox 97.2 F L 64 10 L 150/66 100 09/19/18 18:55 09/19/18 18:55 09/19/18 18:55 09/19/18 18:55 09/19/18 18:55 Intake and Output: 09/19/18 09/20/18 18:59 06:59 Intake Total 353 Balance 353 - Medications Medications: Current Medications Acetaminophen (Tylenol 325mg Tab) 650 mg PO Q6 PRN PRN Reason: Fever >100.4 F Acetaminophen (Tylenol 325mg Tab) 650 mg PO ONCE ONE Stop: 09/19/18 21:01 Albumin Human ([place]in 5% 500 Ml) 500 ml IVPB Q30M [facility] Stop: 09/19/18 23:01 Artificial Tears (Artificial Tears) 0.05 ml OU BID PRN PRN Reason: Dry eyes Aspirin (Aspirin Chewable) 81 mg PO DAILY [facility] Last Admin: 09/19/18 09:37 Dose: 81 mg Clopidogrel Bisulfate (Plavix) 75 mg PO DAILY [facility] Last Admin: 09/19/18 09:37 Dose: 75 mg Diphenhydramine HCl (Benadryl) 25 mg PO ONCE ONE Stop: 09/19/18 21:01 Enalapril Maleate (Vasotec) 20 mg PO DAILY [facility] Last Admin: 09/19/18 09:38 Dose: 20 mg Famotidine (Pepcid) 20 mg PO DAILY [facility] Last Admin: 09/19/18 09:37 Dose: 20 mg Ferrous Sulfate (Feosol) 325 mg PO BIDCC [facility] Last Admin: 09/19/18 08:55 Dose: 325 mg Hydralazine HCl (Apresoline) 25 mg PO Q8 [facility] Last Admin: 09/19/18 13:11 Dose: 25 mg Hydrochlorothiazide (Microzide) 12.5 mg PO DAILY [facility] Last Admin: 09/19/18 09:38 Dose: 12.5 mg Calcium Gluconate 9.3 meq/ (Sodium Chloride) 270 mls @ 135 mls/hr IV ONCE ONE Stop: 09/19/18 23:29 Insulin Human Regular (Novolin R) 0 unit SC [facility]; Protocol Last Admin: 09/19/18 12:05 Dose: Not Given Metformin HCl (Glucophage) 500 mg PO BIDCC [facility] Last Admin: 09/19/18 08:55 Dose: 500 mg Methylprednisolone (Solu-Medrol) 40 mg IVP ONCE ONE Stop: 09/19/18 21:01 Metoprolol Succinate (Toprol Xl) 50 mg PO DAILY [facility] Last Admin: 09/19/18 09:37 Dose: 50 mg Ondansetron HCl (Zofran Tab) 4 mg PO Q6H PRN PRN Reason: Nausea/Vomiting Rosuvastatin Calcium (Crestor) 5 mg PO HS [facility] Last Admin: 09/18/18 21:30 Dose: 5 mg Sennosides (Senokot Tab) 17.2 mg PO HS [facility] Last Admin: 09/18/18 21:30 Dose: Not Given Sitagliptin Phosphate (Januvia) 50 mg PO DAILY [facility] Last Admin: 09/19/18 09:38 Dose: 50 mg - Labs Labs: 09/19/18 10:51 09/19/18 10:51 PT 10.9 SECONDS (9.7-12.2) 09/19/18 10:51 INR 1.0 09/19/18 10:51 APTT 33 SECONDS (21-34) D 09/19/18 10:51
[2018-09-19] MEDS ORDERED: MethylPREDNISolone 40 mg Vial IVP ONE (21:00)
[2018-09-19] MEDS ORDERED: Calcium Gluconate 9.3 MEQ in Sodium Chloride 0.9% 250 ML IV ONE (21:30)
[2018-09-20 01:56] VITALS: RESP 20
--- NOTE | 2018-09-20 02:31 | PN ---
DATE: 09/19/2018 SUBJECTIVE: The patient is improving. She is on physiotherapy. She is afebrile. No shortness of breath. No chest pain. No nausea or vomiting. She is ambulating. PHYSICAL EXAMINATION: VITAL SIGNS: BP 150/66, pulse 64, respiratory rate 13, and temperature 97.2. LUNGS: Clear. No rales. No rhonchi. CARDIOVASCULAR SYSTEM: S1 and S2 are regular. ABDOMEN: Soft. EXTREMITIES: The patient has numbness in the feet. 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 2. Hypertension. 3. Diabetes. PLAN: Physical therapy. Rehab. The patient is status post plasmapheresis #4. Amanuel Aguilar MD
--- NOTE | 2018-09-20 02:59 | PN ---
DATE: 09/19/2018 FOLLOWUP RENAL CONSULTATION LOCATION: The patient is located in room 657, bed A. REQUESTED BY: Amanuel Aguilar MD REASON FOR FOLLOWUP: Guillain-Petrolia syndrome, continuation of plasmapheresis. HISTORY OF PRESENT ILLNESS: Mrs. 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 The patient is feeling much better after plasmapheresis. No chest pain or palpitation. No fever. No cough. No abdominal pain. No nausea, vomiting, diarrhea. The patient's femoral catheter came out accidentally this morning, no active bleeding. Denies any complaints. PHYSICAL EXAMINATION: VITAL SIGNS: As follows: Blood pressure 138/74, pulse 77, respirations about 15, temperature 98.5, saturation 99%. Height 5 feet 6 inches, weight is 191 pounds. GENERAL: Mrs. Pizarro is a 77-year-old elderly female, moderately built, moderately nourished, not in acute distress. HEENT: Pupils normal and reactive to light and accommodation. Conjunctiva pink. Sclerae anicteric. Tongue is moist. Trachea is midline. LUNGS: Symmetric on both sides. Bilateral breath sounds present. Clear to auscultation. CARDIOVASCULAR SYSTEM: [place] at the fifth intercostal space, midclavicular line. S1, S2 audible. No murmur or gallop. ABDOMEN: Normal in appearance. Soft, tympanitic. No guarding. No rigidity. No hepatosplenomegaly. CENTRAL NERVOUS SYSTEM: The patient is alert, awake, oriented x3. Nonfocal neuro examination. Cranial nerves II through XII grossly intact. Sensory and motor system is within normal limits. EXTREMITIES: No cyanosis, no clubbing, no edema. CURRENT MEDICATIONS: Include as follows: Hydralazine 25 mg p.o. every 8 hours, Artificial Tears, aspirin 81 mg p.o. daily, calcium gluconate IV x1, Crestor 5 mg p.o. at bedtime, Feosol 325 mg p.o. b.i.d., metformin 500 mg p.o. b.i.d., Januvia 50 mg p.o. daily, hydrochlorothiazide 12.5 mg p.o. daily, Pepcid 20 mg p.o. daily, Plavix 75 mg daily, Senokot 17.2 mg p.o. at bedtime, Toprol XL 50 mg p.o. daily, Tylenol, Vasotec 20 mg p.o. daily, Zofran 4 mg p.o. every 6 hours. LABORATORY DATA: Include as follows: As of 09/18/2018, WBC 7.8, hemoglobin 9.8, hematocrit is 30.3, platelets 230. Other laboratory data as of 09/19/2018, WBC 7.8, hemoglobin 10.7, hematocrit 32.8, platelets 250. PT 10.9, PTT 33. Fibrinogen 247. Sodium 138, potassium 5.1, chloride 107, CO2 of 19, BUN 21, creatinine 1.1, glucose 187, calcium is 9.3 and haptoglobin is 107.4. IMPRESSION: In summary, Mrs. 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 Gilbert Irene, and recommended plasmapheresis immediately, started on plasmapheresis on Tuesday. The patient received so far three treatments of plasmapheresis Tuesday, Tuesday, and Tuesday, and scheduled to receive fourth treatments today, and accidentally, pulled out the femoral catheter and scheduled for another catheter by Surgery this afternoon. 1. Guillain-Petrolia syndrome. 2. Hypertension. 3. Diabetes. 4. Coronary artery disease. PLAN: Surgery consult for new Nuno catheter placement, for final treatment of plasmapheresis today. Electrolytes, PT/PTT, fibrinogen, and haptoglobin was ordered which returned within normal limits. Plan for plasmapheresis after the Nuno catheter placement. Thank you for allowing me to participate in your patient's care and follow with Neurology for further management. Lidia Bryson MD
--- NOTE | 2018-09-20 05:33 | OP ---
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 PROCEDURE CARRIED OUT: Placement of Shiley catheter, right jugular vein through ultrasound guidance and C-arm fluoroscopy for plasmapheresis. SURGEON: Tyrese Delgado Jr., MD [employer] AGENT: . ANESTHESIOLOGIST: Yogesh Carey MD INDICATIONS: The patient is 77-year-old woman with history of spine surgery, presents with upper extremity weakness, suspected Guillain-Billings, plan is for plasmapheresis. OPERATIVE FINDINGS: Plasmapheresis catheter was inserted uneventfully. DESCRIPTION OF PROCEDURE: The patient was given local anesthesia as well as intravenous sedation and intravenous antibiotics. The jugular vein was punctured. Under fluoroscopic control, this was exchanged for an 0.035 wire and then subsequently a catheter was deployed in this position via the jugular vein. Flushed with heparinized saline with good return. Tyrese Delgado Jr., MD
[2018-09-20] MEDS: (Novolin R) Insulin Human Regular 100 units/ml vial SC SCH ×4 (08:07→21:19)
[2018-09-20] MEDS: Metoprolol Succinate 50 mg XL Tab PO SCH (10:09)
--- NOTE | 2018-09-20 10:36 | PN ---
DATE: 09/20/2018 NEUROLOGICAL PROBLEM: Acute inflammatory demyelinating polyradiculopathy, status post plasmapheresis x4. PHYSICAL EXAMINATION: VITAL SIGNS: Blood pressure 99/58, mean arterial pressure of 71, respiratory rate 18, pulse rate is 55, temperature 97.6. GENERAL: The patient is sleepy, arousable. No new symptoms. Examination is unchanged compared with previous examination. The patient should be out of the bed, and physiotherapy should be initiated as early as possible. If medically stable, the patient can be discharged to acute rehabilitation to improve her gait and strength. Gilbert Irene MD
--- NOTE | 2018-09-20 11:33 | RAD ---
Date of service: 09/19/2018 PROCEDURE: Intraoperative Fluoroscopy. HISTORY: RENAL FAILURE FINDINGS: Fluoroscopic assistance was provided. Fluoroscopy time = 28.0 sec. Radiation dose = 6.87 mGy. Please refer to the operative report from NABIL George.
--- NOTE | 2018-09-20 17:29 | CP.PCM.PN ---
Subjective - Date & Time of Evaluation Date of Evaluation: 09/20/18 Time of Evaluation: 10:35 - Subjective Subjective: Surgery progress note for Dr. Delgado pt seen and examined at bedside this AM. No adverse event overnight. Received her last plasmapheresis through new catheter last night without complication. Denies any chest pain, SOB, or fevers, admits minimal pain at catheter site Objective - Vital Signs/Intake and Output Vital Signs (last 24 hours): Temp Pulse Resp BP Pulse Ox 98.1 F 68 20 127/72 99 09/20/18 15:00 09/20/18 15:00 09/20/18 15:00 09/20/18 15:00 09/20/18 15:00 Intake and Output: 09/20/18 09/20/18 06:59 18:59 Intake Total 120 350 Balance 120 350 - Medications Medications: Current Medications Acetaminophen (Tylenol 325mg Tab) 650 mg PO Q6 PRN PRN Reason: Fever >100.4 F Artificial Tears (Artificial Tears) 0.05 ml OU BID PRN PRN Reason: Dry eyes Aspirin (Aspirin Chewable) 81 mg PO DAILY [facility] Last Admin: 09/20/18 10:10 Dose: 81 mg Clopidogrel Bisulfate (Plavix) 75 mg PO DAILY [facility] Last Admin: 09/20/18 10:09 Dose: Not Given Enalapril Maleate (Vasotec) 20 mg PO DAILY [facility] Last Admin: 09/20/18 10:08 Dose: 20 mg Famotidine (Pepcid) 20 mg PO DAILY [facility] Last Admin: 09/20/18 10:10 Dose: 20 mg Ferrous Sulfate (Feosol) 325 mg PO BIDCC [facility] Last Admin: 09/20/18 08:15 Dose: 325 mg Hydralazine HCl (Apresoline) 25 mg PO Q8 [facility] Last Admin: 09/20/18 15:00 Dose: 25 mg Hydrochlorothiazide (Microzide) 12.5 mg PO DAILY [facility] Last Admin: 09/20/18 10:10 Dose: 12.5 mg Insulin Human Regular (Novolin R) 0 unit SC [facility]; Protocol Last Admin: 09/20/18 12:38 Dose: 2 unit Metformin HCl (Glucophage) 500 mg PO BIDCC [facility] Last Admin: 09/20/18 08:15 Dose: 500 mg Metoprolol Succinate (Toprol Xl) 50 mg PO DAILY [facility] Last Admin: 09/20/18 10:09 Dose: 50 mg Ondansetron HCl (Zofran Tab) 4 mg PO Q6H PRN PRN Reason: Nausea/Vomiting Rosuvastatin Calcium (Crestor) 5 mg PO HS [facility] Last Admin: 09/19/18 21:57 Dose: 5 mg Sennosides (Senokot Tab) 17.2 mg PO HS [facility] Last Admin: 09/19/18 21:58 Dose: 17.2 mg Sitagliptin Phosphate (Januvia) 50 mg PO DAILY [facility] Last Admin: 09/20/18 10:09 Dose: 50 mg - Labs Labs: 09/19/18 10:51 09/19/18 10:51 PT 10.9 SECONDS (9.7-12.2) 09/19/18 10:51 INR 1.0 09/19/18 10:51 APTT 33 SECONDS (21-34) D 09/19/18 10:51 - Constitutional Appears: Well, Non-toxic, No Acute Distress - Head Exam Head Exam: ATRAUMATIC, NORMOCEPHALIC - Eye Exam Eye Exam: Conjunctival injection, Normal appearance. absent: Scleral icterus - ENT Exam ENT Exam: Mucous Membranes Moist, Normal Oropharynx - Neck Exam Additional comments: catheter in place in the right IJ, with no surrounding erythema, drainage, or bleeding - Respiratory Exam Respiratory Exam: NORMAL BREATHING PATTERN. absent: Accessory Muscle Use, Respiratory Distress - Cardiovascular Exam Cardiovascular Exam: RRR - GI/Abdominal Exam GI & Abdominal Exam: Soft. absent: Distended, Tenderness - Extremities Exam Extremities Exam: absent: Calf Tenderness, Pedal Edema, Tenderness - Neurological Exam Neurological Exam: Alert, Awake, Oriented x3 - Psychiatric Exam Psychiatric exam: Normal Affect, Normal Mood - Skin Skin Exam: Dry, Normal Color, Warm Assessment and Plan - Assessment and Plan (Free Text) Assessment: 77F POD#1 s/p insertion of shiley catheter in the right IJ for plasmapheresis Plan: Continue medical management per primary Will remove shiley if primary decides it is no longer necessary Otherwise no further intervention from surgery standpoint Discussed with Dr. Danny Rivero, PGY2
--- NOTE | 2018-09-20 18:41 | CP.PCM.PN ---
Subjective - Date & Time of Evaluation Date of Evaluation: 09/20/18 Time of Evaluation: 18:40 - Subjective Subjective: pt is seen and examinsed, follow up consult is dictated #[id number] s/p completion of 4 TX of TPE d/c rt ijv fred catheter will sign off thw case Objective - Vital Signs/Intake and Output Vital Signs (last 24 hours): Temp Pulse Resp BP Pulse Ox 98.1 F 68 20 127/72 99 09/20/18 15:00 09/20/18 15:00 09/20/18 15:00 09/20/18 15:00 09/20/18 15:00 Intake and Output: 09/20/18 09/20/18 06:59 18:59 Intake Total 120 350 Balance 120 350 - Medications Medications: Current Medications Acetaminophen (Tylenol 325mg Tab) 650 mg PO Q6 PRN PRN Reason: Fever >100.4 F Artificial Tears (Artificial Tears) 0.05 ml OU BID PRN PRN Reason: Dry eyes Aspirin (Aspirin Chewable) 81 mg PO DAILY [facility] Last Admin: 09/20/18 10:10 Dose: 81 mg Clopidogrel Bisulfate (Plavix) 75 mg PO DAILY [facility] Last Admin: 09/20/18 10:09 Dose: Not Given Enalapril Maleate (Vasotec) 20 mg PO DAILY [facility] Last Admin: 09/20/18 10:08 Dose: 20 mg Famotidine (Pepcid) 20 mg PO DAILY [facility] Last Admin: 09/20/18 10:10 Dose: 20 mg Ferrous Sulfate (Feosol) 325 mg PO BIDCC [facility] Last Admin: 09/20/18 17:53 Dose: 325 mg Hydralazine HCl (Apresoline) 25 mg PO Q8 [facility] Last Admin: 09/20/18 15:00 Dose: 25 mg Hydrochlorothiazide (Microzide) 12.5 mg PO DAILY [facility] Last Admin: 09/20/18 10:10 Dose: 12.5 mg Insulin Human Regular (Novolin R) 0 unit SC [facility]; Protocol Last Admin: 09/20/18 17:52 Dose: 2 unit Metformin HCl (Glucophage) 500 mg PO BIDCC [facility] Last Admin: 09/20/18 17:52 Dose: 500 mg Metoprolol Succinate (Toprol Xl) 50 mg PO DAILY [facility] Last Admin: 09/20/18 10:09 Dose: 50 mg Ondansetron HCl (Zofran Tab) 4 mg PO Q6H PRN PRN Reason: Nausea/Vomiting Rosuvastatin Calcium (Crestor) 5 mg PO HS [facility] Last Admin: 09/19/18 21:57 Dose: 5 mg Sennosides (Senokot Tab) 17.2 mg PO HS [facility] Last Admin: 09/19/18 21:58 Dose: 17.2 mg Sitagliptin Phosphate (Januvia) 50 mg PO DAILY [facility] Last Admin: 09/20/18 10:09 Dose: 50 mg - Labs Labs: 09/19/18 10:51 09/19/18 10:51 PT 10.9 SECONDS (9.7-12.2) 09/19/18 10:51 INR 1.0 09/19/18 10:51 APTT 33 SECONDS (21-34) D 09/19/18 10:51
--- NOTE | 2018-09-20 21:22 | CP.PCM.PN ---
Subjective - Date & Time of Evaluation Date of Evaluation: 09/20/18 Time of Evaluation: 08:20 - Subjective Subjective: dictated Objective - Vital Signs/Intake and Output Vital Signs (last 24 hours): Temp Pulse Resp BP Pulse Ox 98.1 F 68 20 127/72 99 09/20/18 15:00 09/20/18 15:00 09/20/18 15:00 09/20/18 15:00 09/20/18 15:00 Intake and Output: 09/20/18 09/21/18 18:59 06:59 Intake Total 350 Balance 350 - Medications Medications: Current Medications Acetaminophen (Tylenol 325mg Tab) 650 mg PO Q6 PRN PRN Reason: Fever >100.4 F Artificial Tears (Artificial Tears) 0.05 ml OU BID PRN PRN Reason: Dry eyes Aspirin (Aspirin Chewable) 81 mg PO DAILY [facility] Last Admin: 09/20/18 10:10 Dose: 81 mg Clopidogrel Bisulfate (Plavix) 75 mg PO DAILY [facility] Last Admin: 09/20/18 10:09 Dose: Not Given Enalapril Maleate (Vasotec) 20 mg PO DAILY [facility] Last Admin: 09/20/18 10:08 Dose: 20 mg Famotidine (Pepcid) 20 mg PO DAILY [facility] Last Admin: 09/20/18 10:10 Dose: 20 mg Ferrous Sulfate (Feosol) 325 mg PO BIDCC [facility] Last Admin: 09/20/18 17:53 Dose: 325 mg Hydralazine HCl (Apresoline) 25 mg PO Q8 [facility] Last Admin: 09/20/18 15:00 Dose: 25 mg Hydrochlorothiazide (Microzide) 12.5 mg PO DAILY [facility] Last Admin: 09/20/18 10:10 Dose: 12.5 mg Insulin Human Regular (Novolin R) 0 unit SC [facility]; Protocol Last Admin: 09/20/18 21:19 Dose: Not Given Metformin HCl (Glucophage) 500 mg PO BIDCC [facility] Last Admin: 09/20/18 17:52 Dose: 500 mg Metoprolol Succinate (Toprol Xl) 50 mg PO DAILY [facility] Last Admin: 09/20/18 10:09 Dose: 50 mg Ondansetron HCl (Zofran Tab) 4 mg PO Q6H PRN PRN Reason: Nausea/Vomiting Rosuvastatin Calcium (Crestor) 5 mg PO HS [facility] Last Admin: 09/19/18 21:57 Dose: 5 mg Sennosides (Senokot Tab) 17.2 mg PO HS [facility] Last Admin: 09/19/18 21:58 Dose: 17.2 mg Sitagliptin Phosphate (Januvia) 50 mg PO DAILY [facility] Last Admin: 09/20/18 10:09 Dose: 50 mg - Labs Labs: 09/19/18 10:51 09/19/18 10:51 PT 10.9 SECONDS (9.7-12.2) 09/19/18 10:51 INR 1.0 09/19/18 10:51 APTT 33 SECONDS (21-34) D 09/19/18 10:51
--- NOTE | 2018-09-21 02:50 | PN ---
DATE: 09/20/2018 SUBJECTIVE: The patient is in the chair. She is ambulating. She is awake, alert. She is feeling better. Her weakness and numbness have gone. PHYSICAL EXAMINATION: VITAL SIGNS: Blood pressure 127/72, pulse 68, respiratory rate 20, temperature 98.1. LUNGS: Clear. CARDIOVASCULAR SYSTEM: S1 and S2, regular. ABDOMEN: Soft. CENTRAL NERVOUS SYSTEM: Awake, alert, oriented x3. 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 2. Diabetic neuropathy with lumbar radiculopathy. 3. Type 2 diabetes. 4. Hypertension. PLAN: Physical therapy, rehab. Monitor the patient. Amanuel Aguilar MD
--- NOTE | 2018-09-21 04:10 | PN ---
DATE: 09/20/2018 FOLLOWUP RENAL CONSULTATION LOCATION: The patient is located in room 657, bed A. REQUESTED BY: Amanuel Aguilar MD SUBJECTIVE: Mrs. 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 Irene and recommended plasmapheresis. The patient was started on plasmapheresis last week on 09/13/2018. The patient received plasmapheresis on 09/13/2018, 09/15/2018, 09/17/2018, and again the last treatment on 09/19/2018. The patient is feeling much better now. The patient is able to ambulate. No weakness, chest pain or palpitation. No fever. No cough. No abdominal pain. No nausea, vomiting, diarrhea. No edema of the legs. The patient is eager to go back to [facility] for [facility]hab. PHYSICAL EXAMINATION: VITAL SIGNS: This afternoon, blood pressure 127/72, pulse 68, respiration 20, temperature 98.1, saturation 99%. Height 5 feet 6 inches and weight is 170 pounds. GENERAL: Mrs. Pizarro is a 77-year-old elderly, obese female, well-built, well-nourished, not in distress. HEENT: Pupils normal, reactive to light and accommodation. Conjunctivae pink. Sclerae anicteric. Tongue is moist and trachea is midline. LUNGS: Symmetric on both sides. Bilateral breath sounds present. Clear to auscultation. CVS: [place] at the fifth intercostal space, midclavicular Line. S1 and S2, audible. No murmur or gallop. ABDOMEN: Normal in appearance, soft, tympanitic. No guarding. No rigidity. No hepatosplenomegaly. 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 Nonfocal neuro examination. Cranial nerves II to XII grossly intact. Sensory and motor system is within normal limits. LABORATORY DATA: No new labs available for today. As of 09/19/2018, H and H 10.7 over 32.8. BUN and creatinine 21 over 1.1, potassium 5.1, chloride 107, CO2 of 19. Her Accu-Chek this morning is 141. ASSESSMENT AND PLAN: In summary, Mrs. 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 1. Guillain-Guy syndrome. The patient was started on plasmapheresis as recommended by neurologist, Dr. Irene. The patient received total of four treatments. 2. Hypertension. Blood pressure is stable. Continue her current medications, hydralazine 25 mg p.o. every 8 hours, hydrochlorothiazide 12.5 mg p.o. daily, metoprolol 50 mg p.o. daily, and Vasotec 20 mg p.o. daily. 3. Diabetes. Continue Glucophage, Januvia and Novolin R per sliding scale and also continue Crestor and ferrous sulfate. Case discussed with neurologist, Dr. Irene and no further plasmapheresis at this time. Case discussed with Dr. Delgado for removal of the right internal jugular Nuno catheter. Follow up with social service for outpatient subacute rehab evaluation. We will sign off the case. Lidia Bryson MD
[2018-09-21 07:12] LABS: CALCIUM 8.6 mg/dl (8.6-10.4)
[2018-09-21 07:26] LABS: BASO % 0.1 % (0.0-2.0); EOS # 0.2 K/uL (0.0-0.7); HEMOGLOBIN 9.5 g/dL (11.0-16.0); LYMPH # 0.9 K/uL (1.0-4.3); LYMPH % 13.2 % (20.0-40.0); MEAN CELL VOLUME 96.2 fL (81.0-99.0); MEAN CORPUSCULAR HEMOGLOBIN 31.9 pg (27.0-31.0); MEAN CORPUSCULAR HGB CONC 33.1 g/dL (33.0-37.0); MEAN PLATELET VOLUME 10.2 fL (7.2-11.7); MONO # 0.5 K/uL (0.0-0.8); MONO % 7.7 % (0.0-10.0); NEUT # 5.1 K/uL (1.8-7.0); RBC 2.98 Mil/uL (3.80-5.20); RED CELL DISTRIBUTION WIDTH 15.4 % (11.5-14.5); WHITE BLOOD COUNT 6.7 K/uL (4.8-10.8)
[2018-09-21] MEDS: (Novolin R) Insulin Human Regular 100 units/ml vial SC SCH ×4 (07:30→21:19)
[2018-09-21] MEDS: Metoprolol Succinate 50 mg XL Tab PO SCH (09:34)
--- NOTE | 2018-09-21 14:14 | CP.PCM.PN ---
Subjective - Date & Time of Evaluation Date of Evaluation: 09/21/18 Time of Evaluation: 14:13 - Subjective Subjective: Patient with CAD, Atrial fibrillation. resting comfortably in bed without any distress. Objective - Vital Signs/Intake and Output Vital Signs (last 24 hours): Temp Pulse Resp BP Pulse Ox 98.5 F 74 20 127/77 99 09/21/18 07:00 09/21/18 07:00 09/21/18 07:00 09/21/18 09:35 09/21/18 07:00 - Medications Medications: Current Medications Acetaminophen (Tylenol 325mg Tab) 650 mg PO Q6 PRN PRN Reason: Fever >100.4 F Artificial Tears (Artificial Tears) 0.05 ml OU BID PRN PRN Reason: Dry eyes Aspirin (Aspirin Chewable) 81 mg PO DAILY [facility] Last Admin: 09/21/18 09:34 Dose: 81 mg Clopidogrel Bisulfate (Plavix) 75 mg PO DAILY [facility] Last Admin: 09/21/18 09:35 Dose: 75 mg Enalapril Maleate (Vasotec) 20 mg PO DAILY [facility] Last Admin: 09/21/18 09:35 Dose: 20 mg Famotidine (Pepcid) 20 mg PO DAILY [facility] Last Admin: 09/21/18 09:35 Dose: 20 [facility] Admin: 09/21/18 08:27 Dose: Not Given Hydralazine HCl (Apresoline) 25 mg PO Q8 [facility] Last Admin: 09/21/18 05:34 Dose: 25 mg Hydrochlorothiazide (Microzide) 12.5 mg PO DAILY [facility] Last Admin: 09/21/18 09:34 Dose: 12.5 mg Insulin Human Regular (Novolin R) [address] [facility]; Protocol Last Admin: 09/21/18 12:06 Dose: Not Given Metformin HCl (Glucophage) 500 mg PO BIDCC [facility] Last Admin: 09/21/18 08:23 Dose: 500 mg Metoprolol Succinate (Toprol Xl) 50 mg PO DAILY [facility] Last Admin: 09/21/18 09:34 Dose: 50 mg Ondansetron HCl (Zofran Tab) 4 mg PO Q6H PRN PRN Reason: Nausea/Vomiting Rosuvastatin Calcium (Crestor) 5 mg PO HS [facility] Last Admin: 09/20/18 21:55 Dose: 5 mg Sennosides (Senokot Tab) 17.2 mg PO HS [facility] Last Admin: 09/20/18 21:55 Dose: 17.2 mg Sitagliptin Phosphate (Januvia) 50 mg PO DAILY [facility] Last Admin: 09/21/18 09:34 Dose: 50 mg - Labs Labs: 09/21/18 06:48 09/21/18 06:48 PT 10.9 SECONDS (9.7-12.2) 09/19/18 10:51 INR 1.0 09/19/18 10:51 APTT 33 SECONDS (21-34) D 09/19/18 10:51 Assessment and Plan (1) CAD (coronary artery disease) Status: Acute (2) Atrial fibrillation with RVR Assessment & Plan: Rate control and therapeutic anticoagulation. Status: Acute (3) CVA (cerebral vascular accident) Status: Acute
--- NOTE | 2018-09-21 21:15 | CP.PCM.PN ---
Subjective - Date & Time of Evaluation Date of Evaluation: 09/21/18 Time of Evaluation: 08:00 - Subjective Subjective: dictated Objective - Vital Signs/Intake and Output Vital Signs (last 24 hours): Temp Pulse Resp BP Pulse Ox 98.1 F 63 20 124/61 100 09/21/18 16:00 09/21/18 16:00 09/21/18 16:00 09/21/18 16:00 09/21/18 16:00 - Medications Medications: Current Medications Acetaminophen (Tylenol 325mg Tab) 650 mg PO Q6 PRN PRN Reason: Fever >100.4 F Artificial Tears (Artificial Tears) 0.05 ml OU BID PRN PRN Reason: Dry eyes Aspirin (Aspirin Chewable) 81 mg PO DAILY [facility] Last Admin: 09/21/18 09:34 Dose: 81 mg Clopidogrel Bisulfate (Plavix) 75 mg PO DAILY [facility] Last Admin: 09/21/18 09:35 Dose: 75 mg Enalapril Maleate (Vasotec) 20 mg PO DAILY [facility] Last Admin: 09/21/18 09:35 Dose: 20 mg Famotidine (Pepcid) 20 mg PO DAILY [facility] Last Admin: 09/21/18 09:35 Dose: 20 mg Ferrous Sulfate (Feosol) 325 mg PO BIDCC [facility] Last Admin: 09/21/18 17:36 Dose: 325 mg Hydralazine HCl (Apresoline) 25 mg PO Q8 [facility] Last Admin: 09/21/18 14:33 Dose: 25 mg Hydrochlorothiazide (Microzide) 12.5 mg PO DAILY [facility] Last Admin: 09/21/18 09:34 Dose: 12.5 mg Insulin Human Regular (Novolin R) 0 unit SC [facility]; Protocol Last Admin: 09/21/18 17:02 Dose: Not Given Metformin HCl (Glucophage) 500 mg PO BIDCC [facility] Last Admin: 09/21/18 17:36 Dose: 500 mg Metoprolol Succinate (Toprol Xl) 50 mg PO DAILY [facility] Last Admin: 09/21/18 09:34 Dose: 50 mg Ondansetron HCl (Zofran Tab) 4 mg PO Q6H PRN PRN Reason: Nausea/Vomiting Rosuvastatin Calcium (Crestor) 5 mg PO HS [facility] Last Admin: 09/20/18 21:55 Dose: 5 mg Sennosides (Senokot Tab) 17.2 mg PO HS [facility] Last Admin: 09/20/18 21:55 Dose: 17.2 mg Sitagliptin Phosphate (Januvia) 50 mg PO DAILY [facility] Last Admin: 09/21/18 09:34 Dose: 50 mg - Labs Labs: 09/21/18 06:48 09/21/18 06:48 PT 10.9 SECONDS (9.7-12.2) 09/19/18 10:51 INR 1.0 09/19/18 10:51 APTT 33 SECONDS (21-34) D 09/19/18 10:51
--- NOTE | 2018-09-22 01:08 | PN ---
DATE: 09/21/2018 SUBJECTIVE: The patient has been accepted to subacute rehab. She is ambulating. She is afebrile. No shortness of breath. PHYSICAL EXAMINATION: VITAL SIGNS: Blood pressure 124/61, pulse 63, respiratory rate 20, and temperature 98.1. LUNGS: Clear. CARDIOVASCULAR SYSTEM: S1 and S2, regular. ABDOMEN: Soft. 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 2. Hypertension. 3. Diabetes. 4. Lumbar radiculopathy. PLAN: Medical management. Monitor the patient. Amanuel Aguilar MD
[2018-09-22] MEDS: (Novolin R) Insulin Human Regular 100 units/ml vial SC SCH ×2 (07:59→11:53)
[2018-09-22 08:48] VITALS: TEMP 98.2
[2018-09-22 10:02] VITALS: PULSE 72; O2SAT 100
[2018-09-22] MEDS: Metoprolol Succinate 50 mg XL Tab PO SCH (10:03)
--- NOTE | 2018-09-22 12:39 | CP.PCM.PN ---
Subjective - Date & Time of Evaluation Date of Evaluation: 09/22/18 Time of Evaluation: 12:38 - Subjective Subjective: No new complaints, sitting in bed. Objective - Vital Signs/Intake and Output Vital Signs (last 24 hours): Temp Pulse Resp BP Pulse Ox 98.2 F 72 20 134/71 100 09/22/18 07:00 09/22/18 10:02 09/22/18 10:02 09/22/18 10:03 09/22/18 10:02 - Medications Medications: Current Medications Acetaminophen (Tylenol 325mg Tab) 650 mg PO Q6 PRN PRN Reason: Fever >100.4 F Artificial Tears (Artificial Tears) 0.05 ml OU BID PRN PRN Reason: Dry eyes Aspirin (Aspirin Chewable) 81 mg PO DAILY [facility] Last Admin: 09/22/18 10:03 Dose: 81 mg Clopidogrel Bisulfate (Plavix) 75 mg PO DAILY [facility] Last Admin: 09/22/18 10:03 Dose: 75 mg Enalapril Maleate (Vasotec) 20 mg PO DAILY [facility] Last Admin: 09/22/18 10:03 Dose: 20 mg Famotidine (Pepcid) 20 mg PO DAILY [facility] Last Admin: 09/22/18 10:03 Dose: 20 mg Ferrous Sulfate (Feosol) 325 mg PO BIDCC [facility] Last Admin: 09/22/18 07:38 Dose: Not Given Hydralazine HCl (Apresoline) 25 mg PO Q8 [facility] Last Admin: 09/22/18 06:18 Dose: 25 mg Hydrochlorothiazide (Microzide) 12.5 mg PO DAILY [facility] Last Admin: 09/22/18 10:03 Dose: 12.5 mg Insulin Human Regular (Novolin R) 0 unit SC [facility]; Protocol Last Admin: 09/22/18 11:53 Dose: 2 unit Metformin HCl (Glucophage) 500 mg PO BIDCC [facility] Last Admin: 09/22/18 07:59 Dose: 500 mg Metoprolol Succinate (Toprol Xl) 50 mg PO DAILY [facility] Last Admin: 09/22/18 10:03 Dose: 50 mg Ondansetron HCl (Zofran Tab) 4 mg PO Q6H PRN PRN Reason: Nausea/Vomiting Rosuvastatin Calcium (Crestor) 5 mg PO HS [facility] Last Admin: 09/21/18 21:23 Dose: Not Given Sennosides (Senokot Tab) 17.2 mg PO HS [facility] Last Admin: 09/21/18 21:23 Dose: Not Given Sitagliptin Phosphate (Januvia) 50 mg PO DAILY [facility] Last Admin: 09/22/18 10:03 Dose: 50 mg - Labs Labs: 09/21/18 06:48 09/21/18 06:48 PT 10.9 SECONDS (9.7-12.2) 09/19/18 10:51 INR 1.0 09/19/18 10:51 APTT 33 SECONDS (21-34) D 09/19/18 10:51 - Head Exam Head Exam: NORMOCEPHALIC - Neck Exam Neck Exam: Normal Inspection - Cardiovascular Exam Cardiovascular Exam: Irregular Rhythm - Extremities Exam Extremities Exam: Normal Inspection - Neurological Exam Neurological Exam: Alert, Oriented x3 Assessment and Plan (1) CAD (coronary artery disease) Assessment & Plan: Stable. May D/C follow up with primary. Status: Acute (2) Atrial fibrillation with RVR Assessment & Plan: Rate control and therapeutic anticoagulation. Status: Acute (3) CVA (cerebral vascular accident) Status: Acute
[2018-09-22 13:55] VITALS: BP 125/64
--- NOTE | 2018-09-23 05:55 | DS ---
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 2. Lumbar radiculopathy, peripheral neuropathy. 3. Type 2 diabetes. 4. Hypertension. HISTORY OF PRESENT ILLNESS: The patient is an elderly female with history of prior back surgery, type 2 diabetes, hypertension, hyperlipidemia, who came because of increasing weakness of all four extremities, generalized weakness. The patient denies any shortness of breath. No cough. No fever. She denies any nausea or vomiting. The patient initially was evaluated and Neurology recommended ICU transfer. She was transferred to ICU. The patient was given plasmapheresis. She tolerated plasmapheresis well, and later on, she was started on physiotherapy transferred back to the floor and she is for discharge. CONDITION UPON DISCHARGE: Stable. During course of hospitalization, she was seen by Neurology. Amanuel Aguilar MD
--- NOTE | 2018-09-24 08:46 | CARD ---
APPROVED REPORT Date of service: 09/15/2018 EKG Measurement Heart [id number] <Conclusion> Normal sinus rhythm Low voltage QRS Borderline ECG
== END 2018-09-22 16:40 | DRG 96 ==
LOC: C.ER 11:39 → C.9E 14:32 → C.6T 17:42 → C.9I 09-13 08:11 → C.6T 09-19 10:59
PROVIDERS: ADMIT Internal Medicine; ATTEND Internal Medicine
PROC: B548ZZA Ultrasonography of Superior Vena Cava, Guidance (ICD-10-PCS; 2018-09-19)
PROC: 02HV33Z Insertion of Infusion Device into Superior Vena Cava, Percutaneous Approach (ICD-10-PCS; principal; 2018-09-19 15:30)
DX: G61.0 Guillain-Barre syndrome (principal); M54.16 Radiculopathy, lumbar region; I25.10 Atherosclerotic heart disease of native coronary artery without angina pectoris; I48.91 Unspecified atrial fibrillation; K59.00 Constipation, unspecified; Z95.5 Presence of coronary angioplasty implant and graft; Z91.11 Patient's noncompliance with dietary regimen; Z98.1 Arthrodesis status; M54.12 Radiculopathy, cervical region; M19.90 Unspecified osteoarthritis, unspecified site; I10 Essential (primary) hypertension; E78.5 Hyperlipidemia, unspecified; Z86.73 Personal history of transient ischemic attack (TIA), and cerebral infarction without residual deficits; Z79.82 Long term (current) use of aspirin; E11.42 Type 2 diabetes mellitus with diabetic polyneuropathy; E66.9 Obesity, unspecified; R47.81 Slurred speech